=== PATIENT | female | born 1935 | race Caucasian/White ===

== ENCOUNTER 2016-12-27 17:15 | Observation (INO) | payer MEDICARE ==
[2016-12-27] VITALS (13 sets, daily range): BP systolic 102–160; BP diastolic 68–99; PULSE 98–126; RESP 16–18; TEMP 96.7–98.2; O2SAT 96–100
[~2016-12-27] VITALS: Ht 157.5 cm; Wt 73.5 kg
[~2016-12-27 17:15] MED LIST: AMLO5TAB96 PO; ATOR40TA49 PO; CHOL5000 PO; FERR324T4 PO; LORA0.5T PO; METO50TA PO; NITR-29 PO; OMEP20CA5 PO
[2016-12-27] MEDS ORDERED: METOPROLOL TARTRATE 5 MG/5 ML VIAL IV PUSH STA (17:45)
[2016-12-27] MEDS ORDERED: FERR325T PO (17:50)
[2016-12-27] MEDS ORDERED: AMLO5 PO (17:50)
[2016-12-27] MEDS ORDERED: D 50CAP PO (17:50)
[2016-12-27] MEDS ORDERED: APIX5TAB PO (17:50)
[2016-12-27] MEDS ORDERED: LORA-392 PO (17:50)
[2016-12-27] MEDS ORDERED: METO50TA PO (17:50)
[2016-12-27] MEDS ORDERED: LIPI80TA PO (17:50)
[2016-12-27] MEDS ORDERED: OMEP40CA2 PO (17:50)
--- NOTE | 2016-12-27 17:50 | PD ---
HPI Chief Complaint: Cardiac Complaint Time Seen by Provider: 17:24 Travel History International Travel<30 days: No Contact w/Intl Traveler<30days: No Traveled to known affect area: No History of Present Illness HPI This 81-year-old female is complaining of fast heartbeat. She says she is feeling weak and dizzy and thinks she is going to pass out. She has had atrial fibrillation about 6 years ago and had an ablation done. 6 months ago she was hospitalized with generalized weakness. She believes she had atrial fibrillation at that time though I not see that documented. She was started on Eliquis at that time. She takes metoprolol 50 mg twice a day and is quite certain that she took it. She is not having any chest pain or shortness of breath. She says she feels weak all over and lightheaded. There is a family history of coronary artery disease. She has no history of myocardial infarctions. She says that the symptoms were present when she woke up this morning and have been persistent throughout the day PFSH Past Medical History Arthritis: Yes Atrial Fibrillation: Yes Blood Disorders: No Heart Rhythm Problems: Yes (PALPITATIONS) Cancer: No Cardiovascular Problems: Yes (hx of a-fib) High Cholesterol: Yes Diabetes: No Diminished Hearing: No Endocrine: No Gastrointestinal Disorders: Yes GERD: Yes Genitourinary: Yes Headaches: Yes Hepatitis: No Hiatal Hernia: No Hypertension: Yes Immune Disorder: No Implanted Vascular Access Dvce: No Medical other: Yes (REFLUX, BACK AND NECK) Musculoskeletal: Yes Neurologic: Yes Psychiatric: No Reproductive: No Respiratory: Yes Thyroid Disease: No Tetanus Vaccination: < 5 Years Influenza Vaccination: Yes Menopausal: Yes Past Surgical History Abdominal Surgery: Yes (CHOLECYSTECTOMY) Appendectomy: Yes Cardiac Surgery: Yes (ABLATION) Cholecystectomy: Yes Ear Surgery: No Endocrine Surgery: No Eye Surgery: Yes (CATARACTS BILAT) Genitourinary Surgery: No Gynecologic Surgery: Yes (HYSTERECTOMY) Hysterectomy: Yes Neurologic Surgery: No Oral Surgery: No Pacemaker: No Thoracic Surgery: No Tonsillectomy: Yes Other Surgery: Yes Family History Family Hypercholesterolemia: Yes Social History Alcohol Use: Yes (occas. beer) Tobacco Use: No Substance Use: No Allergies-Medications (Allergen,Severity, Reaction): Coded Allergies: Aspirin (Verified Allergy, Severe, "TOLD NOT TO TAKE ANY ANTIINFLAMMATORIES", 12/27/16) Ibuprofen (Verified Allergy, Severe, "TOLD NOT TO TAKE ANYMORE", 12/27/16) Keflex (Verified Allergy, Severe, "SWOLLEN THROAT,ITCHING ALL OVER", ) Lisinopril (Verified Allergy, Severe, "RASH", 12/27/16) Penicillin (Verified Allergy, Severe, UNKNOWN, 12/27/16) Relafen (Verified Allergy, Severe, "NEPHROTIC SYNDROME", 12/27/16) Sulfa (Verified Allergy, Severe, "TOLD NOT TO TAKE ANYMORE", 12/27/16) Adhesives (Verified Allergy, Intermediate, Rash, 12/27/16) Digoxin (Verified Allergy, Intermediate, Fatigue, 12/27/16) Micardis (Verified Allergy, Intermediate, Fatigue, 12/27/16) Uncoded Allergies: ANTIINFLAMMATORIES (Allergy, Severe, "TOLD NOT TO TAKE ANYMORE", 01/04/16) . Reported Meds & Prescriptions Reported Meds & Active Scripts Active Reported Eliquis (Apixaban) 5 Mg Tab 5 Mg PO BID Omeprazole 40 Mg Cap 40 Mg PO DAILY Metoprolol Tartrate 50 Mg Tab 50 Mg PO BID Ativan (Lorazepam) 0.5 Mg Tab 0.5 Mg PO HS PRN Ferrous Sulfate 325 Mg Tab 325 Mg PO DAILY D 5000 (Cholecalciferol) 5,000 Unit Cap 1 Cap PO DAILY Lipitor (Atorvastatin Calcium) 80 Mg Tab 80 Mg PO HS Norvasc (Amlodipine Besylate) 5 Mg Tab 5 Mg PO BID Review of Systems General / Constitutional: No: Fever, Chills Eyes: No: Diploplia, Blurred Vision HENT: No: Headaches Cardiovascular: Positive: Palpitations, Irregular Rhythm, Tachycardia, No: Chest Pain or Discomfort Respiratory: No: Cough, Shortness of Breath Gastrointestinal: No: Vomiting, Diarrhea Genitourinary: No: Urgency, Frequency Musculoskeletal: No: Myalgias, Arthralgias Neurologic: Positive: Weakness, Dizziness, No: Syncope, Focal Abnormalities Endocrine: No: Cold Intolerance Hematologic/Lymphatic: No: Easy Bruising Physical Exam Narrative GENERAL: Well-developed female. Her heart rate is 120 SKIN: Focused skin assessment warm/dry. HEAD: Atraumatic. Normocephalic. EYES: Pupils equal and round. No scleral icterus. No injection or drainage. ENT: No nasal bleeding or discharge. Mucous membranes pink and moist. NECK: Trachea midline. No JVD. CARDIOVASCULAR: Rapid irregular rate and rhythm. No murmur appreciated. RESPIRATORY: No accessory muscle use. Clear to auscultation. Breath sounds equal bilaterally. GASTROINTESTINAL: Abdomen soft, non-tender, nondistended. Hepatic and splenic margins not palpable. MUSCULOSKELETAL: No obvious deformities. No clubbing. No cyanosis. No edema. NEUROLOGICAL: Awake and alert. No obvious cranial nerve deficits. Motor grossly within normal limits. Normal speech. PSYCHIATRIC: Appropriate mood and affect; insight and judgment normal. Data Data Last Documented VS Vital Signs Date Time Temp Pulse Resp B/P Pulse Ox O2 Delivery O2 Flow Rate FiO2 12/27/16 19:25 117 18 102/76 98 Room Air 12/27/16 19:00 98.2 Orders Electrocardiogram (12/27/16 17:45) Complete Blood Count With Diff (12/27/16 17:45) Basic Metabolic Panel (Bmp) (12/27/16 17:45) B-Type Natriuretic Peptide (12/27/16 17:45) Prothrombin Time / Inr (Pt) (12/27/16 17:45) Act Partial Throm Time (Ptt) (12/27/16 17:45) Urinalysis - C+S If Indicated (12/27/16 17:45) Magnesium (Mg) (12/27/16 17:45) Thyroid Stimulating Hormone (12/27/16 17:45) Chest, Single Ap (12/27/16 17:45) Metoprolol Tartrate Inj (Lopressor Inj) (12/27/16 17:45) Troponin I (12/27/16 18:14) Metoprolol Tartrate Inj (Lopressor Inj) (12/27/16 18:30) Metoprolol Tartrate (Lopressor) (12/27/16 19:15) Labs Laboratory Tests Test 12/27/16 17:55 White Blood Count 6.4 TH/MM3 Red Blood Count 4.83 MIL/MM3 Hemoglobin 12.4 GM/DL Hematocrit 37.8 % Mean Corpuscular Volume 78.3 FL Mean Corpuscular Hemoglobin 25.6 PG Mean Corpuscular Hemoglobin 32.7 % Concent Red Cell Distribution Width 16.4 % Platelet Count 285 TH/MM3 Mean Platelet Volume 7.8 FL Neutrophils (%) (Auto) 47.8 % Lymphocytes (%) (Auto) 37.5 % Monocytes (%) (Auto) 12.3 % Eosinophils (%) (Auto) 0.8 % Basophils (%) (Auto) 1.6 % Neutrophils # (Auto) 3.0 TH/MM3 Lymphocytes # (Auto) 2.4 TH/MM3 Monocytes # (Auto) 0.8 TH/MM3 Eosinophils # (Auto) 0.1 TH/MM3 Basophils # (Auto) 0.1 TH/MM3 CBC Comment DIFF FINAL Differential Comment Prothrombin Time 10.4 SEC Prothromb Time International 0.9 RATIO Ratio Activated Partial 28.5 SEC Thromboplast Time Urine Color YELLOW Urine Turbidity CLEAR Urine pH 6.5 Urine Specific [place] 1.005 Urine Protein NEG mg/dL Urine Glucose (UA) NEG mg/dL Urine Ketones NEG mg/dL Urine Occult Blood NEG Urine Nitrite NEG Urine Bilirubin NEG Urine Leukocyte Esterase TRACE Urine Squamous Epithelial 0-5 /hpf Cells Microscopic Urinalysis Comment CULT NOT INDICATED Sodium Level 134 MEQ/L Potassium Level 3.8 MEQ/L Chloride Level 97 MEQ/L Carbon Dioxide Level 28.3 MEQ/L Anion Gap 9 MEQ/L Blood Urea Nitrogen 16 MG/DL Creatinine 0.72 MG/DL Estimat Glomerular Filtration 78 ML/MIN Rate Random Glucose 97 MG/DL Calcium Level 8.8 MG/DL Magnesium Level 2.1 MG/DL Troponin I LESS THAN 0.02 NG/ML B-Type Natriuretic Peptide 253 PG/ML Thyroid Stimulating Hormone 2.260 uIU/ML 3rd Gen [facility] Medical Decision Making Medical Screen Exam Complete: Yes Emergency Medical Condition: Yes Medical Record Reviewed: Yes Differential Diagnosis Differential includes atrial fibrillation, dysrhythmia, electrolyte imbalance Narrative Course EKG shows atrial fibrillation at a rate of 117. Patient is on metoprolol 50 mg twice daily and says she has taken it this morning. I have given an additional 10 mg intravenously of metoprolol. I discussed the case with Dr. Serrano we will increase her metoprolol to 75 mg twice a day and continue the Eliquis. Patient is very symptomatic with this atrial fibrillation. Diagnosis Primary Impression: Rapid atrial fibrillation Additional Impression: Near syncope Zoltan Vega MD Dec 27, 2016 17:50
[2016-12-27 18:01] LABS: BASOPHIL # 0.1 TH/MM3 (0-0.2); BASOPHIL % 1.6 % (0.0-2.0); EOSINOPHIL # 0.1 TH/MM3 (0-0.4); EOSINOPHIL % 0.8 % (0.0-4.0); HEMATOCRIT 37.8 % (35.0-46.0); LYMPH % 37.5 % (9.0-44.0); LYMPHOCYTE # 2.4 TH/MM3 (1.0-4.8); MEAN CELL VOLUME 78.3 FL (80.0-100.0); MEAN CORPUSCULAR HEMOGLOBIN 25.6 PG (27.0-34.0); MEAN CORPUSCULAR HGB CONC 32.7 % (32.0-36.0); MONO % 12.3 % (0.0-8.0); NEUT % 47.8 % (16.0-70.0); PLATELET COUNT 285 TH/MM3 (150-450); RED BLOOD COUNT 4.83 MIL/MM3 (4.00-5.30); RED CELL DISTRIBUTION WIDTH 16.4 % (11.6-17.2); WHITE BLOOD COUNT 6.4 TH/MM3 (4.0-11.0)
[2016-12-27 18:06] LABS: HEMO FLAGS DIFF FINAL
[2016-12-27 18:09] LABS: BLOOD, URINE NEG (NEG); GLUCOSE,URINE NEG (NEG); KETONE, URINE NEG (NEG); NITRITE,URINE NEG (NEG); PH, URINE 6.5 (5.0-8.5); POTASSIUM 3.8 MEQ/L (3.5-5.1)
[2016-12-27 18:12] LABS: BICARBONATE 28.3 MEQ/L (21.0-32.0); MAGNESIUM 2.1 MG/DL (1.5-2.5)
[2016-12-27 18:14] LABS: URINE COLOR YELLOW (YELLW/STRAW)
[2016-12-27 18:15] LABS: APTT (PATIENT) 28.5 SEC (24.3-30.1); COMMENT (UR) CULT NOT INDICATED; CULTURE IF INDICATED CULT NOT INDICATED; INTERNATIONAL NORMALIZED RATIO 0.9 RATIO; PROTHROMBIN TIME - PATIENT 10.4 SEC (9.8-11.6); SQUAMOUS EPITHELIAL CELL URINE 0-5 /hpf (0-5)
--- NOTE | 2016-12-27 18:18 | RADHPO ---
EXAM DATE/TIME: 12/27/2016 18:09 [place] COMPARISON: CHEST SINGLE AP, May 31, 2016, 13:16. INDICATIONS : Complains of heart palpitations and weakness. MEDICAL HISTORY : Atrial fibrillation SURGICAL HISTORY : None. ENCOUNTER: Initial ACUITY: 1 day PAIN SCORE: 0/10 LOCATION: Bilateral chest FINDINGS: A single view of the chest demonstrates the lungs to be symmetrically aerated without evidence of mas s, infiltrate or effusion. Minimal right paratracheal fullness is noted probably related to rotation . The cardiomediastinal contours are unremarkable. Osseous structures are intact. CONCLUSION: No acute disease. Sunny Bejarano MD FACR on December 27, 2016 at 18:16 Board Certified Radiologist. This report was verified electronically.
[2016-12-27] MEDS ORDERED: METOPROLOL TARTRATE 5 MG/5 ML VIAL IV PUSH ONE (18:30)
[2016-12-27] MEDS ORDERED: METOPROLOL TARTRATE 25 MG TAB PO ONE (19:15)
[2016-12-27] MEDS ORDERED: FISH1000 PO (20:25)
[2016-12-27] MEDS ORDERED: CHOL1CHW5 CHEW (20:25)
[2016-12-27] MEDS ORDERED: COQ1200C PO (20:25)
[2016-12-27] MEDS ORDERED: LORazepam 0.5 MG TAB PO PRN (20:45)
[2016-12-27] MEDS ORDERED: NON-FORMULARY DRUG (Omega-3 Fatty Acids (Fish Oil) 1,000 MG) PO SCH (21:00)
[2016-12-27] MEDS: METOPROLOL TARTRATE 50 MG TAB PO SCH (21:00)
[2016-12-27] MEDS: PANTOPRAZOLE SOD 20 MG DELAYED RELEASE TAB PO SCH ×2 (21:00→23:43)
[2016-12-27] MEDS ORDERED: PILL SPLITTER OTHER PRN (21:00)
--- NOTE | 2016-12-27 22:15 | MH ---
cc: ANNA FALCON M.D. DATE OF ADMISSION 12/27/2016 ADMITTING DIAGNOSIS 1. Recurrent atrial fibrillation with mild rapid ventricular response. 2. Prior history of ablation procedure for atrial fibrillation around 2009 with brief recurrent atrial fibrillation around May 2016 and was put on Eliquis then but had been in sinus rhythm until just today. 3. Hypertension. 4. Hyperlipidemia. 5. Gastroesophageal reflux disease / hiatal hernia. 6. Anxiety. 7. Osteoarthritis. 8. Atherosclerosis of the aorta. 9. Vitamin D insufficiency on vitamin D therapy. 10. Prior paroxysmal supraventricular tachycardia controlled with beta jane. PERTINENT HISTORY This is an 81-year-old white female who started to experience some palpitations this morning and felt like her heart was beating fast at times. She would get just a little bit short of breath on exertion. She would feel a little bit weak and at times a little dizzy or lightheaded. She has no chest discomfort. She has a history of atrial fibrillation in the past and had an ablation procedure around 2009 and had been in sinus rhythm until in May of 2016 she was noted to be in atrial fibrillation. She was put on Cartia by her dough cutting machine operator but only took it for less than a day because it caused some side effects but she subsequently went back in sinus rhythm. She was noted to be in sinus rhythm at an office visit in June of [address] Howe. She had a Holter monitor on 06/14/2016 that showed sinus rhythm with some occasional PACs with short atrial runs and some occasional PVCs in singlets. She has had no history of heart attack, angina or congestive heart failure. When she came to the ED today she was noted to be in atrial fibrillation and her maximum heart rate has seemed to have been only up to around 120. She seems much more comfortable now. She was given 75 milligrams of metoprolol after Dr. Chisholm discussed the case with cardiology. She has no chest pain or shortness of breath at this time. She states that she feels better. PAST MEDICAL HISTORY As mentioned. She also has: 1. Hypertension. 2. Hyperlipidemia for which she is on a statin drug. 3. She has gastroesophageal reflux disease / hiatal hernia. 4. She has had esophageal stricture in the past that was dilated a few years ago. 5. She has had no lung disease other than pneumonia in the past. No diabetes. No thyroid disease. No liver problems. 6. She has had a negative thallium stress test in 2009. 7. She has had osteoarthritis. 8. Anxiety. 9. Osteopenia. 10. Paroxysmal supraventricular tachycardia. 11. Atherosclerosis of the aorta. 12. She has had some lumbar degenerative disc disease but it is stable now. 13. She has had diverticulitis. 14. She has had herpes zoster and varicella. 15. She had nephrotic syndrome in the that was triggered by NSAIDs and she was put on prednisone then with resolution of it. PAST SURGICAL HISTORY 1. She had a total abdominal hysterectomy with a partial left oophorectomy and right salpingo-oophorectomy. 2. She has had a tonsillectomy and adenoidectomy. 3. Laparoscopic cholecystectomy. 4. Appendectomy. 5. Had an incisional right breast biopsy in the past that was benign. 6. She has had excision of a Nelson's neuroma from the right foot. 7. Had arthroscopy of the right shoulder with subacromial decompression and prior right rotator cuff repair. 8. She has had laparoscopy with lysis of adhesions. 9. She has had bilateral cataract extraction and lens implants. 10. Had colonoscopies done on 01/15/2002, 11/26/2008, 05/13/2010 that showed normal colon. 11. Her last EGD showed gastric polyps. 12. On 04/24/2013 she has had gastritis on prior EGDs. ALLERGIES SHE HAS HIVES AND RASH WITH KEFLEX AND ANAPHYLAXIS WITH PENICILLIN. SHE HAD A RASH WITH LISINOPRIL. LOVASTATIN CAUSED NAUSEA. NSAIDS AND RELAFEN CAUSED NEPHROTIC SYNDROME. SHE HAS A PROBLEM WITH LATEX GLOVES. SULFA. MEDICATIONS She takes: 1. Metoprolol 50 milligrams twice a day. 2. Eliquis 5 milligrams twice a day. This was started in May of 2016. 3. She is on Atorvastatin 80 milligrams tablet, one every other day. 4. Amlodipine 5 milligrams twice a day. 5. Lorazepam 1 milligrams, she generally just takes one-half pill at night as needed. 6. Omeprazole 20 milligrams tablet, takes two a day. 7. Vitamin D3 2000 units two a day. 8. She takes Co-Q10 200 milligrams daily. 9. Magnesium oxide 200 milligrams daily. 10. Fish oil 1000 milligrams two a day. FAMILY HISTORY Her father around 75. He had cirrhosis of the liver and while he was in the hospital for that he apparently fell and punctured his lung and of that. Mother at 78 of heart disease. Her mother had diabetes. Had a sister with diabetes. SOCIAL HISTORY She is . Lives alone. She quit smoking in 1990, smoked one-half pack a day for 25 years prior to quitting. She has just occasional glass or wine or beer. REVIEW OF SYSTEMS GENERAL: No fever or chills, sweats. HEENT: No runny nose, sore throat, vision complaints. CARDIOVASCULAR: As mentioned no chest discomfort. PULMONARY: No cough, hemoptysis, wheezing. No shortness of breath at rest. GASTROINTESTINAL: No nausea or vomiting, heartburn, indigestion, melena or rectal bleeding. GENITOURINARY: No dysuria, urgency, frequency. EXTREMITIES: Without edema. MUSCULOSKELETAL: Without complaints. SKIN: Without rash. NEUROLOGIC: No focal weakness, sensory loss or confusion. PHYSICAL EXAMINATION GENERAL: Pleasant white female in no acute distress. VITAL SIGNS: Temperature 98.2. Her most recent heart rate is 102 and irregular. Blood pressure is improved, it was up to 154/83 but most recent one is 115/76. O2 saturation 97%. HEENT: Tympanic membranes clear. Nose negative. Mouth without inflammation. NECK: Without bruits. No JVD. HEART: Irregular rhythm which is slight tachycardia. LUNGS: Clear. ABDOMEN: Soft. Nontender. No masses. EXTREMITIES: No edema. Pulses palpated both feet. SKIN: Negative. NEUROLOGIC: Oriented times three. Cranial nerves, motor and sensory intact. LABORATORY DATA Her sodium is 134, potassium 3.8, chloride 97, CO2 28.3. BUN 16, creatinine 0.17. GFR was 78. Calcium 8.8. Magnesium 2.1. TSH was normal at 2.26. Troponin was less than 0.02. BNP 253. White count was 6.4, hemoglobin 12.4, platelets were 285,000. Urinalysis was negative. EKG showed atrial fibrillation. IMAGING A chest x-ray showed no acute process. ASSESSMENT As noted. PLAN The patient has been given 75 milligrams of metoprolol and her heart rate has come down to around 100. She will be monitored overnight. She will be maintained on 75 milligrams twice a day. She will continue on Eliquis for her atrial fibrillation. She will continue on her other medications as well. She will be monitored on telemetry. If she is stable tomorrow we will be able to discharge her and let her followup with Dr. Howe. He will need to decide whether she will need further ablation procedure since she is back in atrial fibrillation, he apparently discussed this with her back in the fall when he saw her after she had had a brief episode of atrial fibrillation back then but had converted back to sinus rhythm. She cannot take digoxin apparently has had a problem with that and did have some side effects to Cartia XT, so that is why we have upped the dose of the metoprolol. MD MARY Panchal/KK /8:50 PM /9:04 PM
[2016-12-27] MEDS: APIXABAN 5 MG TABLET PO SCH (22:48)
[2016-12-27] MEDS: CHOLECALCIFEROL (VIT D3) 1000 UNIT TAB PO SCH (22:48)
[2016-12-27] MEDS: amLODIPine BESYLATE 5 MG TAB PO SCH (22:48)
[2016-12-28] VITALS (9 sets, daily range): BP systolic 112–134; BP diastolic 71–89; PULSE 91–116; RESP 14–18; TEMP 95.1–96.7; O2SAT 97–98
[2016-12-28] MEDS: PANTOPRAZOLE SOD 20 MG DELAYED RELEASE TAB PO SCH (07:32)
[2016-12-28] MEDS: CHOLECALCIFEROL (VIT D3) 1000 UNIT TAB PO SCH (07:33)
[2016-12-28] MEDS: amLODIPine BESYLATE 5 MG TAB PO SCH (07:33)
[2016-12-28] MEDS: METOPROLOL TARTRATE 50 MG TAB PO SCH (07:33)
[2016-12-28] MEDS: APIXABAN 5 MG TABLET PO SCH (07:33)
--- NOTE | 2016-12-28 07:52 | HHI.PR ---
Subjective Remarks Patient has no complaints. No chest pain or shortness of breath. Her telemetry did show heart rates up into the 120's at times during the night but now primarily between 100-110. Objective Vitals Vital Signs Date Time Temp Pulse Resp B/P Pulse Ox O2 Delivery O2 Flow Rate FiO2 12/28/16 06:00 106 12/28/16 05:00 103 12/28/16 04:00 103 12/28/16 04:00 96.3 91 16 133/88 98 12/28/16 03:00 104 12/28/16 02:00 100 12/28/16 01:00 94 12/28/16 00:00 95.1 116 18 134/89 98 12/28/16 00:00 114 12/27/16 23:00 99 12/27/16 22:00 105 12/27/16 21:46 96.7 116 18 129/72 96 12/27/16 20:30 102 18 115/76 97 Room Air 12/27/16 20:00 112 18 151/99 98 Room Air 12/27/16 19:42 122 18 154/83 97 Room Air 12/27/16 19:25 117 18 102/76 98 Room Air 12/27/16 19:00 98.2 107 18 123/68 98 Room Air 12/27/16 19:00 18 98 Room Air 12/27/16 18:40 98 148/90 12/27/16 18:32 110 160/92 12/27/16 18:11 104 151/86 12/27/16 17:58 126 158/93 12/27/16 17:43 Room Air 12/27/16 17:43 98.1 123 16 153/85 100 Room Air 12/27/16 12/27/16 12/28/16 15:00 23:00 07:00 Intake Total 180 ml Balance 180 ml Intake Oral 180 ml # Voids 3 # Bowel Movements 0 Result Diagram: 12/27/16 [id number] Other Results Laboratory Tests Test 12/27/16 17:55 White Blood Count 6.4 TH/MM3 Red Blood Count 4.83 MIL/MM3 Hemoglobin 12.4 GM/DL Hematocrit 37.8 % Mean Corpuscular Volume 78.3 FL Mean Corpuscular Hemoglobin 25.6 PG Mean Corpuscular Hemoglobin 32.7 % Concent Red Cell Distribution Width 16.4 % Platelet Count 285 TH/MM3 Mean Platelet Volume 7.8 FL Neutrophils (%) (Auto) 47.8 % Lymphocytes (%) (Auto) 37.5 % Monocytes (%) (Auto) 12.3 % Eosinophils (%) (Auto) 0.8 % Basophils (%) (Auto) 1.6 % Neutrophils # (Auto) 3.0 TH/MM3 Lymphocytes # (Auto) 2.4 TH/MM3 Monocytes # (Auto) 0.8 TH/MM3 Eosinophils # (Auto) 0.1 TH/MM3 Basophils # (Auto) 0.1 TH/MM3 CBC Comment DIFF FINAL Differential Comment Prothrombin Time 10.4 SEC Prothromb Time International 0.9 RATIO Ratio Activated Partial 28.5 SEC Thromboplast Time Urine Color YELLOW Urine Turbidity CLEAR Urine pH 6.5 Urine Specific [place] 1.005 Urine Protein NEG mg/dL Urine Glucose (UA) NEG mg/dL Urine Ketones NEG mg/dL Urine Occult Blood NEG Urine Nitrite NEG Urine Bilirubin NEG Urine Leukocyte Esterase TRACE Urine Squamous Epithelial 0-5 /hpf Cells Microscopic Urinalysis Comment CULT NOT INDICATED Sodium Level 134 MEQ/L Potassium Level 3.8 MEQ/L Chloride Level 97 MEQ/L Carbon Dioxide Level 28.3 MEQ/L Anion Gap 9 MEQ/L Blood Urea Nitrogen 16 MG/DL Creatinine 0.72 MG/DL Estimat Glomerular Filtration 78 ML/MIN Rate Random Glucose 97 MG/DL Calcium Level 8.8 MG/DL Magnesium Level 2.1 MG/DL Troponin I LESS THAN 0.02 NG/ML B-Type Natriuretic Peptide 253 PG/ML Thyroid Stimulating Hormone 2.260 uIU/ML 3rd Gen Imaging Last Impressions Chest X-Ray 12/27/16 0877 Signed Impressions: Service Date/Time: Tuesday, December 27, 2016 18:09 - CONCLUSION: No acute disease. Sunny Bejarano MD FACR Objective Remarks Exam: Pleasant white female in no distress HEENT: Pupils equal, no scleral icterus, mouth negative Neck: No JVD Heart: Irregular irregular rhythm c/w atrial fibrillation, no murmur Lungs: Clear Abdomen: Soft, nontender Extremities: No edema, pulses palpated Neuro: negative A/P Assessment and Plan Assessment: --Recurrent atrial fibrillation with mild rapid ventricular response--on Eliquis. On Metoprolol. She has had side effects to Digoxin and Cardizem in the past. --Hx of prior cardiac ablation procedure for atrial fibrillation around 2009 and patient had remained in sinus rhythm until she had a brief episode of a-fib in May 2016 that converted to sinus rhythm --Hypertension --Hyperlipidemia --GERD/Hiatal hernia --Anxiety --PSVT--stable --Vitamin D insufficiency --Osteopenia --Osteoarthritis --Atherosclerosis of the aorta Plan: Her Metoprolol was increased to 75mg bid last night. Rate hovering primarily between 100-120. Patient currently asymptomatic. Will consult Dr Howe (her automotive service manager). Can be discharged when cardiology feels her rate is adequately controlled. She is on Eliquis. Continue other routine home medications as ordered. If discharged later today she will followup with Dr Howe as well as myself. Rashard Abbott MD Dec 28, 2016 07:52
--- NOTE | 2016-12-28 08:27 | MB ---
cc: VAN TRUJILLO M.D., DONALD G. M.D. GOLDSMITH, ALAN S. M.D. DATE OF 1935 DATE OF SERVICE 12/28/2016 I have reviewed outside and hospital records. REASON FOR CONSULTATION The patient is a pleasant 81-year-old woman I am seeing for atrial fibrillation. She is followed by Dr. Trujillo. HISTORY OF PRESENT ILLNESS The patient had an atrial fibrillation ablation approximately in 2009. She did have a brief recurrence in May of 2016 and has been on anticoagulation and beta blockers. The day before yesterday, 12/26, she noted she was more fatigued but had no other cardiac symptoms. Yesterday morning noticed the fatigue continued along with mild dyspnea and when taking her blood pressure noticed she was tachycardia. She had no chest pain or palpitations but did get a little lightheaded when she would stand up. PAST MEDICAL HISTORY 1. Atrial fibrillation as above. 2. PVCs. 3. Hypertension. 4. Hyperlipidemia. 5. Gastroesophageal reflux. 6. Prior esophageal stricture with dilatation. 7. Osteoarthritis. 8. Lumbar disk disease. 9. Diverticulitis. 10. Distant nephrotic syndrome triggered by NSAIDs. PAST SURGICAL HISTORY 1. SYMONE-BSO. 2. Cholecystectomy. 3. Tonsillectomy. 4. Appendectomy. 5. Right breast biopsy. 6. Right foot Nelson's neuroma. 7. Right shoulder arthroscopy with rotator cuff repair. 8. Laparoscopic adhesion lysis. 9. Bilateral cataracts. 10. Colon polyps. ALLERGIES KEFLEX. PENICILLIN. REGLAN. SULFA. MISSY INHIBITORS. She may have had also some issue with LOVASTATIN CAUSING NAUSEA. NSAIDS. LATEX gloves. There may be in some intolerance to DIGOXIN Intolerance to CARDIZEM. FAMILY HISTORY Only remarkable for a brother with atrial fibrillation. She is a and distant smoker and rarely drinks. REVIEW OF SYSTEMS Only remarkable for occasional joint discomfort and the above symptoms. PHYSICAL EXAMINATION GENERAL: On exam she is a borderline to mildly tachycardic. Alert and oriented x 3. HEENT: There are no xanthelasma and oral pharyngeal mucosa normal. VITAL SIGNS: Afebrile. Vital signs stable. CHEST: Without deformities and clear. JVD normal. S1-S2, no murmurs or gallops. There is an irregular rhythm. ABDOMEN: Benign. EXTREMITIES: No cyanosis, clubbing or edema. PULSES: 1-2+ throughout, without bruits. NEUROLOGIC: She is not ambulated EKG Shows atrial fibrillation with rapid response and mild nonspecific ST-T wave changes. CHEST X-RAY Negative. LABORATORY WORK CBC normal with mild microcytosis. PT/PTT normal. Potassium 3.8, creatinine 0.70. TSH normal. Troponin negative. BNP 253. Urinalysis negative. MEDICATION LIST Reviewed. PROBLEMS 1. Recurrent atrial fibrillation with rapid response. 2. Hypertension. 3. Hyperlipidemia. RECOMMENDATIONS 1. Continue Eliquis given her risk factors. 2. She has been placed on increased metoprolol. If this does not control her rate, this dose can certainly be increased and amlodipine backed off. Additionally, low-dose verapamil can be added for rate control. 3. Low cholesterol/salt diet. 4. My associate will see the patient tomorrow. Eventually when rate is controlled, she can be discharged with followup with Dr. Trujillo who can discuss potential repeat ablation. All questions were answered. Carl Howe MD ASAga/SSB /8:08 AM /8:16 AM
[2016-12-28] MEDS ORDERED: INFLUENZA VIRUS VACCINE (QUADRIVALENT) 0.5 ML SYR IM ONE (09:00)
[2016-12-28] MEDS ORDERED: NON-FORMULARY DRUG (Coenzyme Q10 (Ubidecarenone) (Coq10) 200 MG) PO SCH (09:00)
--- NOTE | 2016-12-28 11:44 | EKG ---
Date Performed: 12/27/2016 Time Performed: 17:28:06 PTAGE: 81 years EKG: Atrial fibrillation with rapid ventricular response with PVC(s) Lateral ST-T changes are no nspecific Abnormal ECG PREVIOUS TRACING : 05/31/2016 16.26 DOCTOR: Devon Quach Interpretating Date/Time 12/28/2016 11:39:11
[2016-12-28] MEDS ORDERED: METO-309 PO (14:06)
[2016-12-29] MEDS ORDERED: ATORVASTATIN 40 MG TAB PO SCH (09:00)
== END 2016-12-28 15:34 | disposition home or self-care (01) ==
LOC: PHED 17:15 → INTOOBSV 19:43 → PHEDA 19:43 → PH3A 20:53
PROVIDERS: ADMIT Family Medicine; ATTEND Family Medicine
DX: I48.91 Unspecified atrial fibrillation (principal); R55 Syncope and collapse; R53.1 Weakness; R42 Dizziness and giddiness; E78.00 Pure hypercholesterolemia, unspecified; K21.9 Gastro-esophageal reflux disease without esophagitis; I10 Essential (primary) hypertension; Z79.899 Other long term (current) drug therapy; E78.5 Hyperlipidemia, unspecified; I70.0 Atherosclerosis of aorta; E55.9 Vitamin D deficiency, unspecified; I47.1 Supraventricular tachycardia; R06.02 Shortness of breath; I49.3 Ventricular premature depolarization; M19.90 Unspecified osteoarthritis, unspecified site; M85.80 Other specified disorders of bone density and structure, unspecified site; B02.9 Zoster without complications; B01.9 Varicella without complication; K57.92 Diverticulitis of intestine, part unspecified, without perforation or abscess without bleeding; Z79.01 Long term (current) use of anticoagulants
CPT/HCPCS: 71010; 80048; 81001; 83735; 83880; 84443; 84484; 85025; 85610; 85730; 93005; 96374; 96376; 99285; G0378

== ENCOUNTER 2017-01-20 06:15 | Day surgery (SDC) | payer MEDICARE ==
[~2017-01-20] VITALS: Ht 157.5 cm; Wt 76.1 kg
[2017-01-20] VITALS (10 sets, daily range): BP systolic 104–130; BP diastolic 62–78; PULSE 78–90; RESP 16–18; TEMP 98–98.4; O2SAT 94–96
[~2017-01-20 06:15] MED LIST changes: +AMLO5 PO; -AMLO5TAB96 PO; +APIX5TAB PO; -ATOR40TA49 PO; +CHOL1CHW5 CHEW; -CHOL5000 PO; +COQ1200C PO; -FERR324T4 PO; +FISH1000 PO; +LIPI80TA PO; +LORA-392 PO; -LORA0.5T PO; +METO-309 PO; -METO50TA PO; -NITR-29 PO; -OMEP20CA5 PO; +OMEP40CA2 PO
[2017-01-20] MEDS ORDERED: POVIDONE IODINE 5% (ANTISEPSIS KIT) 4 APPLICATIONS EACH NARE PRN (06:45)
[2017-01-20] MEDS ORDERED: CHLORHEXIDINE GLUCONATE 2 % 1 PACK (2 CLOTHS) TOPICAL PRN (06:45)
[2017-01-20] MEDS ORDERED: SODIUM CHLORID 0.9% 500 ML IV PRN (06:45)
[2017-01-20] MEDS ORDERED: METOPROLOL TARTRATE 25 MG TAB PO PRN (06:45)
[2017-01-20] MEDS ORDERED: LACTATED RINGER'S 1000 ML IV PRN (06:45)
[2017-01-20] MEDS ORDERED: INSULIN HUMAN REGULAR 1,000 UNITS/10 ML VIAL SQ PRN (06:45)
[2017-01-20] MEDS ORDERED: LEVOFLOXACIN 500 MG PREMIX INJ 100 ML IV ONE (07:00)
[2017-01-20 07:29] LABS: AUTOMATED NEUTROPHIL # 1.7 TH/MM3 (1.8-7.7); BASOPHIL % 0.8 % (0.0-2.0); EOSINOPHIL % 1.3 % (0.0-4.0); HEMATOCRIT 29.6 % (35.0-46.0); HEMO FLAGS DIFF FINAL; LYMPH % 28.7 % (9.0-44.0); MEAN CELL VOLUME 75.3 FL (80.0-100.0); MEAN CORPUSCULAR HEMOGLOBIN 25.1 PG (27.0-34.0); MEAN CORPUSCULAR HGB CONC 33.4 % (32.0-36.0); NEUT % 49.2 % (16.0-70.0); PLATELET COUNT 210 TH/MM3 (150-450); RED BLOOD COUNT 3.93 MIL/MM3 (4.00-5.30); WHITE BLOOD COUNT 3.5 TH/MM3 (4.0-11.0)
[2017-01-20 07:41] LABS: BICARBONATE 26.6 MEQ/L (21.0-32.0); POTASSIUM 3.9 MEQ/L (3.5-5.1)
[2017-01-20 07:42] LABS: APTT (PATIENT) 25.7 SEC (24.3-30.1); PROTHROMBIN TIME - PATIENT 10.7 SEC (9.8-11.6)
[2017-01-20] MEDS ORDERED: HEPARIN SODIUM - IV 10,000 UNITS/10 ML VIAL ONE (07:45)
[2017-01-20] MEDS ORDERED: MIDAZOLAM HCL 2 MG/2 ML VIAL ONE (07:45)
[2017-01-20] MEDS ORDERED: HEPARIN-D5W INJ 250 ML ONE (07:45)
[2017-01-20] MEDS ORDERED: fentaNYL CITRATE 250 MCG/5 ML AMP ONE (07:45)
[2017-01-20] MEDS ORDERED: ISOPROTERENOL HCL 1 MG/5 ML AMP ONE (08:13)
[2017-01-20] MEDS ORDERED: PROPOFOL 200 MG/20 ML AMP IV ONE ×2 (08:46→11:52)
[2017-01-20] MEDS ORDERED: PROTAMINE SULFATE 50 MG/5 ML VIAL ONE (09:57)
--- NOTE | 2017-01-20 10:13 | PD.CARD ---
Atrial Fibrillation Ablation PROCEDURE DATE: January 20, 2017 PROCEDURES PERFORMED: 1. Electrophysiology study on Isuprel infusion 2. CS cannulation 3. 3-D mapping 4. Transseptal approach 5. Right and left heart catheterization 6. Intracardiac echo 7. Radiofrequency ablation of atrial fibrillation 8. Pulmonary vein isolation 9. Posterior wall ablation 10. Mitral valve isolation 11. Mitral line creation 12. Left atrial tachycardia ablation 13. Roof line creation 14. Floor line creation 15. Anterior and posterior ablation 16. Cardioversion INDICATIONS FOR THE PROCEDURE Ms. Johnson is a 81-year-old female with hx of atrial fibrillation, previous ablation, on anticoagulation, very symptomatic, referred for electrophysiology study and ablation. The risks, the nature and the benefits of the procedure were clearly stated to her. The risks include pneumothorax, cardiac perforation, stroke, need for open heart surgery and even . The patient understood and agreed to proceed. DESCRIPTION OF THE PROCEDURE IN DETAIL As written informed consent was obtained prior to transesophageal echocardiogram , the patient was kept on the table where she was prepped and draped in the usual sterile fashion. Conscious sedation was initiated and maintained throughout the procedure by the anesthesiologist. Once sedation was verified, the right and left inguinal areas were anesthetized with 2% Xylocaine. Using modified Seldinger technique, the left femoral vein was cannulated on three occasions, three guidewires were advanced. Over the wire a 6, 7 and a 10- E[place]an Hemaquet were advanced. Then the left femoral artery was cannulated on one occasion, one guidewire was advanced. Over the wire a 4-Eritrean Hemaquet was advanced. Then the right femoral vein was cannulated on one occasion, one guidewire was advanced. Over the wire a 8-Eritrean Hemaquet was advanced. Then under fluoroscopic guidance through the 6 and 7-Eritrean Hemaquet, two 5-Eritrean Lamont curved quadripolar electrophysiology catheters were advanced and placed around the His as well as coronary sinus. Basic interval was measured. The patient was in atrial fibrillation. Through the 10-Eritrean Hemaquet, a Cordis Arnett AcuNav intracardiac echo catheter was advanced and placed at the right atrium. Multiple view was obtained. There is mild pericardial effusion. Pulmonary vein was seen, atrial septal was visualized. Then the 8-Eritrean Hemaquet in the right femoral vein was exchanged for Agilis transseptal sheath that was placed all the way to the superior vena cava. Through the sheath a Dary needle was advanced, then the sheath, the dilator and the needle were progressed until foci engaged. Once engaged, the needle was advanced. RF was delivered for 2 seconds. I was able to cross into the left atrium. Once the needle crossed, the dilator was advanced. Once the dilator crossed, the sheath was advanced. Once the sheath crossed, the dilator and the needle were removed. At this point I did flood the system and fluid movement was seen in the left atrium the indicates the sheath is in good position. The patient already received 8,000 units of heparin. The goal is to keep an ACT around 350 during ablation. Then through the sheath a St. Manny 20 pulse circumferential catheter was advanced. Using [employer] endocardial solution mapping system, a two- dimensional configuration of the left atrium was obtained. Points were taken at the left superior and inferior veins, right superior and inferior veins, mitral valve, and appendages. Then through the sheath a St. Manny TactiCath 65cm 3.5mm irrigated tipped mapping and radiofrequency ablation catheter was advanced. Esophageal probe was placed temperature monitoring during ablation. When it increased to 0.5 degrees Celsius above baseline, I moved to a different area of the atrium. First I did isolate the left superior and inferior vein. I did make a big lower [place] around the veins. Posterior was ablated. Then a roof line was created, a floor line was created, a mitral line was isolated, then the mitral valve was isolated. At that point the patient was in left atrial tachycardia. Further ablation was performed at the posterior wall and anterior wall. I did create a line from the floor to the roof area, passing by the left atrial appendage. Then the right superior and inferior veins were isolated. The left side was in atrial tach with a cycle length of around 450ms and the rifgt side was in afib. I did remap the atrium. There is no significant signal in the left atrium. At this point I decided to proceed with cardioversion. A 200 sync biphasic joule was delivered that converted the patient into sinus rhythm. At that point I did advance the circumferential catheter again into the vein. There was no signal into the vein, pacing from the vein showed no conduction to the atrium. Isuprel infusion was initiated at 20 mcg for 15 minutes. No tachyarrhythmia was induced, post Isuprel no tachyarrhythmia was induced. At that point the procedure was complete. All catheters were removed, atrial septal sheath was exchanged for 9-Eritrean Hemaquet, intracardiac echo showed no pericardial effusion. There is still good flow in the pulmonary vein. The patient is going to be transferred to the recovery room. No incident report. The patient tolerated the procedure. Blood loss was minimal. FINDINGS 1. Electrocardiogram: At baseline the patient was in atrial fibrillation, post procedure the patient was in sinus rhythm. 2. Basic interval: Base cycle length was around 590. Post ablation she was around 940 milliseconds. AH at 96 and HV at 40 milliseconds. 3. Tachyarrhythmia: Atrial fibrillation was mapped and ablated. Atrial tachycardia was ablated. The ablation was successful. CONCLUSION Successful electrophysiology study, mapping, radiofrequency ablation of atrial fibrillation, left atrial tachycardia, pulmonary vein isolation, posterior ablation, mitral valve isolation, mitral line creation, roof line creation, floor line creation, left atrial tachycardia, and cardioversion. COMMENTS AND RECOMMENDATIONS The patient is going to be transferred to the telemetry unit. Will be observed and when stable can be discharged home. Pam Howe MD January 20, 2017 10:13
[2017-01-20] MEDS ORDERED: BACITRACIN OINT 0.9 GM PKT TOP ONE (10:15)
[2017-01-20] MEDS ORDERED: SODIUM CHLOR 0.9% 250 ML INJ 250 ML IV PRN (10:15)
[2017-01-20] MEDS ORDERED: ATROPINE SULFATE 1 MG/ML VIAL IV PRN (10:15)
[2017-01-20] MEDS ORDERED: ONDANSETRON HCL 4 MG/2 ML VIAL IV PRN (10:15)
[2017-01-20] MEDS ORDERED: LORazepam 0.5 MG TAB PO PRN (10:15)
[2017-01-20] MEDS ORDERED: oxyCODONE/ACETAMINOPHEN 5 MG/325 MG TAB PO PRN ×2 (10:15)
[2017-01-20] MEDS ORDERED: LIDOCAINE HCL 1% 50 ML VIAL INFIL PRN (10:15)
[2017-01-20] MEDS ORDERED: METOCLOPRAMIDE HCL 10 MG/2 ML VIAL IV PRN (10:15)
[2017-01-20] MEDS ORDERED: LORazepam 2 MG/ML VIAL IV PRN (10:15)
--- NOTE | 2017-01-20 10:16 | CATHPROC ---
[facility] HIS Report Study Information Study Number Admission Scheduled Start Study Start [id number] 01/20/2017 01/20/2017 Jan 20 2017 7:34AM Referring Institution Admit Source Facility Department 1 Other [facility] - Piece Dye Worker Physician and Clinical Staff Initial Pam Del Angel Director Internal Control Alessia Burger RCIS Director Internal Control Melanie Nugent,RT(R) TECH2 Other Anesthesia, BREASTFEEDING PEER COUNSELOR Recorder Ema Foy,RN Scrub Henri Alanis,RT(R) Procedures Performed Procedure Location (Site) Vessel Name Ablation Procedure Cardioversion ICE CATHETER INSERT RA Atruim RF Ablation LT. ATRIUM LT. ATRIUM Equipment Time Labor Expediter Description Size Mfg Part Number Used/Scraped NEEDLE, TRANSSEPTAL NRG 98 07:39 [facility]-[id number] Used C1 [employer]/ EP 07:39 KIT, TRANSDUCER / AFIB [id number] Used PACER COVER, TRANSDUCER CABLE 07:39 [employer] 612-113 Used ACUNAV 07:39 CORDIS/PACER SHEATH, FR10 AUBREY 11CM FR 10 [id number] Used 07:39 CORDIS/PACER SHEATH, FR9 AUBREY 11CM FR 9 [id number] Used 07:39 [employer] PACK, CCL CUSTOM * [id number] Used 07:39 MEDLINE PACER MALONEY, LIMB * 2530 Used [id number] 07:39 [employer] MEDICAL SHEATH, FR4.5 PRELUDE 11CM FR 4.5 Used [id number] 07:39 NAMIC TUBING, HIGH PRESSURE 48" 48" [id number] Used 07:39 NAMIC TUBING, HIGH PRESSURE 48" 48" [id number] Used 08:54 Needle Sponge Count 1 1 Used 08:53 Needle Sponge Count 2 22 Used 08:54 Needle Sponge Count 30 1 Used 07:39 [employer] BLANKET,WARM AIR CCL * [id number] Used CATHETER, TACTICATH ABLAT [id number] 07:39 [employer] Used 65 BUNDLE BUNDLE CATHETER, FR7 OPTIMA SPIRAL 07:39 [facility] [employer] [employer] FR7 [id number] Used BUNDLE 07:39 [facility] [employer] CATHETER, JSN, QUAD BUNDLE FR 5 [id number] Used 07:39 [facility] CATHETER, JSN, QUAD BUNDLE FR 5 [id number] Used 07:39 [facility] [employer] ELECTRODE KIT, MARIANA X SURFACE * [id number] Used SET, COOL [place]INT TUBING 07:39 [facility] [employer] [id number] Used BUNDLE 07:39 [facility] [employer] SHEATH, EPS, FR6 FAST CATH FR 6 [id number] Used 07:39 [facility] [employer] SHEATH, EPS, FR7 FAST CATH FR 7 [id number] Used 07:39 [facility] [employer] SHEATH, EPS, FR8 FAST CATH FR 8 [id number] Used SHEATH, FR8.5 STEERABLE SM 07:39 [facility] [employer] 71CM [id number] Used 71CM BUNDLE [facility] PAD, ELECTROSURGICAL 07:39 * [id number] Used SURGICAL GROUNDING (BLUE) History: Allergies Allergy Reaction Maurilio inhibitors Adhesives Rash Aspirin "TOLD NOT TO TAKE ANY ANTIINFLAMMATORIES" Digoxin Fatigue Ibuprofen "TOLD NOT TO TAKE ANYMORE" Keflex "SWOLLEN THROAT,ITCHING ALL OVER" Lisinopril "RASH" Micardis Fatigue Penicillin UNKNOWN Relafen "NEPHROTIC SYNDROME" Sulfa "TOLD NOT TO TAKE ANYMORE" ANTIINFLAMMATORIES "TOLD NOT TO TAKE ANYMORE" History: Risk Factors Family History of Hypertension Dyslipidemia Previous NC Previous Heart Failure Premature CAD Yes Yes Yes No No Prior Valve Prior PCI Prior CABG Surgery No No No Cerebrovascular Peripheral Artery Chronic Lung On Dialysis Diabetes Disease Disease Disease No No No No No Labs Hgb (g/dl) Hct (%) RBC (MIL/MM3) WBC (l/cumm) Platelets (thousands) 12.00-18.00 37.00-55.00 4.80-6.20 4.80-10.80 140.00-450.00 9.9 29.6 3.9 3.5 210 Glucose (mg/dl) BUN (mg/dl) Creatinine (mg/dl) BUN:Creatinine (1:x) 60.00-110.00 8.00-20.00 0.10-9.00 10.00-20.00 92 11 0.7 15.7 Na (meq/l) K (meq/l) Cl (meq/l) CO2 (mmol/L) Ca (mg/dl) 138.00-146.00 3.80-5.10 101.00-111.00 23.00-30.00 9.00-10.50 137 3.9 103 26.6 8.7 PT (sec) PTT (sec) INR (PTT:PT) 9.40-11.40 25.10-32.70 0.50-2.00 10.7 25.7 1 Medication Medication Total Dose (Bolus/Oral) Medication Total Dosage/Unit 1% XYLOCAINE 40 mL HEPARIN 26315 units PROTAMINE 40 mg Medications (Bolus/Oral) Medication Time Given Dosage/Unit Administered By Reason 1% XYLOCAINE 01/20/2017 8:34:00 AM 20 mL Pam Howe 20 mL 1% XYLOCAINE given in lab by Pam Howe in Left Groin via Subcutaneous. Ordered by London Howe. 1% XYLOCAINE 01/20/2017 8:37:46 AM 20 mL Pam Howe 20 mL 1% XYLOCAINE given in lab by Pam Howe in Right Groin via Subcutaneous. Ordered by Merced Howe. HEPARIN 01/20/2017 8:48:11 AM 8000 units Anesthesia, BREASTFEEDING PEER COUNSELOR 8000 units HEPARIN given in lab by Anesthesia, BREASTFEEDING PEER COUNSELOR via Peripheral IV. Ordered by Pam Howe. HEPARIN 01/20/2017 9:04:47 AM 4000 units Anesthesia, BREASTFEEDING PEER COUNSELOR 4000 units HEPARIN given in lab by Anesthesia, BREASTFEEDING PEER COUNSELOR via Peripheral IV. Ordered by Pam Howe. HEPARIN 01/20/2017 9:19:13 AM 1000 units Anesthesia, BREASTFEEDING PEER COUNSELOR 1000 units HEPARIN given in lab by Anesthesia, BREASTFEEDING PEER COUNSELOR via Peripheral IV. Ordered by Pam Howe. PROTAMINE 01/20/2017 9:52:03 AM 40 mg Anesthesia, BREASTFEEDING PEER COUNSELOR 40 mg PROTAMINE given in lab by Anesthesia, BREASTFEEDING PEER COUNSELOR. Ordered by Pam Howe. Medication (Drip) Medication Time Given Dosage/Unit Concentration/Unit Diluent (ml) Solution HEPARIN DRIP 01/20/2017 9:04:37 AM 1000 units/hr 17367 units 250 D5W 1000 units/hr HEPARIN DRIP given in lab by Anesthesia, BREASTFEEDING PEER COUNSELOR via Peripheral IV. Pump/Drip Flow = 10 ml /hr [place] [address] units in 250 ml. Ordered by Pam Howe. ISUPREL 01/20/2017 9:35:53 AM 20 mcg/min 1 mg 250 NaCl .9 20 mcg/min ISUPREL given in lab by Anesthesia, BREASTFEEDING PEER COUNSELOR via Peripheral IV. Pump/Drip Flow = 300 ml/hr usi ng NaCl .9 with a concentration of 1 mg in 250 ml. Ordered by Pam Howe. IV Solutions 01/20/2017 7:36:17 AM 0 mL (IV) 500 NaCl .9 IV Solutions given pre op by Ema Foy RN in Left Antecubital via Peripheral IV. Pump/Drip Flow = 20 ml/hr using NaCl .9. Ordered by Pam Howe. IV Solutions 01/20/2017 7:37:01 AM 0 mL (IV) 500 NaCl .9 IV Solutions given pre op by Ema Foy RN in Right Wrist via Peripheral IV. Pump/Drip Flow = 20 ml/hr using NaCl .9. Ordered by Pam Howe. LEVAQUIN 01/20/2017 7:44:00 AM 500 mL/hr 500 100 NaCl .9 500 mL/hr LEVAQUIN given pre op by Anesthesia, BREASTFEEDING PEER COUNSELOR via Peripheral IV. Pump/Drip Flow = 0 ml/hr using NaCl .9 with a concentration of 500 in 100 ml. Ordered by Pam Howe. Initial Case Assessment Cardiovascular HR Rhythm NIBP Chest Pain 90 A-FIB 130/78 0 Edema Present Skin color Skin None Normal Warm Dry Circulatory - Right Pulses Dorsalis Pedis 1 Scale (0,1,2,3,4,d) Circulatory - Left Pulses Dorsalis Pedis 1 Scale (0,1,2,3,4,d) Neurological State Oriented to time-place- Alert Moves all extremities person Respiration - General Respiration Rate SpO2 (%) (B/min) 18 96 Chronological Log Time Study Chronological Log 7:33:32 Patient arrived via Bed. 7:34:38 Patient Name, D.O.B, / Armband Verified By R.N. 7:34:39 Consent signed by the physician and the patient and verified by the Piece Dye Worker staff. 7:34:40 Pre-op and post- op instructions given; patient acknowledges understanding of instructions. 7:34:43 Verbal Stimulation=2 Physical Stimulation=2 Airway=2 Respiration=2 TOTAL=8. (0=absent, 1=li mited, 2=present) 7:34:55 Presedation assessment performed by Piece Dye Worker RN. 7:34:59 Patient has been NPO for More than 6Hrs. 7:35:00 Skin Breakdown/none per patient 7:35:11 Disposable Defibrillator Pads Placed On Patient. 7:35:11 Dejon Prominences Protected 7:35:51 A # 20 IV was noted in the Antecubital (left). Grade = 0 7:36:06 A # 22 IV was noted in the Wrist (right). Grade = 0 IV Solutions given pre op by Ema Foy RN in Left Antecubital via Peripheral IV. Pump/Dri p Flow = 20 ml/hr using 7:36:17 NaCl .9. Ordered by Pam Howe. IV Solutions given pre op by Ema Foy RN in Right Wrist via Peripheral IV. Pump/Drip Matt w = 20 ml/hr using 7:37:01 NaCl .9. Ordered by Pam Howe. 7:37:22 Anesthesia at bedside. Assumes care of patient.(marycruz grant) 7:38:15 History and physical on the chart or being dictated. Assessment: Initial Case, HR=90 BPM, Rhythm=A-FIB, NIHH=479/78 mmhg, Chest Pain=0, Edema=None, Color=Normal, Skin = Warm, Dry Right Pulses: Bo Ped=1 7:40:12 Left Pulses: Bo Ped=1 Neurological: State=Alert, Ox3, MANCIA Respiration: Resp=18 B/min, SpO2=96 % 500 mL/hr LEVAQUIN given pre op by Anesthesia, BREASTFEEDING PEER COUNSELOR via Peripheral IV. Pump/Drip Flow = 0 ml/hr using NaCl .9 with 7:44:00 a concentration of 500 in 100 ml. Ordered by Pam Howe. 8:25:12 Reference ECG taken Time Out. Correct patient, procedure, procedure equipment, site and side verified with physician present. Time 8:30:53 concurred by MD, individual staff and BREASTFEEDING PEER COUNSELOR. Time Out #2 - Consents verified, patient in correct position, all results are labled and display ed, safety precautions 8:30:55 taken, antibiotics administered. Time out concurred by , individual staff and BREASTFEEDING PEER COUNSELOR in procedur e 8:31:45 Case Start 8:31:51 ANH in Progress 8:33:00 ANH Complete 8:34:00 20 mL 1% XYLOCAINE given in lab by Pam Howe in Left Groin via Subcutaneous. Ordered by Pam Howe. 8:35:44 Vascular access was obtained in the Fem Art (left). 8:35:54 Vascular access was obtained in the Fem Vein (left). 8:35:59 Vascular access was obtained in the Fem Vein (left). 8:36:07 Vascular access was obtained in the Fem Vein (left). 8:36:11 A SHEATH, FR4.5 PRELUDE 11CM FR 4.5 was advanced into the Fem Art (left) using the Modified Seldinger technique. 8:36:58 A SHEATH, EPS, FR6 FAST CATH FR 6 was advanced into the Fem Vein (left) using the Modified S eldinger technique. 8:37:08 A SHEATH, EPS, FR7 FAST CATH FR 7 was advanced into the Fem Vein (left) using the Modified S eldinger technique. 8:37:12 A SHEATH, FR10 AUBREY 11CM FR 10 was advanced into the Fem Vein (left) using the Modified Se unique technique. 8:37:46 20 mL 1% XYLOCAINE given in lab by Pam Howe in Right Groin via Subcutaneous. Ordered by Pam Howe. 8:40:20 Vascular access was obtained in the Fem Vein (right). 8:40:22 A SHEATH, EPS, FR8 FAST CATH FR 8 was advanced into the Fem Vein (right) using the Modified Seldinger technique. A CATHETER, JSN, QUAD BUNDLE FR 5 was advanced vis Fem Vein (left) and placed in the CS. Placeme nt was visually 8:41:35 confirmed under fluoroscopy. A CATHETER, JSN, QUAD BUNDLE FR 5 was advanced vis Fem Vein (left) and placed in the HIS. Placem ent was 8:41:59 visually confirmed under fluoroscopy. 8:42:21 ice catheter Was Postioned. A SHEATH, FR8.5 STEERABLE SM 71CM BUNDLE 71CM was exchanged in the Fem Vein (right). This was ne cessary in 8:44:03 order to accomodate a larger catheter. 8:46:34 [place] needle inserted 8:47:26 A eps was advanced to the right atrium and passed through the septal wall to the left atrium . 8:47:28 BAYLIS NEEDLE REMOVED 8:48:11 8000 units HEPARIN given in lab by Anesthesia, BREASTFEEDING PEER COUNSELOR via Peripheral IV. Ordered by Bala Howe. A CATHETER, FR7 OPTIMA SPIRAL BUNDLE FR7 was advanced vis Fem Vein (right) and placed in the LA. Placement 8:49:04 was visually confirmed under fluoroscopy. 8:50:20 MAPPING IN PROGRESS 8:57:24 Activated Clotting Time Drawn 9:03:00 ACT (Normal Range 90-180) = 268 9:03:06 ACT (Normal Range 90-180) = 268 1000 units/hr HEPARIN DRIP given in lab by Anesthesia, BREASTFEEDING PEER COUNSELOR via Peripheral IV. Pump/Drip Flow = 10 ml/hr using 9:04:37 D5[place] [address] units in 250 ml. Ordered by Hanscy. Carley 9:04:47 4000 units HEPARIN given in lab by Anesthesia, BREASTFEEDING PEER COUNSELOR via Peripheral IV. Ordered by Bala Howe. 9:07:53 MAPPING REMOVED A CATHETER, TACTICATH ABLAT 65 BUNDLE was advanced vis Fem Vein (right) and placed in the LA. Placement was 9:08:03 visually confirmed under fluoroscopy. 9:10:00 RF Ablation of the LT. ATRIUM with a CATHETER, TACTICATH ABLAT 65 BUNDLE. 9:13:32 Activated Clotting Time Drawn 9:18:54 ACT (Normal Range 90-180) = 334 9:19:13 1000 units HEPARIN given in lab by Anesthesia, BREASTFEEDING PEER COUNSELOR via Peripheral IV. Ordered by Merced Howe 9:24:33 ABLATION IN PROGRESS 9:32:30 Activated Clotting Time Drawn 9:32:31 ECG rhythm of AF noted. Patient cardioverted at 200 joules. Success SYNC 20 mcg/min ISUPREL given in lab by Anesthesia, BREASTFEEDING PEER COUNSELOR via Peripheral IV. Pump/Drip Flow = 300 ml /hr using NaCl .9 9:35:53 with a concentration of 1 mg in 250 ml. Ordered by Hanscy. Carley 9:38:14 ACT (Normal Range 90-180) = 358 9:44:23 ISUPREL DC'D 9:45:07 In the Fem Art (left), Fem Vein (left) and (right) the sheaths were sutured in place by Zachary Guzman A SHEATH, FR9 AUBREY 11CM FR 9 was exchanged in the Fem Vein (right). This was necessary in or nydia to minimize 9:48:37 site leakage. 9:50:04 Catheter(s) removed without difficulty 9:51:10 Case End 9:52:03 40 mg PROTAMINE given in lab by Anesthesia, BREASTFEEDING PEER COUNSELOR. Ordered by Hanscy. Carley 9:53:26 PACU called. Spoke to Bev 10:10:39 ACT (Normal Range 90-180) = 196 10:16:09 Ablation procedure performed: AFIB. 10:16:17 EP Procedure was performed. End Study - Contrast Media Used In Study Contrast Total Opened (mL) Total Used (mL) Total Wasted (mL) Unspecified 0 0 0 End Study - Maximum Contrast Load Max Contrast Load (mL) 525.0 End Study - Radiation Exposure Fluoro Time (minutes) 1.4 End Study - Patient Disposition Complications Transferred To Interventional Outcome No Telemetry Bed successful
[2017-01-20] MEDS ORDERED: AMIODARONE 200 MG TAB PO ONE (10:30)
[2017-01-20] MEDS ORDERED: DO NOT ADM ANY ANTICOAGULANT DRUGS PRN (10:30)
--- NOTE | 2017-01-20 15:52 | ETE ---
Study Study Date:01/20/2017 STUDY CONCLUSIONS SUMMARY - Left ventricle: The cavity size was normal. Wall thickness was normal. Systolic function was normal. The estimated ejection fraction was in the range of 55% to 60%. Wall motion was normal; there were no regional wall motion abnormalities. - Aortic valve: No evidence of vegetation. - Mitral valve: No evidence of vegetation. - Left atrium: No evidence of thrombus in the atrial cavity or appendage. No evidence of thrombus in the atrial cavity or appendage. - Right atrium: No evidence of thrombus in the atrial cavity or appendage. - Atrial septum: No defect or patent foramen ovale was identified. Echo contrast study showed no oandz-cw-faoq atrial level shunt, at baseline or with provocation. - Tricuspid valve: No evidence of vegetation. - Pulmonic valve: No evidence of vegetation. - Pericardium, extracardiac: A small pericardial effusion was identified. If LV function is below 40, please consider prescribing an ACEI or ARB or document rationale for non-use. PROCEDURE DATA Consent: The risks, benefits, and alternatives to the procedure were explained to the patient and informed consent was obtained. Procedure: Initial setup. The patient was brought to the laboratory in the fasting state. Intravenous access was obtained. Surface ECG leads and pulse oximetric signals were monitored. Sedation. Conscious sedation was administered by anesthesiology. Transesophageal echocardiography. Topical anesthesia was obtained using viscous lidocaine. A transesophageal probe was inserted by the attending control system manager. Image quality was good. Study completion: All IVs inserted during the procedure were removed. The patient tolerated the procedure well. There were no complications. Transesophageal echocardiography. 2D, complete spectral Doppler, and color Doppler. CARDIAC ANATOMY LEFT VENTRICLE: The cavity size was normal. Wall thickness was normal. Systolic function was normal. The estimated ejection fraction was in the range of 55% to 60%. Wall motion was normal; there were no regional wall motion abnormalities. AORTIC VALVE: Trileaflet; mildly thickened leaflets. Cusp separation was normal. No evidence of vegetation. Doppler: No significant regurgitation. Aorta: - There was no atheroma. There was no evidence for dissection. Aortic root: The aortic root was not dilated. Ascending aorta: The ascending aorta was normal in size. Aortic arch: The aortic arch was normal in size. Descending aorta: The descending aorta was normal in size. MITRAL VALVE: Structurally normal valve. Leaflet separation was normal. No evidence of vegetation. Doppler: Trace to mild regurgitation. LEFT ATRIUM: The atrium was normal in size. No evidence of thrombus in the atrial cavity or appendage. No evidence of thrombus in the atrial cavity or appendage. The appendage was morphologically a left appendage, multilobulated, and of normal size. Emptying velocity was normal. ATRIAL SEPTUM: No defect or patent foramen ovale was identified. Echo contrast study showed no tyquu-mm-thpu atrial level shunt, at baseline or with provocation. RIGHT VENTRICLE: The cavity size was normal. Wall thickness was normal. Systolic function was normal. PULMONIC VALVE: Structurally normal valve. No evidence of vegetation. TRICUSPID VALVE: Structurally normal valve. Leaflet separation was normal. No evidence of vegetation. Doppler: No significant regurgitation. PULMONARY ARTERY: The main pulmonary artery was normal-sized. RIGHT ATRIUM: The atrium was normal in size. No evidence of thrombus in the atrial cavity or appendage. The appendage was morphologically a right appendage. PERICARDIUM: A small pericardial effusion was identified. Prepared and signed by Pam Howe [id number]
--- NOTE | 2017-01-20 18:26 | EKG ---
Date Performed: 01/20/2017 Time Performed: 07:15:00 PTAGE: 81 years EKG: Atrial fibrillation Possible anterior infarct - age undetermined Lateral T wave changes are nonspecific Abnormal ECG Compared to prior tracing no significant change PREVIOUS TRACING : 12/27/2016 17.28 DOCTOR: Riley Johnson Interpretating Date/Time 01/20/2017 18:24:30
[2017-01-20] MEDS: PANTOPRAZOLE SOD 20 MG DELAYED RELEASE TAB PO SCH (20:28)
[2017-01-20] MEDS: APIXABAN 5 MG TABLET PO SCH (20:28)
[2017-01-20] MEDS: amLODIPine BESYLATE 5 MG TAB PO SCH (20:28)
[2017-01-20] MEDS: CHOLECALCIFEROL (VIT D3) 1000 UNIT TAB PO SCH (20:29)
[2017-01-20] MEDS: AMIODARONE 200 MG TAB PO SCH (20:29)
[2017-01-20] MEDS ORDERED: NON-FORMULARY DRUG (Omega-3 Fatty Acids (Fish Oil) 1,000 MG) PO SCH (21:00)
[2017-01-21] VITALS (9 sets, daily range): BP systolic 111–123; BP diastolic 57–68; PULSE 76–88; RESP 16–20; TEMP 97.2–98; O2SAT 92–95
[2017-01-21 07:05] LABS: APTT (PATIENT) 24.2 SEC (24.3-30.1); PROTHROMBIN TIME - PATIENT 10.7 SEC (9.8-11.6)
[2017-01-21] MEDS ORDERED: AMIO200T PO ×3 (08:15→09:57)
--- NOTE | 2017-01-21 08:19 | PD.CARD.PN ---
Subjective Subjective Remarks Feels ok. Objective Medications Current Medications Medications (Trade) Dose Ordered Sig/Shaun Route Start Time Stop Time Status Last Admin (Percocet 5-325 Mg) 1 tab Q4H PRN PO 01/20/17 10:15 (Percocet 5-325 Mg) 2 tab Q4H PRN PO 01/20/17 10:15 (Ativan Inj) 0.5 mg UNSCH PRN IV 01/20/17 10:15 01/21/17 10:14 Atropine Sulfate 0.5 mg 0.5 mg UNSCH PRN IV 01/20/17 10:15 01/21/17 10:14 (NS 250 ml Inj) 250 ml @ 500 mls/hr ONCE PRN IV 01/20/17 10:15 01/21/17 10:14 (Reglan Inj) 10 mg Q4H PRN IV 01/20/17 10:15 01/21/17 10:14 (Zofran Inj) 4 mg Q4H PRN IV 01/20/17 10:15 01/21/17 10:14 (Xylocaine 1% Inj (50 ml)) 10 ml UNSCH PRN INFIL 01/20/17 10:15 01/21/17 10:14 (Norvasc) 5 mg BID PO 01/20/17 21:00 01/20/17 20:28 (Eliquis) 5 mg BID PO 01/20/17 21:00 01/20/17 20:28 (Lipitor) 80 mg Q48H PO 01/22/17 21:00 (Ativan) 1 mg HS PRN PO 01/20/17 10:15 01/20/17 23:57 (Vitamin D3) 2,000 units BID PO 01/20/17 21:00 01/20/17 20:29 (Protonix) 20 mg BID PO 01/20/17 21:00 01/20/17 20:28 (Cordarone) 400 mg BID PO 01/20/17 21:00 01/24/17 21:01 01/20/17 20:29 (Cordarone) 200 mg BID PO 01/25/17 09:00 Miscellaneous Information ALL NURSING DEPARTME... UNSCH PRN .XX 01/20/17 10:30 01/21/17 10:29 Vital Signs / I&O Vital Signs Date Time Temp Pulse Resp B/P Pulse Ox O2 Delivery O2 Flow Rate FiO2 01/21/17 08:00 76 01/21/17 06:00 80 01/21/17 05:00 84 01/21/17 04:00 87 01/21/17 04:00 97.3 84 18 111/57 92 01/21/17 03:00 84 01/21/17 02:00 88 01/21/17 01:00 86 01/21/17 00:00 98.0 80 20 123/68 95 01/21/17 00:00 83 01/20/17 23:00 80 01/20/17 22:00 84 01/20/17 21:00 84 01/20/17 20:00 98.1 88 18 123/62 94 01/20/17 20:00 84 01/20/17 19:00 84 01/20/17 16:00 84 01/20/17 15:55 98.4 85 16 104/64 95 01/20/17 15:00 80 01/20/17 14:00 78 01/20/17 13:40 77 16 116/68 95 Nasal Cannula 3 01/20/17 12:45 74 16 119/70 92 Nasal Cannula 3 01/20/17 11:45 68 16 108/63 96 Nasal Cannula 3 01/20/17 11:30 70 16 108/64 93 Nasal Cannula 3 01/20/17 11:15 69 16 108/59 95 Nasal Cannula 3 01/20/17 11:00 69 16 103/58 91 Nasal Cannula 3 01/20/17 10:45 71 16 110/64 96 Nasal Cannula 3 01/20/17 10:30 73 16 105/68 97 Nasal Cannula 3 01/20/17 10:20 97.6 78 16 112/59 96 Nasal Cannula 3 I/O 01/20/17 01/20/17 01/20/17 01/21/17 01/21/17 01/21/17 07:00 15:00 23:00 07:00 15:00 23:00 Intake Total 1450 ml 480 ml Output Total 550 ml 1200 ml Balance 900 ml -720 ml Intake Oral 480 ml IV Total 250 ml 0 ml Other 1200 ml Output Urine Total 550 ml 1200 ml Estimated Blood Loss 0 ml # Bowel Movements 0 Physical Exam GENERAL: Well-nourished, well-developed patient. SKIN: Warm and dry. Groin sites soft with no swelling or bleeding. HEAD: Normocephalic. EYES: No scleral icterus. No injection or drainage. NECK: Supple, trachea midline. No JVD or lymphadenopathy. CARDIOVASCULAR: Regular rate and rhythm without murmurs, gallops, or rubs. RESPIRATORY: Breath sounds equal bilaterally. No accessory muscle use. GASTROINTESTINAL: Abdomen soft, non-tender, nondistended. EXTREMITIES: No cyanosis, or edema. NEUROLOGICAL: Awake, alert, and oriented x 3. Non-focal. Laboratory Laboratory Tests Test 01/21/17 06:08 Prothrombin Time 10.7 SEC Prothromb Time International 1.0 RATIO Ratio Activated Partial 24.2 SEC Thromboplast Time Assessment and Plan Problem List: (1) Rapid atrial fibrillation Assessment and Plan: NSR s/p ablation. On Eliquis. (2) S/P ablation of atrial fibrillation Assessment and Plan: Groin sites soft, amiodarone initiated with a 5 day loading dose. DC home. F/U with Dr. Howe in 3 weeks per my d/w him. Lynsey Sandoval January 21, 2017 08:19
[2017-01-21] MEDS ORDERED: NON-FORMULARY DRUG (Coenzyme Q10 (Ubidecarenone) (Coq10) 200 MG) PO SCH (09:00)
[2017-01-21] MEDS: amLODIPine BESYLATE 5 MG TAB PO SCH (09:08)
[2017-01-21] MEDS: PANTOPRAZOLE SOD 20 MG DELAYED RELEASE TAB PO SCH (09:08)
[2017-01-21] MEDS: AMIODARONE 200 MG TAB PO SCH (09:08)
[2017-01-21] MEDS: CHOLECALCIFEROL (VIT D3) 1000 UNIT TAB PO SCH (09:08)
[2017-01-21] MEDS: APIXABAN 5 MG TABLET PO SCH (09:08)
--- NOTE | 2017-01-21 15:23 | EKG ---
Date Performed: 01/21/2017 Time Performed: 05:35:46 PTAGE: 81 years EKG: Sinus arrhythmia Poor R wave progression - probable normal variant Lateral T wave changes a re nonspecific Low QRS voltages in limb leads Borderline ECG PREVIOUS TRACING : 01/20/2017 07.15 DOCTOR: Devon Quach Interpretating Date/Time 01/21/2017 15:22:02
[2017-01-21] MEDS ORDERED: OMEP20CA2 PO (23:36)
[2017-01-21] MEDS ORDERED: CHOL20003 PO (23:36)
[2017-01-22] MEDS ORDERED: ATORVASTATIN 80 MG TAB PO SCH (21:00)
[2017-01-25] MEDS ORDERED: AMIODARONE 200 MG TAB PO SCH (09:00)
== END 2017-01-21 10:32 | disposition home or self-care (01) ==
LOC: HDOC 06:15 → HDIC 06:16 → HCIS 13:53 → HDOC 01-21 10:32
PROVIDERS: ATTEND Internal Medicine Interventional Cardiology
DX: I48.2 Chronic atrial fibrillation (principal); I31.3 Pericardial effusion (noninflammatory); I47.1 Supraventricular tachycardia; I49.8 Other specified cardiac arrhythmias
CPT/HCPCS: 80048; 85002; 85025; 85610; 85730; 86850; 86900; 86901; 92960; 93005; 93312; 93320; 93325; 93613; 93623; 93656; 93662; C1730; C1731; C1732; C1759; C1766; C2630; J1644; J1956; J2250; J2720; J3010

== ENCOUNTER 2017-01-21 22:54 | Inpatient (IN) | payer MEDICARE ==
[~2017-01-21] VITALS: Ht 157.5 cm; Wt 73.2 kg
[~2017-01-21 22:54] MED LIST changes: +AMIO200T PO; -METO-309 PO
[2017-01-21 23:03] VITALS: BP 131/70; PULSE 65; RESP 24; TEMP 98.8; O2SAT 85
[2017-01-21 23:11] VITALS: O2SAT 97
[2017-01-21] MEDS ORDERED: SODIUM CHLORIDE 0.9% FLUSH 10 ML FLUSH IVF PRN (23:15)
--- NOTE | 2017-01-21 23:29 | PD ---
HPI Chief Complaint: Cardiac Complaint Time Seen by Provider: 23:08 Travel History International Travel<30 days: No Contact w/Intl Traveler<30days: No Traveled to known affect area: No History of Present Illness HPI This is an 81-year-old female who presents to the emergency department having had an ablation for atrial fibrillation yesterday by Dr. Howe. She says throughout the day today she's been increasingly lightheaded, dizzy, short of breath and fatigued. She has had very poor energy level. She does describe some chest heaviness in the center of her chest which is new. Her symptoms of been constant and worsening. She says they acutely worsened this evening after she took amiodarone which is a higher dosage for her. She says after that she got very nauseous and didn't feel well. She has never had congestive heart failure before. PFSH Past Medical History Arthritis: Yes Atrial Fibrillation: Yes Blood Disorders: No Heart Rhythm Problems: Yes (PALPITATIONS) Cancer: No Cardiovascular Problems: Yes (afib, svt, pvc) High Cholesterol: Yes Diabetes: No Diminished Hearing: No Endocrine: No Gastrointestinal Disorders: Yes GERD: Yes Genitourinary: Yes Headaches: Yes Hepatitis: No Hiatal Hernia: Yes Hypertension: Yes Immune Disorder: No Implanted Vascular Access Dvce: No Medical other: Yes (REFLUX, BACK AND NECK) Musculoskeletal: Yes Neurologic: Yes Psychiatric: No Reproductive: No Respiratory: Yes Thyroid Disease: No Menopausal: Yes Past Surgical History Abdominal Surgery: Yes (CHOLECYSTECTOMY) Appendectomy: Yes Cardiac Surgery: Yes (ABLATION) Cholecystectomy: Yes Ear Surgery: No Endocrine Surgery: No Eye Surgery: Yes (CATARACTS BILAT) Genitourinary Surgery: No Gynecologic Surgery: Yes (HYSTERECTOMY) Hysterectomy: Yes Neurologic Surgery: No Oral Surgery: No Pacemaker: No Thoracic Surgery: No Tonsillectomy: Yes Other Surgery: Yes Family History Family Hypercholesterolemia: Yes Social History Alcohol Use: Yes (occas. beer) Tobacco Use: No Substance Use: No Allergies-Medications (Allergen,Severity, Reaction): Coded Allergies: Aspirin (Verified Allergy, Severe, "TOLD NOT TO TAKE ANY ANTIINFLAMMATORIES", 01/21/17) Ibuprofen (Verified Allergy, Severe, "TOLD NOT TO TAKE ANYMORE", 01/21/17) Keflex (Verified Allergy, Severe, "SWOLLEN THROAT,ITCHING ALL OVER", ) Lisinopril (Verified Allergy, Severe, "RASH", 01/21/17) Penicillin (Verified Allergy, Severe, UNKNOWN, 01/21/17) Relafen (Verified Allergy, Severe, "NEPHROTIC SYNDROME", 01/21/17) Sulfa (Verified Allergy, Severe, "TOLD NOT TO TAKE ANYMORE", 01/21/17) Adhesives (Verified Allergy, Intermediate, Rash, 01/21/17) Digoxin (Verified Allergy, Intermediate, Fatigue, 01/21/17) Micardis (Verified Allergy, Intermediate, Fatigue, 01/21/17) Uncoded Allergies: ANTIINFLAMMATORIES (Allergy, Severe, "TOLD NOT TO TAKE ANYMORE", 01/04/16) . Reported Meds & Prescriptions Reported Meds & Active Scripts Active Amiodarone (Amiodarone HCl) 200 Mg Tab 200 Mg PO DAILY Amiodarone (Amiodarone HCl) 200 Mg Tab 400 Mg PO BID 5 Days Reported D3 (Cholecalciferol) 2,000 Unit Cap 2,000 Units PO DAILY Omeprazole 20 Mg Cap 20 Mg PO BID Fish Oil ([place]-3 Fatty Acids) 1,000 Mg Cap 2,000 Mg PO DAILY Coq10 (Coenzyme Q10 (Ubidecarenone)) 200 Mg Cap 200 Mg PO DAILY Eliquis (Apixaban) 5 Mg Tab 5 Mg PO BID Ativan (Lorazepam) 0.5 Mg Tab 0.5 Mg PO HS PRN PT TAKES 1/2 TABLET AT NIGHT 0.5 MG PO FOR ANXIETY Norvasc (Amlodipine Besylate) 5 Mg Tab 5 Mg PO BID Review of Systems Except as stated in HPI: all other systems reviewed are Neg Physical Exam Narrative GENERAL: Pale, ill-appearing, dry heaving SKIN: Diaphoretic HEAD: Atraumatic. Normocephalic. EYES: Pupils equal and round. No injection or drainage. ENT: Moist mucous membranes NECK: Trachea midline. CARDIOVASCULAR: Regular rate and rhythm. No murmur appreciated. 1+ bilateral lower extremity pitting edema RESPIRATORY: Rales in the bilateral lung bases. GASTROINTESTINAL: Abdomen soft, non-tender, nondistended. MUSCULOSKELETAL: No obvious deformities. NEUROLOGICAL: Awake and alert. No obvious cranial nerve deficits. Moving all extremities. PSYCHIATRIC: Appropriate mood and affect; insight and judgment normal. Data Data Last Documented VS Vital Signs Date Time Temp Pulse Resp B/P Pulse Ox O2 Delivery O2 Flow Rate FiO2 01/22/17 01:45 94 High Flow Nasal Cannula 25.00 80 01/22/17 01:25 65 28 130/62 01/21/17 23:03 98.8 Orders Complete Blood Count With Diff (01/21/17 23:09) Comprehensive Metabolic Panel (01/21/17 23:09) B-Type Natriuretic Peptide (01/21/17 23:09) D-Dimer (01/21/17 23:09) Act Partial Throm Time (Ptt) (01/21/17 23:09) Prothrombin Time / Inr (Pt) (01/21/17 23:09) Troponin I (01/21/17 23:09) Iv Access Insert/Monitor (01/21/17 23:09) Ecg Monitoring (01/21/17 23:09) Oximetry (01/21/17 23:09) Oxygen Administration (01/21/17 23:09) Chest, Single Ap (01/21/17 23:09) Sodium Chloride 0.9% Flush (Ns Flush) (01/21/17 23:15) Ed Poc Ultrasound (01/21/17 ) Electrocardiogram (01/21/17 ) Aspirin Chew (Aspirin Chew) (01/21/17 23:30) Furosemide Inj (Lasix Inj) (01/22/17 00:00) Ondansetron Inj (Zofran Inj) (01/22/17 00:15) Ondansetron Inj (Zofran Inj) (01/22/17 00:11) Nitroglycerin Sl (Nitrostat Sl) (01/22/17 01:00) Ondansetron Inj (Zofran Inj) (01/22/17 01:00) Ct Abd/Pel W/O Iv Contrast (01/22/17 ) Prochlorperazine Inj (Compazine Inj) (01/22/17 01:30) Aspirin Supp (Aspirin Supp) (01/22/17 01:30) Admit Order (Ed Use Only) (01/22/17 01:44) Consult Cardiology (01/22/17 ) Labs Laboratory Tests Test 01/21/17 23:20 White Blood Count 11.5 TH/MM3 Red Blood Count 3.91 MIL/MM3 Hemoglobin 9.7 GM/DL Hematocrit 29.6 % Mean Corpuscular Volume 75.9 FL Mean Corpuscular Hemoglobin 25.0 PG Mean Corpuscular Hemoglobin 32.9 % Concent Red Cell Distribution Width 16.3 % Platelet Count 246 TH/MM3 Mean Platelet Volume 7.5 FL Neutrophils (%) (Auto) 76.2 % Lymphocytes (%) (Auto) 14.4 % Monocytes (%) (Auto) 8.9 % Eosinophils (%) (Auto) 0.2 % Basophils (%) (Auto) 0.3 % Neutrophils # (Auto) 8.7 TH/MM3 Lymphocytes # (Auto) 1.6 TH/MM3 Monocytes # (Auto) 1.0 TH/MM3 Eosinophils # (Auto) 0.0 TH/MM3 Basophils # (Auto) 0.0 TH/MM3 CBC Comment DIFF FINAL Differential Comment Prothrombin Time 11.1 SEC Prothromb Time International 1.0 RATIO Ratio Activated Partial 26.0 SEC Thromboplast Time D-Dimer Quantitative (PE/DVT) 0.31 MG/L FEU Sodium Level 134 MEQ/L Potassium Level 3.9 MEQ/L Chloride Level 98 MEQ/L Carbon Dioxide Level 26.2 MEQ/L Anion Gap 10 MEQ/L Blood Urea Nitrogen 15 MG/DL Creatinine 0.81 MG/DL Estimat Glomerular Filtration 68 ML/MIN Rate Random Glucose 120 MG/DL Calcium Level 8.4 MG/DL Total Bilirubin 0.4 MG/DL Aspartate Amino Transf 53 U/L (AST/SGOT) Alanine Aminotransferase 158 U/L (ALT/SGPT) Alkaline Phosphatase 125 U/L Troponin I 1.03 NG/ML B-Type Natriuretic Peptide 290 PG/ML Total Protein 6.5 GM/DL Albumin 3.2 GM/DL [facility] Medical Decision Making Medical Screen Exam Complete: Yes Emergency Medical Condition: Yes Interpretation(s) Afebrile, mild tachypnea, hypoxia, normotensive Mild leukocytosis Anemia similar to labs from yesterday preprocedure Transaminitis Troponin is 1 BNP is 290 D-dimer is 0.3 EKG: Low voltage, no ST changes Differential Diagnosis Myocardial infarction, acute coronary syndrome, pulmonary embolism, pulmonary fibrosis, periCardial effusion, pleural effusion Narrative Course This is an 81-year-old female who presents to the emergency department having had an ablation for atrial fibrillation by Dr. Howe yesterday. She's been weak , short of breath, and nauseous throughout the day today. She was placed on a monitor and an IV was established. She was found to be profoundly hypoxic in the high 70s and low 80s requiring a nonrebreather. She was reporting nausea and was given 2 doses of Zofran and Compazine. She was placed on a monitor and an IV was established. EKG demonstrated some low voltage. I performed a bedside ultrasound and didn't appreciate a large pericardial effusion. Labs were obtained which demonstrated d-dimer 0.3 which is reassuring and a troponin of 1. Patient took her Eliquis at 9 PM. She was given aspirin. Chest x-ray demonstrates pulmonary edema. She was given IV Lasix. I spoke to Dr. Mccain who was on-call for cardiology. He agreed with current management and diuresis. I spoke to Dr. Solano who will admit the patient to the intensive care unit for close monitoring. We did trial BiPAP at the patient was unable to tolerate it due to her severe nausea. I did obtain a CT scan of her abdomen to rule out retroperitoneal hematoma which was reassuring. I'm not sure what's causing this patient's current decompensation but it appeared to be congestive heart failure. Her troponin will continue to be trended and Dr. Howe will be consulted in the morning. Critical Care Narrative Aggregate critical care time was 50 minutes. Time to perform other separately billable procedures was not included in the critical care time. My time did not include minutes spent treating any other patients simultaneously or on activities that did not directly contribute to the patient's treatment. The services I provided to this patient were to treat and/or prevent clinically significant deterioration that could result in: Disability, I provided critical care services requiring my management, as noted below: Chart data review, documentation time, medication orders and management, vital sign assessments/reviewing monitor data, ordering and reviewing lab tests, ordering and interpreting/reviewing x-rays and diagnostic studies, care of the patient and discussion of the patient with the admitting physicians. Physician Communication Physician Communication Discussed with Dr. Solano and Dr. Mccain Diagnosis Primary Impression: Respiratory failure with hypoxia Qualified Code: J96.01 - Acute respiratory failure with hypoxia Admitting Information Admitting Physician Requests: Admit Mariola Olsen MD January 21, 2017 23:29
[2017-01-21] MEDS ORDERED: ASPIRIN 81 MG CHEW TAB CHEW ONE (23:30)
[2017-01-21 23:31] LABS: AUTOMATED NEUTROPHIL # 8.7 TH/MM3 (1.8-7.7); BASOPHIL % 0.3 % (0.0-2.0); EOSINOPHIL % 0.2 % (0.0-4.0); HEMATOCRIT 29.6 % (35.0-46.0); HEMO FLAGS DIFF FINAL; LYMPH % 14.4 % (9.0-44.0); LYMPHOCYTE # 1.6 TH/MM3 (1.0-4.8); MEAN CELL VOLUME 75.9 FL (80.0-100.0); MEAN CORPUSCULAR HGB CONC 32.9 % (32.0-36.0); MONO % 8.9 % (0.0-8.0); NEUT % 76.2 % (16.0-70.0); PLATELET COUNT 246 TH/MM3 (150-450); RED BLOOD COUNT 3.91 MIL/MM3 (4.00-5.30); RED CELL DISTRIBUTION WIDTH 16.3 % (11.6-17.2); WHITE BLOOD COUNT 11.5 TH/MM3 (4.0-11.0)
[2017-01-21] MEDS ORDERED: OMEP20CA2 PO (23:36)
[2017-01-21] MEDS ORDERED: CHOL20003 PO (23:36)
--- NOTE | 2017-01-21 23:42 | RADRPT ---
EXAM DATE/TIME: 01/21/2017 23:28 [facility] COMPARISON: CHEST SINGLE AP, December 27, 2016, 18:09. INDICATIONS : Patient states shortness of breath. MEDICAL HISTORY : Hypertension. Hypercholesterolemia. A-Fib SURGICAL HISTORY : None. ENCOUNTER: Initial ACUITY: 1 day PAIN SCORE: 3/10 LOCATION: Bilateral chest FINDINGS: A single view of the chest demonstrates cardiomegaly with pulmonary vascular congestion and bibasilar densities. . Osseous structures are intact. CONCLUSION: Cardiomegaly with pulmonary vascular congestion and bibasilar atelectasis versus infiltrate. Nelson Montana MD on January 21, 2017 at 23:39 Board Certified Radiologist. This report was verified electronically.
[2017-01-22] VITALS (16 sets, daily range): BP systolic 115–159; BP diastolic 56–72; PULSE 63–78; RESP 24–30; TEMP 98.2–99; O2SAT 92–100
[2017-01-22] MEDS ORDERED: FUROSEMIDE 40 MG/4 ML VIAL IV PUSH ONE
[2017-01-22 00:04] LABS: PROTHROMBIN TIME - PATIENT 11.1 SEC (9.8-11.6)
[2017-01-22 00:05] LABS: ANION GAP 10 MEQ/L (5-15); AST (GOT) 53 U/L (15-37); BICARBONATE 26.2 MEQ/L (21.0-32.0); BLOOD UREA NITROGEN 15 MG/DL (7-18); CHLORIDE 98 MEQ/L (98-107); GLOMERULAR FILTRATION RATE 68 ML/MIN (>89); POTASSIUM 3.9 MEQ/L (3.5-5.1); SODIUM (NA) 134 MEQ/L (136-145)
[2017-01-22 00:10] LABS: ALKALINE PHOSPHATASE 125 U/L (45-117); ALT (GPT) 158 U/L (10-53); TOTAL BILIRUBIN ADULT 0.4 MG/DL (0.2-1.0)
[2017-01-22] MEDS ORDERED: ONDANSETRON HCL 4 MG/2 ML VIAL ONE (00:11)
[2017-01-22] MEDS ORDERED: ONDANSETRON HCL 4 MG/2 ML VIAL IV ONE (00:15)
[2017-01-22] MEDS ORDERED: NITROGLYCERIN 0.4 MG SL 25 TABS/BTL SL ONE (01:00)
[2017-01-22] MEDS ORDERED: ONDANSETRON HCL 4 MG/2 ML VIAL IV PUSH ONE (01:00)
[2017-01-22] MEDS ORDERED: PROCHLORPERAZINE INJ 10 MG/2 ML VIAL IV PUSH ONE (01:30)
[2017-01-22] MEDS ORDERED: ASPIRIN 300 MG SUPP RECTAL ONE (01:30)
--- NOTE | 2017-01-22 01:56 | HHI.HP ---
[facility] Service Critical Care Medicine Primary Care Physician Rashard Abbott MD Admission Diagnosis hypoxic respiratory failure Diagnosis: Travel History International Travel<30 Days: No Contact w/Intl Traveler <30 Da: No Traveled to Known Affected Are: No History of Present Illness 81-year-old female who had the ablation done by Dr. Smith 2 days ago presents today with a new onset of chest pain epigastric pain nausea. She has been complaining of the generalized weakness and lack of energy for last months however since her ablation is has been getting towards Review of Systems Constitutional: COMPLAINS OF: Fatigue, Dizziness, DENIES: Diaphoretic episodes , Fever, Weight gain, Weight loss, Chills, Change in appetite, Night Sweats Endocrine: DENIES: Abnorml menstrual pattern, Heat/cold intolerance, Polydipsia , Polyuria, Polyphagia Eyes: DENIES: Blurred vision, Diplopia, Eye inflammation, Eye pain, Vision loss , Photosensitivity, Double Vision Ears, nose, mouth, throat: DENIES: Tinnitus, Hearing loss, Vertigo, Nasal discharge, Oral lesions, Throat pain, Hoarseness, Ear Pain, Running Nose, Epistaxis, Sinus Pain, Toothache, Odynophagia Respiratory: DENIES: Apneas, Cough, Snoring, Wheezing, Hemoptysis, Sputum production, Shortness of breath Cardiovascular: COMPLAINS OF: Chest pain, Dyspnea on Exertion, DENIES: Palpitations, Syncope, PND, Lower Extremity Edema, Orthopnea, Claudication Gastrointestinal: COMPLAINS OF: Anorexia, DENIES: Abdominal pain, Black stools , Bloody stools, Constipation, Diarrhea, Nausea, Vomiting, Difficulty Swallowing Genitourinary: DENIES: Abnormal vaginal bleeding, Dysmenorrhea, Dyspareunia, Sexual dysfunction, Urinary frequency, Urinary incontinence, Urgency, Hematuria , Dysuria, Nocturia, Vaginal discharge Musculoskeletal: DENIES: Joint pain, Muscle aches, Stiffness, Joint Swelling, Back pain, Neck pain Integumentary: DENIES: Abnormal pigmentation, Pruritus, Rash, Nail changes, Breast masses, Breast skin changes, Nipple discharge Hematologic/lymphatic: DENIES: Bruising, Lymphadenopathy Immunologic/allergic: DENIES: Eczema, Urticaria Past Family Social History Allergies: Coded Allergies: Aspirin (Verified Allergy, Severe, "TOLD NOT TO TAKE ANY ANTIINFLAMMATORIES", 01/21/17) Ibuprofen (Verified Allergy, Severe, "TOLD NOT TO TAKE ANYMORE", 01/21/17) Keflex (Verified Allergy, Severe, "SWOLLEN THROAT,ITCHING ALL OVER", ) Lisinopril (Verified Allergy, Severe, "RASH", 01/21/17) Penicillin (Verified Allergy, Severe, UNKNOWN, 01/21/17) Relafen (Verified Allergy, Severe, "NEPHROTIC SYNDROME", 01/21/17) Sulfa (Verified Allergy, Severe, "TOLD NOT TO TAKE ANYMORE", 01/21/17) Adhesives (Verified Allergy, Intermediate, Rash, 01/21/17) Digoxin (Verified Allergy, Intermediate, Fatigue, 01/21/17) Micardis (Verified Allergy, Intermediate, Fatigue, 01/21/17) Uncoded Allergies: ANTIINFLAMMATORIES (Allergy, Severe, "TOLD NOT TO TAKE ANYMORE", 01/04/16) . 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 Arthroscopy of the right shoulder with subacromial decompression Laparotomy with lysis and adhesions Bilateral cataract Colonoscopies in 2001 2008 2009 Reported Medications Reported Meds & Active Scripts Active Amiodarone (Amiodarone HCl) 200 Mg Tab 200 Mg PO DAILY Amiodarone (Amiodarone HCl) 200 Mg Tab 400 Mg PO BID 5 Days Reported D3 (Cholecalciferol) 2,000 Unit Cap 2,000 Units PO DAILY Omeprazole 20 Mg Cap 20 Mg PO BID Fish Oil ([place]-3 Fatty Acids) 1,000 Mg Cap 2,000 Mg PO DAILY Coq10 (Coenzyme Q10 (Ubidecarenone)) 200 Mg Cap 200 Mg PO DAILY Eliquis (Apixaban) 5 Mg Tab 5 Mg PO BID Ativan (Lorazepam) 0.5 Mg Tab 0.5 Mg PO HS PRN PT TAKES 1/2 TABLET AT NIGHT 0.5 MG PO FOR ANXIETY Norvasc (Amlodipine Besylate) 5 Mg Tab 5 Mg PO BID Active Ordered Medications Current Medications Medications (Trade) Dose Ordered Sig/Shaun Route PRN Reason Start Time Stop Time Status Last Admin Dose Admin Sodium Chloride (NS Flush) 2 ml UNSCH PRN .XX FLUSH AFTER USING IV ACCESS 01/22/17 02:00 Sodium Chloride (NS Flush) 2 ml BID .XX 01/22/17 09:00 Acetaminophen (Tylenol) 650 mg Q6H PRN PO PAIN 1-5 AND/OR FEVER >101F 01/22/17 02:00 Morphine Sulfate (Morphine Inj) 2 mg Q2H PRN IV PAIN SCALE 6 TO 10 01/22/17 02:00 01/22/17 03:59 Ondansetron HCl (Zofran Inj) 4 mg Q6H PRN IV NAUSEA OR VOMITING 01/22/17 02:00 Metoclopramide HCl (Reglan Inj) 10 mg Q6H PRN IV NAUSEA OR VOMITING 01/22/17 02:00 Docusate Sodium (Colace) 100 mg BID PO 01/22/17 09:00 Heparin Sodium (Porcine) (Heparin Inj) 5,000 units Q12H SQ 01/22/17 02:00 01/22/17 03:50 Miscellaneous Information 1 Q361D XX 01/22/17 02:00 01/22/17 02:00 Chlorhexidine Gluconate (Chlorhexidine 2% Cloth) 3 pack Taper DAILY@04 TOP 01/22/17 04:00 01/18/18 03:59 01/22/17 03:51 Chlorhexidine Gluconate (Chlorhexidine 2% Cloth) 3 pack UNSCH PRN TOP HYGIENIC CARE 01/22/17 02:00 Amiodarone HCl (Cordarone) 400 mg BID PO 01/22/17 09:00 Amlodipine Besylate (Norvasc) 5 mg BID PO 01/22/17 09:00 Lorazepam (Ativan) 0.5 mg HS PRN PO ANXIETY AND/OR AGITATION 01/22/17 02:00 Cholecalciferol (Vitamin D3) 2,000 units DAILY PO 01/22/17 09:00 Pantoprazole Sodium (Protonix) 20 mg BID PO 01/22/17 09:00 Family History Noncontributory Social History Negative 3 Physical Exam Vital Signs Vital Signs Date Time Temp Pulse Resp B/P Pulse Ox O2 Delivery O2 Flow Rate FiO2 01/22/17 01:25 65 28 130/62 95 Non-Rebreather 100 01/22/17 00:40 66 28 159/72 96 Non-Rebreather 15 01/21/17 23:11 26 97 Non-Rebreather 100 01/21/17 23:11 97 Non-Rebreather 100 01/21/17 23:11 97 01/21/17 23:03 98.8 65 24 131/70 85 Physical Exam GENERAL: Well-nourished, well-developed patient. SKIN: Warm and dry. HEAD: Normocephalic. EYES: No scleral icterus. No injection or drainage. NECK: Supple, trachea midline. No JVD or lymphadenopathy. CARDIOVASCULAR: Regular rate and rhythm without murmurs, gallops, or rubs. RESPIRATORY: Breath sounds equal bilaterally. No accessory muscle use. GASTROINTESTINAL: Abdomen soft, non-tender, nondistended. MUSCULOSKELETAL: No cyanosis, or edema. BACK: Nontender without obvious deformity. No CVA tenderness. EXTREMITIES: No clubbing cyanosis or edema Laboratory Laboratory Tests Test 01/21/17 23:20 White Blood Count 11.5 Red Blood Count 3.91 Hemoglobin 9.7 Hematocrit 29.6 Mean Corpuscular Volume 75.9 Mean Corpuscular Hemoglobin 25.0 Mean Corpuscular Hemoglobin 32.9 Concent Red Cell Distribution Width 16.3 Platelet Count 246 Mean Platelet Volume 7.5 Neutrophils (%) (Auto) 76.2 Lymphocytes (%) (Auto) 14.4 Monocytes (%) (Auto) 8.9 Eosinophils (%) (Auto) 0.2 Basophils (%) (Auto) 0.3 Neutrophils # (Auto) 8.7 Lymphocytes # (Auto) 1.6 Monocytes # (Auto) 1.0 Eosinophils # (Auto) 0.0 Basophils # (Auto) 0.0 CBC Comment DIFF FINAL Differential Comment Prothrombin Time 11.1 Prothromb Time International 1.0 Ratio Activated Partial 26.0 Thromboplast Time D-Dimer Quantitative (PE/DVT) 0.31 Sodium Level 134 Potassium Level 3.9 Chloride Level 98 Carbon Dioxide Level 26.2 Anion Gap 10 Blood Urea Nitrogen 15 Creatinine 0.81 Estimat Glomerular Filtration 68 Rate Random Glucose 120 Calcium Level 8.4 Total Bilirubin 0.4 Aspartate Amino Transf 53 (AST/SGOT) Alanine Aminotransferase 158 (ALT/SGPT) Alkaline Phosphatase 125 Troponin I 1.03 B-Type Natriuretic Peptide 290 Total Protein 6.5 Albumin 3.2 Result Diagram: 01/21/17231901/21/17 2320 Imaging Last 24 hours Impressions Abdomen/Pelvis CT 01/22/17 0000 Signed Impressions: Service Date/Time: Sunday, January 22, 2017 01:39 - CONCLUSION: 1. Small bilateral pleural effusions and bibasilar consolidation. 2. Minimal ascites. 3. Distended urinary bladder. 4. No acute inflammatory process. Nelson Montana MD Chest X-Ray 01/21/17 2309 Signed Impressions: Service Date/Time: Saturday, January 21, 2017 23:28 - CONCLUSION: Cardiomegaly with pulmonary vascular congestion and bibasilar atelectasis versus infiltrate. Nelson Montana MD Assessment and Plan Assessment and Plan Chest pain - Follow-up series of EKG - Follow-up troponins trending - Management per cardiology Respiratory distress - Fluid overload - New onset of CHF - As above - IV Lasix - 2-D echo GERD - Omeprazole History of A. fib - Status post ablation - Continue amiodarone - Further per cardiology Hypertension - Norvasc DVT GI prophylaxis - Resume Xarelto - Omeprazole Critical Care: The total critical care time was 35 minutes. Time to perform other separately billable procedures was not included in the critical care time. Jermaine Solano MD January 22, 2017 01:55
[2017-01-22] MEDS ORDERED: METOCLOPRAMIDE HCL 10 MG/2 ML VIAL IV PRN (02:00)
[2017-01-22] MEDS ORDERED: CHLORHEXIDINE GLUCONATE 2 % 1 PACK (2 CLOTHS) TOP PRN (02:00)
[2017-01-22] MEDS ORDERED: MISCELLANEOUS NURSING INFORMATION XX SCH (02:00)
[2017-01-22] MEDS ORDERED: ACETAMINOPHEN 325 MG TAB PO PRN (02:00)
[2017-01-22] MEDS ORDERED: RESP: ALBUTEROL 2.5 MG/IPRATROPIUM 0.5 MG NEB (PRN) INH (02:00)
[2017-01-22] MEDS ORDERED: SODIUM CHLORIDE 0.9% FLUSH 10 ML FLUSH PRN (02:00)
--- NOTE | 2017-01-22 02:16 | RADRPT ---
EXAM DATE/TIME: 01/22/2017 01:39 [facility] COMPARISON: No previous studies available for comparison. INDICATIONS : Abdominal pain. ORAL CONTRAST: No oral contrast ingested. RADIATION DOSE: 12.02 CTDIvol (mGy) MEDICAL HISTORY : Hypertension. Hernia, hiatal. Nephrotic syndrome. SURGICAL HISTORY : Cholecystectomy. ENCOUNTER: Initial ACUITY: 1 day PAIN SCALE: 5/10 LOCATION: abdomen TECHNIQUE: Volumetric scanning of the abdomen and pelvis was performed. Using automated exposure control and ad justment of the mA and/or kV according to patient size, radiation dose was kept as low as reasonably achievable to obtain optimal diagnostic quality images. FINDINGS: LOWER LUNGS: Small bilateral pleural effusions and bibasilar consolidation LIVER: Homogeneous density without lesion. There is no dilation of the biliary tree. Minimal ascites adjac ent to liver. Cholecystectomy clips. SPLEEN: Normal size without lesion. PANCREAS: Within normal limits. 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 There is no mass, stone, or hydronephrosis. ADRENAL GLANDS: Within normal limits. VASCULAR: There is no aortic aneurysm. BOWEL/MESENTERY: The stomach, small bowel, and colon demonstrate no acute abnormality. There is no free intraperitone al air or fluid. ABDOMINAL WALL: Within normal limits. RETROPERITONEUM: There is no lymphadenopathy. BLADDER: Distention and degenerative bladder. No wall thickening or mass. REPRODUCTIVE: Within normal limits. INGUINAL: There is no lymphadenopathy or hernia. MUSCULOSKELETAL: Within normal limits for patient age. CONCLUSION: 1. Small bilateral pleural effusions and bibasilar consolidation. 2. Minimal ascites. 3. Distended urinary bladder. 4. No acute inflammatory process. Nelson Montana MD on January 22, 2017 at 2:11 Board Certified Radiologist. This report was verified electronically.
[2017-01-22 02:48] LABS: BLOOD GAS BASE EXCESS -0.4 mmol/L (-2-2); BLOOD GAS CARBOXYHEMOGLOBIN 1.3 % (0-4); BLOOD GAS HCO3 23 mmol/L (22-26); BLOOD GAS METHEMOGLOBIN 0.4 % (0-2); BLOOD GAS O2 HGB SATURATION 94 % (90-100); BLOOD GAS OXYGEN CONTENT 12.2 Vol % (12.0-20.0); BLOOD GAS PCO2 34 mmHg (38-42); BLOOD GAS PO2 74 mmHG (61-120); BLOOD GAS TOTAL HGB 9.2 G/DL (12.0-16.0); CRITICAL VALUE NO; OXYGEN DEVICE HI FLOW NASAL CANNUL; TEMP CORR TO 98.6
[2017-01-22 02:49] LABS: DRAW SITE LT RADIAL; FIO2 80 %; LITER FLOW 25 L/M; NUMBER OF ARTERIAL PUNCTURES 1; STAT YES; ULNAR PULSE PRESENT
[2017-01-22] MEDS: HEPARIN SODIUM - SQ 10,000 UNITS/ML VIAL SQ SCH ×2 (03:50→15:44)
[2017-01-22] MEDS: CHLORHEXIDINE GLUCONATE 2 % 1 PACK (2 CLOTHS) TOP SCH (03:51)
[2017-01-22] MEDS: MORPHINE SULFATE 4 MG/ML INJ IV PRN ×3 (03:59→22:36)
[2017-01-22] MEDS: ONDANSETRON HCL 4 MG/2 ML VIAL IV PRN ×2 (06:37→19:55)
[2017-01-22] MEDS ORDERED: AMIODARONE 200 MG TAB PO SCH (09:00)
[2017-01-22] MEDS ORDERED: NON-FORMULARY DRUG (Omega-3 Fatty Acids (Fish Oil) 2,000 MG) PO SCH (09:00)
[2017-01-22] MEDS: SODIUM CHLORIDE 0.9% FLUSH 10 ML FLUSH SCH ×2 (09:00→21:00)
[2017-01-22] MEDS ORDERED: FUROSEMIDE 40 MG/4 ML VIAL ONE (09:30)
[2017-01-22] MEDS: CHOLECALCIFEROL (VIT D3) 1000 UNIT TAB PO SCH (09:38)
[2017-01-22] MEDS: amLODIPine BESYLATE 5 MG TAB PO SCH ×2 (09:38→21:00)
[2017-01-22] MEDS: DOCUSATE SODIUM 100 MG CAP PO SCH ×2 (09:39→21:00)
[2017-01-22] MEDS: PANTOPRAZOLE SOD 20 MG DELAYED RELEASE TAB PO SCH ×2 (09:39→21:00)
--- NOTE | 2017-01-22 09:53 | EKG ---
Date Performed: 01/22/2017 Time Performed: 01:05:30 PTAGE: 81 years EKG: Sinus rhythm WITH SINUS ARRHYTHMIA NONSPECIFIC T-WAVE ABNORMALITY BORDERLINE ECG PREVIOUS TRACING : 01/21/2017 23.20 DOCTOR: Pam Howe Interpretating Date/Time 01/22/2017 09:51:20
--- NOTE | 2017-01-22 09:55 | EKG ---
Date Performed: 01/22/2017 Time Performed: 01:04:44 PTAGE: 81 years EKG: Sinus rhythm NONSPECIFIC T-WAVE ABNORMALITY BORDERLINE ECG PREVIOUS TRACING : 01/21/2017 23.20 DOCTOR: Pam Howe Interpretating Date/Time 01/22/2017 21:53:03
[2017-01-22] MEDS ORDERED: ARTIFICIAL TEARS OPTH SOLN 15 ML BTL EACH EYE PRN (14:00)
--- NOTE | 2017-01-22 17:22 | MB ---
cc: VAN TRUJILLO M.D. DATE OF CONSULTATION: 01/22/2017 REASON FOR CONSULTATION Shortness of breath and dizziness. HISTORY OF PRESENT ILLNESS Mrs. Johnson is an 81-year-old female with a history of atrial fibrillation, recent ablation, was recently discharged home, was at home yesterday, felt dizzy and called her daughter. They called 911. She was brought to the emergency room. On evaluation, troponin was 1.03. The patient was admitted. Fluid overload diagnosed and I was consulted for evaluation and management. The chart was reviewed. The patient was evaluated. ALLERGIES ANTI-INFLAMMATORY, ADHESIVE, ASPIRIN, DIGOXIN, IBUPROFEN, KEFLEX, LISINOPRIL, MICARDIS, PENICILLIN, RELAFEN, AND SULFA. SOCIAL HISTORY Negative for smoking and drinking. The patient just lost her . FAMILY HISTORY Noncontributory to her current medical condition. MEDICATIONS Currently she is on - 1. Amiodarone. 2. Amlodipine. 3. Aspirin. 4. She received Lasix IV today and Reglan. REVIEW OF SYSTEMS The patient refer feeling better but some shortness of breath and chest discomfort. No vomiting no fever. PHYSICAL EXAMINATION GENERAL: Alert, fully oriented. VITAL SIGNS: Her blood pressure 115/75, pulse 74, respiratory 18. LUNGS: Ventilated. CARDIOVASCULAR: S1, S2 regular. No gallop. No murmur. ABDOMEN: Soft. No mass. No bruit. EXTREMITIES: With no edema. Electrocardiogram: Sinus rhythm, minimal ST and T-wave changes. LABORATORY DATA White blood cell 11.5, hemoglobin 9.7, potassium is 3.9, creatinine 0.81, troponin was 1.03 on admission at 11:00 p.m. last night, this morning at 09:00 a.m. it was 0.60. ASSESSMENT AND RECOMMENDATIONS Mrs. Johnson had atrial fibrillation ablation. She was recently discharged. She has some weakness and dizziness. Blood pressure is adequate. She is still in sinus rhythm. Troponin is high, that is because of the ablation. It is coming down, it is basically 0.60 right now. I had a long conversation with her and her daughter. At this point, my recommendation is to continue observation, discontinue Hernandez, ambulation. I am going to cut the amiodarone to 200 mg a day. We will continue anticoagulation. If she is stable, will be discharged home in the next 24-48 hours. MD CIRILO Livingston/YORDY /5:00 PM /5:09 PM
--- NOTE | 2017-01-22 17:48 | EC ---
Study Study Date:01/22/2017 STUDY CONCLUSIONS SUMMARY - Left ventricle: The cavity size was normal. Wall thickness was normal. Systolic function was normal. The estimated ejection fraction was in the range of 60% to 65%. Wall motion was normal; there were no regional wall motion abnormalities. - Aortic valve: Trace regurgitation. Valve area: 2.1cm^2(VTI). Valve area: 2.2cm^2 (Vmax). - Mitral valve: Mild to moderate regurgitation. - Right ventricle: Systolic pressure was increased. - Tricuspid valve: Mild-moderate regurgitation. - Pulmonary arteries: PA peak pressure: 47mm Hg (S). - Pericardium, extracardiac: A trivial pericardial effusion was identified. If LV function is below 40, please consider prescribing an ACEI or ARB or document rationale for non-use. PROCEDURE DATA STUDY STATUS: Elective. Procedure: Transthoracic echocardiography. Image quality was good. Scanning was performed from the parasternal, apical, and subcostal acoustic windows. Study completion: The patient tolerated the procedure well. Transthoracic echocardiography. M-mode, complete 2D, complete spectral Doppler, and color Doppler. Weight: Weight: 157.7lb. Patient status: Inpatient. CARDIAC ANATOMY LEFT VENTRICLE: The cavity size was normal. Wall thickness was normal. Systolic function was normal. The estimated ejection fraction was in the range of 60% to 65%. Wall motion was normal; there were no regional wall motion abnormalities. AORTIC VALVE: Trileaflet; normal thickness leaflets. Doppler: Transvalvular velocity was within the normal range. There was no stenosis. Trace regurgitation. Valve area: 2.1cm^2(VTI). Valve area: 2.2cm^2 (Vmax). Mean gradient: 4mm Hg (S). AORTA: Aortic root: The aortic root was normal in size. MITRAL VALVE: Structurally normal valve. Doppler: Transvalvular velocity was within the normal range. There was no evidence for stenosis. Mild to moderate regurgitation. LEFT ATRIUM: The atrium was normal in size. RIGHT VENTRICLE: The cavity size was normal. Wall thickness was normal. Systolic pressure was increased. PULMONIC VALVE: Doppler: Transvalvular velocity was within the normal range. There was no evidence for stenosis. Trace regurgitation. TRICUSPID VALVE: Structurally normal valve. Doppler: Transvalvular velocity was within the normal range. Mild-moderate regurgitation. PULMONARY ARTERY: The main pulmonary artery was normal-sized. Systolic pressure was within the normal range. RIGHT ATRIUM: The atrium was normal in size. PERICARDIUM: A trivial pericardial effusion was identified. SYSTEMIC VEINS: Inferior vena cava: The vessel was normal in size. Patient weight: 157.7lb _Ejection fraction:_ 65-75% _Fractional shortening:_ 32% up to 5Kg 5-11.5Kg 11.6-22.9Kg 23-45Kg 45-57Kg Aortic Root 7-13 <17 13-22 17-27 17-27 LA diam 6-13 <23 24-38 33-47 37-40 RVID 10-17 7-15 7-15 7-18 8-17 LVIDd 12-22 <32 24-38 33-47 37-40 LVPW 2-4 3-6 5-7 6-8 7-8 IVS 2-4 3-6 5-7 6-8 7-8 BASIC MEASUREMENTS ADULT NORMAL Left ventricle LV internal dimension, ED, chordal level, *42.3 mm 43-52 PLAX LV internal dimension, ES, chordal level, 29.7 mm 23-38 PLAX Fractional shortening, chordal level, PLAX 30 % >29 LV posterior wall thickness, ED 7.54 mm IVS/LVPW ratio, ED 1.01 <1.3 Ventricular septum Septal thickness, ED 7.62 mm Aortic valve Leaflet separation 23 mm 15-26 Aorta Root diameter, ED 31 mm Left atrium Anterior-posterior dimension 22 mm BASIC MEASUREMENTS ADULT NORMAL Aortic valve Leaflet separation 23 mm 15-26 DOPPLER MEASUREMENTS ADULT NORMAL Main pulmonary artery Pressure, S *47 mm Hg =30 Aortic valve Peak velocity, S 143 cm/s Mean velocity, S 97.5 cm/s VTI, S 30.1 cm Mean gradient, S 4 mm Hg Valve area, VTI 2.1 cm^2 Valve area, Vmax 2.2 cm^2 Mitral valve Peak E-wave velocity 68.3 cm/s Peak A-wave velocity 51 cm/s Deceleration time *141 ms 150-230 Peak E/A ratio 1.3 Tricuspid valve Regurgitant peak velocity 307 cm/s Peak RV-RA gradient, S 38 mm Hg Maximal regurgitant velocity 307 cm/s Systemic veins Estimated CVP 10 mm Hg Right ventricle RV pressure, S *48 mm Hg <30 Pulmonic valve Peak velocity, S 51.1 cm/s LEGEND: Mean values are shown as u=mean value. Asterisk (*) [place] values outside specified normal range. Prepared and signed by Pam Howe [id number]
[2017-01-22] MEDS: APIXABAN 5 MG TABLET PO SCH (21:00)
[2017-01-22] MEDS: ARTIFICIAL TEARS OPTH SOLN 15 ML BTL EACH EYE SCH (21:00)
[2017-01-23] VITALS (13 sets, daily range): BP systolic 114–141; BP diastolic 55–77; PULSE 70–124; RESP 18–29; TEMP 97.1–98.7; O2SAT 92–98
[2017-01-23] MEDS: LORazepam 0.5 MG TAB PO PRN ×2 (03:08→23:16)
[2017-01-23 03:47] LABS: AUTOMATED NEUTROPHIL # 5.3 TH/MM3 (1.8-7.7); BASOPHIL % 0.6 % (0.0-2.0); EOSINOPHIL # 0.1 TH/MM3 (0-0.4); EOSINOPHIL % 1.6 % (0.0-4.0); LYMPH % 16.4 % (9.0-44.0); LYMPHOCYTE # 1.3 TH/MM3 (1.0-4.8); MEAN CELL VOLUME 75.7 FL (80.0-100.0); MEAN CORPUSCULAR HEMOGLOBIN 24.3 PG (27.0-34.0); MEAN CORPUSCULAR HGB CONC 32.2 % (32.0-36.0); MONO % 12.2 % (0.0-8.0); NEUT % 69.2 % (16.0-70.0); PLATELET COUNT 218 TH/MM3 (150-450); RED BLOOD COUNT 3.84 MIL/MM3 (4.00-5.30); RED CELL DISTRIBUTION WIDTH 16.1 % (11.6-17.2); WHITE BLOOD COUNT 7.7 TH/MM3 (4.0-11.0)
[2017-01-23] MEDS: CHLORHEXIDINE GLUCONATE 2 % 1 PACK (2 CLOTHS) TOP SCH (03:59)
[2017-01-23 04:06] LABS: ALT (GPT) 132 U/L (10-53); ANION GAP 7 MEQ/L (5-15); AST (GOT) 42 U/L (15-37); BICARBONATE 30.9 MEQ/L (21.0-32.0); BLOOD UREA NITROGEN 9 MG/DL (7-18); CHLORIDE 97 MEQ/L (98-107); GLOMERULAR FILTRATION RATE 104 ML/MIN (>89); MAGNESIUM 1.9 MG/DL (1.5-2.5); POTASSIUM 3.4 MEQ/L (3.5-5.1); SODIUM (NA) 135 MEQ/L (136-145)
[2017-01-23 04:08] LABS: ALKALINE PHOSPHATASE 112 U/L (45-117); TOTAL BILIRUBIN ADULT 0.5 MG/DL (0.2-1.0)
[2017-01-23 04:10] LABS: PROTHROMBIN TIME - PATIENT 11.5 SEC (9.8-11.6)
[2017-01-23 04:20] LABS: HEMO FLAGS AUTO DIFF
--- NOTE | 2017-01-23 07:41 | HHI.CCPN ---
Subjective Remarks/Hospital Course 81-year-old female who had the ablation done by Dr. Smith 2 days ago presents today with a new onset of chest pain epigastric pain nausea. She has been complaining of the generalized weakness and lack of energy for last months however since her ablation. 01/23: Breathing quite comfortably this morning. No wheezes or crackles. Feels better. Diuresed 3 liters. Objective Vital Signs Date Time Temp Pulse Resp B/P Pulse Ox O2 Delivery O2 Flow Rate FiO2 01/23/17 05:00 98.5 75 18 123/60 96 01/23/17 03:43 High Flow Nasal Cannula 20.00 70 Intake and Output 01/22/17 01/22/17 01/23/17 08:00 16:00 00:00 Intake Total 258 ml 240 ml Output Total 300 ml 1625 ml 1325 ml Balance -300 ml -1367 ml -1085 ml Result Diagram: 01/23/17 0334 01/23/17 0334 Imaging Last 24 hours Impressions Abdomen/Pelvis CT 01/22/17 0000 Signed Impressions: Service Date/Time: Sunday, January 22, 2017 01:39 - CONCLUSION: 1. Small bilateral pleural effusions and bibasilar consolidation. 2. Minimal ascites. 3. Distended urinary bladder. 4. No acute inflammatory process. Nelson Montana MD Chest X-Ray 01/21/17 6930 Signed Impressions: Service Date/Time: Saturday, January 21, 2017 23:28 - CONCLUSION: Cardiomegaly with pulmonary vascular congestion and bibasilar atelectasis versus infiltrate. Nelson Montana MD Objective Remarks GENERAL: Well-nourished, well-developed patient. SKIN: Warm and dry. HEAD: Normocephalic. EYES: No scleral icterus. No injection or drainage. NECK: Supple, trachea midline. No JVD or lymphadenopathy. CARDIOVASCULAR: Regular rate and rhythm without murmurs, gallops, or rubs. RESPIRATORY: Breath sounds equal bilaterally. No accessory muscle use. No wheezes. GASTROINTESTINAL: Abdomen soft, non-tender, nondistended. MUSCULOSKELETAL: No cyanosis, or edema. BACK: Nontender without obvious deformity. No CVA tenderness. EXTREMITIES: No clubbing cyanosis or edema A/P Assessment and Plan Chest pain - Follow-up series of EKG - Follow-up troponins trending - Management per cardiology Respiratory distress - Fluid overload - New onset of CHF - As above - IV Lasix - 2-D echo GERD - Omeprazole History of A. fib - Status post ablation - Continue amiodarone - Further per cardiology Hypertension - Norvasc DVT GI prophylaxis - Resume Xarelto - Omeprazole Overall impression: Much improved, transfer. Kevin Krishnamurthy MD January 23, 2017 07:41
--- NOTE | 2017-01-23 07:44 | PD.TRANSFR ---
Transfer Summary Admission Date January 22, 2017 at 01:47 Transfer Date: January 24, 2017 Admitting Diagnosis hypoxic respiratory failure, CHF, pulmonary edema Diagnoses: Significant Findings Diffuse crackles, wheezes on admission. Transfer Summary/Subjective She presented with CHF several day after ablation for SVT. Ablation was successful, now RRR. Breathing much improved after aggressive diuresis. Cardiology involved. Medication record reviewed. Objective Vital Signs Date Time Temp Pulse Resp B/P Pulse Ox O2 Delivery O2 Flow Rate FiO2 01/23/17 05:00 98.5 75 18 123/60 96 01/23/17 03:43 High Flow Nasal Cannula 20.00 70 Intake and Output 01/22/17 01/22/17 01/23/17 08:00 16:00 00:00 Intake Total 258 ml 240 ml Output Total 300 ml 1625 ml 1325 ml Balance -300 ml -1367 ml -1085 ml Result Diagram: 01/23/17 0334 01/23/17 0334 Imaging Last 24 hours Impressions Abdomen/Pelvis CT 01/22/17 0000 Signed Impressions: Service Date/Time: Sunday, January 22, 2017 01:39 - CONCLUSION: 1. Small bilateral pleural effusions and bibasilar consolidation. 2. Minimal ascites. 3. Distended urinary bladder. 4. No acute inflammatory process. Nelson Montana MD Chest X-Ray 01/21/17 1742 Signed Impressions: Service Date/Time: Saturday, January 21, 2017 23:28 - CONCLUSION: Cardiomegaly with pulmonary vascular congestion and bibasilar atelectasis versus infiltrate. Nelson Montana MD Objective Remarks GENERAL: Well-nourished, well-developed patient. SKIN: Warm and dry. HEAD: Normocephalic. EYES: No scleral icterus. No injection or drainage. NECK: Supple, trachea midline. No JVD or lymphadenopathy. CARDIOVASCULAR: Regular rate and rhythm without murmurs, gallops, or rubs. RESPIRATORY: Breath sounds equal bilaterally. No accessory muscle use. No wheezes. GASTROINTESTINAL: Abdomen soft, non-tender, nondistended. MUSCULOSKELETAL: No cyanosis, or edema. BACK: Nontender without obvious deformity. No CVA tenderness. EXTREMITIES: No clubbing cyanosis or edema A/P Assessment and Plan Chest pain - Follow-up series of EKG - Follow-up troponins trending - Management per cardiology Respiratory distress - Fluid overload - New onset of CHF - As above - IV Lasix - 2-D echo GERD - Omeprazole History of A. fib - Status post ablation - Continue amiodarone - Further per cardiology Hypertension - Norvasc DVT GI prophylaxis - Resume Xarelto - Omeprazole Overall impression: Much improved, transfer. Kevin Krishnamurthy MD January 23, 2017 07:43
[2017-01-23 08:42] LABS: BANDS 1 % (0-6); BASOPHILS 1 % (0-2); METAMYELOCYTES 1 % (0-1); NEUTROPHIL # MANUAL DIFF 6.2 TH/MM3 (1.8-7.7); POLYS (SEG NEUTROPHILS) 79 % (16-70); WBC DIFF SAMPLE 100
[2017-01-23] MEDS: CHOLECALCIFEROL (VIT D3) 1000 UNIT TAB PO SCH (08:42)
[2017-01-23] MEDS: DOCUSATE SODIUM 100 MG CAP PO SCH ×2 (08:42→20:00)
[2017-01-23] MEDS: amLODIPine BESYLATE 5 MG TAB PO SCH ×2 (08:42→20:00)
[2017-01-23 08:43] LABS: PLATELET ESTIMATE SMEAR NORMAL (NORMAL); PLATELET MORPHOLOGY NORMAL (NORMAL); SCAN/DIFF FINAL DIFF MANUAL
[2017-01-23] MEDS: SODIUM CHLORIDE 0.9% FLUSH 10 ML FLUSH SCH ×2 (08:43→20:00)
[2017-01-23] MEDS: PANTOPRAZOLE SOD 20 MG DELAYED RELEASE TAB PO SCH ×2 (08:43→20:00)
[2017-01-23] MEDS: ARTIFICIAL TEARS OPTH SOLN 15 ML BTL EACH EYE SCH ×2 (08:43→20:00)
[2017-01-23] MEDS: AMIODARONE 200 MG TAB PO SCH (08:43)
[2017-01-23] MEDS: APIXABAN 5 MG TABLET PO SCH ×2 (08:43→20:00)
--- NOTE | 2017-01-23 13:37 | HHI.PR ---
Subjective Remarks Feeling better today Objective Vital Signs Date Time Temp Pulse Resp B/P Pulse Ox O2 Delivery O2 Flow Rate FiO2 01/23/17 10:00 116 01/23/17 08:00 97.5 106 19 134/70 97 01/23/17 08:00 106 01/23/17 08:00 Blow By 01/23/17 07:37 93 High Flow Nasal Cannula 20.00 70 01/23/17 05:00 98.5 75 18 123/60 96 01/23/17 03:43 95 High Flow Nasal Cannula 20.00 70 01/23/17 00:00 98.7 70 24 134/61 97 01/22/17 23:00 70 01/22/17 22:00 95 High Flow Nasal Cannula 20.00 70 01/22/17 20:00 98.5 74 30 131/63 97 01/22/17 19:00 Nasal Cannula 20.00 25 01/22/17 16:11 16 01/22/17 16:00 98.7 78 24 122/60 93 01/22/17 15:00 74 I/O 01/22/17 01/22/17 01/22/17 01/23/17 01/23/17 01/23/17 07:00 15:00 23:00 07:00 15:00 23:00 Intake Total 258 ml 240 ml 100 ml Output Total 300 ml 1625 ml 1325 ml 425 ml Balance -300 ml -1367 ml -1085 ml -325 ml Intake Oral 240 ml 240 ml 100 ml IV Total 18 ml Output Urine Total 300 ml 1625 ml 1325 ml 425 ml # Voids 1 # Bowel Movements 0 0 0 Result Diagram: 01/23/17 0334 01/23/17 0334 Imaging Alert, fully oriented Lungs: ventilated Heart: S1, S2 regular, no gallop Abdomen: soft, no mass, no bruit Ext: no edema Last Impressions Abdomen/Pelvis CT 01/22/17 0000 Signed Impressions: Service Date/Time: Sunday, January 22, 2017 01:39 - CONCLUSION: 1. Small bilateral pleural effusions and bibasilar consolidation. 2. Minimal ascites. 3. Distended urinary bladder. 4. No acute inflammatory process. Nelson Montana MD Chest X-Ray 01/21/17 5001 Signed Impressions: Service Date/Time: Saturday, January 21, 2017 23:28 - CONCLUSION: Cardiomegaly with pulmonary vascular congestion and bibasilar atelectasis versus infiltrate. Nelson Montana MD Current Medications Medications (Trade) Dose Ordered Sig/Shaun Route Start Time Stop Time Status Last Admin (NS Flush) 2 ml UNSCH PRN .XX 01/22/17 02:00 (NS Flush) 2 ml BID .XX 01/22/17 09:00 01/23/17 08:43 (Tylenol) 650 mg Q6H PRN PO 01/22/17 02:00 (Morphine Inj) 2 mg Q2H PRN IV 01/22/17 02:00 01/22/17 22:36 (Zofran Inj) 4 mg Q6H PRN IV 01/22/17 02:00 01/22/17 19:55 (Reglan Inj) 10 mg Q6H PRN IV 01/22/17 02:00 (Colace) 100 mg BID PO 01/22/17 09:00 01/23/17 08:42 Miscellaneous Information 1 Q361D XX 01/22/17 02:00 01/22/17 02:00 (Chlorhexidine 2% Cloth) 3 pack Taper DAILY@04 TOP 01/22/17 04:00 01/18/18 03:59 01/23/17 03:59 (Chlorhexidine 2% Cloth) 3 pack UNSCH PRN TOP 01/22/17 02:00 (Norvasc) 5 mg BID PO 01/22/17 09:00 01/23/17 08:42 (Ativan) 0.5 mg HS PRN PO 01/22/17 02:00 01/23/17 03:08 (Vitamin D3) 2,000 units DAILY PO 01/22/17 09:00 01/23/17 08:42 (Protonix) 20 mg BID PO 01/22/17 09:00 01/23/17 08:43 (Tears Naturale Opth Soln) 2 drop Q12HR EACH EYE 01/22/17 21:00 01/23/17 08:43 (Tears Naturale Opth Soln) 2 drop Q4H PRN EACH EYE 01/22/17 14:00 (Cordarone) 200 mg DAILY PO 01/23/17 09:00 01/23/17 08:43 (Eliquis) 5 mg BID PO 01/22/17 21:00 01/23/17 08:43 Assessment and Plan Problem List: (1) Rapid atrial fibrillation Status: Acute Plan: In sinus rhythm. (2) Dyspnea on exertion Status: Acute Plan: Significantly improve Oxygen titrating Out of bed Continue with current management. Pam Howe MD January 23, 2017 13:37
[2017-01-24] VITALS (14 sets, daily range): BP systolic 95–137; BP diastolic 58–77; PULSE 93–120; RESP 17–30; TEMP 98–98.7; O2SAT 88–98
[2017-01-24] MEDS: CHLORHEXIDINE GLUCONATE 2 % 1 PACK (2 CLOTHS) TOP SCH (04:00)
[2017-01-24] MEDS: amLODIPine BESYLATE 5 MG TAB PO SCH (09:45)
[2017-01-24] MEDS: DOCUSATE SODIUM 100 MG CAP PO SCH ×2 (09:45→20:52)
[2017-01-24] MEDS: AMIODARONE 200 MG TAB PO SCH (09:45)
[2017-01-24] MEDS: PANTOPRAZOLE SOD 20 MG DELAYED RELEASE TAB PO SCH ×2 (09:45→20:52)
[2017-01-24] MEDS: CHOLECALCIFEROL (VIT D3) 1000 UNIT TAB PO SCH (09:46)
[2017-01-24] MEDS: SODIUM CHLORIDE 0.9% FLUSH 10 ML FLUSH SCH ×2 (09:46→20:53)
[2017-01-24] MEDS: ARTIFICIAL TEARS OPTH SOLN 15 ML BTL EACH EYE SCH ×2 (09:46→20:53)
[2017-01-24] MEDS: APIXABAN 5 MG TABLET PO SCH ×2 (09:46→20:53)
--- NOTE | 2017-01-24 17:16 | HHI.PR ---
Subjective Remarks SOB improved from admission. Pt c/o generalized weakness. Objective Vitals Vital Signs Date Time Temp Pulse Resp B/P Pulse Ox O2 Delivery O2 Flow Rate FiO2 01/24/17 14:00 106 01/24/17 12:00 98.0 106 27 95/58 98 01/24/17 12:00 106 01/24/17 10:00 96 Nasal Cannula 5.00 01/24/17 10:00 120 01/24/17 08:01 93 Nasal Cannula 5.00 01/24/17 08:00 118 01/24/17 08:00 98.3 118 20 137/65 94 01/24/17 08:00 93 Nasal Cannula 5.00 01/24/17 07:00 92 Nasal Cannula 5.00 01/24/17 06:00 118 01/24/17 04:00 98.0 108 17 120/77 98 01/24/17 04:00 108 01/24/17 02:00 93 01/24/17 00:00 98.0 118 30 133/72 93 01/24/17 00:00 118 01/23/17 22:00 118 01/23/17 20:46 96 Nasal Cannula 4.00 01/23/17 20:30 95 Nasal Cannula 4.00 01/23/17 20:00 98.3 124 23 140/77 92 01/23/17 20:00 124 01/23/17 19:00 Nasal Cannula 10.00 50 01/23/17 01/23/17 01/24/17 15:00 23:00 07:00 Intake Total 440 ml 480 ml 240 ml Output Total 550 ml 900 ml 900 ml Balance -110 ml -420 ml -660 ml Intake Oral 440 ml 480 ml 240 ml Output Urine Total 550 ml 900 ml 900 ml Stool Total 0 ml 0 ml 0 ml # Voids 3 Result Diagram: 01/23/17 0334 01/23/17 0334 Imaging Last Impressions Chest X-Ray 01/24/17 0000 Signed Impressions: Service Date/Time: Tuesday, January 24, 2017 21:37 - CONCLUSION: Left base infiltrate and effusion Carlos Ivey MD Abdomen/Pelvis CT 01/22/17 0000 Signed Impressions: Service Date/Time: Sunday, January 22, 2017 01:39 - CONCLUSION: 1. Small bilateral pleural effusions and bibasilar consolidation. 2. Minimal ascites. 3. Distended urinary bladder. 4. No acute inflammatory process. Nelson Montana MD Objective Remarks GENERAL: This is a well-nourished, well-developed patient, in no apparent distress. CARDIOVASCULAR: tachycardic and irregular RESPIRATORY: Clear to auscultation. Breath sounds equal bilaterally. No wheezes , rales, or rhonchi. GASTROINTESTINAL: Abdomen soft, non-tender, nondistended. Normal active bowel sounds MUSCULOSKELETAL: Extremities without clubbing, cyanosis, or edema. NEURO: Alert & Oriented x4 to person, place, time, situation. Moves all ext x4 A/P Problem List: (1) Rapid atrial fibrillation Status: Acute Plan: - recent ablation with Dr. Howe - amiodarone stopped by Cardiology - metoprolol, diltiazem CD, tambocor - continue to observe on telemetry - eliquis - continue to wean O2 - repeat CXR in Amadeo Ruiz DO January 24, 2017 17:16
[2017-01-24] MEDS ORDERED: METOPROLOL TARTRATE 25 MG TAB PO SCH (18:00)
--- NOTE | 2017-01-24 18:39 | HHI.PR ---
Subjective Remarks Tired Objective Vital Signs Date Time Temp Pulse Resp B/P Pulse Ox O2 Delivery O2 Flow Rate FiO2 01/24/17 18:00 113 01/24/17 16:00 98 Nasal Cannula 5.00 01/24/17 16:00 98.7 112 20 113/69 98 01/24/17 16:00 112 01/24/17 14:00 106 01/24/17 12:00 98.0 106 27 95/58 98 01/24/17 12:00 106 01/24/17 10:00 96 Nasal Cannula 5.00 01/24/17 10:00 120 01/24/17 08:01 93 Nasal Cannula 5.00 01/24/17 08:00 118 01/24/17 08:00 98.3 118 20 137/65 94 01/24/17 08:00 93 Nasal Cannula 5.00 01/24/17 07:00 92 Nasal Cannula 5.00 01/24/17 06:00 118 01/24/17 04:00 98.0 108 17 120/77 98 01/24/17 04:00 108 01/24/17 02:00 93 01/24/17 00:00 98.0 118 30 133/72 93 01/24/17 00:00 118 01/23/17 22:00 118 01/23/17 20:46 96 Nasal Cannula 4.00 01/23/17 20:30 95 Nasal Cannula 4.00 01/23/17 20:00 98.3 124 23 140/77 92 01/23/17 20:00 124 01/23/17 19:00 Nasal Cannula 10.00 50 I/O 01/23/17 01/23/17 01/23/17 01/24/17 01/24/17 01/24/17 07:00 15:00 23:00 07:00 15:00 23:00 Intake Total 100 ml 440 ml 480 ml 240 ml 820 ml Output Total 425 ml 550 ml 900 ml 900 ml 1200 ml Balance -325 ml -110 ml -420 ml -660 ml -380 ml Intake Oral 100 ml 440 ml 480 ml 240 ml 820 ml Output Urine Total 425 ml 550 ml 900 ml 900 ml 1200 ml Stool Total 0 ml 0 ml 0 ml # Voids 1 3 2 Result Diagram: 01/23/17 0334 01/23/17 033 Imaging Alert, fully oriented Lungs: ventilated Heart: S1, S2 irregular, no gallop Abdomen: soft, no mass Ext: no edema Last Impressions Abdomen/Pelvis CT 01/22/17 0000 Signed Impressions: Service Date/Time: Sunday, January 22, 2017 01:39 - CONCLUSION: 1. Small bilateral pleural effusions and bibasilar consolidation. 2. Minimal ascites. 3. Distended urinary bladder. 4. No acute inflammatory process. Nelson Montana MD Chest X-Ray 01/21/17 3851 Signed Impressions: Service Date/Time: Saturday, January 21, 2017 23:28 - CONCLUSION: Cardiomegaly with pulmonary vascular congestion and bibasilar atelectasis versus infiltrate. Nelson Montana MD Current Medications Medications (Trade) Dose Ordered Sig/Shaun Route Start Time Stop Time Status Last Admin (NS Flush) 2 ml UNSCH PRN .XX 01/22/17 02:00 (NS Flush) 2 ml BID .XX 01/22/17 09:00 01/24/17 09:46 (Tylenol) 650 mg Q6H PRN PO 01/22/17 02:00 (Morphine Inj) 2 mg Q2H PRN IV 01/22/17 02:00 01/22/17 22:36 (Zofran Inj) 4 mg Q6H PRN IV 01/22/17 02:00 01/22/17 19:55 (Reglan Inj) 10 mg Q6H PRN IV 01/22/17 02:00 (Colace) 100 mg BID PO 01/22/17 09:00 01/24/17 09:45 Miscellaneous Information 1 Q361D XX 01/22/17 02:00 01/22/17 02:00 (Chlorhexidine 2% Cloth) 3 pack Taper DAILY@04 TOP 01/22/17 04:00 01/18/18 03:59 01/23/17 03:59 (Chlorhexidine 2% Cloth) 3 pack UNSCH PRN TOP 01/22/17 02:00 (Norvasc) 5 mg BID PO 01/22/17 09:00 01/24/17 09:45 (Ativan) 0.5 mg HS PRN PO 01/22/17 02:00 01/23/17 23:16 (Vitamin D3) 2,000 units DAILY PO 01/22/17 09:00 01/24/17 09:46 (Protonix) 20 mg BID PO 01/22/17 09:00 01/24/17 09:45 (Tears Naturale Opth Soln) 2 drop Q12HR EACH EYE 01/22/17 21:00 01/24/17 09:46 (Tears Naturale Opth Soln) 2 drop Q4H PRN EACH EYE 01/22/17 14:00 (Cordarone) 200 mg DAILY PO 01/23/17 09:00 01/24/17 09:45 (Eliquis) 5 mg BID PO 01/22/17 21:00 01/24/17 09:46 (Lopressor) 25 mg Q12H PO 01/24/17 18:00 01/24/17 17:43 Assessment and Plan Problem List: (1) Rapid atrial fibrillation Status: Acute Plan: In atrial fib. No tolerating amio EF 60%+ No hx of CAD. Flecainide will be used. Metoprolol and amlodipine DC. Cardizem added If necessary, cardioversion will be considered (2) Dyspnea on exertion Status: Acute Plan: Significantly improve Oxygen titrating Out of bed Continue with current management. Pam Howe MD January 24, 2017 18:39
--- NOTE | 2017-01-24 22:44 | RADRPT ---
EXAM DATE/TIME: 01/24/2017 21:37 [facility] COMPARISON: CHEST SINGLE AP, January 21, 2017, 23:28. INDICATIONS : Hypoxia. MEDICAL HISTORY : Hypertension. Hiatal hernia. Nephrotic syndrome. SURGICAL HISTORY : Cholecystectomy. ENCOUNTER: Subsequent ACUITY: 1 day PAIN SCORE: 0/10 LOCATION: Bilateral chest FINDINGS: There is mild infiltrate and effusion at the left lung base. Cardiac contours are grossly stable ther e is CONCLUSION: Left base infiltrate and effusion Carlos Ivey MD on January 24, 2017 at 22:41 Board Certified Radiologist. This report was verified electronically.
[2017-01-25] VITALS (12 sets, daily range): BP systolic 102–139; BP diastolic 54–75; PULSE 61–114; RESP 18–36; TEMP 97.4–98.6; O2SAT 92–98
[2017-01-25] MEDS: FLECAINIDE ACETATE 100 MG TAB PO SCH ×3 (00:56→20:38)
[2017-01-25] MEDS: LORazepam 0.5 MG TAB PO PRN (02:31)
[2017-01-25 03:49] LABS: AUTOMATED NEUTROPHIL # 4.7 TH/MM3 (1.8-7.7); BASOPHIL % 0.5 % (0.0-2.0); EOSINOPHIL # 0.4 TH/MM3 (0-0.4); EOSINOPHIL % 4.6 % (0.0-4.0); HEMATOCRIT 31.5 % (35.0-46.0); LYMPH % 23.4 % (9.0-44.0); LYMPHOCYTE # 1.8 TH/MM3 (1.0-4.8); MEAN CELL VOLUME 74.7 FL (80.0-100.0); MEAN CORPUSCULAR HEMOGLOBIN 24.8 PG (27.0-34.0); MEAN CORPUSCULAR HGB CONC 33.2 % (32.0-36.0); MONO % 11.9 % (0.0-8.0); NEUT % 59.6 % (16.0-70.0); PLATELET COUNT 332 TH/MM3 (150-450); RED BLOOD COUNT 4.21 MIL/MM3 (4.00-5.30); WHITE BLOOD COUNT 7.9 TH/MM3 (4.0-11.0)
[2017-01-25 03:55] LABS: HEMO FLAGS AUTO DIFF
[2017-01-25] MEDS: CHLORHEXIDINE GLUCONATE 2 % 1 PACK (2 CLOTHS) TOP SCH (04:00)
[2017-01-25 04:04] LABS: BICARBONATE 27.9 MEQ/L (21.0-32.0); MAGNESIUM 2.1 MG/DL (1.5-2.5); POTASSIUM 3.7 MEQ/L (3.5-5.1)
--- NOTE | 2017-01-25 06:46 | PD.CARD.PN ---
Subjective Subjective Remarks Feels better, no SOB. Objective Medications Current Medications Medications (Trade) Dose Ordered Sig/Shaun Route Start Time Stop Time Status Last Admin (NS Flush) 2 ml UNSCH PRN .XX 01/22/17 02:00 (NS Flush) 2 ml BID .XX 01/22/17 09:00 01/24/17 20:53 (Tylenol) 650 mg Q6H PRN PO 01/22/17 02:00 (Morphine Inj) 2 mg Q2H PRN IV 01/22/17 02:00 01/22/17 22:36 (Zofran Inj) 4 mg Q6H PRN IV 01/22/17 02:00 01/22/17 19:55 (Reglan Inj) 10 mg Q6H PRN IV 01/22/17 02:00 (Colace) 100 mg BID PO 01/22/17 09:00 01/24/17 20:52 Miscellaneous Information 1 Q361D XX 01/22/17 02:00 01/22/17 02:00 (Chlorhexidine 2% Cloth) 3 pack Taper DAILY@04 TOP 01/22/17 04:00 01/18/18 03:59 01/23/17 03:59 (Chlorhexidine 2% Cloth) 3 pack UNSCH PRN TOP 01/22/17 02:00 (Ativan) 0.5 mg HS PRN PO 01/22/17 02:00 01/25/17 02:31 (Vitamin D3) 2,000 units DAILY PO 01/22/17 09:00 01/24/17 09:46 (Protonix) 20 mg BID PO 01/22/17 09:00 01/24/17 20:52 (Tears Naturale Opth Soln) 2 drop Q12HR EACH EYE 01/22/17 21:00 01/24/17 20:53 (Tears Naturale Opth Soln) 2 drop Q4H PRN EACH EYE 01/22/17 14:00 (Eliquis) 5 mg BID PO 01/22/17 21:00 01/24/17 20:53 (Tambocor) 100 mg Q12HR PO 01/24/17 21:00 01/25/17 00:56 (Cardizem Cd) 180 mg DAILY PO 01/25/17 09:00 Vital Signs / I&O Vital Signs Date Time Temp Pulse Resp B/P Pulse Ox O2 Delivery O2 Flow Rate FiO2 01/25/17 04:00 97.4 106 20 117/65 92 01/25/17 04:00 106 01/25/17 02:00 98 01/25/17 00:00 110 01/25/17 00:00 98.6 110 36 136/75 97 01/24/17 22:00 102 01/24/17 20:00 104 01/24/17 20:00 98.4 104 30 116/67 88 01/24/17 19:02 97 Nasal Cannula 3.00 01/24/17 19:00 96 Nasal Cannula 3.00 01/24/17 18:00 113 01/24/17 16:00 98 Nasal Cannula 5.00 01/24/17 16:00 98.7 112 20 113/69 98 01/24/17 16:00 112 01/24/17 14:00 106 01/24/17 12:00 98.0 106 27 95/58 98 01/24/17 12:00 106 01/24/17 10:00 96 Nasal Cannula 5.00 01/24/17 10:00 120 01/24/17 08:01 93 Nasal Cannula 5.00 01/24/17 08:00 118 01/24/17 08:00 98.3 118 20 137/65 94 01/24/17 08:00 93 Nasal Cannula 5.00 01/24/17 07:00 92 Nasal Cannula 5.00 I/O 01/24/17 01/24/17 01/24/17 01/25/17 01/25/17 01/25/17 07:00 15:00 23:00 07:00 15:00 23:00 Intake Total 240 ml 820 ml 480 ml Output Total 900 ml 1200 ml 1100 ml Balance -660 ml -380 ml -620 ml Intake Oral 240 ml 820 ml 480 ml Output Urine Total 900 ml 1200 ml 1100 ml Stool Total 0 ml # Voids 3 2 2 Physical Exam GENERAL: Well-nourished, well-developed patient. SKIN: Warm and dry. HEAD: Normocephalic. EYES: No scleral icterus. No injection or drainage. NECK: Supple, trachea midline. No JVD or lymphadenopathy. CARDIOVASCULAR: Regular rate and rhythm without murmurs, gallops, or rubs. RESPIRATORY: Breath sounds equal bilaterally. No accessory muscle use. GASTROINTESTINAL: Abdomen soft, non-tender, nondistended. EXTREMITIES: No cyanosis, or edema. NEUROLOGICAL: Awake, alert, and oriented x 3. Non-focal. Laboratory Laboratory Tests Test 01/25/17 02:57 White Blood Count 7.9 TH/MM3 Red Blood Count 4.21 MIL/MM3 Hemoglobin 10.4 GM/DL Hematocrit 31.5 % Mean Corpuscular Volume 74.7 FL Mean Corpuscular Hemoglobin 24.8 PG Mean Corpuscular Hemoglobin 33.2 % Concent Red Cell Distribution Width 16.0 % Platelet Count 332 TH/MM3 Mean Platelet Volume 7.1 FL Neutrophils (%) (Auto) 59.6 % Lymphocytes (%) (Auto) 23.4 % Monocytes (%) (Auto) 11.9 % Eosinophils (%) (Auto) 4.6 % Basophils (%) (Auto) 0.5 % Neutrophils # (Auto) 4.7 TH/MM3 Lymphocytes # (Auto) 1.8 TH/MM3 Monocytes # (Auto) 0.9 TH/MM3 Eosinophils # (Auto) 0.4 TH/MM3 Basophils # (Auto) 0.0 TH/MM3 CBC Comment AUTO DIFF Sodium Level 135 MEQ/L Potassium Level 3.7 MEQ/L Chloride Level 100 MEQ/L Carbon Dioxide Level 27.9 MEQ/L Anion Gap 7 MEQ/L Blood Urea Nitrogen 10 MG/DL Creatinine 0.62 MG/DL Estimat Glomerular Filtration 93 ML/MIN Rate Random Glucose 110 MG/DL Calcium Level 8.9 MG/DL Magnesium Level 2.1 MG/DL Imaging Last Impressions Chest X-Ray 01/24/17 0000 Signed Impressions: Service Date/Time: Tuesday, January 24, 2017 21:37 - CONCLUSION: Left base infiltrate and effusion Carlos Ivey MD Abdomen/Pelvis CT 01/22/17 0000 Signed Impressions: Service Date/Time: Sunday, January 22, 2017 01:39 - CONCLUSION: 1. Small bilateral pleural effusions and bibasilar consolidation. 2. Minimal ascites. 3. Distended urinary bladder. 4. No acute inflammatory process. Nelson Montana MD Assessment and Plan Problem List: (1) Dyspnea on exertion Assessment and Plan: Laying flat in bed, no SOB. Continue mobilization to evaluate BANEGAS. (2) Rapid atrial fibrillation Assessment and Plan: Converted to NSR about 6:30 a.m. Now on flecanide. Amiodarone d/c'd. Continue current medications per my d/w Dr. Howe. Lynsey Sandoval January 25, 2017 06:46
[2017-01-25 08:05] LABS: SCAN/DIFF AUTO DIFF CONFIRMED
[2017-01-25] MEDS ORDERED: DILTIAZEM-CD 180 MG CAP ER PO SCH (09:00)
[2017-01-25] MEDS: DOCUSATE SODIUM 100 MG CAP PO SCH ×2 (10:09→20:38)
[2017-01-25] MEDS: SODIUM CHLORIDE 0.9% FLUSH 10 ML FLUSH SCH ×2 (10:09→20:40)
[2017-01-25] MEDS: PANTOPRAZOLE SOD 20 MG DELAYED RELEASE TAB PO SCH ×2 (10:10→20:39)
[2017-01-25] MEDS: APIXABAN 5 MG TABLET PO SCH ×2 (10:10→20:38)
[2017-01-25] MEDS: CHOLECALCIFEROL (VIT D3) 1000 UNIT TAB PO SCH (10:10)
[2017-01-25] MEDS: ARTIFICIAL TEARS OPTH SOLN 15 ML BTL EACH EYE SCH ×2 (10:22→20:39)
[2017-01-25] MEDS: METOPROLOL TARTRATE 50 MG TAB PO SCH ×2 (13:47→20:38)
--- NOTE | 2017-01-25 17:05 | HHI.PR ---
Subjective Remarks No new complaints. Objective Vitals Vital Signs Date Time Temp Pulse Resp B/P Pulse Ox O2 Delivery O2 Flow Rate FiO2 01/25/17 08:08 98 Nasal Cannula 3.00 01/25/17 06:00 61 01/25/17 04:00 97.4 106 20 117/65 92 01/25/17 04:00 106 01/25/17 02:00 98 01/25/17 00:00 110 01/25/17 00:00 98.6 110 36 136/75 97 01/24/17 22:00 102 01/24/17 20:00 104 01/24/17 20:00 98.4 104 30 116/67 88 01/24/17 19:02 97 Nasal Cannula 3.00 01/24/17 19:00 96 Nasal Cannula 3.00 01/24/17 18:00 113 01/24/17 01/24/17 01/25/17 14:59 22:59 06:59 Intake Total 820 ml 480 ml 240 ml Output Total 1200 ml 1100 ml 900 ml Balance -380 ml -620 ml -660 ml Intake Oral 820 ml 480 ml 240 ml Output Urine Total 1200 ml 1100 ml 900 ml # Voids 2 2 3 Result Diagram: 01/25/17 0257 01/25/17 0257 Imaging Last Impressions Chest X-Ray 01/24/17 0000 Signed Impressions: Service Date/Time: Tuesday, January 24, 2017 21:37 - CONCLUSION: Left base infiltrate and effusion Carlos Ivey MD Abdomen/Pelvis CT 01/22/17 0000 Signed Impressions: Service Date/Time: Sunday, January 22, 2017 01:39 - CONCLUSION: 1. Small bilateral pleural effusions and bibasilar consolidation. 2. Minimal ascites. 3. Distended urinary bladder. 4. No acute inflammatory process. Nelson Montana MD Objective Remarks GENERAL: This is a well-nourished, well-developed patient, in no apparent distress. CARDIOVASCULAR: tachycardic and irregular RESPIRATORY: Clear to auscultation. Breath sounds equal bilaterally. No wheezes , rales, or rhonchi. GASTROINTESTINAL: Abdomen soft, non-tender, nondistended. Normal active bowel sounds MUSCULOSKELETAL: Extremities without clubbing, cyanosis, or edema. NEURO: Alert & Oriented x4 to person, place, time, situation. Moves all ext x4 A/P Problem List: (1) Rapid atrial fibrillation Status: Acute Plan: - recent ablation with Dr. Howe - amiodarone and cardizem stopped by Cardiology - metoprolol, tambocor - continue to observe on telemetry - eliquis - anticipate d/c in next 1-2 days Amadeo August DO January 25, 2017 17:04 Amadeo August DO January 25, 2017 17:04
[2017-01-26] VITALS (8 sets, daily range): BP systolic 120–147; BP diastolic 58–69; PULSE 62–75; RESP 16–18; TEMP 97.8–99; O2SAT 92–97
[2017-01-26] MEDS: CHLORHEXIDINE GLUCONATE 2 % 1 PACK (2 CLOTHS) TOP SCH (03:45)
[2017-01-26] MEDS: FLECAINIDE ACETATE 100 MG TAB PO SCH ×2 (08:14→20:25)
[2017-01-26] MEDS: PANTOPRAZOLE SOD 20 MG DELAYED RELEASE TAB PO SCH ×2 (08:15→20:25)
[2017-01-26] MEDS: DOCUSATE SODIUM 100 MG CAP PO SCH ×2 (08:15→20:25)
[2017-01-26] MEDS: CHOLECALCIFEROL (VIT D3) 1000 UNIT TAB PO SCH (08:15)
[2017-01-26] MEDS: APIXABAN 5 MG TABLET PO SCH ×2 (08:15→20:25)
[2017-01-26] MEDS: METOPROLOL TARTRATE 50 MG TAB PO SCH ×2 (08:15→20:25)
[2017-01-26] MEDS: SODIUM CHLORIDE 0.9% FLUSH 10 ML FLUSH SCH ×2 (08:15→20:26)
[2017-01-26] MEDS: ARTIFICIAL TEARS OPTH SOLN 15 ML BTL EACH EYE SCH ×2 (08:19→20:26)
--- NOTE | 2017-01-26 09:01 | RADRPT ---
EXAM DATE/TIME: 01/26/2017 08:34 [facility] COMPARISON: CHEST SINGLE AP, January 21, 2017, 23:28. INDICATIONS : Patient has had plueral effusion. MEDICAL HISTORY : Hypertension. Hernia, hiatal. Nephrotic syndrome. SURGICAL HISTORY : Cholecystectomy. ENCOUNTER: Subsequent ACUITY: 4 - 6 days PAIN SCORE: 0/10 LOCATION: Bilateral chest FINDINGS: A single view of the chest is obtained. Heart enlarged with left basilar density. Right lung clear. L ungs are better aerated. The cardiomediastinal contours are unremarkable. Osseous structures are int act. CONCLUSION: Cardiomegaly with left basilar airspace disease. Lungs are better aerated on current study. Nelson Montana MD on January 26, 2017 at 8:57 Board Certified Radiologist. This report was verified electronically.
[2017-01-26] MEDS: diphenhydrAMINE HCL 25 MG CAP PO PRN ×2 (11:59→19:36)
--- NOTE | 2017-01-26 14:00 | HHI.PR ---
Subjective Remarks Pt reports that she has been having issues with diffuse pruritus this morning after taking her meds This improved with Benadryl. Denies any chest pain or palpitations. Pt HR better controlled today but periodically HR in the 40's on telemetry Objective Vitals Vital Signs Date Time Temp Pulse Resp B/P Pulse Ox O2 Delivery O2 Flow Rate FiO2 01/26/17 12:00 98.8 62 18 120/58 95 01/26/17 08:00 Room Air 01/26/17 08:00 97.8 64 18 130/69 95 01/26/17 04:00 97.9 67 16 132/59 94 01/26/17 03:59 69 01/26/17 00:00 98.3 72 18 123/60 94 01/25/17 20:00 98.1 68 18 139/62 95 01/25/17 18:00 72 01/25/17 16:00 98.5 66 22 102/54 94 01/25/17 16:00 66 01/25/17 14:45 95 Room Air 01/25/17 14:30 98 Nasal Cannula 1.00 Humidified 01/25/17 14:00 99 Nasal Cannula 2.00 Humidified 01/25/17 14:00 104 01/25/17 01/25/17 01/26/17 15:00 23:00 07:00 Intake Total 840 ml 480 ml 240 ml Balance 840 ml 480 ml 240 ml Intake Oral 840 ml 480 ml 240 ml # Voids 3 0 2 # Bowel Movements 1 0 0 Result Diagram: 01/25/17 0257 01/25/17 0257 Other Results Laboratory Tests Test 01/25/17 02:57 White Blood Count 7.9 TH/MM3 Red Blood Count 4.21 MIL/MM3 Hemoglobin 10.4 GM/DL Hematocrit 31.5 % Mean Corpuscular Volume 74.7 FL Mean Corpuscular Hemoglobin 24.8 PG Mean Corpuscular Hemoglobin 33.2 % Concent Red Cell Distribution Width 16.0 % Platelet Count 332 TH/MM3 Mean Platelet Volume 7.1 FL Neutrophils (%) (Auto) 59.6 % Lymphocytes (%) (Auto) 23.4 % Monocytes (%) (Auto) 11.9 % Eosinophils (%) (Auto) 4.6 % Basophils (%) (Auto) 0.5 % Neutrophils # (Auto) 4.7 TH/MM3 Lymphocytes # (Auto) 1.8 TH/MM3 Monocytes # (Auto) 0.9 TH/MM3 Eosinophils # (Auto) 0.4 TH/MM3 Basophils # (Auto) 0.0 TH/MM3 CBC Comment AUTO DIFF Differential Comment AUTO DIFF CONFIRMED Sodium Level 135 MEQ/L Potassium Level 3.7 MEQ/L Chloride Level 100 MEQ/L Carbon Dioxide Level 27.9 MEQ/L Anion Gap 7 MEQ/L Blood Urea Nitrogen 10 MG/DL Creatinine 0.62 MG/DL Estimat Glomerular Filtration 93 ML/MIN Rate Random Glucose 110 MG/DL Calcium Level 8.9 MG/DL Magnesium Level 2.1 MG/DL Imaging Last Impressions Chest X-Ray 01/24/17 0000 Signed Impressions: Service Date/Time: Tuesday, January 24, 2017 21:37 - CONCLUSION: Left base infiltrate and effusion Carlos Ivey MD Abdomen/Pelvis CT 01/22/17 0000 Signed Impressions: Service Date/Time: Sunday, January 22, 2017 01:39 - CONCLUSION: 1. Small bilateral pleural effusions and bibasilar consolidation. 2. Minimal ascites. 3. Distended urinary bladder. 4. No acute inflammatory process. Nelson Montana MD Objective Remarks General: NAD, AAOx3 Chest: CTA Cardiac: Regular Abd: +BS, soft ND/NT Ext: No edema A/P Problem List: (1) Rapid atrial fibrillation Status: Acute Plan: - Pt admitted to [facility] on 01/21/17 with complaints of increasingly lightheaded/ dizziness, SOB, and some chest heaviness. - Pt had recently undergone EPS and ablation with Dr. Howe on 01/20/17 - Pt was initially started on Amiodarone and Cardizem. This was stopped by Cardiology - Pt started on Metoprolol, Tambocor - HR better controlled but occasionally some bradycardia noted on telemetry - continue to observe on telemetry - Eliailynis - anticipate d/c 01/26/17 Jackie Patton January 26, 2017 14:00 Amadeo August DO January 26, 2017 20:00
--- NOTE | 2017-01-26 23:12 | HHI.PR ---
Subjective Remarks Feeling better Objective Vital Signs Date Time Temp Pulse Resp B/P Pulse Ox O2 Delivery O2 Flow Rate FiO2 01/26/17 19:46 98.7 74 16 147/69 97 01/26/17 16:00 99.0 67 17 131/63 95 01/26/17 12:00 98.8 62 18 120/58 95 01/26/17 08:00 Room Air 01/26/17 08:00 64 01/26/17 08:00 97.8 64 18 130/69 95 01/26/17 04:00 97.9 67 16 132/59 94 01/26/17 03:59 69 01/26/17 00:00 98.3 72 18 123/60 94 I/O 01/25/17 01/25/17 01/25/17 01/26/17 01/26/17 01/26/17 06:59 14:59 22:59 06:59 14:59 22:59 Intake Total 240 ml 840 ml 480 ml 240 ml 600 ml 720 ml Output Total 900 ml Balance -660 ml 840 ml 480 ml 240 ml 600 ml 720 ml Intake Oral 240 ml 840 ml 480 ml 240 ml 600 ml 720 ml Output Urine Total 900 ml # Voids 3 2 1 2 6 4 # Bowel Movements 0 1 0 1 2 Result Diagram: 01/25/17 0257 01/25/17 0257 Imaging Alert, fully oriented Lungs: ventilated Heart: S1, S2 regular, no gallop Abdomen: no mass, no bruit Ext: no edema Last Impressions Chest X-Ray 01/26/17 0800 Signed Impressions: Service Date/Time: Thursday, January 26, 2017 08:34 - CONCLUSION: Cardiomegaly with left basilar airspace disease. Lungs are better aerated on current study. Nelson Montana MD Abdomen/Pelvis CT 01/22/17 0000 Signed Impressions: Service Date/Time: Sunday, January 22, 2017 01:39 - CONCLUSION: 1. Small bilateral pleural effusions and bibasilar consolidation. 2. Minimal ascites. 3. Distended urinary bladder. 4. No acute inflammatory process. Nelson Montana MD Current Medications Medications (Trade) Dose Ordered Sig/Shaun Route Start Time Stop Time Status Last Admin (NS Flush) 2 ml UNSCH PRN .XX 01/22/17 02:00 (NS Flush) 2 ml BID .XX 01/22/17 09:00 01/26/17 20:26 (Tylenol) 650 mg Q6H PRN PO 01/22/17 02:00 (Morphine Inj) 2 mg Q2H PRN IV 01/22/17 02:00 01/22/17 22:36 (Zofran Inj) 4 mg Q6H PRN IV 01/22/17 02:00 01/22/17 19:55 (Reglan Inj) 10 mg Q6H PRN IV 01/22/17 02:00 (Colace) 100 mg BID PO 01/22/17 09:00 01/26/17 20:25 Miscellaneous Information 1 Q361D XX 01/22/17 02:00 01/22/17 02:00 (Chlorhexidine 2% Cloth) 3 pack Taper DAILY@04 TOP 01/22/17 04:00 01/18/18 03:59 01/26/17 03:45 (Chlorhexidine 2% Cloth) 3 pack UNSCH PRN TOP 01/22/17 02:00 (Ativan) 0.5 mg HS PRN PO 01/22/17 02:00 01/25/17 02:31 (Vitamin D3) 2,000 units DAILY PO 01/22/17 09:00 01/26/17 08:15 (Protonix) 20 mg BID PO 01/22/17 09:00 01/26/17 20:25 (Tears Naturale Opth Soln) 2 drop Q12HR EACH EYE 01/22/17 21:00 01/26/17 20:26 (Tears Naturale Opth Soln) 2 drop Q4H PRN EACH EYE 01/22/17 14:00 (Eliquis) 5 mg BID PO 01/22/17 21:00 01/26/17 20:25 (Tambocor) 100 mg Q12HR PO 01/24/17 21:00 01/26/17 20:25 (Lopressor) 50 mg BID PO 01/25/17 13:45 01/26/17 20:25 (Benadryl) 25 mg Q4H PRN PO 01/26/17 12:00 01/26/17 19:36 Assessment and Plan Problem List: (1) Rapid atrial fibrillation Status: Acute Plan: Bavk into sinus rhythm. Tolerating very well flecainide Can be DH if stable (2) Dyspnea on exertion Status: Acute Plan: Resolved Doing better Pam Howe MD January 26, 2017 23:12
[2017-01-27] MEDS: LORazepam 0.5 MG TAB PO PRN (02:03)
[2017-01-27 03:36] VITALS: PULSE 75
[2017-01-27] MEDS: CHLORHEXIDINE GLUCONATE 2 % 1 PACK (2 CLOTHS) TOP SCH (04:00)
[2017-01-27 04:12] VITALS: BP 131/60; PULSE 66; RESP 16; TEMP 97.9; O2SAT 92
[2017-01-27 08:00] VITALS: BP 127/58; PULSE 65; RESP 20; TEMP 98.4; O2SAT 94
[2017-01-27 08:07] VITALS: PULSE 64
[2017-01-27] MEDS: PANTOPRAZOLE SOD 20 MG DELAYED RELEASE TAB PO SCH (08:46)
[2017-01-27] MEDS: APIXABAN 5 MG TABLET PO SCH (08:47)
[2017-01-27] MEDS: DOCUSATE SODIUM 100 MG CAP PO SCH (08:47)
[2017-01-27] MEDS: METOPROLOL TARTRATE 50 MG TAB PO SCH (08:47)
[2017-01-27] MEDS: CHOLECALCIFEROL (VIT D3) 1000 UNIT TAB PO SCH (08:47)
[2017-01-27] MEDS: FLECAINIDE ACETATE 100 MG TAB PO SCH (08:47)
[2017-01-27] MEDS: SODIUM CHLORIDE 0.9% FLUSH 10 ML FLUSH SCH (08:48)
[2017-01-27] MEDS: ARTIFICIAL TEARS OPTH SOLN 15 ML BTL EACH EYE SCH (08:48)
--- NOTE | 2017-01-27 11:03 | HHI.FF ---
Face to Face Verification Diagnosis: (1) Palpitations (2) Rapid atrial fibrillation (3) Anxiety (4) Osteoarthritis (5) Hyperlipidemia (6) Hypertension Physical Therapy Order: Evaluate and Treat, Improve ambulation, Strength and gait training Home Health Nursing Order: Medical education Signs/symptoms of disease process Medication education-adverse effect Nursing assessment with vital signs I have seen patient Kate Johnson on 01/27/17. My clinical findings support the need for the requested home health care services because: Ltd mobility - disease progression Deconditioned w/ increased weakness Med compliance is questionable Limited ability to care for self Need for psychosocial assistance I certify that my clinical findings support that this patient is homebound because: Impaired cognitive ability/safety Unsafe to leave home unassisted Need for psychosocial assistance Unable to use public transportation Amadeo August DO January 27, 2017 11:03
[2017-01-27] MEDS ORDERED: FLEC100T PO (11:13)
[2017-01-27] MEDS ORDERED: METO-309 PO (11:13)
--- NOTE | 2017-01-27 11:31 | HHI.DS ---
Discharge Summary Admission Date January 22, 2017 at 01:47 Discharge Date: January 27, 2017 Admitting Diagnosis hypoxic respiratory failure, CHF, pulmonary edema (1) Rapid atrial fibrillation Diagnosis: [facility] Dr. Pam Howe - Cardiology Brief History Ms. Johnson is an 81-year-old female who had the ablation done by Dr. Smith 2 days prior to admission who presented to the ED on 01/21/17 with a new onset of chest pain, epigastric pain, and nausea. She has been complaining of the generalized weakness and lack of energy for last months however since her ablation is has been getting worse. She was admitted to the intensivists initially. CBC/BMP: 01/25/17 0257 01/25/17 0257 Significant Findings Laboratory Tests Test 01/25/17 02:57 Hemoglobin 10.4 GM/DL (11.6-15.3) Hematocrit 31.5 % (35.0-46.0) Mean Corpuscular Volume 74.7 FL (80.0-100.0) Mean Corpuscular Hemoglobin 24.8 PG (27.0-34.0) Monocytes (%) (Auto) 11.9 % (0.0-8.0) Eosinophils (%) (Auto) 4.6 % (0.0-4.0) Sodium Level 135 MEQ/L (136-145) Random Glucose 110 MG/DL (74-106) Imaging Last Impressions Chest X-Ray 01/26/17 0800 Signed Impressions: Service Date/Time: Thursday, January 26, 2017 08:34 - CONCLUSION: Cardiomegaly with left basilar airspace disease. Lungs are better aerated on current study. Nelson Montana MD Abdomen/Pelvis CT 01/22/17 0000 Signed Impressions: Service Date/Time: Sunday, January 22, 2017 01:39 - CONCLUSION: 1. Small bilateral pleural effusions and bibasilar consolidation. 2. Minimal ascites. 3. Distended urinary bladder. 4. No acute inflammatory process. Nelson Montana MD PE at Discharge General: NAD, AAOx3 Chest: CTA Cardiac: Regular Abd: +BS, soft ND/NT Ext: No edema Hospital Course Pt admitted to [facility] on 01/21/17 with complaints of increasingly lightheaded/ dizziness, SOB, and some chest heaviness. She was admitted to the ICU initially. It was felt that the pt had developed some volume overload several days after she had undergone EPS and ablation with Dr. Howe on 01/20/17 for symptomatic atrial fibrillation. Breathing much improved after aggressive diuresis. 2D echo (01/22/17) --> estimated EF 60-65%, trace aortic regurg, mild to moderate mitral regurg, mild to moderate tricuspid regurg, PA peak pressure 47mmHg and trivial pericardial effusion. Cardiology was consulted. Pt was initially started on Amiodarone and Cardizem. This was stopped by Cardiology and the pt was started on Metoprolol, Tambocor. HR better controlled. Pt will be continued on Eliquis. She will continue on Metoprolol 50mg po Q12H and Tambocor 100mg Q12H. She will need to followup with Dr. Howe in 1 week Pt will need to followup with her PCP. Dr. Abbott, in 1 week. We will arrange for HHC/PT upon discharge. Pt Condition on Discharge: Stable Discharge Disposition: Disch w/ Home Health Serv Discharge Instructions DIET: Follow Instructions for: Heart Healthy Diet Activities you can perform: Regular-No Restrictions Follow up Referrals: Cardiology - 1 Week with Pam Howe MD PCP Follow-up - [address] Rashard Abbott New Medications: Flecainide (Flecainide) 100 Mg Tab 100 MG PO Q12HR A. fib #62 TAB Metoprolol Tartrate (Lopressor) 50 Mg Tab 50 MG PO BID A. fib #62 TAB Continued Medications: Apixaban (Eliquis) 5 Mg Tab 5 MG PO BID Blood Clot Prevention #60 Ref 0 TAB Cholecalciferol (D3) 2,000 Unit Cap 2000 UNITS PO DAILY Coenzyme Q10 (Ubidecarenone) (Coq10) 200 Mg Cap 200 MG PO DAILY Lorazepam (Ativan) 0.5 Mg Tab 0.5 MG PO HS PT TAKES 1/2 TABLET AT NIGHT 0.5 MG PO FOR ANXIETY PRN ANXIETY AND/ OR AGITATION Ref 0 TAB [employer]-3 Fatty Acids (Fish Oil) 1,000 Mg Cap 2000 MG PO DAILY Omeprazole (Omeprazole) 20 Mg Cap 20 MG PO BID Discontinued Medications: Amiodarone (Amiodarone) 200 Mg Tab 400 MG PO BID Regulate Heart Beat Days 5 TAB Amiodarone (Amiodarone) 200 Mg Tab 200 MG PO DAILY Regulate Heart Beat #30 Ref 0 TAB Amlodipine (Norvasc) 5 Mg Tab 5 MG PO BID Blood Pressure Management #30 Ref 0 TAB Additional Information Patient examined. Assessment and plan formulated with Jackie Patton PA-C. I agree with the above. Jackie Patton January 27, 2017 11:31 Amadeo August DO January 29, 2017 10:02
--- NOTE | 2017-01-27 11:31 | HHI.DCPOC ---
Discharge Care Plan Diagnosis: (1) Rapid atrial fibrillation Goals to Promote Your Health * To prevent worsening of your condition and complications * To maintain your health at the optimal level Directions to Meet Your Goals Take your medications as prescribed Follow your dietary instruction Follow activity as directed Keep your appointments as scheduled Take your immunizations and boosters as scheduled If your symptoms worsen call your PCP, if no PCP go to Urgent Care Center or Emergency Room Smoking is Dangerous to Your Health. Avoid second hand smoke Call the 24-hour hour crisis hotline for domestic abuse at Jackie Patton January 27, 2017 11:31 Amadeo August DO January 29, 2017 10:03
--- NOTE | 2017-01-30 17:53 | PQ ---
Physician Query Response Document PATIENT: VIVEK BERG : 1935 ADMIT DATE: 01/22/2017 1:47 AM DISCH DATE: 01/27/2017 1:15 PM RESPONDING PROVIDER #: Eschwart QUERY TEXT: CHF Acuity and Type Congestive Heart Failure is documented in the Medical Record. Please document the type and acuity (in cludes probable or suspected) Such as: Type: -- Systolic -- Diastolic -- Combined -- Other, please specify Acuity: -- Acute -- Chronic -- Acute on chronic -- Other, please specify Also please document the underlying cause of the CHF (includes probable or suspected) The patient's Clinical Indicators include: Patient admitted with respiratory distress, fluid overload/new onset CHF. Assessment and Plan Assessment and Plan Chest pain - Follow-up series of EKG - Follow-up troponins trending - Management per cardiology Respiratory distress - Fluid overload - New onset of CHF - As above - IV Lasix - 2-D echo GERD - Omeprazole History of A. fib - Status post ablation - Continue amiodarone - Further per cardiology Hypertension - Norvasc DVT GI prophylaxis - Resume Xarelto - Omeprazole Critical Care: The total critical care time was 35 minutes. Time to perform other separately billable procedures was not included in the critical care time. Jermaine Solano2016 01:55 <Electronically signed by Jermaine Solano MD> 01/22/17 [id number] If you have any additional questions/comments and/or concerns please do not hesitate to reach out to the CDI/Coding Hotline ext. [phone]. Query created by: Deana Benitez on 01/28/2017 10:17 AM RESPONSE TEXT: Pt admitted with Afib with RVR which would cause volume overload. Pt's echocardiogram did NOT indicat e systolic or diastolic CHF. It did show some valvular disease. Electronically signed by: Amadeo August DO 01/30/2017 5:50 PM
== END 2017-01-27 13:15 | disposition home health service (06) | DRG 274 ==
LOC: NEPE 22:54 → NEDA 01-22 01:47 → N03A 01-22 03:16 → N04B 01-25 19:08
PROVIDERS: ADMIT Hospitalist; ATTEND Hospitalist
PROC: 02583ZZ Destruction of Conduction Mechanism, Percutaneous Approach (ICD-10-PCS; principal; 2017-01-20)
PROC: 4A0234Z Measurement of Cardiac Electrical Activity, Percutaneous Approach (ICD-10-PCS; 2017-01-20)
PROC: 02K83ZZ Map Conduction Mechanism, Percutaneous Approach (ICD-10-PCS; 2017-01-20)
PROC: 4A023N8 Measurement of Cardiac Sampling and Pressure, Bilateral, Percutaneous Approach (ICD-10-PCS; 2017-01-20)
PROC: B246ZZZ Ultrasonography of Right and Left Heart (ICD-10-PCS; 2017-01-20)
PROC: 5A2204Z Restoration of Cardiac Rhythm, Single (ICD-10-PCS; 2017-01-20)
DX: I48.91 Unspecified atrial fibrillation (principal); I31.3 Pericardial effusion (noninflammatory); E87.70 Fluid overload, unspecified; R00.1 Bradycardia, unspecified; I47.1 Supraventricular tachycardia; E78.5 Hyperlipidemia, unspecified; K21.9 Gastro-esophageal reflux disease without esophagitis; M85.80 Other specified disorders of bone density and structure, unspecified site; M19.90 Unspecified osteoarthritis, unspecified site; F41.9 Anxiety disorder, unspecified; L29.9 Pruritus, unspecified; I10 Essential (primary) hypertension; Z79.01 Long term (current) use of anticoagulants
CPT/HCPCS: 36600; 71010; 71020; 74176; 80048; 80053; 82140; 82805; 83605; 83735; 83880; 84100; 84484; 85002; 85007; 85025; 85027; 85379; 85610; 85730; 86850; 86900; 86901; 87641; 92960; 93005; 93306; 93312; 93320; 93325; 93613; 93623; 93656; 93662; 96374; 96375; C1730; C1731; C1732; C1759; C1766; C2630; J0780; J1644; J1940; J1956; J2250; J2270; J2405; J2720; J3010

== ENCOUNTER 2017-03-20 19:48 | Observation (INO) | payer MEDICARE ==
[2017-03-20] VITALS (7 sets, daily range): BP systolic 156–231; BP diastolic 69–104; PULSE 69–88; RESP 14–20; TEMP 98.2; O2SAT 96–98
[~2017-03-20] VITALS: Ht 157.5 cm; Wt 70.0 kg
[~2017-03-20 19:48] MED LIST changes: -AMIO200T PO; -AMLO5 PO; -CHOL1CHW5 CHEW; +CHOL20003 PO; +FLEC100T PO; -LIPI80TA PO; +METO-309 PO; +OMEP20CA2 PO; -OMEP40CA2 PO
--- NOTE | 2017-03-20 20:03 | PD ---
Physical Exam Date Seen by Provider: Mar 20, 2017 Time Seen by Provider: 20:01 Data Data Last Documented VS Vital Signs Date Time Temp Pulse Resp B/P Pulse Ox O2 Delivery O2 Flow Rate FiO2 03/20/17 19:53 98.2 88 14 231/103 98 Room Air MDM Supervised Visit with ARLEY: No Narrative Course 81 YO F with complaint of high blood pressure and 8/10 headache today. States ablation in January, changed BP med to Flecainide. Took 5mg Amlodipine ~7pm. Tylenol ~630pm. On Eliquis. Vitals reviewed. Patient seen in triage, awaiting priority bed placement. Nika Dubose Mar 20, 2017 20:03
[2017-03-20] MEDS ORDERED: METO25TA3 PO (20:34)
[2017-03-20] MEDS ORDERED: AMLO5TAB2 PO (20:34)
[2017-03-20] MEDS ORDERED: cloNIDine HCL 0.1 MG TAB PO ONE (20:45)
--- NOTE | 2017-03-20 20:56 | PD ---
HPI Chief Complaint: Hypertension Time Seen by Provider: 20:52 Travel History International Travel<30 days: No Contact w/Intl Traveler<30days: No Traveled to known affect area: No History of Present Illness HPI 81-year-old female that presents to the ED for evaluation of hypertension. Per patient she's had a headache and hypertension since today. She does have a history of hypertension as well as injured fibrillation. She follows with Dr. vegas. Patient had a recent ablation and had a complication secondary to this that require her to be admitted secondary to hypoxemia. Patient had some of her medications changed and she was stopped on amlodipine and she was told to continue taking metoprolol 25 mg twice a day as well as another medication. Per patient she's been compliant with his medications. Per patient her blood pressure has actually been great in the 120s 130s systolic but today she is noted to her blood pressure has been creeping up. Patient's blood pressure here at this time is 230. Per patient she had a pressure-like headache that was 6 out of 10. Per patient headache now is gone and she states that she usually gets a headache when she gets a blood pressure problems. She's had blood pressure problems before with high blood pressure in the past. She does have multiple allergies to different medications. She denies any chest pain or shortness of breath at this time. She denies any palpitations. No urinary symptoms. No history of kidney disease. PFSH Past Medical History Hx Anticoagulant Therapy: Yes (ELIQUIS) Arthritis: Yes Atrial Fibrillation: Yes Blood Disorders: No Heart Rhythm Problems: Yes (PALPITATIONS) Cancer: No Cardiovascular Problems: Yes (HTN) High Cholesterol: Yes Diabetes: No Diminished Hearing: No Endocrine: No Gastrointestinal Disorders: Yes GERD: Yes Genitourinary: Yes Headaches: Yes Hepatitis: No Hiatal Hernia: Yes Hypertension: Yes Immune Disorder: No Implanted Vascular Access Dvce: No Medical other: Yes (REFLUX, BACK AND NECK) Musculoskeletal: Yes Neurologic: Yes Psychiatric: No Reproductive: No Respiratory: Yes Thyroid Disease: No Menopausal: Yes Past Surgical History Abdominal Surgery: Yes (CHOLECYSTECTOMY) Appendectomy: Yes Cardiac Surgery: Yes (ABLATION) Cholecystectomy: Yes Ear Surgery: No Endocrine Surgery: No Eye Surgery: Yes (CATARACTS BILAT) Genitourinary Surgery: No Gynecologic Surgery: Yes (HYSTERECTOMY) Hysterectomy: Yes Neurologic Surgery: No Oral Surgery: No Pacemaker: No Thoracic Surgery: No Tonsillectomy: Yes Other Surgery: Yes Family History Family Hypercholesterolemia: Yes Social History Alcohol Use: Yes (occas. beer) Tobacco Use: No Substance Use: No Allergies-Medications (Allergen,Severity, Reaction): Coded Allergies: Aspirin (Verified Allergy, Severe, "TOLD NOT TO TAKE ANY ANTIINFLAMMATORIES", 03/20/17) Ibuprofen (Verified Allergy, Severe, "TOLD NOT TO TAKE ANYMORE", 03/20/17) Keflex (Verified Allergy, Severe, "SWOLLEN THROAT,ITCHING ALL OVER", ) Lisinopril (Verified Allergy, Severe, "RASH", 03/20/17) Penicillin (Verified Allergy, Severe, UNKNOWN, 03/20/17) Relafen (Verified Allergy, Severe, "NEPHROTIC SYNDROME", 03/20/17) Sulfa (Verified Allergy, Severe, "TOLD NOT TO TAKE ANYMORE", 03/20/17) Adhesives (Verified Allergy, Intermediate, Rash, 03/20/17) Digoxin (Verified Allergy, Intermediate, Fatigue, 03/20/17) Micardis (Verified Allergy, Intermediate, Fatigue, 03/20/17) Uncoded Allergies: ANTIINFLAMMATORIES (Allergy, Severe, "TOLD NOT TO TAKE ANYMORE", 01/04/16) . Reported Meds & Prescriptions Reported Meds & Active Scripts Active Metoprolol Tartrate 50 Mg Tab 50 Mg PO BID Flecainide (Flecainide Acetate) 100 Mg Tab 100 Mg PO Q12HR Reported Metoprolol Tartrate 25 Mg Tab 25 Mg PO BID Amlodipine (Amlodipine Besylate) 5 Mg Tab 5 Mg PO DAILY D3 (Cholecalciferol) 2,000 Unit Cap 2,000 Units PO DAILY Omeprazole 20 Mg Cap 20 Mg PO BID Fish Oil ([place]-3 Fatty Acids) 1,000 Mg Cap 2,000 Mg PO DAILY Eliquis (Apixaban) 5 Mg Tab 5 Mg PO BID Ativan (Lorazepam) 0.5 Mg Tab 0.5 Mg PO HS PRN PT TAKES 1/2 TABLET AT NIGHT 0.5 MG PO FOR ANXIETY Review of Systems Except as stated in HPI: all other systems reviewed are Neg Physical Exam Narrative GENERAL: SKIN: Warm and dry. HEAD: Atraumatic. Normocephalic. EYES: Pupils equal and round 4 mm reactive to light and accommodation. No scleral icterus. No injection or drainage. ENT: No nasal bleeding or discharge. Mucous membranes pink and moist. Tongue is midline. No uvula deviation. NECK: Trachea midline. No JVD. CARDIOVASCULAR: Regular rate and rhythm. No murmurs, S3, S4. RESPIRATORY: No accessory muscle use. Clear to auscultation. Breath sounds equal bilaterally. GASTROINTESTINAL: Abdomen soft, non-tender, nondistended. Hepatic and splenic margins not palpable. MUSCULOSKELETAL: Extremities without clubbing, cyanosis, or edema. No obvious deformities. Full range of motion of the upper and lower extremities bilaterally. 2+ pulses bilaterally. No lumbar, thoracic, cervical spine tenderness to palpation. NEUROLOGICAL: Awake and alert. No obvious cranial nerve deficits. Motor grossly within normal limits. Five out of 5 muscle strength in the arms and legs. Normal speech. PSYCHIATRIC: Appropriate mood and affect; insight and judgment normal. Data Data Last Documented VS Vital Signs Date Time Temp Pulse Resp B/P Pulse Ox O2 Delivery O2 Flow Rate FiO2 03/20/17 21:27 69 16 187/84 97 Room Air 03/20/17 19:53 98.2 Orders Complete Blood Count With Diff (03/20/17 20:33) Basic Metabolic Panel (Bmp) (03/20/17 20:33) Ckmb (Isoenzyme) Profile (03/20/17 20:33) Troponin I (03/20/17 20:33) Prothrombin Time / Inr (Pt) (03/20/17 20:33) Act Partial Throm Time (Ptt) (03/20/17 20:33) Magnesium (Mg) (03/20/17 20:33) Thyroid Stimulating Hormone (03/20/17 20:33) Ct Brain W/O Iv Contrast(Rout) (03/20/17 20:33) Iv Access Insert/Monitor (03/20/17 20:33) Ecg Monitoring (03/20/17 20:33) Oximetry (03/20/17 20:33) Clonidine (Catapres) (03/20/17 20:45) Electrocardiogram (03/20/17 20:24) Flecainide (Tambocor) (03/20/17 22:15) Metoprolol Tartrate (Lopressor) (03/20/17 22:15) Acetaminophen (Tylenol) (03/20/17 22:15) Labs Laboratory Tests Test 03/20/17 20:35 White Blood Count 6.0 TH/MM3 Red Blood Count 4.57 MIL/MM3 Hemoglobin 10.9 GM/DL Hematocrit 33.2 % Mean Corpuscular Volume 72.6 FL Mean Corpuscular Hemoglobin 24.0 PG Mean Corpuscular Hemoglobin 33.0 % Concent Red Cell Distribution Width 17.0 % Platelet Count 258 TH/MM3 Mean Platelet Volume 7.5 FL Neutrophils (%) (Auto) 40.3 % Lymphocytes (%) (Auto) 44.0 % Monocytes (%) (Auto) 13.1 % Eosinophils (%) (Auto) 1.4 % Basophils (%) (Auto) 1.2 % Neutrophils # (Auto) 2.4 TH/MM3 Lymphocytes # (Auto) 2.6 TH/MM3 Monocytes # (Auto) 0.8 TH/MM3 Eosinophils # (Auto) 0.1 TH/MM3 Basophils # (Auto) 0.1 TH/MM3 CBC Comment DIFF FINAL Differential Comment Prothrombin Time 10.3 SEC Prothromb Time International 0.9 RATIO Ratio Activated Partial 25.7 SEC Thromboplast Time Sodium Level 130 MEQ/L Potassium Level 4.1 MEQ/L Chloride Level 97 MEQ/L Carbon Dioxide Level 26.3 MEQ/L Anion Gap 7 MEQ/L Blood Urea Nitrogen 14 MG/DL Creatinine 0.69 MG/DL Estimat Glomerular Filtration 82 ML/MIN Rate Random Glucose 98 MG/DL Calcium Level 8.8 MG/DL Magnesium Level 1.8 MG/DL Total Creatine Kinase 93 U/L Troponin I LESS THAN 0.02 NG/ML Thyroid Stimulating Hormone 2.950 uIU/ML 3rd Gen [facility] Medical Decision Making Medical Screen Exam Complete: Yes Emergency Medical Condition: Yes Medical Record Reviewed: Yes Interpretation(s) CBC & BMP Diagram 03/20/17 20:[address] 03/20/172032 Signed Impressions: Service Date/Time: Monday, March 20, 2017 21:35 - CONCLUSION: 1. No acute intracranial abnormality seen. 2. Atrophy. 3. Suspected small vessel ischemic change in the white matter. 4. 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 Carlos Dupont MD Coags WNL troponin and CKMB negative EKG shows sinus rhythm with no sign of acute ischemia or arrythmia read by me and attending. Differential Diagnosis Hypertension versus hypertensive emergency versus hypertensive urgency versus headache versus kidney failure versus ACS versus ICH less likely Narrative Course 81-year-old female that presents to the ED for evaluation of hypertension and headache. Patient was properly examined and was found to have signs and symptoms very consistent what appears to be hypertension. Labs and imaging were ordered. Patient was given clonidine. Labs and imaging showed no sign of acute disease. Patient's blood pressure became down to 170s systolic. Patient still complains of a headache. My attending Dr. Ramesh evaluated the patient with me and recommends given patient a second dose of metoprolol as well as her flecainide and reevaluated. Patient was given her medications as well as Tylenol for the headache. Case was signed out to my attending pending disposition and improvement of symptoms. Diagnosis Primary Impression: Hypertension Qualified Code: I10 - Essential hypertension Scripts Metoprolol Tartrate 50 Mg Tab50 Mg PO BID #60 TAB Ref 0 Prov:Kevin Ramesh MD 03/20/17 Manjinder Chau Mar 20, 2017 20:55
[2017-03-20 21:06] LABS: AUTOMATED NEUTROPHIL # 2.4 TH/MM3 (1.8-7.7); BASOPHIL # 0.1 TH/MM3 (0-0.2); BASOPHIL % 1.2 % (0.0-2.0); EOSINOPHIL # 0.1 TH/MM3 (0-0.4); EOSINOPHIL % 1.4 % (0.0-4.0); HEMATOCRIT 33.2 % (35.0-46.0); HEMO FLAGS DIFF FINAL; LYMPHOCYTE # 2.6 TH/MM3 (1.0-4.8); MEAN CELL VOLUME 72.6 FL (80.0-100.0); MONO % 13.1 % (0.0-8.0); NEUT % 40.3 % (16.0-70.0); PLATELET COUNT 258 TH/MM3 (150-450); RED BLOOD COUNT 4.57 MIL/MM3 (4.00-5.30)
[2017-03-20 21:20] LABS: ANION GAP 7 MEQ/L (5-15); BICARBONATE 26.3 MEQ/L (21.0-32.0); BLOOD UREA NITROGEN 14 MG/DL (7-18); CHLORIDE 97 MEQ/L (98-107); GLOMERULAR FILTRATION RATE 82 ML/MIN (>89); MAGNESIUM 1.8 MG/DL (1.5-2.5); POTASSIUM 4.1 MEQ/L (3.5-5.1); SODIUM (NA) 130 MEQ/L (136-145)
[2017-03-20 21:21] LABS: APTT (PATIENT) 25.7 SEC (24.3-30.1); INTERNATIONAL NORMALIZED RATIO 0.9 RATIO; PROTHROMBIN TIME - PATIENT 10.3 SEC (9.8-11.6)
[2017-03-20 21:31] LABS: CREATINE KINASE 93 U/L (26-192)
--- NOTE | 2017-03-20 21:51 | RADRPT ---
EXAM DATE/TIME: 03/20/2017 21:35 [place] COMPARISON: CT BRAIN W/O CONTRAST, September 21, 2013, 11:39. INDICATIONS : Cephalgia. RADIATION DOSE: 42.44 CTDIvol (mGy) MEDICAL HISTORY : Cardiovascular disease. Hypertension. SURGICAL HISTORY : Hysterectomy. Appendectomy.Cholecystectomy.Cardiac ablation ENCOUNTER: Initial ACUITY: 1 day PAIN SCALE: 6/10 LOCATION: cranial TECHNIQUE: Multiple contiguous axial images were obtained of the head. Using automated exposure control and adj ustment of the mA and/or kV according to patient size, radiation dose was kept as low as reasonably a chievable to obtain optimal diagnostic quality images. DICOM format image data is available electro nically for review and comparison. FINDINGS: CEREBRUM: The ventricles and cortical sulci are widened. There is an old lacunar infarct at the left caudate he ad. There is decreased density in the periventricular white matter. No evidence of midline shift, m ass lesion, hemorrhage or acute infarction. No extra-axial fluid collections are seen. POSTERIOR FOSSA: The cerebellum and brainstem are intact. The 4th ventricle is midline. The cerebellopontine angle i s unremarkable. EXTRACRANIAL: The visualized portion of the orbits is intact. SKULL: The calvaria is intact. No evidence of skull fracture. CONCLUSION: 1. No acute intracranial abnormality seen. 2. Atrophy. 3. Suspected small vessel ischemic change in the white matter. 4. 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 Carlos Dupont MD on March 20, 2017 at 21:48 Board Certified Radiologist. This report was verified electronically.
[2017-03-20] MEDS ORDERED: CLON0.1T PO (21:59)
[2017-03-20] MEDS ORDERED: METO50TA PO (22:00)
[2017-03-20] MEDS ORDERED: METOPROLOL TARTRATE 25 MG TAB PO ONE (22:15)
[2017-03-20] MEDS ORDERED: ACETAMINOPHEN 325 MG TAB PO ONE (22:15)
[2017-03-20] MEDS ORDERED: FLECAINIDE ACETATE 100 MG TAB PO ONE (22:15)
[2017-03-20] MEDS ORDERED: hydrALAZINE HCL 20 MG/ML VIAL IV PUSH ONE (23:15)
[2017-03-20] MEDS ORDERED: APIXABAN 5 MG TABLET PO ONE (23:30)
--- NOTE | 2017-03-20 23:51 | PD ---
Physical Exam Date Seen by Provider: Mar 20, 2017 Time Seen by Provider: 22:00 Narrative I patient with Osman Chau PA-C. The patient presents with complaints of headache and elevated blood pressure. The patient has a history of atrial fibrillation status post ablation. She is currently taking eliquis. She states that she's had her medications changed recently when she was status post ablation. She said status post ablation, her blood pressure actually normalized and she had a blood pressure of 120 systolic. She states over last 2 days she's felt different and checked her blood pressure today noted it to be 170/90. When she arrived here she had a blood pressure of 200 systolic over 100 diastolic. She denies any stiff neck or nuchal rigidity. She denies any photophobia. She reports pain to the right side of her head. Data Data Last Documented VS Vital Signs Date Time Temp Pulse Resp B/P Pulse Ox O2 Delivery O2 Flow Rate FiO2 03/20/17 23:04 71 16 185/74 96 Room Air 03/20/17 19:53 98.2 Orders Complete Blood Count With Diff (03/20/17 20:33) Basic Metabolic Panel (Bmp) (03/20/17 20:33) Ckmb (Isoenzyme) Profile (03/20/17 20:33) Troponin I (03/20/17 20:33) Prothrombin Time / Inr (Pt) (03/20/17 20:33) Act Partial Throm Time (Ptt) (03/20/17 20:33) Magnesium (Mg) (03/20/17 20:33) Thyroid Stimulating Hormone (03/20/17 20:33) Ct Brain W/O Iv Contrast(Rout) (03/20/17 20:33) Iv Access Insert/Monitor (03/20/17 20:33) Ecg Monitoring (03/20/17 20:33) Oximetry (03/20/17 20:33) Clonidine (Catapres) (03/20/17 20:45) Electrocardiogram (03/20/17 20:24) Flecainide (Tambocor) (03/20/17 22:15) Metoprolol Tartrate (Lopressor) (03/20/17 22:15) Acetaminophen (Tylenol) (03/20/17 22:15) Hydralazine Inj (Apresoline Inj) (03/20/17 23:15) Apixaban (Eliquis) (03/20/17 23:30) Labs Laboratory Tests Test 03/20/17 20:35 White Blood Count 6.0 TH/MM3 Red Blood Count 4.57 MIL/MM3 Hemoglobin 10.9 GM/DL Hematocrit 33.2 % Mean Corpuscular Volume 72.6 FL Mean Corpuscular Hemoglobin 24.0 PG Mean Corpuscular Hemoglobin 33.0 % Concent Red Cell Distribution Width 17.0 % Platelet Count 258 TH/MM3 Mean Platelet Volume 7.5 FL Neutrophils (%) (Auto) 40.3 % Lymphocytes (%) (Auto) 44.0 % Monocytes (%) (Auto) 13.1 % Eosinophils (%) (Auto) 1.4 % Basophils (%) (Auto) 1.2 % Neutrophils # (Auto) 2.4 TH/MM3 Lymphocytes # (Auto) 2.6 TH/MM3 Monocytes # (Auto) 0.8 TH/MM3 Eosinophils # (Auto) 0.1 TH/MM3 Basophils # (Auto) 0.1 TH/MM3 CBC Comment DIFF FINAL Differential Comment Prothrombin Time 10.3 SEC Prothromb Time International 0.9 RATIO Ratio Activated Partial 25.7 SEC Thromboplast Time Sodium Level 130 MEQ/L Potassium Level 4.1 MEQ/L Chloride Level 97 MEQ/L Carbon Dioxide Level 26.3 MEQ/L Anion Gap 7 MEQ/L Blood Urea Nitrogen 14 MG/DL Creatinine 0.69 MG/DL Estimat Glomerular Filtration 82 ML/MIN Rate Random Glucose 98 MG/DL Calcium Level 8.8 MG/DL Magnesium Level 1.8 MG/DL Total Creatine Kinase 93 U/L Troponin I LESS THAN 0.02 NG/ML Thyroid Stimulating Hormone 2.950 uIU/ML 3rd Gen [facility] Medical Record Reviewed: Yes Supervised Visit with ARLEY: Yes Narrative Course 81-year-old female with a history of hypertension, previous A. fib, status post ablation, who is currently taking metoprolol and flecainide. The patient is taking eliquis. She was given clonidine which brought her blood pressure down into the 170s over 80s. She still had residual headache. She was given her metoprolol and flecainide and pressure still remained high. She is now given a dose of IVD hydralazine. Given the fact that she is on eliquis and she is still symptomatic, feels important that we bring him under observation get her blood pressure under control. I spoke with Dr. Jesse Arndt, on-call for the [facility] hosp[facility], who agreed to the observation admission. Diagnosis Primary Impression: Hypertensive urgency Additional Impression: Anticoagulated Admitting Information Admitting Physician Requests: Observation Scripts Metoprolol Tartrate 50 Mg Tab50 Mg PO BID #60 TAB Ref 0 Prov:Kevin Ramesh MD 03/20/17 Kevin Ramesh MD Mar 20, 2017 23:51
[2017-03-21] VITALS: BP 130/61; PULSE 62; RESP 18; O2SAT 96
[2017-03-21] MEDS ORDERED: cloNIDine HCL 0.2 MG TAB PO PRN
[2017-03-21] MEDS ORDERED: LORazepam 0.5 MG TAB PO PRN
[2017-03-21] MEDS ORDERED: ONDANSETRON HCL 4 MG/2 ML VIAL IV PUSH PRN
[2017-03-21 03:05] VITALS: BP 120/58; PULSE 59; RESP 18; TEMP 98.6; O2SAT 96
[2017-03-21 08:19] VITALS: BP 150/67; PULSE 62; RESP 16; TEMP 98.6; O2SAT 97
[2017-03-21] MEDS: PANTOPRAZOLE SOD 20 MG DELAYED RELEASE TAB PO SCH ×2 (08:44→20:45)
[2017-03-21] MEDS: FLECAINIDE ACETATE 100 MG TAB PO SCH ×2 (08:46→20:44)
[2017-03-21] MEDS: APIXABAN 5 MG TABLET PO SCH ×2 (08:46→20:44)
[2017-03-21] MEDS: METOPROLOL TARTRATE 25 MG TAB PO SCH ×2 (08:46→20:43)
[2017-03-21] MEDS ORDERED: amLODIPine BESYLATE 5 MG TAB PO SCH (09:00)
[2017-03-21] MEDS ORDERED: NON-FORMULARY DRUG (Omega-3 Fatty Acids (Fish Oil) 2,000 MG) PO SCH (09:00)
[2017-03-21] MEDS ORDERED: CHOLECALCIFEROL (VIT D3) 1000 UNIT TAB PO SCH (09:00)
--- NOTE | 2017-03-21 09:14 | HHI.HP ---
HPI Service [facility] Hospitalists Primary Care Physician Pam Hoew MD Admission Diagnosis hypertensive urgency, anticoagulated Chief Complaint: Headache Travel History International Travel<30 Days: No Contact w/Intl Traveler <30 Da: No Traveled to Known Affected Are: No History of Present Illness Mrs. Johnson is an 81 y/o female with atrial fibrillation s/p recent EPS and ablation on 01/20/17. She was recently admitted to [facility] in 01/2017 with complaints of increasingly lightheaded/dizziness, SOB, and some chest heaviness. It was felt that the pt had developed some volume overload several days after she had undergone EPS and ablation with Dr. Howe for symptomatic atrial fibrillation. During that admission pt was initially started on Amiodarone and Cardizem. This was stopped by Cardiology and the pt was started on Metoprolol 50mg po Q12H and Tambocor 100mg Q12H. HR was better controlled on that regimen. Pts Norvasc was stopped during that admission. She also reports that during her followup with Dr. Howe following that admission her Metoprolol was cut back to 25mg po BID due to increased fatigue. She states that her BP was stable with the change in her medications. She presented back to the ED at [facility] on 03/20/17 for evaluation of hypertension. Patient reports that she began having issues with headache and noted an elevation in her BP that started yesterday. Per the patient she's been compliant with her medications. She reports that her blood pressure has actually been great with systolic BPs in the 120s-130s but yesterday she noted that her blood pressure had increased and she started having some generalized headache. Patient's blood pressure at the time of arrival in the ED was systolic BP of 230. Per patient she had a pressure-like headache that was 6 out of 10. Per patient headache had improved last night with improvement in her blood pressure. This morning she states that she feels like she is having an increased headache again but is attributing this to taking all the pills at one time. She denies any chest pain, SOB, palpitations, dizziness, weakness, abd pain, nausea/vomiting or diaphoresis. Review of Systems Constitutional: COMPLAINS OF: Fatigue, DENIES: Fever, Chills, Dizziness Eyes: DENIES: Vision loss Ears, nose, mouth, throat: DENIES: Hearing loss Respiratory: DENIES: Cough, Shortness of breath Cardiovascular: DENIES: Chest pain, Palpitations, Dyspnea on Exertion, Lower Extremity Edema Gastrointestinal: DENIES: Abdominal pain, Nausea, Vomiting Genitourinary: DENIES: Hematuria, Dysuria Musculoskeletal: DENIES: Neck pain Integumentary: DENIES: Rash Neurologic: COMPLAINS OF: Headache, DENIES: Abnormal gait, Localized weakness , Paresthesias, Speech Problems, Poor Balance Psychiatric: DENIES: Confusion, Depression Past Family Social History Past Medical History A. fib with RVR HTN Hyperlipidemia GERD Hiatal hernia Hx of esophageal stricture Anxiety Osteoarthritis Osteopenia Vitamin D deficiency Hx of paroxysmal SVT DDD of lumbar spine Hx of diverticulitis Past Surgical History EPS/cardiac ablation in 2009 and 2016 [facility] with partial left oophorectomy and right salpingo-oophorectomy Lap Sophie Appendectomy Incisional right breast biopsy, benign Removal of Nelson's neuroma, right foot Right shoulder arthroscopy Right RCR Laparoscopy with TANK Bilateral cataract surgery Reported Medications Flecainide 100 Mg PO Q12HR Metoprolol 25 Mg PO BID D3 2,000 Units PO DAILY Omeprazole 20 Mg PO BID Fish Oil 2,000 Mg PO DAILY Eliquis 5 Mg PO BID Ativan 0.5 Mg PO HS PRN PT TAKES 1/2 TABLET AT NIGHT 0.5 MG PO FOR ANXIETY Allergies: Coded Allergies: Aspirin (Verified Allergy, Severe, "TOLD NOT TO TAKE ANY ANTIINFLAMMATORIES", 03/20/17) Ibuprofen (Verified Allergy, Severe, "TOLD NOT TO TAKE ANYMORE", 03/20/17) Keflex (Verified Allergy, Severe, "SWOLLEN THROAT,ITCHING ALL OVER", ) Lisinopril (Verified Allergy, Severe, "RASH", 03/20/17) Penicillin (Verified Allergy, Severe, UNKNOWN, 03/20/17) Relafen (Verified Allergy, Severe, "NEPHROTIC SYNDROME", 03/20/17) Sulfa (Verified Allergy, Severe, "TOLD NOT TO TAKE ANYMORE", 03/20/17) Adhesives (Verified Allergy, Intermediate, Rash, 03/20/17) Digoxin (Verified Allergy, Intermediate, Fatigue, 03/20/17) Micardis (Verified Allergy, Intermediate, Fatigue, 03/20/17) Uncoded Allergies: ANTIINFLAMMATORIES (Allergy, Severe, "TOLD NOT TO TAKE ANYMORE", 01/04/16) . Family History Father at 75 y/o, hx of liver cirrhosis Mother at 78 y/o, hx of CAD, diabetes Sister with diabetes Social History Hx of tobacco use, smoked 1/2 ppd x 25 years quit in 1990 Occasional glass of wine or beer Pt lives alone, locally She is a Physical Exam Vital Signs Vital Signs Date Time Temp Pulse Resp B/P Pulse Ox O2 Delivery O2 Flow Rate FiO2 03/21/17 08:19 98.6 62 16 150/67 97 03/21/17 03:05 98.6 59 18 120/58 96 03/21/17 00:00 62 18 130/61 96 Room Air 03/20/17 23:30 71 16 156/69 96 Room Air 03/20/17 23:04 71 16 185/74 96 Room Air 03/20/17 22:00 71 19 178/83 96 Room Air 03/20/17 21:27 69 16 187/84 97 Room Air 03/20/17 20:40 16 97 Room Air 03/20/17 20:27 84 20 231/104 97 Room Air 03/20/17 19:53 98.2 88 14 231/103 98 Room Air Physical Exam GENERAL: This is a well-nourished, well-developed patient, in no apparent distress. HEENT: Atraumatic. Normocephalic. No temporal or scalp tenderness. No scleral icterus. Airway patent. NECK: Trachea midline, supple, nontender. CARDIO: Regular RESP: CTA bilaterally. No wheezes, rales, or rhonchi. ABD: +BS, soft, non-tender, nondistended. EXT: Extremities without clubbing, cyanosis, or edema. NEURO: Awake and alert. Motor and sensory grossly within normal limits. Normal speech. Laboratory Laboratory Tests Test 03/20/17 20:35 White Blood Count 6.0 Red Blood Count 4.57 Hemoglobin 10.9 Hematocrit 33.2 Mean Corpuscular Volume 72.6 Mean Corpuscular Hemoglobin 24.0 Mean Corpuscular Hemoglobin 33.0 Concent Red Cell Distribution Width 17.0 Platelet Count 258 Mean Platelet Volume 7.5 Neutrophils (%) (Auto) 40.3 Lymphocytes (%) (Auto) 44.0 Monocytes (%) (Auto) 13.1 Eosinophils (%) (Auto) 1.4 Basophils (%) (Auto) 1.2 Neutrophils # (Auto) 2.4 Lymphocytes # (Auto) 2.6 Monocytes # (Auto) 0.8 Eosinophils # (Auto) 0.1 Basophils # (Auto) 0.1 CBC Comment DIFF FINAL Differential Comment Prothrombin Time 10.3 Prothromb Time International 0.9 Ratio Activated Partial 25.7 Thromboplast Time Sodium Level 130 Potassium Level 4.1 Chloride Level 97 Carbon Dioxide Level 26.3 Anion Gap 7 Blood Urea Nitrogen 14 Creatinine 0.69 Estimat Glomerular Filtration 82 Rate Random Glucose 98 Calcium Level 8.8 Magnesium Level 1.8 Total Creatine Kinase 93 Troponin I LESS THAN 0.02 Thyroid Stimulating Hormone 2.950 3rd Gen Result Diagram: 03/20/17203403/20/172034 Imaging Last Impressions Head CT 03/20/172032 Signed Impressions: Service Date/Time: Monday, March 20, 2017 21:35 - CONCLUSION: 1. No acute intracranial abnormality seen. 2. Atrophy. 3. Suspected small vessel ischemic change in the white matter. 4. 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 Carlos Dupont MD Septic Shock Reassessment Heart: Regular rate and rhythm Lungs: Clear Skin: Warm Assessment and Plan Problem List: (1) Hypertension Status: Acute Plan: - Pt is an 81 y/o female with atrial fibrillation s/p recent EPS and ablation on 01/20/17. - She was recently admitted to [facility] in 01/2017 with volume overload and rapid A. fib. Pts medications were changed to Metoprolol 50mg po Q12H and Tambocor 100mg Q12H. HR was better controlled on that regimen. Pts Norvasc was stopped during that admission. - She also reports that during her followup with Dr. Howe following that admission her Metoprolol was cut back to 25mg po BID due to increased fatigue. - She states that her BP was stable with the change in her medications. - She presented back to the ED at [facility] on 03/20/17 for evaluation of hypertension and headache. Her blood pressure at the time of arrival in the ED was systolic BP of 230. - She was given Clonidine and Hydralazine with improvement in her BP. - Pt resumed on Metoprolol 25mg po BID, Tambocor 100mg BID and Norvasc 5mg po daily - We will monitor her BP today to see if any further adjustments need to be made. - Cont. Eliquis - Telemetry - Tylenol PRN for headaches - Supportive care - DVT prophylaxis with SCDs (2) Hyperlipidemia Status: Chronic Plan: - Diet controlled per the pt (3) Atrial fibrillation Status: Acute Plan: - See above. (4) GERD (gastroesophageal reflux disease) Status: Chronic Plan: - PPI (5) Anxiety Status: Chronic Plan: - Ativan PRN Assessment and Plan Patient examined. Assessment and plan formulated with Jackie Patton PA-C. I agree with the above. Problem Qualifiers (1) Hypertension: Qualified Code: I10 - Essential hypertension Jackie Patton Mar 21, 2017 09:14 Amadeo August DO Mar 23, 2017 12:30
[2017-03-21] MEDS: ACETAMINOPHEN 325 MG TAB PO PRN ×2 (09:45→20:52)
[2017-03-21 12:22] VITALS: BP 122/58; PULSE 62; RESP 18; TEMP 97.6; O2SAT 97
--- NOTE | 2017-03-21 14:44 | EKG ---
Date Performed: 03/20/2017 Time Performed: 20:24:35 PTAGE: 81 years EKG: Sinus rhythm Since previous tracing, no significant change noted NORMAL ECG PREVIOUS TRACING : 01/22/2017 01.05 DOCTOR: Simone Love Interpretating Date/Time 03/21/2017 14:43:29
[2017-03-21 16:59] VITALS: BP 142/65; PULSE 64; RESP 18; TEMP 98.4; O2SAT 97
[2017-03-21 19:14] VITALS: BP 145/66; PULSE 71; RESP 18; TEMP 97.4; O2SAT 97
[2017-03-22 00:14] VITALS: BP 143/64; PULSE 62; RESP 16; TEMP 97.3; O2SAT 96
[2017-03-22 05:57] VITALS: PULSE 58
[2017-03-22 08:00] VITALS: PULSE 60
[2017-03-22 08:26] VITALS: BP 156/72; PULSE 63; RESP 20; TEMP 98; O2SAT 96
[2017-03-22] MEDS ORDERED: AMLO5TAB2 PO (10:48)
--- NOTE | 2017-03-22 10:53 | HHI.FF ---
Face to Face Verification Diagnosis: (1) Hypertensive urgency (2) Atrial fibrillation (3) Osteoarthritis (4) Anxiety Home Health Nursing Order: Medical education Signs/symptoms of disease process Medication education-adverse effect Nursing assessment with vital signs I have seen patient Kate Johnson on 03/22/17. My clinical findings support the need for the requested home health care services because: Med compliance is questionable Limited ability to care for self Need for psychosocial assistance Impaired cognition/judgement I certify that my clinical findings support that this patient is homebound because: Impaired cognitive ability/safety Unsafe to leave home unassisted Need for psychosocial assistance Unable to use public transportation Amadeo August DO Mar 22, 2017 10:52
--- NOTE | 2017-03-23 12:30 | HHI.PR ---
Subjective Remarks LATE ENTRY NOTE FROM 03/22/17 DID NOT SAVE IN MEDITECH. Pt with NO new complaints. Objective Result Diagram: 03/20/17203403/20/172034 Imaging Last Impressions Head CT 03/20/172032 Signed Impressions: Service Date/Time: Monday, March 20, 2017 21:35 - CONCLUSION: 1. No acute intracranial abnormality seen. 2. Atrophy. 3. Suspected small vessel ischemic change in the white matter. 4. 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 Carlos Dupont MD Last Impressions Head CT 03/20/172032 Signed Impressions: Service Date/Time: Monday, March 20, 2017 21:35 - CONCLUSION: 1. No acute intracranial abnormality seen. 2. Atrophy. 3. Suspected small vessel ischemic change in the white matter. 4. 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 Carlos Dupont MD Objective Remarks GENERAL: This is a well-nourished, well-developed patient, in no apparent distress. CARDIOVASCULAR: Regular rate and rhythm without murmurs, gallops, or rubs. RESPIRATORY: Clear to auscultation. Breath sounds equal bilaterally. No wheezes , rales, or rhonchi. GASTROINTESTINAL: Abdomen soft, non-tender, nondistended. Normal active bowel sounds MUSCULOSKELETAL: Extremities without clubbing, cyanosis, or edema. NEURO: Alert & Oriented x4 to person, place, time, situation. Moves all ext x4 A/P Problem List: (1) Hypertension Status: Acute Plan: - Pt is an 81 y/o female with atrial fibrillation s/p recent EPS and ablation on 01/20/17. - She was recently admitted to [facility] in 01/2017 with volume overload and rapid A. fib. Pts medications were changed to Metoprolol 50mg po Q12H and Tambocor 100mg Q12H. HR was better controlled on that regimen. Pts Norvasc was stopped during that admission. - She also reports that during her followup with Dr. Howe following that admission her Metoprolol was cut back to 25mg po BID due to increased fatigue. - She states that her BP was stable with the change in her medications. - She presented back to the ED at [facility] on 03/20/17 for evaluation of hypertension and headache. Her blood pressure at the time of arrival in the ED was systolic BP of 230. - She was given Clonidine and Hydralazine with improvement in her BP. - Pt resumed on Metoprolol 25mg po BID, Tambocor 100mg BID and Norvasc 5mg po daily - Cont. Eliquis - Telemetry - Tylenol PRN for headaches - pt's Blood pressures have been stable on above regiment d/c to home - f/u with PCP in 1 week - f/u with Dr. Howe in 2 weeks - see discharge orders. (2) Hyperlipidemia Status: Chronic Plan: - Diet controlled per the pt (3) Atrial fibrillation Status: Acute Plan: - See above. (4) GERD (gastroesophageal reflux disease) Status: Chronic Plan: - PPI (5) Anxiety Status: Chronic Plan: - Ativan PRN Problem Qualifiers (1) Hypertension: Qualified Code: I10 - Essential hypertension Amadeo August DO Mar 23, 2017 12:30
== END 2017-03-22 13:22 | disposition home or self-care (01) ==
LOC: NEPE 19:48 → NEDA 03-21 00:08 → NEPFCDU 03-21 01:27
PROVIDERS: ADMIT Hospitalist; ATTEND Hospitalist
DX: I16.0 Hypertensive urgency (principal); I10 Essential (primary) hypertension; R51 Headache; R42 Dizziness and giddiness; R53.83 Other fatigue; G31.9 Degenerative disease of nervous system, unspecified; E78.5 Hyperlipidemia, unspecified; E78.00 Pure hypercholesterolemia, unspecified; I48.91 Unspecified atrial fibrillation; K21.9 Gastro-esophageal reflux disease without esophagitis; F41.9 Anxiety disorder, unspecified; M51.36 Other intervertebral disc degeneration, lumbar region; M85.80 Other specified disorders of bone density and structure, unspecified site; M19.90 Unspecified osteoarthritis, unspecified site; Z79.02 Long term (current) use of antithrombotics/antiplatelets; Z79.899 Other long term (current) drug therapy; Z87.891 Personal history of nicotine dependence; Z86.73 Personal history of transient ischemic attack (TIA), and cerebral infarction without residual deficits
CPT/HCPCS: 70450; 80048; 82550; 83735; 84443; 84484; 85025; 85610; 85730; 93005; 96374; 97161; 99285; G0378; G8987; G8988; G8989; J0360

== ENCOUNTER 2017-03-22 22:20 | Inpatient (IN) | payer MEDICARE ==
[~2017-03-22] VITALS: Ht 167.6 cm; Wt 71.3 kg
[~2017-03-22 22:20] MED LIST changes: +AMLO5TAB2 PO; -COQ1200C PO; -METO-309 PO; +METO25TA3 PO
[2017-03-22 22:26] VITALS: BP 207/93; PULSE 70; RESP 18; TEMP 98.2; O2SAT 98
[2017-03-22] MEDS ORDERED: cloNIDine HCL 0.2 MG TAB PO ONE (22:45)
[2017-03-22 22:46] LABS: AUTOMATED NEUTROPHIL # 3.8 TH/MM3 (1.8-7.7); BASOPHIL % 0.6 % (0.0-2.0); EOSINOPHIL # 0.1 TH/MM3 (0-0.4); EOSINOPHIL % 1.2 % (0.0-4.0); HEMATOCRIT 33.7 % (35.0-46.0); HEMO FLAGS DIFF FINAL; LYMPH % 31.3 % (9.0-44.0); LYMPHOCYTE # 2.2 TH/MM3 (1.0-4.8); MEAN CELL VOLUME 72.3 FL (80.0-100.0); MEAN CORPUSCULAR HEMOGLOBIN 23.4 PG (27.0-34.0); MEAN CORPUSCULAR HGB CONC 32.4 % (32.0-36.0); MONO % 12.7 % (0.0-8.0); NEUT % 54.2 % (16.0-70.0); PLATELET COUNT 260 TH/MM3 (150-450); RED BLOOD COUNT 4.66 MIL/MM3 (4.00-5.30); RED CELL DISTRIBUTION WIDTH 17.1 % (11.6-17.2)
--- NOTE | 2017-03-22 22:47 | PD ---
HPI Chief Complaint: Hypertension Time Seen by Provider: 22:32 Travel History International Travel<30 days: No Contact w/Intl Traveler<30days: No Traveled to known affect area: No History of Present Illness HPI This is a 81-year-old female patient with a past medical history of atrial fibrillation status post ablation hypertension hyperlipidemia who presents with a complaint of confusion and fatigue and headache. She was recently discharged from [facility] where she was treated for hypertensive urgency. Patient states the Norvasc was added to her medication regimen. Patient denies chest pain shortness of breath sweating slurred speech weakness or numbness of the extremities. She notes compliance with current medication regimen. PFSH Past Medical History Hx Anticoagulant Therapy: Yes (ELIQUIS) Arthritis: Yes Asthma: No Atrial Fibrillation: Yes Blood Disorders: No Anxiety: No Depression: No Heart Rhythm Problems: Yes (PALPITATIONS) Cancer: No Cardiovascular Problems: Yes (HTN) High Cholesterol: Yes Chemotherapy: No Chest Pain: No Congestive Heart Failure: No COPD: No Diabetes: No Diminished Hearing: No Endocrine: No Gastrointestinal Disorders: Yes GERD: Yes Genitourinary: Yes Headaches: Yes Hepatitis: No Hiatal Hernia: Yes Hypertension: Yes Immune Disorder: No Implanted Vascular Access Dvce: No Medical other: Yes (REFLUX, BACK AND NECK) Musculoskeletal: Yes Neurologic: Yes Psychiatric: No Reproductive: No Respiratory: Yes Radiation Therapy: No Sleep Apnea: No Thyroid Disease: No ?: Not Menopausal: Yes Past Surgical History Abdominal Surgery: Yes (CHOLECYSTECTOMY) Appendectomy: Yes Cardiac Surgery: Yes (ABLATION) Cholecystectomy: Yes Ear Surgery: No Endocrine Surgery: No Eye Surgery: Yes (CATARACTS BILAT) Genitourinary Surgery: No Gynecologic Surgery: Yes (HYSTERECTOMY) Hysterectomy: Yes Neurologic Surgery: No Oral Surgery: No Pacemaker: No Thoracic Surgery: No Tonsillectomy: Yes Other Surgery: Yes Family History Family Hypercholesterolemia: Yes Social History Alcohol Use: Yes (occas. beer) Tobacco Use: No Substance Use: No Allergies-Medications (Allergen,Severity, Reaction): Coded Allergies: Aspirin (Verified Allergy, Severe, "TOLD NOT TO TAKE ANY ANTIINFLAMMATORIES", 03/20/17) Ibuprofen (Verified Allergy, Severe, "TOLD NOT TO TAKE ANYMORE", 03/20/17) Keflex (Verified Allergy, Severe, "SWOLLEN THROAT,ITCHING ALL OVER", ) Lisinopril (Verified Allergy, Severe, "RASH", 03/20/17) Penicillin (Verified Allergy, Severe, UNKNOWN, 03/20/17) Relafen (Verified Allergy, Severe, "NEPHROTIC SYNDROME", 03/20/17) Sulfa (Verified Allergy, Severe, "TOLD NOT TO TAKE ANYMORE", 03/20/17) Adhesives (Verified Allergy, Intermediate, Rash, 03/20/17) Digoxin (Verified Allergy, Intermediate, Fatigue, 03/20/17) Micardis (Verified Allergy, Intermediate, Fatigue, 03/20/17) Uncoded Allergies: ANTIINFLAMMATORIES (Allergy, Severe, "TOLD NOT TO TAKE ANYMORE", 01/04/16) . Reported Meds & Prescriptions Reported Meds & Active Scripts Active Amlodipine (Amlodipine Besylate) 5 Mg Tab 5 Mg PO DAILY Flecainide (Flecainide Acetate) 100 Mg Tab 100 Mg PO Q12HR Reported Metoprolol Tartrate 25 Mg Tab 25 Mg PO BID D3 (Cholecalciferol) 2,000 Unit Cap 2,000 Units PO DAILY Omeprazole 20 Mg Cap 20 Mg PO BID Fish Oil (Windsor-3 Fatty Acids) 1,000 Mg Cap 2,000 Mg PO DAILY Eliquis (Apixaban) 5 Mg Tab 5 Mg PO BID Ativan (Lorazepam) 0.5 Mg Tab 0.5 Mg PO HS PRN PT TAKES 1/2 TABLET AT NIGHT 0.5 MG PO FOR ANXIETY Review of Systems ROS Limitations: Clinical Condition Except as stated in HPI: all other systems reviewed are Neg General / Constitutional: No: Fever, Chills, Weight Gain, Weight Loss, Other Eyes: No: Diploplia, Blurred Vision, Photophobia, Drainage, Redness, Foreign Body Sensation, Pain, Tearing, Blind Spots, Visual changes, Blindness, Other HENT: Positive: Headaches, No: Vertigo, Lightheadedness, Sore Throat, Rhinitis , Rhinorrhea, Congestion, Nosebleed, Neck Stiffness, Neck Pain, Masses, Gingival Bleeding, Dental Difficulties, Ear Discharge, Earache, Other Cardiovascular: No: Chest Pain or Discomfort, Palpitations, Irregular Rhythm, Tachycardia, Diaphoresis, Syncope, Dyspnea on exertion, Varicosities, Edema, Cyanosis, Varicosities, Phlebitis, Claudication, Other Respiratory: No: Cough, Shortness of Breath, Wheezing, Sneezing, Orthopnea, Hemoptysis, Stridor, Night Sweats, Pleuritic Pain, Other Gastrointestinal: No: Nausea, Vomiting, Diarrhea, Abdominal Pain, Hematemesis, Hematochezia, Constipation, Changes in Bowel Habits, Indigestion, Dysphagia, Loss of Appetite, Other Genitourinary: No: Urgency, Frequency, Dysuria, Nocturia, Hematuria, Decreased Urinary Output, Oliguria, Hesitancy, Dribbling, Incontinence, Pelvic Pain, Flank Pain, Dyspareunia, Discharge, Dysmenorrhea, Menorrhagia, Metorrhagia, Vaginal Bleeding, Other Musculoskeletal: No: Myalgias, Arthralgias, Limited ROM, Weakness, Cramping, Edema, Pain, Atrophy, Other Skin: No Rash, No Itching, No Dryness, No Lumps, No Hives, No Change in Pigmentation, No Change in nails, No Alopecia, No Lesions, No Breast Lumps, No Breast Tenderness, No Breast Swelling, No Other Neurologic: Positive: Weakness, Headache, Other (confusion ), No: Dizziness, Syncope, Focal Abnormalities, Coordination Problem, Tremor, Ataxia, Change in Mentation, Slurred Speech, Paresthesia, Incontinence, Seizures, Sensory Disturbance Psychiatric: No: Anxiety, Depression, Suicidal Ideations, Disorder of Thought, Mood Disorder, Substance Abuse, Homicidal Ideation, Other Endocrine: No: Heat Intolerance, Cold Intolerance, Polyuria, Polydipsia, Other Hematologic/Lymphatic: No: Easy Bruising, Lymph Node Enlargement, Other Physical Exam Narrative GENERAL: [-]9-year-old female in mild distress SKIN: Focused skin assessment warm/dry.no lesions no cyanosis no erythema HEAD: Atraumatic. Normocephalic. EYES: Pupils equal and round and reactive . No scleral icterus. No injection or drainage. ENT: No nasal bleeding or discharge. Mucous membranes pink and moist. NECK: Trachea midline. No JVD. CARDIOVASCULAR: S1-S2 appreciated. PMI displaced laterally rate and rhythm regular . No murmur appreciated. Pulses normal throughout. RESPIRATORY: No accessory muscle use. Clear to auscultation. Breath sounds equal bilaterally. GASTROINTESTINAL: Abdomen soft, non-tender, nondistended. Hepatic and splenic margins not palpable. Bowel sounds normal. No peritoneal signs. MUSCULOSKELETAL: No obvious deformities. No clubbing. No cyanosis. No edema. NEUROLOGICAL: Awake and alert and oriented 3.. No obvious cranial nerve deficits. Motor and sensory exam grossly within normal limits. Normal speech. No meningeal signs. PSYCHIATRIC: Appropriate mood and affect; insight and judgment normal. No suicidal or homicidal ideation. Data Data Last Documented VS Vital Signs Date Time Temp Pulse Resp B/P Pulse Ox O2 Delivery O2 Flow Rate FiO2 03/22/17 22:26 98.2 70 18 207/93 98 Orders Electrocardiogram (03/22/17 ) Complete Blood Count With Diff (03/22/17 22:32) Comprehensive Metabolic Panel (03/22/17 22:32) Prothrombin Time / Inr (Pt) (03/22/17 22:32) Creatine Kinase (Cpk) (03/22/17 22:32) Ckmb (Isoenzyme) Profile (03/22/17 22:32) Troponin I (03/22/17 22:32) Ct Brain W/O Iv Contrast(Rout) (03/22/17 ) Clonidine (Catapres) (03/22/17 22:45) Labs Laboratory Tests Test 03/22/17 22:38 White Blood Count 7.0 TH/MM3 Red Blood Count 4.66 MIL/MM3 Hemoglobin 10.9 GM/DL Hematocrit 33.7 % Mean Corpuscular Volume 72.3 FL Mean Corpuscular Hemoglobin 23.4 PG Mean Corpuscular Hemoglobin 32.4 % Concent Red Cell Distribution Width 17.1 % Platelet Count 260 TH/MM3 Mean Platelet Volume 7.1 FL Neutrophils (%) (Auto) 54.2 % Lymphocytes (%) (Auto) 31.3 % Monocytes (%) (Auto) 12.7 % Eosinophils (%) (Auto) 1.2 % Basophils (%) (Auto) 0.6 % Neutrophils # (Auto) 3.8 TH/MM3 Lymphocytes # (Auto) 2.2 TH/MM3 Monocytes # (Auto) 0.9 TH/MM3 Eosinophils # (Auto) 0.1 TH/MM3 Basophils # (Auto) 0.0 TH/MM3 CBC Comment DIFF FINAL Differential Comment Amarjit Villafuerte MD Mar 22, 2017 22:47
[2017-03-22 22:57] LABS: PROTHROMBIN TIME - PATIENT 10.5 SEC (9.8-11.6)
[2017-03-22 23:02] LABS: ALT (GPT) 27 U/L (10-53); ANION GAP 4 MEQ/L (5-15); AST (GOT) 19 U/L (15-37); BICARBONATE 30.1 MEQ/L (21.0-32.0); BLOOD UREA NITROGEN 17 MG/DL (7-18); CHLORIDE 98 MEQ/L (98-107); GLOMERULAR FILTRATION RATE 91 ML/MIN (>89); SODIUM (NA) 132 MEQ/L (136-145)
[2017-03-22 23:04] VITALS: BP 189/98; PULSE 64; RESP 18; O2SAT 99
[2017-03-22 23:06] LABS: ALKALINE PHOSPHATASE 64 U/L (45-117); TOTAL BILIRUBIN ADULT 0.2 MG/DL (0.2-1.0)
[2017-03-22 23:13] LABS: CREATINE KINASE 57 U/L (26-192)
[2017-03-23] VITALS (10 sets, daily range): BP systolic 103–162; BP diastolic 50–72; PULSE 52–75; RESP 16–20; TEMP 96.2–97.2; O2SAT 94–98
[2017-03-23] MEDS ORDERED: METOCLOPRAMIDE HCL 10 MG/2 ML VIAL IV PUSH ONE (00:30)
[2017-03-23] MEDS ORDERED: ONDANSETRON HCL 4 MG/2 ML VIAL IV PUSH ONE (00:30)
[2017-03-23] MEDS ORDERED: NALOXONE HCL 0.4 MG/ML AMP IV PRN (00:45)
[2017-03-23] MEDS ORDERED: ACETAMINOPHEN 325 MG TAB PO PRN (00:45)
[2017-03-23] MEDS ORDERED: ONDANSETRON HCL 4 MG/2 ML VIAL IVP PRN (00:45)
[2017-03-23] MEDS ORDERED: cloNIDine HCL 0.2 MG TAB PO PRN (00:45)
[2017-03-23] MEDS ORDERED: LORazepam 0.5 MG TAB PO PRN (00:45)
[2017-03-23] MEDS ORDERED: SODIUM CHLORIDE 0.9% FLUSH 10 ML FLUSH IV FLUSH PRN (00:45)
--- NOTE | 2017-03-23 00:49 | RADRPT ---
EXAM DATE/TIME: 03/23/2017 00:36 [place] COMPARISON: CT BRAIN W/O CONTRAST, March 20, 2017, 21:35. INDICATIONS : Weakness with high blood pressure. RADIATION DOSE: 31.16 CTDIvol (mGy) MEDICAL HISTORY : Cardiovascular disease. Hypertension. Hernia, hiatal. SURGICAL HISTORY : Appendectomy. Cholecystectomy.Hysterectomy. ENCOUNTER: Initial ACUITY: 1 day PAIN SCALE: 0/10 LOCATION: cranial TECHNIQUE: Multiple contiguous axial images were obtained of the head. Using automated exposure control and adj ustment of the mA and/or kV according to patient size, radiation dose was kept as low as reasonably a chievable to obtain optimal diagnostic quality images. DICOM format image data is available electro nically for review and comparison. FINDINGS: There is marked central and cortical atrophy with dilatation of ventricular and sulcal spaces. Scatt ered areas of low-attenuation are seen throughout the periventricular white matter. Old lacunar infar ct left caudate head. There is no parenchymal hemorrhage, acute infarction or mass lesion identified. There are no extra-axial fluid collections appreciated. The posterior fossa is unremarkable with m idline fourth ventricle. The portion of the orbits and paranasal sinuses visualized are unremarkable . CONCLUSION: 1. Cerebral atrophy and chronic ischemic small vessel vasculopathy. 2. 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 Nelson Montana MD on March 23, 2017 at 0:45 Board Certified Radiologist. This report was verified electronically.
[2017-03-23] MEDS: FLECAINIDE ACETATE 100 MG TAB PO SCH ×2 (08:49→21:28)
[2017-03-23] MEDS: PANTOPRAZOLE SOD 20 MG DELAYED RELEASE TAB PO SCH ×2 (08:50→21:28)
[2017-03-23] MEDS: NIFEdipine 30 MG SUSTAINED RELEASE TAB PO SCH ×2 (08:50→21:28)
[2017-03-23] MEDS: SODIUM CHLORIDE 0.9% FLUSH 10 ML FLUSH IV FLUSH SCH ×2 (08:51→21:27)
[2017-03-23] MEDS: METOPROLOL TARTRATE 25 MG TAB PO SCH ×2 (08:51→21:28)
[2017-03-23] MEDS: APIXABAN 5 MG TABLET PO SCH ×2 (08:51→21:28)
[2017-03-23] MEDS ORDERED: amLODIPine BESYLATE 5 MG TAB PO SCH (09:00)
--- NOTE | 2017-03-23 09:25 | EKG ---
Date Performed: 03/22/2017 Time Performed: 22:41:34 PTAGE: 81 years EKG: Sinus rhythm NORMAL ECG PREVIOUS TRACING : 03/20/2017 20.24 DOCTOR: Viktor Covington Interpretating Date/Time 03/23/2017 09:24:34
--- NOTE | 2017-03-23 12:43 | HHI.HP ---
HPI Service [facility] Hospitalists Primary Care Physician Rashard Abbott MD Admission Diagnosis hypertensive encephalopathy atrial fibrillation Chief Complaint: Elevated BP, headache Travel History International Travel<30 Days: No Contact w/Intl Traveler <30 Da: No Traveled to Known Affected Are: No History of Present Illness Mrs. Johnson is an 81 y/o female with atrial fibrillation s/p recent EPS and ablation on 01/20/17. She was just discharged yesterday after an admission for hypertensive urgency. She takes Metoprolol 25mg po BID and Tambocor 100mg Q12H prior to that admission. She had Norvasc added during this most recent admission and had stable BP prior to discharge. She presented back to the ED last night again with elevated BP of 207/83. She was given Clonidine PO in the ED last night with improvement in her BP. Pt was resumed on the Metoprolol and Tambocor and started on Procardia XL. Her BP was low during the night and this morning and the Metoprolol and Procardia were held. Pt had a Head CT in the ED which noted cerebral atrophy and chronic ischemic small vessel vasculopathy and old left basal ganglia lacunar infarct. She denies any chest pain, SOB, palpitations, dizziness, weakness, abd pain, nausea/vomiting or diaphoresis. Review of Systems Constitutional: DENIES: Fever, Chills Eyes: DENIES: Vision loss Ears, nose, mouth, throat: DENIES: Hearing loss Respiratory: DENIES: Cough, Shortness of breath Cardiovascular: DENIES: Chest pain, Palpitations, Lower Extremity Edema, Orthopnea Gastrointestinal: DENIES: Abdominal pain, Constipation, Diarrhea, GERD, Nausea , Vomiting Genitourinary: DENIES: Urinary frequency, Urgency, Hematuria Musculoskeletal: DENIES: Back pain, Neck pain Integumentary: DENIES: Rash Neurologic: COMPLAINS OF: Headache Psychiatric: DENIES: Confusion, Depression Past Family Social History Past Medical History A. fib with RVR HTN Hyperlipidemia GERD Hiatal hernia Hx of esophageal stricture Anxiety Osteoarthritis Osteopenia Vitamin D deficiency Hx of paroxysmal SVT DDD of lumbar spine Hx of diverticulitis Past Surgical History EPS/cardiac ablation in 2009 and 2016 [facility] with partial left oophorectomy and right salpingo-oophorectomy Lap Sophie Appendectomy Incisional right breast biopsy, benign Removal of Nelson's neuroma, right foot Right shoulder arthroscopy Right RCR Laparoscopy with TANK Bilateral cataract surgery Reported Medications Amlodipine 5 Mg PO DAILY Flecainide 100 Mg PO Q12HR Metoprolol Tartrate 25 Mg PO BID D3 2,000 Units PO DAILY Omeprazole 20 Mg PO BID Fish Oil 2,000 Mg PO DAILY Eliquis 5 Mg PO BID Ativan 0.5 Mg PO HS PRN PT TAKES 1/2 TABLET AT NIGHT 0.5 MG PO FOR ANXIETY Allergies: Coded Allergies: Aspirin (Verified Allergy, Severe, "TOLD NOT TO TAKE ANY ANTIINFLAMMATORIES", 03/20/17) Ibuprofen (Verified Allergy, Severe, "TOLD NOT TO TAKE ANYMORE", 03/20/17) Keflex (Verified Allergy, Severe, "SWOLLEN THROAT,ITCHING ALL OVER", ) Lisinopril (Verified Allergy, Severe, "RASH", 03/20/17) Penicillin (Verified Allergy, Severe, UNKNOWN, 03/20/17) Relafen (Verified Allergy, Severe, "NEPHROTIC SYNDROME", 03/20/17) Sulfa (Verified Allergy, Severe, "TOLD NOT TO TAKE ANYMORE", 03/20/17) Adhesives (Verified Allergy, Intermediate, Rash, 03/20/17) Digoxin (Verified Allergy, Intermediate, Fatigue, 03/20/17) Micardis (Verified Allergy, Intermediate, Fatigue, 03/20/17) Uncoded Allergies: ANTIINFLAMMATORIES (Allergy, Severe, "TOLD NOT TO TAKE ANYMORE", 01/04/16) . Family History Father at 75 y/o, hx of liver cirrhosis Mother at 78 y/o, hx of CAD, diabetes Sister with diabetes Social History Hx of tobacco use, smoked 1/2 ppd x 25 years quit in 1990 Occasional glass of wine or beer Pt lives alone, locally She is a Physical Exam Vital Signs Vital Signs Date Time Temp Pulse Resp B/P Pulse Ox O2 Delivery O2 Flow Rate FiO2 03/23/17 11:53 96.3 58 18 123/59 95 03/23/17 10:39 63 03/23/17 07:59 96.4 52 18 103/50 94 03/23/17 07:00 97.2 56 20 103/54 95 03/23/17 02:30 96.2 58 18 110/54 96 03/23/17 00:52 62 18 115/55 96 Room Air 03/23/17 00:13 59 18 161/63 94 Room Air 03/22/17 23:04 64 18 189/98 99 Room Air 03/22/17 22:26 98.2 70 18 207/93 98 Physical Exam GENERAL: This is a well-nourished, well-developed patient, in no apparent distress. HEENT: Atraumatic. Normocephalic. No temporal or scalp tenderness. No scleral icterus. Airway patent. NECK: Trachea midline, supple, nontender, no meningeal signs. CARDIO: Regular. RESP: CTA bilaterally. No wheezes, rales, or rhonchi. ABD: +BS, soft, non-tender, nondistended. EXT: Extremities without clubbing, cyanosis, or edema. NEURO: Awake and alert. Motor and sensory grossly within normal limits. Normal speech. Laboratory Laboratory Tests Test 03/22/17 22:38 White Blood Count 7.0 Red Blood Count 4.66 Hemoglobin 10.9 Hematocrit 33.7 Mean Corpuscular Volume 72.3 Mean Corpuscular Hemoglobin 23.4 Mean Corpuscular Hemoglobin 32.4 Concent Red Cell Distribution Width 17.1 Platelet Count 260 Mean Platelet Volume 7.1 Neutrophils (%) (Auto) 54.2 Lymphocytes (%) (Auto) 31.3 Monocytes (%) (Auto) 12.7 Eosinophils (%) (Auto) 1.2 Basophils (%) (Auto) 0.6 Neutrophils # (Auto) 3.8 Lymphocytes # (Auto) 2.2 Monocytes # (Auto) 0.9 Eosinophils # (Auto) 0.1 Basophils # (Auto) 0.0 CBC Comment DIFF FINAL Differential Comment Prothrombin Time 10.5 Prothromb Time International 1.0 Ratio Sodium Level 132 Potassium Level 4.0 Chloride Level 98 Carbon Dioxide Level 30.1 Anion Gap 4 Blood Urea Nitrogen 17 Creatinine 0.63 Estimat Glomerular Filtration 91 Rate Random Glucose 97 Calcium Level 8.5 Total Bilirubin 0.2 Aspartate Amino Transf 19 (AST/SGOT) Alanine Aminotransferase 27 (ALT/SGPT) Alkaline Phosphatase 64 Total Creatine Kinase 57 Troponin I LESS THAN 0.02 Total Protein 7.1 Albumin 3.5 Result Diagram: 03/22/17223703/22/17 223 Imaging Last Impressions Head CT 03/22/17 0000 Signed Impressions: Service Date/Time: Thursday, March 23, 2017 00:36 - CONCLUSION: 1. Cerebral atrophy and chronic ischemic small vessel vasculopathy. 2. 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 Nelson Montana MD Septic Shock Reassessment Heart: Regular rate and rhythm Lungs: Clear Skin: Warm Peripheral Pulses: Bounding Right Radial Bounding Left Radial Bounding Right Popliteal Bounding Left Popliteal Bounding Right Dorsalis Pedis Bounding Left Dorsalis Pedis Bounding Right Posterior Tibial Bounding Left Posterior Tibial Assessment and Plan Problem List: (1) Hypertensive urgency Status: Acute Plan: - Pt is an 81 y/o female with atrial fibrillation s/p recent EPS and ablation on 01/20/17. - She was just discharged yesterday after an admission for hypertensive urgency. She had been taking Metoprolol 25mg po BID and Tambocor 100mg Q12H prior to that admission. She had Norvasc added during this most recent admission and had stable BP prior to discharge. - She presented back to the ED last night again with elevated BP of 207/83. She was given Clonidine PO in the ED last night with improvement in her BP. - Pt was resumed on the Metoprolol and Tambocor and started on Procardia XL. Her BP was low during the night and this morning and the Metoprolol and Procardia were held. - Pt had a Head CT in the ED which noted cerebral atrophy and chronic ischemic small vessel vasculopathy and old left basal ganglia lacunar infarct. - We will monitor her BP today to see if any further adjustments need to be made. - Cont. Eliquis - Telemetry - Tylenol PRN for headaches - Supportive care - DVT prophylaxis with SCDs (2) Hyperlipidemia Status: Chronic Plan: - See above. (3) Atrial fibrillation Status: Chronic Plan: - s/p recent EPS and ablation on 01/20/17 - Cont. Eliquis (4) GERD (gastroesophageal reflux disease) Status: Chronic Plan: - PPI Assessment and Plan Patient examined. Assessment and plan formulated with Jackie Patton PA-C. I agree with the above. Physician Certification 2 Midnight Certification Type: Admission for Inpatient Services Order for Inpatient Services The services are ordered in accordance with Medicare regulations or non- Medicare payer requirements, as applicable. In the case of services not specified as inpatient-only, they are appropriately provided as inpatient services in accordance with the 2-midnight benchmark. Estimated LOS (days): 3 3 days is the estimated time the patient will need to remain in the hospital, assuming treatment plan goals are met and no additional complications. Post-Hospital Plan: Not yet determined Jackie Patton Mar 23, 2017 12:42 Amadeo August DO Mar 27, 2017 09:52
[2017-03-24] VITALS (9 sets, daily range): BP systolic 101–180; BP diastolic 53–74; PULSE 51–67; RESP 18–20; TEMP 96.6–97.7; O2SAT 94–99
[2017-03-24 07:34] LABS: BICARBONATE 29.1 MEQ/L (21.0-32.0); POTASSIUM 4.4 MEQ/L (3.5-5.1)
[2017-03-24 07:43] LABS: AUTOMATED NEUTROPHIL # 1.8 TH/MM3 (1.8-7.7); BASOPHIL % 0.7 % (0.0-2.0); EOSINOPHIL # 0.1 TH/MM3 (0-0.4); EOSINOPHIL % 2.8 % (0.0-4.0); HEMATOCRIT 31.8 % (35.0-46.0); HEMO FLAGS DIFF FINAL; LYMPH % 36.9 % (9.0-44.0); LYMPHOCYTE # 1.6 TH/MM3 (1.0-4.8); MEAN CELL VOLUME 72.7 FL (80.0-100.0); MEAN CORPUSCULAR HGB CONC 31.6 % (32.0-36.0); MONO % 16.6 % (0.0-8.0); PLATELET COUNT 220 TH/MM3 (150-450); RED BLOOD COUNT 4.38 MIL/MM3 (4.00-5.30); RED CELL DISTRIBUTION WIDTH 17.2 % (11.6-17.2); WHITE BLOOD COUNT 4.2 TH/MM3 (4.0-11.0)
[2017-03-24] MEDS: PANTOPRAZOLE SOD 20 MG DELAYED RELEASE TAB PO SCH ×2 (10:25→21:48)
[2017-03-24] MEDS: FLECAINIDE ACETATE 100 MG TAB PO SCH ×2 (10:25→21:48)
[2017-03-24] MEDS: APIXABAN 5 MG TABLET PO SCH ×2 (10:26→21:48)
[2017-03-24] MEDS: METOPROLOL TARTRATE 25 MG TAB PO SCH ×2 (10:26→21:48)
[2017-03-24] MEDS: NIFEdipine 30 MG SUSTAINED RELEASE TAB PO SCH ×2 (10:27→21:48)
[2017-03-24] MEDS: SODIUM CHLORIDE 0.9% FLUSH 10 ML FLUSH IV FLUSH SCH (10:27)
--- NOTE | 2017-03-24 13:44 | HHI.PR ---
Subjective Remarks No new complaints. Objective Vitals Vital Signs Date Time Temp Pulse Resp B/P Pulse Ox O2 Delivery O2 Flow Rate FiO2 03/24/17 12:15 124/66 03/24/17 11:48 97.0 62 18 101/53 95 03/24/17 08:27 56 03/24/17 07:53 97.7 51 18 108/54 94 03/24/17 06:13 97.4 57 20 105/55 94 03/24/17 03:09 53 103/55 03/24/17 01:45 97.1 65 19 167/74 98 03/23/17 20:00 97.2 75 20 162/72 98 03/23/17 17:57 72 03/23/17 16:02 97.0 64 16 136/63 94 03/23/17 03/23/17 03/24/17 15:00 23:00 07:00 Intake Total 960 ml 2 ml Balance 960 ml 2 ml Intake Oral 960 ml IV Total 2 ml # Voids 4 1 2 # Bowel Movements 0 0 0 Result Diagram: 03/24/1721 03/24/17620 Other Results Laboratory Tests Test 03/22/17 03/24/17 22:38 06:21 White Blood Count 7.0 TH/MM3 4.2 TH/MM3 Red Blood Count 4.66 MIL/MM3 4.38 MIL/MM3 Hemoglobin 10.9 GM/DL 10.0 GM/DL Hematocrit 33.7 % 31.8 % Mean Corpuscular Volume 72.3 FL 72.7 FL Mean Corpuscular Hemoglobin 23.4 PG 23.0 PG Mean Corpuscular Hemoglobin 32.4 % 31.6 % Concent Red Cell Distribution Width 17.1 % 17.2 % Platelet Count 260 TH/MM3 220 TH/MM3 Mean Platelet Volume 7.1 FL 7.3 FL Neutrophils (%) (Auto) 54.2 % 43.0 % Lymphocytes (%) (Auto) 31.3 % 36.9 % Monocytes (%) (Auto) 12.7 % 16.6 % Eosinophils (%) (Auto) 1.2 % 2.8 % Basophils (%) (Auto) 0.6 % 0.7 % Neutrophils # (Auto) 3.8 TH/MM3 1.8 TH/MM3 Lymphocytes # (Auto) 2.2 TH/MM3 1.6 TH/MM3 Monocytes # (Auto) 0.9 TH/MM3 0.7 TH/MM3 Eosinophils # (Auto) 0.1 TH/MM3 0.1 TH/MM3 Basophils # (Auto) 0.0 TH/MM3 0.0 TH/MM3 CBC Comment DIFF FINAL DIFF FINAL Differential Comment Prothrombin Time 10.5 SEC Prothromb Time International 1.0 RATIO Ratio Sodium Level 132 MEQ/L 135 MEQ/L Potassium Level 4.0 MEQ/L 4.4 MEQ/L Chloride Level 98 MEQ/L 100 MEQ/L Carbon Dioxide Level 30.1 MEQ/L 29.1 MEQ/L Anion Gap 4 MEQ/L 6 MEQ/L Blood Urea Nitrogen 17 MG/DL 14 MG/DL Creatinine 0.63 MG/DL 0.67 MG/DL Estimat Glomerular Filtration 91 ML/MIN 85 ML/MIN Rate Random Glucose 97 MG/DL 93 MG/DL Calcium Level 8.5 MG/DL 8.8 MG/DL Total Bilirubin 0.2 MG/DL Aspartate Amino Transf 19 U/L (AST/SGOT) Alanine Aminotransferase 27 U/L (ALT/SGPT) Alkaline Phosphatase 64 U/L Total Creatine Kinase 57 U/L Troponin I LESS THAN 0.02 NG/ML Total Protein 7.1 GM/DL Albumin 3.5 GM/DL Imaging Last Impressions Head CT 03/22/17 0000 Signed Impressions: Service Date/Time: Thursday, March 23, 2017 00:36 - CONCLUSION: 1. Cerebral atrophy and chronic ischemic small vessel vasculopathy. 2. 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 Nelson Montana MD Objective Remarks General: NAD, AAOx3 Chest: CTA Cardiac: Regular Abd: +BS, soft ND/NT Ext: No edema A/P Problem List: (1) Hypertensive urgency Status: Acute Plan: - Pt is an 81 y/o female with atrial fibrillation s/p recent EPS and ablation on 01/20/17. - She was just discharged yesterday after an admission for hypertensive urgency. She had been taking Metoprolol 25mg po BID and Tambocor 100mg Q12H prior to that admission. She had Norvasc added during this most recent admission and had stable BP prior to discharge. - She presented back to the ED last night again with elevated BP of 207/83. She was given Clonidine PO in the ED last night with improvement in her BP. - Pt was resumed on the Metoprolol and Tambocor and started on Procardia XL. Her BP was low during the night and this morning and the Metoprolol and Procardia were held. - Pt had a Head CT in the ED which noted cerebral atrophy and chronic ischemic small vessel vasculopathy and old left basal ganglia lacunar infarct. - Pts BP seems to trend higher at night. Pt was given Procardia XL 30mg last night and she was given a Catapres at 01:47 last night. Her BP dropped after that in the low 100's systolic. She tolerated her Metoprolol and Tambocor this morning and BP is stable this afternoon - We will stop the PRN Catapres as its difficult to titrate her BP medications when the Catapres is given and seems to drop her BP quite a bit. - Cont. Eliquis - Telemetry - Tylenol PRN for headaches - Supportive care - DVT prophylaxis with SCDs (2) Hyperlipidemia Status: Chronic Plan: - See above. (3) Atrial fibrillation Status: Chronic Plan: - s/p recent EPS and ablation on 01/20/17 - Cont. Eliquis (4) GERD (gastroesophageal reflux disease) Status: Chronic Plan: - PPI Assessment and Plan Patient examined. Assessment and plan formulated with Jackie Patton PA-C. I agree with the above. Jackie Patton Mar 24, 2017 13:44 Amadeo August DO Mar 27, 2017 09:53
[2017-03-24] MEDS: MAGNESIUM HYDROXIDE SUSP 30 ML CUP PO PRN (18:44)
[2017-03-25] VITALS (7 sets, daily range): BP systolic 102–150; BP diastolic 56–70; PULSE 54–71; RESP 18–20; TEMP 96–98; O2SAT 93–98
[2017-03-25] MEDS: METOPROLOL TARTRATE 25 MG TAB PO SCH ×2 (09:00→20:19)
[2017-03-25] MEDS: NIFEdipine 30 MG SUSTAINED RELEASE TAB PO SCH ×2 (09:00→17:41)
[2017-03-25] MEDS: SODIUM CHLORIDE 0.9% FLUSH 10 ML FLUSH IV FLUSH SCH ×3 (09:00→20:19)
[2017-03-25] MEDS: APIXABAN 5 MG TABLET PO SCH ×2 (10:12→20:18)
[2017-03-25] MEDS: FLECAINIDE ACETATE 100 MG TAB PO SCH ×2 (10:12→20:18)
[2017-03-25] MEDS: PANTOPRAZOLE SOD 20 MG DELAYED RELEASE TAB PO SCH ×2 (10:13→20:18)
--- NOTE | 2017-03-25 13:05 | HHI.PR ---
Subjective Remarks Pts BP increased again last night and she received the Procardia XL around 2100. This morning her BP was low and she was not given the Metoprolol She had some dizziness while ambulating in the [place] this morning. Denies any headaches, chest pain, SOB or palpitations. Objective Vitals Vital Signs Date Time Temp Pulse Resp B/P Pulse Ox O2 Delivery O2 Flow Rate FiO2 03/25/17 08:47 57 03/25/17 08:00 96.2 60 20 102/56 96 03/25/17 04:00 97.4 54 20 113/56 93 03/25/17 00:00 98.0 64 20 148/66 95 03/24/17 20:00 96.6 67 20 180/74 94 03/24/17 16:11 96.7 57 18 111/58 99 03/24/17 03/24/17 03/25/17 15:00 23:00 07:00 Intake Total 720 ml 60 ml Balance 720 ml 60 ml Intake Oral 720 ml 60 ml # Voids 5 3 # Bowel Movements 0 0 Result Diagram: 03/24/17 0621 03/24/17 0621 Other Results Laboratory Tests Test 03/24/17 06:21 White Blood Count 4.2 TH/MM3 Red Blood Count 4.38 MIL/MM3 Hemoglobin 10.0 GM/DL Hematocrit 31.8 % Mean Corpuscular Volume 72.7 FL Mean Corpuscular Hemoglobin 23.0 PG Mean Corpuscular Hemoglobin 31.6 % Concent Red Cell Distribution Width 17.2 % Platelet Count 220 TH/MM3 Mean Platelet Volume 7.3 FL Neutrophils (%) (Auto) 43.0 % Lymphocytes (%) (Auto) 36.9 % Monocytes (%) (Auto) 16.6 % Eosinophils (%) (Auto) 2.8 % Basophils (%) (Auto) 0.7 % Neutrophils # (Auto) 1.8 TH/MM3 Lymphocytes # (Auto) 1.6 TH/MM3 Monocytes # (Auto) 0.7 TH/MM3 Eosinophils # (Auto) 0.1 TH/MM3 Basophils # (Auto) 0.0 TH/MM3 CBC Comment DIFF FINAL Differential Comment Sodium Level 135 MEQ/L Potassium Level 4.4 MEQ/L Chloride Level 100 MEQ/L Carbon Dioxide Level 29.1 MEQ/L Anion Gap 6 MEQ/L Blood Urea Nitrogen 14 MG/DL Creatinine 0.67 MG/DL Estimat Glomerular Filtration 85 ML/MIN Rate Random Glucose 93 MG/DL Calcium Level 8.8 MG/DL Imaging Last Impressions Head CT 03/22/17 0000 Signed Impressions: Service Date/Time: Thursday, March 23, 2017 00:36 - CONCLUSION: 1. Cerebral atrophy and chronic ischemic small vessel vasculopathy. 2. 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 Nelson Montana MD Objective Remarks General: NAD, AAOx3 Chest: CTA Cardiac: Regular Abd: +BS, soft ND/NT Ext: No edema A/P Problem List: (1) Hypertensive urgency Status: Acute Plan: - Pt is an 81 y/o female with atrial fibrillation s/p recent EPS and ablation on 01/20/17. - She was just discharged yesterday after an admission for hypertensive urgency. She had been taking Metoprolol 25mg po BID and Tambocor 100mg Q12H prior to that admission. She had Norvasc added during this most recent admission and had stable BP prior to discharge. - She presented back to the ED last night again with elevated BP of 207/83. She was given Clonidine PO in the ED last night with improvement in her BP. - Pt was resumed on the Metoprolol and Tambocor and started on Procardia XL. - Pt had a Head CT in the ED which noted cerebral atrophy and chronic ischemic small vessel vasculopathy and old left basal ganglia lacunar infarct. - Pts BP seems to trend higher at night. Pt has been given Procardia XL 30mg the last two nights and BP has been too low to give her the Procardia in the AM along with her other BP meds. We stopped the Catapres on 03/24/17 after she had received that during the night on 03/24 which did drop her BP that morning into the low 100's systolic. - We will change the Procardia XL to be given just in the evening at 1800. - Cont. the Metoprolol and Tambocor - Check CTA abdomen/pelvis to r/o MARIUM as a secondary cause for her HTN - Pt also requesting a workup for pheochromocytoma - Cont. Eliquis - Telemetry - Tylenol PRN for headaches - Supportive care - DVT prophylaxis with SCDs (2) Hyperlipidemia Status: Chronic Plan: - See above. (3) Atrial fibrillation Status: Chronic Plan: - s/p recent EPS and ablation on 01/20/17 - Cont. Eliquis (4) GERD (gastroesophageal reflux disease) Status: Chronic Plan: - PPI (5) Chronic anemia Status: Chronic Plan: - Pt with noted chronic microcytic, hypochromic anemia - Iron studies in 05/2016 with noted iron deficiency - We will recheck labs now. - Start Ferrous sulfate - Pts last outpt colonoscopy was 2009 and last EGD was 2002. - She should followup outpt with [facility] for repeat EGD/colonoscopy for further evaluation of her iron deficiency anemia. Assessment and Plan Patient examined. Assessment and plan formulated with Jackie Patton PA-C. I agree with the above. Jackie Patton Mar 25, 2017 13:05 Amadeo August DO Mar 27, 2017 09:53
[2017-03-25] MEDS ORDERED: ALPRAZolam 0.25 MG TAB PO PRN (14:45)
[2017-03-25] MEDS ORDERED: IOHEXOL 350 MG/ML 10 ML VIAL (for RAD DIAG) IV ONE (16:38)
--- NOTE | 2017-03-25 17:06 | RADRPT ---
EXAM DATE/TIME: 03/25/2017 16:00 [facility] COMPARISON: No previous studies available for comparison. INDICATIONS : Hypertension, evaluate for renal stenosis. IV CONTRAST: 75 cc Omnipaque 350 (iohexol) IV ORAL CONTRAST: No oral contrast ingested. RADIATION DOSE: 6.81 CTDIvol (mGy) MEDICAL HISTORY : Cardiovascular disease. Hypertension. A-fib SURGICAL HISTORY : Appendectomy. Cholecystectomy.Hysterectomy. ENCOUNTER: Initial ACUITY: 1 day PAIN SCALE: 0/10 LOCATION: abdomin TECHNIQUE: Volumetric scanning was performed using a multi-row detector CT scanner. The data was post processed with a variety of visualization algorithms including full volume maximum intensity projection, multi -planar sliding thin slab reformation, curved planar reformation, and surface rendering techniques. Using automated exposure control and adjustment of the mA and/or kV according to patient size, radiat ion dose was kept as low as reasonably achievable to obtain optimal diagnostic quality images. DICOM format image data is available electronically for review and comparison. FINDINGS: Moderate calcific plaque is present in the nondilated abdominal aorta. The celiac artery and superior mesenteric artery are widely patent. There is a single non-stenotic the left renal artery. There is a single non-stenotic right renal artery. Moderate calcific plaque is present at the origin of both the right and left common iliac arteries. The external and common femoral arteries are patent. Review of source data reveals only moderate degenerative changes in the lumbar spine. CONCLUSION: Negative for hemodynamically significant renal artery stenosis. Sunny Bejarano MD FACR on March 25, 2017 at 17:01 Board Certified Radiologist. This report was verified electronically.
[2017-03-25 18:12] LABS: TRANSFERRIN IRON PROFILE 384 MG/DL (200-360)
[2017-03-25 18:15] LABS: FERRITIN 11 NG/ML (8-252)
[2017-03-25] MEDS ORDERED: NIFEdipine 30 MG SUSTAINED RELEASE TAB PO SCH (21:00)
[2017-03-26] VITALS (9 sets, daily range): BP systolic 129–183; BP diastolic 58–80; PULSE 60–76; RESP 18–20; TEMP 96–98.6; O2SAT 95–97
[2017-03-26] MEDS: METOPROLOL TARTRATE 25 MG TAB PO SCH ×2 (08:43→20:47)
[2017-03-26] MEDS: PANTOPRAZOLE SOD 20 MG DELAYED RELEASE TAB PO SCH ×2 (08:43→20:47)
[2017-03-26] MEDS: FLECAINIDE ACETATE 100 MG TAB PO SCH ×2 (08:43→20:47)
[2017-03-26] MEDS: APIXABAN 5 MG TABLET PO SCH ×2 (08:44→20:47)
[2017-03-26] MEDS: SODIUM CHLORIDE 0.9% FLUSH 10 ML FLUSH IV FLUSH SCH ×2 (08:46→20:48)
--- NOTE | 2017-03-26 16:06 | HHI.PR ---
Subjective Remarks No new complaints. Objective Vitals Vital Signs Date Time Temp Pulse Resp B/P Pulse Ox O2 Delivery O2 Flow Rate FiO2 03/26/17 16:03 65 03/26/17 12:00 97.5 60 18 129/58 96 03/26/17 08:00 96.8 62 18 132/62 97 03/26/17 04:00 98.0 64 18 144/67 96 03/26/17 01:00 76 03/26/17 00:20 97.7 71 19 144/69 95 03/25/17 20:00 97.6 71 18 150/70 98 03/25/17 03/25/17 03/26/17 15:00 23:00 07:00 Intake Total 360 ml 850 ml 900 ml Output Total 0 ml Balance 360 ml 850 ml 900 ml Intake Oral 360 ml 850 ml 900 ml Output Urine Total 0 ml # Voids 4 3 # Bowel Movements 1 0 0 Result Diagram: 03/24/17 0621 03/24/17 0621 Imaging Last Impressions Head CT 03/22/17 0000 Signed Impressions: Service Date/Time: Thursday, March 23, 2017 00:36 - CONCLUSION: 1. Cerebral atrophy and chronic ischemic small vessel vasculopathy. 2. 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 Nelson Montana MD Objective Remarks General: NAD, AAOx3 Chest: CTA Cardiac: Regular Abd: +BS, soft ND/NT Ext: No edema A/P Problem List: (1) Hypertensive urgency Status: Acute Plan: - Pt is an 81 y/o female with atrial fibrillation s/p recent EPS and ablation on 01/20/17. - She was just discharged yesterday after an admission for hypertensive urgency. She had been taking Metoprolol 25mg po BID and Tambocor 100mg Q12H prior to that admission. She had Norvasc added during this most recent admission and had stable BP prior to discharge. - She presented back to the ED last night again with elevated BP of 207/83. She was given Clonidine PO in the ED last night with improvement in her BP. - Pt was resumed on the Metoprolol and Tambocor and started on Procardia XL. - Pt had a Head CT in the ED which noted cerebral atrophy and chronic ischemic small vessel vasculopathy and old left basal ganglia lacunar infarct. - Pts BP seems to trend higher at night. Pt has been given Procardia XL 30mg the last two nights and BP has been too low to give her the Procardia in the AM along with her other BP meds. We stopped the Catapres on 03/24/17 after she had received that during the night on 03/24 which did drop her BP that morning into the low 100's systolic. - CTA abdomen --> Negative for Renal Artery Stenosis - 24 hour urine collection of metanephrine/normetanephrine. Urine collection was NOT started on 03/25. I asked the nurse to start study VAHID - We will change the Procardia XL to be given just in the evening at 1800. - Cont. the Metoprolol and Tambocor - Cont. Eliquis - Telemetry - Tylenol PRN for headaches - Supportive care - DVT prophylaxis with SCDs (2) Hyperlipidemia Status: Chronic Plan: - See above. (3) Atrial fibrillation Status: Chronic Plan: - s/p recent EPS and ablation on 01/20/17 - Cont. Eliquis (4) GERD (gastroesophageal reflux disease) Status: Chronic Plan: - PPI (5) Chronic anemia Status: Chronic Plan: - Pt with noted chronic microcytic, hypochromic anemia - Iron studies in 05/2016 with noted iron deficiency - serum iron 25 (03/25/17) - Start Ferrous sulfate - Pts last outpt colonoscopy was 2009 and last EGD was 2002. - She should followup outpt with [facility] for repeat EGD/colonoscopy for further evaluation of her iron deficiency anemia. Amadeo August DO Mar 26, 2017 16:05
[2017-03-26] MEDS ORDERED: ARTIFICIAL TEARS OPTH SOLN 15 ML BTL EACH EYE PRN (16:45)
[2017-03-26] MEDS: NIFEdipine 30 MG SUSTAINED RELEASE TAB PO SCH (16:51)
[2017-03-26] MEDS: ENALAPRILAT 1.25 MG/ML VIAL IV PRN (19:14)
[2017-03-27] VITALS (11 sets, daily range): BP systolic 132–178; BP diastolic 60–90; PULSE 54–73; RESP 16–20; TEMP 96.4–97.9; O2SAT 94–98
[2017-03-27] MEDS: TEMAZEPAM 15 MG CAP PO PRN ×2 (00:24→23:34)
[2017-03-27] MEDS: SODIUM CHLORIDE 0.9% FLUSH 10 ML FLUSH IV FLUSH SCH ×2 (09:38→20:30)
[2017-03-27] MEDS: METOPROLOL TARTRATE 25 MG TAB PO SCH ×2 (09:40→20:30)
[2017-03-27] MEDS: FLECAINIDE ACETATE 100 MG TAB PO SCH ×2 (09:40→20:30)
[2017-03-27] MEDS: PANTOPRAZOLE SOD 20 MG DELAYED RELEASE TAB PO SCH ×2 (09:41→20:30)
[2017-03-27] MEDS: APIXABAN 5 MG TABLET PO SCH ×2 (09:41→20:30)
[2017-03-27] MEDS ORDERED: NIFEdipine 30 MG SUSTAINED RELEASE TAB PO SCH (13:00)
--- NOTE | 2017-03-27 15:21 | HHI.PR ---
Subjective Remarks No new complaints. Objective Vitals Vital Signs Date Time Temp Pulse Resp B/P Pulse Ox O2 Delivery O2 Flow Rate FiO2 03/27/17 12:12 97.4 63 16 136/63 96 03/27/17 10:21 57 03/27/17 08:34 97.9 64 18 137/66 96 03/27/17 04:30 96.5 54 16 132/60 97 03/27/17 00:34 65 03/27/17 00:00 96.4 67 20 147/63 94 03/26/17 20:00 96.0 63 20 142/67 96 03/26/17 18:14 170/80 03/26/17 16:03 65 03/26/17 16:00 98.6 68 18 183/72 97 03/26/17 03/26/17 03/27/17 15:00 23:00 07:00 Intake Total 960 ml Output Total 500 ml Balance 960 ml -500 ml Intake Oral 960 ml Output Urine Total 500 ml # Voids 5 # Bowel Movements 1 Result Diagram: 03/24/1721 03/24/1721 Imaging Last Impressions Head CT 03/22/17 0000 Signed Impressions: Service Date/Time: Thursday, March 23, 2017 00:36 - CONCLUSION: 1. Cerebral atrophy and chronic ischemic small vessel vasculopathy. 2. 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 Nelson Montana MD Objective Remarks General: NAD, AAOx3 Chest: CTA Cardiac: Regular Abd: +BS, soft ND/NT Ext: No edema A/P Problem List: (1) Hypertensive urgency Status: Acute Plan: - Pt is an 81 y/o female with atrial fibrillation s/p recent EPS and ablation on 01/20/17. - She was just discharged yesterday after an admission for hypertensive urgency. She had been taking Metoprolol 25mg po BID and Tambocor 100mg Q12H prior to that admission. She had Norvasc added during this most recent admission and had stable BP prior to discharge. - She presented back to the ED last night again with elevated BP of 207/83. She was given Clonidine PO in the ED last night with improvement in her BP. - Pt was resumed on the Metoprolol and Tambocor and started on Procardia XL. - Pt had a Head CT in the ED which noted cerebral atrophy and chronic ischemic small vessel vasculopathy and old left basal ganglia lacunar infarct. - Pts BP seems to trend higher at night. Pt has been given Procardia XL 30mg the last two nights and BP has been too low to give her the Procardia in the AM along with her other BP meds. We stopped the Catapres on 03/24/17 after she had received that during the night on 03/24 which did drop her BP that morning into the low 100's systolic. - CTA abdomen --> Negative for Renal Artery Stenosis - 24 hour urine collection of metanephrine/normetanephrine. Urine collection was NOT started on 03/25. should complete this evening - blood pressure trending upward yesterday afternoon - We will change the Procardia XL to be given just in the evening at 1PM - Cont. the Metoprolol and Tambocor - Cont. Eliquis - Telemetry - Tylenol PRN for headaches - Supportive care - DVT prophylaxis with SCDs - IF pt's blood pressure readings remain stable, then considering discharging to home 03/28/17 (2) Hyperlipidemia Status: Chronic Plan: - See above. (3) Atrial fibrillation Status: Chronic Plan: - s/p recent EPS and ablation on 01/20/17 - Cont. Eliquis (4) GERD (gastroesophageal reflux disease) Status: Chronic Plan: - PPI (5) Chronic anemia Status: Chronic Plan: - Pt with noted chronic microcytic, hypochromic anemia - Iron studies in 05/2016 with noted iron deficiency - serum iron 25 (03/25/17) - Start Ferrous sulfate - Pts last outpt colonoscopy was 2009 and last EGD was 2002. - She should followup outpt with [facility] for repeat EGD/colonoscopy for further evaluation of her iron deficiency anemia. Amadeo August DO Mar 27, 2017 15:21
[2017-03-27] MEDS: ENALAPRILAT 1.25 MG/ML VIAL IV PRN (18:56)
[2017-03-28] VITALS (10 sets, daily range): BP systolic 120–200; BP diastolic 57–86; PULSE 58–71; RESP 18–20; TEMP 95.9–97.2; O2SAT 95–98
[2017-03-28] MEDS: SODIUM CHLORIDE 0.9% FLUSH 10 ML FLUSH IV FLUSH SCH ×2 (08:29→21:49)
[2017-03-28] MEDS: PANTOPRAZOLE SOD 20 MG DELAYED RELEASE TAB PO SCH ×2 (08:30→21:48)
[2017-03-28] MEDS: FLECAINIDE ACETATE 100 MG TAB PO SCH ×2 (08:30→21:48)
[2017-03-28] MEDS: APIXABAN 5 MG TABLET PO SCH ×2 (08:31→21:48)
[2017-03-28] MEDS: METOPROLOL TARTRATE 25 MG TAB PO SCH ×2 (08:31→21:48)
--- NOTE | 2017-03-28 12:46 | HHI.PR ---
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 Objective Vitals heart reg lung cta abd s/nt ext no edema Vital Signs Date Time Temp Pulse Resp B/P Pulse Ox O2 Delivery O2 Flow Rate FiO2 03/28/17 11:57 96.9 62 18 141/66 97 03/28/17 10:14 63 03/28/17 08:00 96.6 71 18 138/65 96 03/28/17 06:12 96.2 63 20 127/60 96 03/28/17 00:00 95.9 58 20 157/67 98 03/27/17 22:37 66 03/27/17 20:00 96.9 73 20 170/76 97 03/27/17 18:55 152/74 03/27/17 18:45 178/90 03/27/17 16:01 97.5 63 18 153/68 98 03/27/17 03/27/17 03/28/17 15:00 23:00 07:00 Intake Total 720 ml Balance 720 ml Intake Oral 720 ml # Voids 5 2 # Bowel Movements 1 Result Diagram: 03/24/17 0621 03/24/17 0621 Imaging Last Impressions Head CT 03/22/17 0000 Signed Impressions: Service Date/Time: Thursday, March 23, 2017 00:36 - CONCLUSION: 1. Cerebral atrophy and chronic ischemic small vessel vasculopathy. 2. 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 Nelson Montana MD A/P Problem List: (1) Hypertensive urgency Status: Acute Plan: - Pt is an 81 y/o female with atrial fibrillation s/p recent EPS and ablation on 01/20/17. - She was just discharged yesterday after an admission for hypertensive urgency. She had been taking Metoprolol 25mg po BID and Tambocor 100mg Q12H prior to that admission. She had Norvasc added during this most recent admission and had stable BP prior to discharge. - She presented back to the ED again with elevated BP of 207/83. She was given Clonidine PO in the ED with improvement in her BP. - Pt was resumed on the Metoprolol and Tambocor and started on Procardia XL. - Pt had a Head CT in the ED which noted cerebral atrophy and chronic ischemic small vessel vasculopathy and old left basal ganglia lacunar infarct. - Pts BP seems to trend higher at night. - CTA abdomen --> Negative for Renal Artery Stenosis - Pt and family were apparently worried about pheo....24 hour urine collection of metanephrine/normetanephrine. Pt is very anxious and demanding to see her insurance sales producer. She had been her over past week trying to get bp regulated and she is very frustrated and wants to see Dr Cary. will increase the procardia dose. cont her metoprolol. (2) Hyperlipidemia Status: Chronic Plan: - See above. (3) Atrial fibrillation Status: Chronic Plan: - s/p recent EPS and ablation on 01/20/17 - Cont. Eliquis (4) GERD (gastroesophageal reflux disease) Status: Chronic Plan: - PPI (5) Chronic anemia Status: Chronic Plan: - Pt with noted chronic microcytic, hypochromic anemia - Iron studies in 05/2016 with noted iron deficiency - serum iron 25 (03/25/17) - Start Ferrous sulfate - Pts last outpt colonoscopy was 2009 and last EGD was 2002. - She should followup outpt with [facility] for repeat EGD/colonoscopy for further evaluation of her iron deficiency anemia. Jesse Arndt MD Mar 28, 2017 12:46
[2017-03-28] MEDS: NIFEdipine 30 MG SUSTAINED RELEASE TAB PO SCH (14:11)
[2017-03-28] MEDS: ENALAPRILAT 1.25 MG/ML VIAL IV PRN (16:44)
[2017-03-28] MEDS: TEMAZEPAM 15 MG CAP PO PRN (23:47)
[2017-03-29] VITALS (9 sets, daily range): BP systolic 114–176; BP diastolic 60–77; PULSE 54–70; RESP 18–20; TEMP 96–98; O2SAT 95–99
[2017-03-29] MEDS: SODIUM CHLORIDE 0.9% FLUSH 10 ML FLUSH IV FLUSH SCH ×2 (09:00→20:28)
[2017-03-29] MEDS: APIXABAN 5 MG TABLET PO SCH ×2 (09:17→20:27)
[2017-03-29] MEDS: PANTOPRAZOLE SOD 20 MG DELAYED RELEASE TAB PO SCH ×2 (09:17→20:27)
[2017-03-29] MEDS: FLECAINIDE ACETATE 100 MG TAB PO SCH ×2 (09:17→20:27)
[2017-03-29] MEDS: METOPROLOL TARTRATE 25 MG TAB PO SCH ×2 (09:17→20:27)
[2017-03-29] MEDS: NIFEdipine 30 MG SUSTAINED RELEASE TAB PO SCH (12:40)
--- NOTE | 2017-03-29 14:07 | HHI.PR ---
Subjective Remarks Pts BP overall has been better controlled One episode of the BP rising to systolic of 200 yesterday around 1600 Pt was given Vasotec Objective Vitals Vital Signs Date Time Temp Pulse Resp B/P Pulse Ox O2 Delivery O2 Flow Rate FiO2 03/29/17 13:08 97.4 64 20 126/60 95 03/29/17 08:00 96.9 60 20 140/63 97 03/29/17 06:48 96.0 58 20 126/66 99 03/29/17 02:00 96.9 54 20 114/62 96 03/28/17 23:31 67 03/28/17 21:30 97.2 71 20 120/57 95 03/28/17 18:31 133/63 03/28/17 16:38 200/86 03/28/17 16:00 97.1 65 20 97 03/28/17 03/28/17 03/29/17 15:00 23:00 07:00 # Voids 2 Imaging Last Impressions Head CT 03/22/17 0000 Signed Impressions: Service Date/Time: Thursday, March 23, 2017 00:36 - CONCLUSION: 1. Cerebral atrophy and chronic ischemic small vessel vasculopathy. 2. 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 Nelson Montana MD Objective Remarks General: NAD, AAOx3 Chest: CTA Cardiac: Regular Abd: +BS, soft ND/NT Ext: No edema A/P Problem List: (1) Hypertensive urgency Status: Acute Plan: - Pt is an 81 y/o female with atrial fibrillation s/p recent EPS and ablation on 01/20/17. - She was just discharged yesterday after an admission for hypertensive urgency. She had been taking Metoprolol 25mg po BID and Tambocor 100mg Q12H prior to that admission. She had Norvasc added during this most recent admission and had stable BP prior to discharge. - She presented back to the ED again with elevated BP of 207/83. She was given Clonidine PO in the ED with improvement in her BP. - Pt was resumed on the Metoprolol and Tambocor and started on Procardia XL. - Pt had a Head CT in the ED which noted cerebral atrophy and chronic ischemic small vessel vasculopathy and old left basal ganglia lacunar infarct. - Pts BP seems to trend higher at night. - CTA abdomen --> Negative for Renal Artery Stenosis - Pt and family were apparently worried about pheo....24 hour urine collection of metanephrine/normetanephrine. 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 Dr. Howe was consulted. - Pts Procardia dose was increased to 60mg daily at 1300 on 03/28. - Cont her metoprolol - Monitor (2) Hyperlipidemia Status: Chronic Plan: - See above. (3) Atrial fibrillation Status: Chronic Plan: - s/p recent EPS and ablation on 01/20/17 - Cont. Eliquis (4) GERD (gastroesophageal reflux disease) Status: Chronic Plan: - PPI (5) Chronic anemia Status: Chronic Plan: - Pt with noted chronic microcytic, hypochromic anemia - Iron studies in 05/2016 with noted iron deficiency - serum iron 25 (03/25/17) - Start Ferrous sulfate - Pts last outpt colonoscopy was 2009 and last EGD was 2002. - She should followup outpt with [facility] for repeat EGD/colonoscopy for further evaluation of her iron deficiency anemia. Jackie Patton Mar 29, 2017 14:07 Jesse Arndt MD Mar 29, 2017 14:17
--- NOTE | 2017-03-29 17:12 | MB ---
cc: VAN TRUJILLO MD DATE OF CONSULTATION 03/29/17 REASON FOR CONSULTATION Uncontrolled high blood pressure. HISTORY OF PRESENT ILLNESS Mrs. Johnson is an 81-year-old female with history of atrial fibrillation, high blood pressure currently in sinus rhythm. The patient went to the emergency room a couple of days ago due to uncontrolled high blood pressure. Amlodipine was given. Back later on the eight with uncontrolled high blood pressure again. Medication was modified. Currently blood pressure controlled. I was consulted for further evaluation and management. The chart was reviewed. The patient was evaluated. ALLERGIES ANTIINFLAMMATORY ASPIRIN ADHESIVE DIGOXIN IBUPROFEN KEFLEX LISINOPRIL MICARDIS PENICILLIN RELAFEN SULFA SOCIAL HISTORY Negative for smoking and drinking. FAMILY HISTORY Noncontributory to her current medical condition. MEDICATIONS Currently 1. Flecainide 2. Eliquis. 3. Metoprolol 25 twice a day 4. Nifedipine SR 60 mg a day. REVIEW OF SYSTEMS Currently, she referred no chest pain, no chest discomfort. No fever. PHYSICAL EXAMINATION GENERAL: Alert, fully oriented, pleasant as usual. VITAL SIGNS: Blood pressure is 140/63, pulse 60, respiratory rate 18 LUNGS: Ventilated CARDIOVASCULAR: S1-S2 regular. No gallop or murmur. ABDOMEN: Soft. No mass. No bruit. EXTREMITIES: No edema. CARDIOLOGY STUDIES Electrocardiogram shows sinus rhythm. No significant ST and T-wave changes. LABORATORY DATA Hemoglobin is 10.0, white blood cell 4.2, potassium 4.4, creatinine 0.67. Troponin less than 0.02. ASSESSMENT AND RECOMMENDATIONS Mrs. Johnson is currently stable. Systolic blood pressure in the 120s. She is asymptomatic. She is in bed. At this point, my recommendation is continue with current medication. She is very anxious about the whole situation. I did have a long conversation with her. I will monitor her during hospitalization. MD CIRILO Livingston/ /3:57 PM /5:09 PM
[2017-03-29] MEDS: ENALAPRILAT 1.25 MG/ML VIAL IV PRN (18:28)
[2017-03-29] MEDS: TEMAZEPAM 15 MG CAP PO PRN (23:43)
[2017-03-30] VITALS (7 sets, daily range): BP systolic 114–189; BP diastolic 54–77; PULSE 53–79; RESP 17–20; TEMP 96.5–98.4; O2SAT 93–98
[2017-03-30] MEDS: SODIUM CHLORIDE 0.9% FLUSH 10 ML FLUSH IV FLUSH SCH ×2 (09:00→20:50)
[2017-03-30] MEDS: APIXABAN 5 MG TABLET PO SCH ×2 (09:00→20:50)
[2017-03-30] MEDS: METOPROLOL TARTRATE 25 MG TAB PO SCH ×2 (09:00→20:50)
[2017-03-30] MEDS: PANTOPRAZOLE SOD 20 MG DELAYED RELEASE TAB PO SCH ×2 (09:00→20:50)
[2017-03-30] MEDS: FLECAINIDE ACETATE 100 MG TAB PO SCH ×2 (09:11→20:51)
[2017-03-30] MEDS: NIFEdipine 30 MG SUSTAINED RELEASE TAB PO SCH (11:03)
--- NOTE | 2017-03-30 17:04 | HHI.PR ---
Subjective Remarks pt feels bad when bp spikes around 4pm everyday. Objective Vitals anxious heart reg marita cta abd s/nt ext n edema Vital Signs Date Time Temp Pulse Resp B/P Pulse Ox O2 Delivery O2 Flow Rate FiO2 03/30/17 16:27 96.7 76 20 143/76 93 03/30/17 12:12 97.0 67 17 114/61 98 03/30/17 08:00 96.5 76 17 123/58 97 03/30/17 04:00 96.8 59 18 125/54 97 03/30/17 01:00 98.4 53 18 120/58 94 03/29/17 23:00 68 03/29/17 20:00 96.7 70 18 132/61 98 03/29/17 18:27 176/77 03/29/17 03/29/17 03/30/17 15:00 23:00 07:00 Intake Total 240 ml Balance 240 ml Intake Oral 240 ml # Voids 5 3 # Bowel Movements 1 Imaging Last Impressions Head CT 03/22/17 0000 Signed Impressions: Service Date/Time: Thursday, March 23, 2017 00:36 - CONCLUSION: 1. Cerebral atrophy and chronic ischemic small vessel vasculopathy. 2. 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 Nelson Montana MD A/P Problem List: (1) Hypertensive urgency Status: Acute Plan: - Pt is an 81 y/o female with atrial fibrillation s/p recent EPS and ablation on 01/20/17. - She was just discharged yesterday after an admission for hypertensive urgency. She had been taking Metoprolol 25mg po BID and Tambocor 100mg Q12H prior to that admission. She had Norvasc added during this most recent admission and had stable BP prior to discharge. - She presented back to the ED again with elevated BP of 207/83. She was given Clonidine PO in the ED with improvement in her BP. - Pt was resumed on the Metoprolol and Tambocor and started on Procardia XL. - Pt had a Head CT in the ED which noted cerebral atrophy and chronic ischemic small vessel vasculopathy and old left basal ganglia lacunar infarct. - Pts BP seems to trend higher at night. - CTA abdomen --> Negative for Renal Artery Stenosis - Pt and family were apparently worried about pheo....24 hour urine collection of metanephrine/normetanephrine. - adjust procardia. add ativan for anxiety. d/c once bp spikes stop. She is extremely anxious. f/u pending urine studies. (2) Hyperlipidemia Status: Chronic Plan: - See above. (3) Atrial fibrillation Status: Chronic Plan: - s/p recent EPS and ablation on 01/20/17 - Cont. Eliquis (4) GERD (gastroesophageal reflux disease) Status: Chronic Plan: - PPI (5) Chronic anemia Status: Chronic Plan: - Pt with noted chronic microcytic, hypochromic anemia - Iron studies in 05/2016 with noted iron deficiency - serum iron 25 (03/25/17) - Start Ferrous sulfate - Pts last outpt colonoscopy was 2009 and last EGD was 2002. - She should followup outpt with [facility] for repeat EGD/colonoscopy for further evaluation of her iron deficiency anemia. Jesse Arndt MD Mar 30, 2017 17:04
[2017-03-30 18:14] LABS: METANEPHRINE 24 COLLECTION DUR 24 h (())
--- NOTE | 2017-03-30 19:16 | HHI.PR ---
Subjective Remarks BP went high last night Objective Vital Signs Date Time Temp Pulse Resp B/P Pulse Ox O2 Delivery O2 Flow Rate FiO2 03/30/17 16:27 96.7 76 20 143/76 93 03/30/17 12:12 97.0 67 17 114/61 98 03/30/17 08:00 96.5 76 17 123/58 97 03/30/17 04:00 96.8 59 18 125/54 97 03/30/17 01:00 98.4 53 18 120/58 94 03/29/17 23:00 68 03/29/17 20:00 96.7 70 18 132/61 98 I/O 03/29/17 03/29/17 03/29/17 03/30/17 03/30/17 03/30/17 07:00 15:00 23:00 07:00 15:00 23:00 Intake Total 240 ml 720 ml Balance 240 ml 720 ml Intake Oral 240 ml 720 ml # Voids 2 5 3 4 # Bowel Movements 1 1 Imaging Alert, fully oriented, complaining about her BP Lungs: ventilated Heart: S1, S2 regular, no gallop Abdomen: soft, no mass Ext: no edema Current Medications Medications (Trade) Dose Ordered Sig/Shaun Route Start Time Stop Time Status Last Admin (NS Flush) 2 ml UNSCH PRN IV FLUSH 03/23/17 00:45 (NS Flush) 2 ml BID IV FLUSH 03/23/17 09:00 03/30/17 09:00 (Tylenol) 650 mg Q4H PRN PO 03/23/17 00:45 03/29/17 05:20 (Zofran Inj) 4 mg Q6H PRN IVP 03/23/17 00:45 (Narcan Inj) 0.4 mg UNSCH PRN IV 03/23/17 00:45 (Milk Of Magnesia Liq) 30 ml Q12H PRN PO 03/23/17 00:45 03/24/17 18:44 (Eliquis) 5 mg BID PO 03/23/17 09:00 03/30/17 09:00 (Tambocor) 100 mg Q12HR PO 03/23/17 09:00 03/30/17 09:11 (Lopressor) 25 mg BID PO 03/23/17 09:00 03/30/17 09:00 (Protonix) 20 mg BID PO 03/23/17 09:00 03/30/17 09:00 (Vasotec Inj) 1.25 mg Q6H PRN IV 03/23/17 00:45 03/29/17 18:28 (Tears Naturale Opth Soln) 1 drop Q4H PRN EACH EYE 03/26/17 16:45 03/27/17 09:38 (Procardia Xl) 60 mg DAILY PO 03/31/17 09:00 (Ativan) 0.5 mg Q12HR PO 03/30/17 21:00 (Procardia Xl) 30 mg HS PO 03/30/17 21:00 Assessment and Plan Problem List: (1) Hypertensive urgency Status: Acute Plan: BP control. Episode high blood pressure at night Altace added. If necessary will be increased tomorrow. Case discussed with patient. (2) Rapid atrial fibrillation Status: Acute Plan: In sinus rhythm Pam Howe MD Mar 30, 2017 19:16
[2017-03-30] MEDS: ENALAPRILAT 1.25 MG/ML VIAL IV PRN (19:47)
[2017-03-30] MEDS: LORazepam 0.5 MG TAB PO SCH (20:50)
[2017-03-30] MEDS ORDERED: RAMIPRIL 5 MG CAP PO SCH (21:00)
[2017-03-30] MEDS ORDERED: NIFEdipine 30 MG SUSTAINED RELEASE TAB PO SCH (21:00)
[2017-03-30] MEDS: MAGNESIUM HYDROXIDE SUSP 30 ML CUP PO PRN (23:33)
[2017-03-31 01:04] VITALS: BP 126/60; PULSE 62; RESP 16; TEMP 97; O2SAT 96
[2017-03-31 05:05] VITALS: BP 120/58; PULSE 60; RESP 16; TEMP 97.1; O2SAT 94
[2017-03-31] MEDS: FLECAINIDE ACETATE 100 MG TAB PO SCH ×2 (07:59→21:33)
[2017-03-31] MEDS: PANTOPRAZOLE SOD 20 MG DELAYED RELEASE TAB PO SCH ×2 (07:59→21:33)
[2017-03-31] MEDS: LORazepam 0.5 MG TAB PO SCH ×3 (08:00→21:35)
[2017-03-31] MEDS: SODIUM CHLORIDE 0.9% FLUSH 10 ML FLUSH IV FLUSH SCH ×2 (08:00→21:33)
[2017-03-31] MEDS: METOPROLOL TARTRATE 25 MG TAB PO SCH ×2 (08:00→21:33)
[2017-03-31] MEDS: APIXABAN 5 MG TABLET PO SCH ×2 (08:00→21:33)
[2017-03-31] MEDS: NIFEdipine 60 MG SUSTAINED RELEASE TAB PO SCH (08:00)
[2017-03-31 08:12] VITALS: BP 120/62; PULSE 66; RESP 17; TEMP 96.5; O2SAT 97
--- NOTE | 2017-03-31 11:58 | HHI.PR ---
Subjective Remarks pt still getting anxious and agitated in pm. bp rises. Objective Vitals heart reg lung cta abd s/nt ext no edema Vital Signs Date Time Temp Pulse Resp B/P Pulse Ox O2 Delivery O2 Flow Rate FiO2 03/31/17 08:12 96.5 66 17 120/62 97 03/31/17 05:05 97.1 60 16 120/58 94 03/31/17 01:04 97.0 62 16 126/60 96 03/30/17 20:10 134/65 03/30/17 20:00 98.0 79 20 189/77 96 03/30/17 16:27 96.7 76 20 143/76 93 03/30/17 12:12 97.0 67 17 114/61 98 03/30/17 03/30/17 03/31/17 15:00 23:00 07:00 Intake Total 720 ml Balance 720 ml Intake Oral 720 ml # Voids 4 1 # Bowel Movements 1 Imaging Last Impressions Head CT 03/22/17 0000 Signed Impressions: Service Date/Time: Thursday, March 23, 2017 00:36 - CONCLUSION: 1. Cerebral atrophy and chronic ischemic small vessel vasculopathy. 2. 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 Nelson Montana MD A/P Problem List: (1) Hypertensive urgency Status: Acute Plan: - Pt is an 81 y/o female with atrial fibrillation s/p recent EPS and ablation on 01/20/17. - She was just discharged yesterday after an admission for hypertensive urgency. She had been taking Metoprolol 25mg po BID and Tambocor 100mg Q12H prior to that admission. She had Norvasc added during this most recent admission and had stable BP prior to discharge. - She presented back to the ED again with elevated BP of 207/83. She was given Clonidine PO in the ED with improvement in her BP. - Pt was resumed on the Metoprolol and Tambocor and started on Procardia XL. - Pt had a Head CT in the ED which noted cerebral atrophy and chronic ischemic small vessel vasculopathy and old left basal ganglia lacunar infarct. - Pts BP seems to trend higher at night. - CTA abdomen --> Negative for Renal Artery Stenosis - Pt and family were apparently worried about pheo....24 hour urine collection of metanephrine/normetanephrine negative Pt seen by her job honer..ana added then stopped. Pt currently just getting procardia 60mg in AM and metoprolol bid added ativan and will give in PM prn for her sx's. (2) Hyperlipidemia Status: Chronic Plan: - See above. (3) Atrial fibrillation Status: Chronic Plan: - s/p recent EPS and ablation on 01/20/17 - Cont. Eliquis (4) GERD (gastroesophageal reflux disease) Status: Chronic Plan: - PPI (5) Chronic anemia Status: Chronic Plan: - Pt with noted chronic microcytic, hypochromic anemia - Iron studies in 05/2016 with noted iron deficiency - serum iron 25 (03/25/17) - Start Ferrous sulfate - Pts last outpt colonoscopy was 2009 and last EGD was 2002. - She should followup outpt with [facility] for repeat EGD/colonoscopy for further evaluation of her iron deficiency anemia. Jesse Arndt MD Mar 31, 2017 11:58
[2017-03-31 12:12] VITALS: BP 146/76; PULSE 66; RESP 17; TEMP 97.6; O2SAT 98
[2017-03-31 16:06] VITALS: BP 133/60; PULSE 70; RESP 17; TEMP 96.3; O2SAT 98
[2017-03-31] MEDS: LORazepam 0.5 MG TAB PO PRN (16:22)
[2017-03-31 20:00] VITALS: BP 142/71; PULSE 70; RESP 20; TEMP 97.6; O2SAT 96
[2017-04-01] VITALS: BP 144/69; PULSE 71; RESP 20; TEMP 96.9; O2SAT 96
[2017-04-01 04:00] VITALS: BP 124/66; PULSE 61; RESP 20; TEMP 96.4; O2SAT 97
[2017-04-01 08:29] VITALS: BP 107/57; PULSE 77; RESP 20; TEMP 97.2; O2SAT 94
--- NOTE | 2017-04-01 08:32 | PD.CARD.PN ---
Subjective Subjective Remarks Feels "hung over" from the ativan. Objective Medications Current Medications Medications (Trade) Dose Ordered Sig/Shaun Route Start Time Stop Time Status Last Admin (NS Flush) 2 ml UNSCH PRN IV FLUSH 03/23/17 00:45 (NS Flush) 2 ml BID IV FLUSH 03/23/17 09:00 03/31/17 21:33 (Tylenol) 650 mg Q4H PRN PO 03/23/17 00:45 03/29/17 05:20 (Zofran Inj) 4 mg Q6H PRN IVP 03/23/17 00:45 (Narcan Inj) 0.4 mg UNSCH PRN IV 03/23/17 00:45 (Milk Of Magnesia Liq) 30 ml Q12H PRN PO 03/23/17 00:45 03/30/17 23:33 (Eliquis) 5 mg BID PO 03/23/17 09:00 03/31/17 21:33 (Tambocor) 100 mg Q12HR PO 03/23/17 09:00 03/31/17 21:33 (Lopressor) 25 mg BID PO 03/23/17 09:00 03/31/17 21:33 (Protonix) 20 mg BID PO 03/23/17 09:00 03/31/17 21:33 (Vasotec Inj) 1.25 mg Q6H PRN IV 03/23/17 00:45 03/30/17 19:47 (Tears Naturale Opth Soln) 1 drop Q4H PRN EACH EYE 03/26/17 16:45 03/27/17 09:38 (Procardia Xl) 60 mg DAILY PO 03/31/17 09:00 03/31/17 08:00 (Ativan) 0.5 mg Q12HR PO 03/30/17 21:00 03/31/17 08:00 (Ativan) 0.5 mg BID PRN PO 03/31/17 11:45 03/31/17 16:22 Vital Signs / I&O Vital Signs Date Time Temp Pulse Resp B/P Pulse Ox O2 Delivery O2 Flow Rate FiO2 04/01/17 04:00 96.4 61 20 124/66 97 04/01/17 00:00 96.9 71 20 144/69 96 03/31/17 20:00 97.6 70 20 142/71 96 03/31/17 16:06 96.3 70 17 133/60 98 03/31/17 12:12 97.6 66 17 146/76 98 I/O 03/31/17 03/31/17 03/31/17 04/01/17 04/01/17 04/01/17 07:00 15:00 23:00 07:00 15:00 23:00 Intake Total 720 ml 60 ml Balance 720 ml 60 ml Intake Oral 720 ml 60 ml # Voids 1 7 1 # Bowel Movements 1 0 Physical Exam GENERAL: Well-nourished, well-developed patient. SKIN: Warm and dry. HEAD: Normocephalic. EYES: No scleral icterus. No injection or drainage. NECK: Supple, trachea midline. No JVD or lymphadenopathy. CARDIOVASCULAR: Regular rate and rhythm without murmurs, gallops, or rubs. RESPIRATORY: Breath sounds equal bilaterally. No accessory muscle use. GASTROINTESTINAL: Abdomen soft, non-tender, nondistended. EXTREMITIES: No cyanosis, or edema. NEUROLOGICAL: Awake, alert, and oriented x 3. Non-focal. Imaging Last Impressions Abdomen/Pelvis CT 03/25/17 0000 Signed Impressions: Service Date/Time: Saturday, March 25, 2017 16:00 - CONCLUSION: Negative for hemodynamically significant renal artery stenosis. Sunny Bejarano MD FACR Head CT 03/22/17 0000 Signed Impressions: Service Date/Time: Thursday, March 23, 2017 00:36 - CONCLUSION: 1. Cerebral atrophy and chronic ischemic small vessel vasculopathy. 2. 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 Nelson Montana MD Assessment and Plan Problem List: (1) Hypertensive urgency Assessment and Plan: Blood pressure has been well controlled on current medications after adding Procardia 03/31. She is stable from a cardiology standpoint for discharge home with outpatient follow-up with Dr. Howe in 1-2 weeks. (2) Anxiety Assessment and Plan: Feeling the residual effects of Ativan. States her anxiety is related to her hypertension. Discussed Condition With Patient, Dr. Howe. Lynsey Sandoval Apr 01, 2017 08:32
[2017-04-01] MEDS: SODIUM CHLORIDE 0.9% FLUSH 10 ML FLUSH IV FLUSH SCH ×2 (09:00→21:21)
[2017-04-01] MEDS: NIFEdipine 60 MG SUSTAINED RELEASE TAB PO SCH ×3 (09:00→14:39)
[2017-04-01] MEDS: LORazepam 0.5 MG TAB PO SCH ×4 (09:00→22:57)
[2017-04-01] MEDS: APIXABAN 5 MG TABLET PO SCH ×2 (09:22→21:21)
[2017-04-01] MEDS: FLECAINIDE ACETATE 100 MG TAB PO SCH ×2 (09:22→21:24)
[2017-04-01] MEDS: METOPROLOL TARTRATE 25 MG TAB PO SCH ×2 (09:22→21:21)
[2017-04-01] MEDS: PANTOPRAZOLE SOD 20 MG DELAYED RELEASE TAB PO SCH ×2 (09:22→21:20)
--- NOTE | 2017-04-01 10:33 | PD.PN.STU ---
Subjective Remarks Patient anxious, states ativan gives her hangover she cannot function with Remains concerned with blood pressure "spikes" Cosme did not occur yesterday, 0.5mg ativan given at 4pm Patient requesting source of bp variation determined before discharge, states she "cannot go through this again" Objective Vitals Vital Signs Date Time Temp Pulse Resp B/P Pulse Ox O2 Delivery O2 Flow Rate FiO2 04/01/17 08:29 97.2 77 20 107/57 94 04/01/17 04:00 96.4 61 20 124/66 97 04/01/17 00:00 96.9 71 20 144/69 96 03/31/17 20:00 97.6 70 20 142/71 96 03/31/17 16:06 96.3 70 17 133/60 98 03/31/17 12:12 97.6 66 17 146/76 98 I/O 03/31/17 03/31/17 03/31/17 04/01/17 04/01/17 04/01/17 07:00 15:00 23:00 07:00 15:00 23:00 Intake Total 720 ml 60 ml Balance 720 ml 60 ml Intake Oral 720 ml 60 ml # Voids 1 7 1 # Bowel Movements 1 0 Objective Remarks Patient resting well in bed, anxious Cardiac and pulmonary exams unremarkable Medications and IVs Current Medications Medications (Trade) Dose Ordered Sig/Shaun Route PRN Reason Start Time Stop Time Status Last Admin Dose Admin Sodium Chloride (NS Flush) 2 ml UNSCH PRN IV FLUSH FLUSH AFTER USING IV ACCESS 03/23/17 00:45 Sodium Chloride (NS Flush) 2 ml BID IV FLUSH 03/23/17 09:00 04/01/17 09:00 Acetaminophen (Tylenol) 650 mg Q4H PRN PO TEMP > 100.4 03/23/17 00:45 03/29/17 05:20 Ondansetron HCl (Zofran Inj) 4 mg Q6H PRN IVP NAUSEA OR VOMITING 03/23/17 00:45 Naloxone HCl (Narcan Inj) 0.4 mg UNSCH PRN IV SEE LABEL COMMENTS 03/23/17 00:45 Magnesium Hydroxide (Milk Of Magnesia Liq) 30 ml Q12H PRN PO MILD - MODERATE CONSTIPATION 03/23/17 00:45 03/30/17 23:33 Apixaban (Eliquis) 5 mg BID PO 03/23/17 09:00 04/01/17 09:22 Flecainide Acetate (Tambocor) 100 mg Q12HR PO 03/23/17 09:00 04/01/17 09:22 Metoprolol Tartrate (Lopressor) 25 mg BID PO 03/23/17 09:00 04/01/17 09:22 Pantoprazole Sodium (Protonix) 20 mg BID PO 03/23/17 09:00 04/01/17 09:22 Enalaprilat (Vasotec Inj) 1.25 mg Q6H PRN IV SYS BP GREATER THAN 160 MMHG 03/23/17 00:45 03/30/17 19:47 Artificial Tears (Tears Naturale Opth Soln) 1 drop Q4H PRN EACH EYE dry eyes 03/26/17 16:45 03/27/17 09:38 Nifedipine (Procardia Xl) 60 mg DAILY PO 03/31/17 09:00 03/31/17 08:00 Lorazepam (Ativan) 0.5 mg Q12HR PO 03/30/17 21:00 04/01/17 09:30 Lorazepam (Ativan) 0.5 mg BID PRN PO anxiety 03/31/17 11:45 03/31/17 16:22 A/P Assessment and Plan Problem List: (1) Hypertensive urgency Status: Acute Plan: - Pt is an 81 y/o female with atrial fibrillation s/p recent EPS and ablation on 01/20/17. - She was just discharged yesterday after an admission for hypertensive urgency. She had been taking Metoprolol 25mg po BID and Tambocor 100mg Q12H prior to that admission. She had Norvasc added during this most recent admission and had stable BP prior to discharge. - She presented back to the ED again with elevated BP of 207/83. She was given Clonidine PO in the ED with improvement in her BP. - Pt was resumed on the Metoprolol and Tambocor and started on Procardia XL. - Pt had a Head CT in the ED which noted cerebral atrophy and chronic ischemic small vessel vasculopathy and old left basal ganglia lacunar infarct. - Pts BP seems to trend higher at night. - CTA abdomen --> Negative for Renal Artery Stenosis - Pt and family were apparently worried about pheo....24 hour urine collection of metanephrine/normetanephrine negative 03/31 - Pt seen by her sales solutions associate..ana added then stopped. - Pt currently just getting procardia 60mg in AM and metoprolol bid - added ativan and will give in PM prn for her sx's 04/01 - Patient states ativan giving her "hangover" effects - Minimal variation in BP yesterday, PRN ativan given around her recurrent time of symptom onset (4pm), does not complain of accompanying "hot flash" feeling as she had before - States she wants definite answer to cause. States symptoms are not due to anxiety. - Recent labs unremarkable, no evidence of pheochromocytoma or underlying metabolic or hormonal cause (2) Hyperlipidemia Status: Chronic Plan: - See above. (3) Atrial fibrillation Status: Chronic Plan: - s/p recent EPS and ablation on 01/20/17 - Cont. Eliquis - Patient is in sinus rhythm, no complaints of palpitations - Cardiology states stable on today's visit - Follow up with Dr. Howe in 1-2 weeks (4) GERD (gastroesophageal reflux disease) Status: Chronic Plan: - PPI (5) Chronic anemia Status: Chronic Plan: - Pt with noted chronic microcytic, hypochromic anemia - Iron studies in 05/2016 with noted iron deficiency - serum iron 25 (03/25/17) - Start Ferrous sulfate - Pts last outpt colonoscopy was 2009 and last EGD was 2002. - She should followup outpt with [facility] for repeat EGD/colonoscopy for further evaluation of her iron deficiency anemia. Brie Palacios M3 Apr 01, 2017 10:32
--- NOTE | 2017-04-01 12:35 | HHI.PR ---
Subjective Remarks doing ok. no spike in bp last night. Objective Vitals heart reg lung cta abd s/nt ext no edema Vital Signs Date Time Temp Pulse Resp B/P Pulse Ox O2 Delivery O2 Flow Rate FiO2 04/01/17 08:29 97.2 77 20 107/57 94 04/01/17 04:00 96.4 61 20 124/66 97 04/01/17 00:00 96.9 71 20 144/69 96 03/31/17 20:00 97.6 70 20 142/71 96 03/31/17 16:06 96.3 70 17 133/60 98 03/31/17 03/31/17 04/01/17 14:59 22:59 06:59 Intake Total 720 ml 60 ml Balance 720 ml 60 ml Intake Oral 720 ml 60 ml # Voids 7 1 # Bowel Movements 1 0 Imaging Last Impressions Head CT 03/22/17 0000 Signed Impressions: Service Date/Time: Thursday, March 23, 2017 00:36 - CONCLUSION: 1. Cerebral atrophy and chronic ischemic small vessel vasculopathy. 2. 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 Nelson Montana MD A/P Problem List: (1) Hypertensive urgency Status: Acute Plan: - Pt is an 81 y/o female with atrial fibrillation s/p recent EPS and ablation on 01/20/17. - She was just discharged yesterday after an admission for hypertensive urgency. She had been taking Metoprolol 25mg po BID and Tambocor 100mg Q12H prior to that admission. She had Norvasc added during this most recent admission and had stable BP prior to discharge. - She presented back to the ED again with elevated BP of 207/83. She was given Clonidine PO in the ED with improvement in her BP. - Pt was resumed on the Metoprolol and Tambocor and started on Procardia XL. - Pt had a Head CT in the ED which noted cerebral atrophy and chronic ischemic small vessel vasculopathy and old left basal ganglia lacunar infarct. - Pts BP seems to trend higher at night. - CTA abdomen --> Negative for Renal Artery Stenosis - Pt and family were apparently worried about pheo....24 hour urine collection of metanephrine/normetanephrine negative Pt seen by her fruit harvester machine operator..ana added then stopped. Pt currently just getting procardia 60mg in AM and metoprolol bid added ativan and will give in PM prn for her sx's. no spike with ativan last night. nursing held bp med this morning. i have asked to recheck and give it. (2) Hyperlipidemia Status: Chronic Plan: - See above. (3) Atrial fibrillation Status: Chronic Plan: - s/p recent EPS and ablation on 01/20/17 - Cont. Eliquis (4) GERD (gastroesophageal reflux disease) Status: Chronic Plan: - PPI (5) Chronic anemia Status: Chronic Plan: - Pt with noted chronic microcytic, hypochromic anemia - Iron studies in 05/2016 with noted iron deficiency - serum iron 25 (03/25/17) - Start Ferrous sulfate - Pts last outpt colonoscopy was 2009 and last EGD was 2002. - She should followup outpt with [facility] for repeat EGD/colonoscopy for further evaluation of her iron deficiency anemia. Jesse Arndt MD Apr 01, 2017 12:35
[2017-04-01 12:43] VITALS: BP 119/61; PULSE 68; RESP 20; TEMP 97.2; O2SAT 97
[2017-04-01 15:56] VITALS: BP 141/65; PULSE 72; RESP 20; TEMP 96.7; O2SAT 98
[2017-04-01] MEDS ORDERED: NIFE60TA8 PO (17:34)
[2017-04-01] MEDS ORDERED: LORA-392 PO (17:34)
[2017-04-01] MEDS: ENALAPRILAT 1.25 MG/ML VIAL IV PRN (18:08)
--- NOTE | 2017-04-01 19:34 | HHI.DCPOC ---
Discharge Care Plan Diagnosis: (1) Hypertension Goals to Promote Your Health * To prevent worsening of your condition and complications * To maintain your health at the optimal level Directions to Meet Your Goals Take your medications as prescribed Follow your dietary instruction Follow activity as directed Keep your appointments as scheduled Take your immunizations and boosters as scheduled If your symptoms worsen call your PCP, if no PCP go to Urgent Care Center or Emergency Room Smoking is Dangerous to Your Health. Avoid second hand smoke Call the 24-hour hour crisis hotline for domestic abuse at Jesse Arndt MD Apr 01, 2017 19:34
[2017-04-01 20:00] VITALS: BP 140/67; PULSE 75; RESP 20; TEMP 97.5; O2SAT 94
[2017-04-02] VITALS: BP 135/60; PULSE 69; RESP 20; TEMP 96.8; O2SAT 95
[2017-04-02 04:00] VITALS: BP 131/61; PULSE 61; RESP 20; TEMP 96; O2SAT 95
[2017-04-02 08:00] VITALS: BP 155/69; PULSE 70; RESP 16; TEMP 98.7; O2SAT 96
[2017-04-02] MEDS: SODIUM CHLORIDE 0.9% FLUSH 10 ML FLUSH IV FLUSH SCH ×2 (09:00→21:00)
[2017-04-02] MEDS: PANTOPRAZOLE SOD 20 MG DELAYED RELEASE TAB PO SCH ×2 (09:15→21:39)
[2017-04-02] MEDS: METOPROLOL TARTRATE 25 MG TAB PO SCH ×2 (09:15→21:42)
[2017-04-02] MEDS: FLECAINIDE ACETATE 100 MG TAB PO SCH ×2 (09:16→21:39)
[2017-04-02] MEDS: APIXABAN 5 MG TABLET PO SCH ×2 (09:16→21:39)
[2017-04-02] MEDS: LORazepam 0.5 MG TAB PO SCH ×2 (09:19→21:00)
[2017-04-02] MEDS: NIFEdipine 60 MG SUSTAINED RELEASE TAB PO SCH ×2 (09:20→11:27)
[2017-04-02 12:00] VITALS: BP 131/61; PULSE 86; RESP 17; TEMP 96.7; O2SAT 100
--- NOTE | 2017-04-02 12:35 | HHI.PR ---
Subjective Remarks very anxious . says she spiked last night was insisting on new bp med at first. Objective Vitals anxious heart reg lung cta abd s/nt ext no edema Vital Signs Date Time Temp Pulse Resp B/P Pulse Ox O2 Delivery O2 Flow Rate FiO2 04/02/17 08:00 98.7 70 16 155/69 96 04/02/17 04:00 96.0 61 20 131/61 95 04/02/17 00:00 96.8 69 20 135/60 95 04/01/17 20:00 97.5 75 20 140/67 94 04/01/17 15:56 96.7 72 20 141/65 98 04/01/17 12:43 97.2 68 20 119/61 97 04/01/17 04/01/17 04/02/17 15:00 23:00 07:00 Intake Total 834 ml Balance 834 ml Intake Oral 834 ml # Voids 4 2 2 # Bowel Movements 1 Imaging Last Impressions Head CT 03/22/17 0000 Signed Impressions: Service Date/Time: Thursday, March 23, 2017 00:36 - CONCLUSION: 1. Cerebral atrophy and chronic ischemic small vessel vasculopathy. 2. 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 Nelson Montana MD A/P Problem List: (1) Hypertensive urgency Status: Acute Plan: - Pt is an 81 y/o female with atrial fibrillation s/p recent EPS and ablation on 01/20/17. - She was just discharged yesterday after an admission for hypertensive urgency. She had been taking Metoprolol 25mg po BID and Tambocor 100mg Q12H prior to that admission. She had Norvasc added during this most recent admission and had stable BP prior to discharge. - She presented back to the ED again with elevated BP of 207/83. She was given Clonidine PO in the ED with improvement in her BP. - Pt was resumed on the Metoprolol and Tambocor and started on Procardia XL. - Pt had a Head CT in the ED which noted cerebral atrophy and chronic ischemic small vessel vasculopathy and old left basal ganglia lacunar infarct. - Pts BP seems to trend higher at night. - CTA abdomen --> Negative for Renal Artery Stenosis - Pt and family were apparently worried about pheo....24 hour urine collection of metanephrine/normetanephrine negative Pt seen by her manager internship..ana added then stopped. Pt currently just getting procardia 60mg in AM and metoprolol bid added ativan and will give in PM prn for her sx's. Pt d/c held as she reports bp spike last night. not recorded in [employer] but vasotec was given. she was insisting on a med change but then wanted to dictate what we would be using. she will try a dose of ativan early evening scheduled. If not working then change to hctz. (2) Hyperlipidemia Status: Chronic Plan: - See above. (3) Atrial fibrillation Status: Chronic Plan: - s/p recent EPS and ablation on 01/20/17 - Cont. Eliquis (4) GERD (gastroesophageal reflux disease) Status: Chronic Plan: - PPI (5) Chronic anemia Status: Chronic Plan: - Pt with noted chronic microcytic, hypochromic anemia - Iron studies in 05/2016 with noted iron deficiency - serum iron 25 (03/25/17) - Start Ferrous sulfate - Pts last outpt colonoscopy was 2009 and last EGD was 2002. - She should followup outpt with [facility] for repeat EGD/colonoscopy for further evaluation of her iron deficiency anemia. Jesse Arndt MD Apr 02, 2017 12:35
[2017-04-02] MEDS: LORazepam 0.5 MG TAB PO PRN (15:09)
[2017-04-02 16:30] VITALS: BP 139/67; PULSE 75; RESP 18; TEMP 97.3; O2SAT 95
[2017-04-02 20:00] VITALS: BP 147/70; PULSE 70; RESP 18; TEMP 96.9; O2SAT 95
[2017-04-03] VITALS: BP 151/72; PULSE 71; RESP 18; TEMP 97.5; O2SAT 97
[2017-04-03 04:00] VITALS: BP 137/69; PULSE 64; RESP 18; TEMP 96.5; O2SAT 95
[2017-04-03 08:00] VITALS: BP 113/66; PULSE 74; RESP 18; TEMP 97.4; O2SAT 95
[2017-04-03 09:14] VITALS: BP 132/96
[2017-04-03] MEDS: NIFEdipine 60 MG SUSTAINED RELEASE TAB PO SCH (09:15)
[2017-04-03] MEDS: APIXABAN 5 MG TABLET PO SCH (09:16)
[2017-04-03] MEDS: METOPROLOL TARTRATE 25 MG TAB PO SCH (09:16)
[2017-04-03] MEDS: FLECAINIDE ACETATE 100 MG TAB PO SCH (09:16)
[2017-04-03] MEDS: PANTOPRAZOLE SOD 20 MG DELAYED RELEASE TAB PO SCH (09:16)
[2017-04-03] MEDS: LORazepam 0.5 MG TAB PO SCH (09:17)
[2017-04-03] MEDS: SODIUM CHLORIDE 0.9% FLUSH 10 ML FLUSH IV FLUSH SCH (09:17)
--- NOTE | 2017-04-03 10:20 | HHI.FF ---
Face to Face Verification Diagnosis: (1) Hypertension (2) Anxiety Home Health Nursing Order: Medical education Signs/symptoms of disease process Nursing assessment with vital signs Instructions: monitor blood pressure control and any spikes..usually have been occurring between 4-8 pm. notify pcp or real estate appraiser(dr pierre salvador or dr cary) with any concerns I have seen patient Kate Johnson on 04/03/17. My clinical findings support the need for the requested home health care services because: Need for psychosocial assistance I certify that my clinical findings support that this patient is homebound because: Need for psychosocial assistance Jesse Arndt MD Apr 03, 2017 10:20
--- NOTE | 2017-04-03 10:22 | HHI.PR ---
Subjective Remarks feels well. anxious no bp spike last night Objective Vitals heart reg sunshine gcta abd s/nt ext no edema Vital Signs Date Time Temp Pulse Resp B/P Pulse Ox O2 Delivery O2 Flow Rate FiO2 04/03/17 09:14 132/96 04/03/17 08:00 97.4 74 18 113/66 95 04/03/17 04:00 96.5 64 18 137/69 95 04/03/17 00:00 97.5 71 18 151/72 97 04/02/17 20:00 96.9 70 18 147/70 95 04/02/17 16:30 97.3 75 18 139/67 95 04/02/17 12:00 96.7 86 17 131/61 100 04/02/17 04/02/17 04/03/17 14:59 22:59 06:59 Intake Total 480 ml Balance 480 ml Intake Oral 480 ml # Voids 3 3 # Bowel Movements 0 Imaging Last Impressions Head CT 03/22/17 0000 Signed Impressions: Service Date/Time: Thursday, March 23, 2017 00:36 - CONCLUSION: 1. Cerebral atrophy and chronic ischemic small vessel vasculopathy. 2. 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 Nelson Montana MD A/P Problem List: (1) Hypertensive urgency Status: Acute Plan: - Pt is an 81 y/o female with atrial fibrillation s/p recent EPS and ablation on 01/20/17. - She was just discharged yesterday after an admission for hypertensive urgency. She had been taking Metoprolol 25mg po BID and Tambocor 100mg Q12H prior to that admission. She had Norvasc added during this most recent admission and had stable BP prior to discharge. - She presented back to the ED again with elevated BP of 207/83. She was given Clonidine PO in the ED with improvement in her BP. - Pt was resumed on the Metoprolol and Tambocor and started on Procardia XL. - Pt had a Head CT in the ED which noted cerebral atrophy and chronic ischemic small vessel vasculopathy and old left basal ganglia lacunar infarct. - Pts BP seems to trend higher at night. - CTA abdomen --> Negative for Renal Artery Stenosis - Pt and family were apparently worried about pheo....24 hour urine collection of metanephrine/normetanephrine negative Pt seen by her refrigeration installer..ana added then stopped. Pt currently just getting procardia 60mg in AM and metoprolol bid added ativan and will give in PM prn for her sx's. no bp spike in PM last night after getting ativan beforehand. d/c with [facility] to monitor and pcp/refrigeration installer f/u. (2) Hyperlipidemia Status: Chronic Plan: - See above. (3) Atrial fibrillation Status: Chronic Plan: - s/p recent EPS and ablation on 01/20/17 - Cont. Eliquis (4) GERD (gastroesophageal reflux disease) Status: Chronic Plan: - PPI (5) Chronic anemia Status: Chronic Plan: - Pt with noted chronic microcytic, hypochromic anemia - Iron studies in 05/2016 with noted iron deficiency - serum iron 25 (03/25/17) - Start Ferrous sulfate - Pts last outpt colonoscopy was 2009 and last EGD was 2002. - She should followup outpt with [facility] for repeat EGD/colonoscopy for further evaluation of her iron deficiency anemia. Jesse Arndt MD Apr 03, 2017 10:22
[2017-04-03 12:00] VITALS: BP 110/51; PULSE 59; RESP 17; TEMP 96.7; O2SAT 98
[2017-04-03] MEDS ORDERED: CLON0.1T PO (14:26)
== END 2017-04-03 13:33 | disposition home health service (06) | DRG 305 ==
LOC: NEPC 22:20 → NEDA 03-23 00:51 → N05A 03-23 02:22
PROVIDERS: ADMIT Hospitalist; ATTEND Hospitalist
DX: I16.0 Hypertensive urgency (principal); I48.91 Unspecified atrial fibrillation; E55.9 Vitamin D deficiency, unspecified; I10 Essential (primary) hypertension; E78.5 Hyperlipidemia, unspecified; K21.9 Gastro-esophageal reflux disease without esophagitis; M51.36 Other intervertebral disc degeneration, lumbar region; M19.90 Unspecified osteoarthritis, unspecified site; M85.80 Other specified disorders of bone density and structure, unspecified site; K44.9 Diaphragmatic hernia without obstruction or gangrene; F41.9 Anxiety disorder, unspecified; E78.00 Pure hypercholesterolemia, unspecified; Z86.73 Personal history of transient ischemic attack (TIA), and cerebral infarction without residual deficits; Z87.891 Personal history of nicotine dependence; D50.9 Iron deficiency anemia, unspecified; R51 Headache; R42 Dizziness and giddiness; R53.83 Other fatigue; Z79.02 Long term (current) use of antithrombotics/antiplatelets; Z79.899 Other long term (current) drug therapy
CPT/HCPCS: 70450; 74174; 80048; 80053; 82384; 82550; 82728; 83540; 83550; 83835; 84484; 85025; 85610; 93005; J2405; J2765; Q9967

== ENCOUNTER 2017-11-15 18:26 | Inpatient (IN) | payer MEDICARE ==
[~2017-11-15] VITALS: Ht 157.5 cm; Wt 70.9 kg
[~2017-11-15 18:26] MED LIST changes: -AMLO5TAB2 PO; -CHOL20003 PO; +CLON0.1T PO; +D200CAP2 PO; +ENOXAPARIN SODIUM 40 MG/0.4 ML SYRINGE SQ SCH; +NIFE60TA8 PO
[2017-11-15 18:40] VITALS: BP 117/58; PULSE 79; RESP 18; TEMP 97.6; O2SAT 97
[2017-11-15] MEDS ORDERED: SODIUM CHLOR 0.9% 1000 ML INJ 1,000 ML IV SCH (20:25)
--- NOTE | 2017-11-15 20:29 | PD ---
HPI Chief Complaint: GI Complaint Time Seen by Provider: 20:21 Travel History International Travel<30 days: No Contact w/Intl Traveler<30days: No Traveled to known affect area: No History of Present Illness HPI 82-year-old female here for evaluation of abdominal pain, nausea, vomiting, and diarrhea. Symptoms started today. Patient reports epigastric abdominal pain that was radiating around to her bilateral flank and back area, now is located in her epigastric area. She is unable to describe the pain. Pain is worse with movements and with eating. She is unable to keep anything down and reports several episodes of vomiting. Emesis and bowel movements are nonbloody. She has not noted a fever. History of cholecystectomy and hysterectomy. She denies any other abdominal surgeries. No chest pain. PFSH Past Medical History Hx Anticoagulant Therapy: Yes Arthritis: Yes Asthma: No Atrial Fibrillation: Yes Blood Disorders: No Anxiety: No Depression: No Heart Rhythm Problems: Yes (PALPITATIONS) Cancer: No Cardiovascular Problems: Yes (A FIB) High Cholesterol: Yes Chemotherapy: No Chest Pain: No Congestive Heart Failure: No COPD: No Diabetes: No Diminished Hearing: No Endocrine: No Gastrointestinal Disorders: Yes GERD: Yes Genitourinary: Yes Headaches: Yes Hepatitis: No Hiatal Hernia: Yes Hypertension: Yes Immune Disorder: No Implanted Vascular Access Dvce: No Medical other: Yes (REFLUX, BACK AND NECK) Musculoskeletal: Yes Neurologic: Yes Psychiatric: No Reproductive: No Respiratory: Yes Radiation Therapy: No Sleep Apnea: No Thyroid Disease: No Influenza Vaccination: Yes ?: Not Menopausal: Yes Past Surgical History Abdominal Surgery: Yes (CHOLECYSTECTOMY) Appendectomy: Yes Cardiac Surgery: Yes (ABLATION) Cholecystectomy: Yes Ear Surgery: No Endocrine Surgery: No Eye Surgery: Yes (CATARACTS BILAT) Genitourinary Surgery: No Gynecologic Surgery: Yes (HYSTERECTOMY) Hysterectomy: Yes Neurologic Surgery: No Oral Surgery: No Pacemaker: No Thoracic Surgery: No Tonsillectomy: Yes Other Surgery: Yes Family History Family Hypercholesterolemia: Yes Social History Alcohol Use: Yes (occas. beer) Tobacco Use: No Substance Use: No Allergies-Medications (Allergen,Severity, Reaction): Coded Allergies: Sulfa (Sulfonamide Antibiotics) (Unverified Allergy, Severe, "TOLD NOT TO TAKE ANYMORE", 11/15/17) aspirin (Unverified Allergy, Severe, "TOLD NOT TO TAKE ANY ANTIINFLAMMATORIES", 11/15/17) cephalexin (Unverified Allergy, Severe, "SWOLLEN THROAT,ITCHING ALL OVER" , 11/15/17) ibuprofen (Unverified Allergy, Severe, "TOLD NOT TO TAKE ANYMORE", 11/15/17 ) lisinopril (Unverified Allergy, Severe, "RASH", 11/15/17) nabumetone (Unverified Allergy, Severe, "NEPHROTIC SYNDROME", 11/15/17) penicillin G (Unverified Allergy, Severe, UNKNOWN, 11/15/17) adhesive (Unverified Allergy, Intermediate, Rash, 11/15/17) digoxin (Unverified Allergy, Intermediate, Fatigue, 11/15/17) telmisartan (Unverified Allergy, Intermediate, Fatigue, 11/15/17) Uncoded Allergies: ANTIINFLAMMATORIES (Allergy, Severe, "TOLD NOT TO TAKE ANYMORE", 01/04/16) . Reported Meds & Prescriptions Reported Meds & Active Scripts Active Nifedipine ER 24 HR (Nifedipine) 60 Mg Tab 60 Mg PO DAILY Ativan (Lorazepam) 0.5 Mg Tab 0.5 Mg PO BID PRN Flecainide (Flecainide Acetate) 100 Mg Tab 100 Mg PO Q12HR Reported Metoprolol Tartrate 25 Mg Tab 25 Mg PO BID D3 (Cholecalciferol) 2,000 Unit Cap 2,000 Units PO DAILY Omeprazole 20 Mg Cap 20 Mg PO BID Fish Oil (Arjay-3 Fatty Acids) 1,000 Mg Cap 2,000 Mg PO DAILY Eliquis (Apixaban) 5 Mg Tab 5 Mg PO BID Review of Systems Except as stated in HPI: all other systems reviewed are Neg Physical Exam Narrative GENERAL: Well-developed, well-nourished, comfortable, no apparent distress. SKIN: Focused skin assessment warm/dry. No rash. HEAD: Atraumatic. Normocephalic. EYES: Pupils equal and round. No scleral icterus. No injection or drainage. ENT: No nasal bleeding or discharge. Mucous membranes pink and moist. NECK: Trachea midline. No JVD. CARDIOVASCULAR: Regular rate and rhythm. No murmur appreciated. RESPIRATORY: No accessory muscle use. Clear to auscultation. Breath sounds equal bilaterally. GASTROINTESTINAL: Abdomen soft, nondistended. Mild epigastric tenderness without peritoneal signs. Normal bowel sounds. No hernias. MUSCULOSKELETAL: No obvious deformities. No clubbing. No cyanosis. No edema. NEUROLOGICAL: Awake and alert. No obvious cranial nerve deficits. Motor grossly within normal limits. Normal speech. PSYCHIATRIC: Appropriate mood and affect; insight and judgment normal. Data Data Last Documented VS Vital Signs Date Time Temp Pulse Resp B/P (MAP) Pulse Ox O2 Delivery O2 Flow Rate FiO2 11/15/17 22:28 77 18 152/70 (97) 97 11/15/17 21:07 Room Air 11/15/17 18:40 97.6 Orders Orders Complete Blood Count With Diff (11/15/17 20:25) Comprehensive Metabolic Panel (11/15/17 20:25) Lipase (11/15/17 20:25) Lactic Acid (11/15/17 20:25) Prothrombin Time / Inr (Pt) (11/15/17 20:25) Act Partial Throm Time (Ptt) (11/15/17 20:25) Urinalysis - C+S If Indicated (11/15/17 20:25) Ct Abd/Pel W Iv Contrast(Rout) (11/15/17 20:25) Iv Access Insert/Monitor (11/15/17 20:25) Ecg Monitoring (11/15/17 20:25) Oximetry (11/15/17 20:25) Ondansetron Inj (Zofran Inj) (11/15/17 20:30) Pantoprazole Inj (Protonix Inj) (11/15/17 20:30) Sodium Chlor 0.9% 1000 Ml Inj (Ns 1000 M (11/15/17 20:25) Sodium Chloride 0.9% Flush (Ns Flush) (11/15/17 20:30) Morphine Inj (Morphine Inj) (11/15/17 20:30) Influenzae A/B Antigen (11/15/17 20:25) Electrocardiogram (11/15/17 ) Sodium Chlor 0.9% 1000 Ml Inj (Ns 1000 M (11/15/17 21:15) Iohexol 350 Inj (Omnipaque 350 Inj) (11/15/17 22:03) Insert Ng Tube (11/15/17 22:39) Admit Order (Ed Use Only) (11/15/17 22:54) Labs Laboratory Tests Test 11/15/17 20:40 White Blood Count 10.8 TH/MM3 Red Blood Count 5.02 MIL/MM3 Hemoglobin 15.3 GM/DL Hematocrit 43.3 % Mean Corpuscular Volume 86.3 FL Mean Corpuscular Hemoglobin 30.4 PG Mean Corpuscular Hemoglobin Concent 35.3 % Red Cell Distribution Width 13.6 % Platelet Count 268 TH/MM3 Mean Platelet Volume 7.1 FL Neutrophils (%) (Auto) 80.4 % Lymphocytes (%) (Auto) 13.2 % Monocytes (%) (Auto) 5.6 % Eosinophils (%) (Auto) 0.4 % Basophils (%) (Auto) 0.4 % Neutrophils # (Auto) 8.8 TH/MM3 Lymphocytes # (Auto) 1.4 TH/MM3 Monocytes # (Auto) 0.6 TH/MM3 Eosinophils # (Auto) 0.0 TH/MM3 Basophils # (Auto) 0.0 TH/MM3 CBC Comment DIFF FINAL Differential Comment Prothrombin Time 9.9 SEC Prothromb Time International Ratio 1.0 RATIO Activated Partial Thromboplast Time 30.1 SEC Blood Urea Nitrogen 22 MG/DL Creatinine 0.84 MG/DL Random Glucose 116 MG/DL Total Protein 9.2 GM/DL Albumin 4.4 GM/DL Calcium Level 10.0 MG/DL Alkaline Phosphatase 81 U/L Aspartate Amino Transf (AST/SGOT) 24 U/L Alanine Aminotransferase (ALT/SGPT) 27 U/L Total Bilirubin 0.4 MG/DL Sodium Level 126 MEQ/L Potassium Level 4.2 MEQ/L Chloride Level 90 MEQ/L Carbon Dioxide Level 28.2 MEQ/L Anion Gap 8 MEQ/L Estimat Glomerular Filtration Rate 65 ML/MIN Lactic Acid Level 1.4 mmol/L Lipase 162 U/L [facility] Medical Decision Making Medical Screen Exam Complete: Yes Emergency Medical Condition: Yes Medical Record Reviewed: Yes Interpretation(s) EKG: Sinus, rate 76, leftward axis, normal intervals, no acute ischemic abnormality. Differential Diagnosis Gastroenteritis, gastritis, hepatobiliary disease, pancreatitis, peptic ulcer disease, colitis, SBO Narrative Course Initial vital signs show heart rate 79, blood pressure 117/58, pulse ox 97% on room air, oral temperature 97.6F. CBC: WBC 10.8, hemoglobin 15.3, hematocrit 43.3, platelets 268, neutrophils 80%. CMP is remarkable for sodium 126, chloride 90, BUN 22, otherwise unremarkable. Lactic acid is 1.4. CT abdomen pelvis: CONCLUSION: 1. Findings characteristic of distal small bowel obstruction. A transition zone is present just proximal to the terminal ileum. Patient was made aware of all findings. She is resting comfortably. There are no peritoneal signs on her exam with mild epigastric tenderness. She has been given a liter of normal saline IV and started on normal saline at 125 cc/h. An NG tube will be placed, and the patient will be admitted for further treatment and evaluation. According to a hospital memorandum published by our on-call general surgeons, they do not want to be contacted emergently for small bowel obstructions without peritonitis, therefore the patient will be admitted to the medical service with a routine consult placed to general surgery. Case discussed with [facility] hospitalist Dr. Abbott who will admit the patient to his service. NG tube placed with immediate return of 600 cc of bilious material. Suction was then placed to low intermittent. Procedures Procedure Narrative NG tube placement: 16 Canadian nasogastric tube was placed in the right nare. Lubricant jelly was applied to the tip of the tube prior to insertion. When the tube reached the stomach, 600 cc of bilious material was aspirated. Suction was then placed to low intermittent. The procedure was tolerated well. No complications. Diagnosis Primary Impression: Small bowel obstruction Additional Impression: Hyponatremia Admitting Information Admitting Physician Requests: Admit Carlo Traore MD Nov 15, 2017 20:29
[2017-11-15] MEDS ORDERED: ONDANSETRON HCL 4 MG/2 ML VIAL IVP ONE (20:30)
[2017-11-15] MEDS ORDERED: MORPHINE SULFATE 2 MG/ML INJ IV PUSH ONE (20:30)
[2017-11-15] MEDS ORDERED: PANTOPRAZOLE SODIUM 40 MG VIAL IVP ONE (20:30)
[2017-11-15 20:40] VITALS: O2SAT 97
[2017-11-15 20:55] LABS: AUTOMATED NEUTROPHIL # 8.8 TH/MM3 (1.8-7.7); BASOPHIL % 0.4 % (0.0-2.0); EOSINOPHIL % 0.4 % (0.0-4.0); HEMATOCRIT 43.3 % (35.0-46.0); HEMOGLOBIN 15.3 GM/DL (11.6-15.3); LYMPH % 13.2 % (9.0-44.0); LYMPHOCYTE # 1.4 TH/MM3 (1.0-4.8); MEAN CELL VOLUME 86.3 FL (80.0-100.0); MEAN CORPUSCULAR HEMOGLOBIN 30.4 PG (27.0-34.0); MEAN CORPUSCULAR HGB CONC 35.3 % (32.0-36.0); MEAN PLATELET VOLUME 7.1 FL (7.0-11.0); MONO % 5.6 % (0.0-8.0); MONOCYTE # 0.6 TH/MM3 (0-0.9); NEUT % 80.4 % (16.0-70.0); PLATELET COUNT 268 TH/MM3 (150-450); RED BLOOD COUNT 5.02 MIL/MM3 (4.00-5.30); RED CELL DISTRIBUTION WIDTH 13.6 % (11.6-17.2); WHITE BLOOD COUNT 10.8 TH/MM3 (4.0-11.0)
[2017-11-15 21:07] VITALS: BP 138/70; PULSE 75; RESP 18; O2SAT 96
[2017-11-15 21:07] LABS: PROTHROMBIN TIME - PATIENT 9.9 SEC (9.8-11.6)
[2017-11-15 21:12] LABS: CHLORIDE 90 MEQ/L (98-107); SODIUM (NA) 126 MEQ/L (136-145)
[2017-11-15] MEDS ORDERED: SODIUM CHLOR 0.9% 1000 ML INJ 1,000 ML IV ONE (21:15)
[2017-11-15 21:16] LABS: ALBUMIN 4.4 GM/DL (3.4-5.0); BICARBONATE 28.2 MEQ/L (21.0-32.0); BLOOD UREA NITROGEN 22 MG/DL (7-18); GLUCOSE,RANDOM 116 MG/DL (74-106)
[2017-11-15 21:19] LABS: ALT (GPT) 27 U/L (10-53); AST (GOT) 24 U/L (15-37); CREATININE 0.84 MG/DL (0.50-1.00); GLOMERULAR FILTRATION RATE 65 ML/MIN (>89)
[2017-11-15 21:20] LABS: TOTAL BILIRUBIN ADULT 0.4 MG/DL (0.2-1.0); TOTAL PROTEIN 9.2 GM/DL (6.4-8.2)
[2017-11-15 21:22] LABS: ALKALINE PHOSPHATASE 81 U/L (45-117)
[2017-11-15] MEDS ORDERED: IOHEXOL 350 MG/ML 10 ML VIAL (for RAD DIAG) IVCONTRAST ONE (22:03)
--- NOTE | 2017-11-15 22:24 | RADRPT ---
EXAM DATE/TIME: 11/15/2017 21:54 [facility] COMPARISON: No previous studies available for comparison. INDICATIONS : Abdominal pain, nausea, vomiting and diarrhea. IV CONTRAST: 100 cc Omnipaque 350 (iohexol) IV ORAL CONTRAST: No oral contrast ingested. RADIATION DOSE: 13.64 CTDIvol (mGy) MEDICAL HISTORY : Hernia, hiatal. Hypertension. Gastroesophageal reflux disease.Renal issues years ago. SURGICAL HISTORY : Appendectomy. Cholecystectomy.Hysterectomy. ENCOUNTER: Initial ACUITY: 2 days PAIN SCALE: 9/10 LOCATION: Bilateral upper quadrant lower quadrant TECHNIQUE: Volumetric scanning of the abdomen and pelvis was performed. Using automated exposure control and ad justment of the mA and/or kV according to patient size, radiation dose was kept as low as reasonably achievable to obtain optimal diagnostic quality images. DICOM format image data is available electro nically for review and comparison. FINDINGS: Examination of the lung bases demonstrates no abnormality. No pleural fluid is identified. No pulmona ry nodules are present. The liver and spleen are normal in size and no focal defects are identified. The gallbladder is absent. The pancreas demonstrates normal contour without evidence of mass or ducta l dilatation. The adrenal glands and kidneys appear normal bilaterally. No hydronephrosis or mass les ions are identified. There is gastric distention with fluid as well as small bowel dilatation to just proximal to the terminal ileum characteristic of distal small bowel obstruction. No discrete mass is identified. No free air is identified. No organomegaly is evident. Examination of the pelvis demonstrates no evidence of free fluid or pelvic mass. No abnormally enlarg ed inguinal or retroperitoneal lymph nodes are present. The bladder is unremarkable. CONCLUSION: 1. Findings characteristic of distal small bowel obstruction. A transition zone is present just proxi mal to the terminal ileum. Riley Ocampo MD on November 15, 2017 at 22:17 Board Certified Radiologist. This report was verified electronically.
[2017-11-15 22:28] VITALS: BP 152/70; PULSE 77; RESP 18; O2SAT 97
[2017-11-15] MEDS: SODIUM CHLOR 0.9% 1000 ML INJ 1,000 ML IV SCH (23:00)
[2017-11-15] MEDS ORDERED: ONDANSETRON HCL 4 MG/2 ML VIAL IV PUSH ONE (23:00)
[2017-11-15] MEDS ORDERED: MORPHINE SULFATE 2 MG/ML INJ IM PRN (23:15)
[2017-11-16] VITALS (7 sets, daily range): BP systolic 140–173; BP diastolic 65–77; PULSE 61–78; RESP 18–20; TEMP 97.5–98.7; O2SAT 93–97
[2017-11-16] MEDS: ONDANSETRON HCL 4 MG/2 ML VIAL IV PUSH PRN ×2 (00:03→02:39)
[2017-11-16] MEDS: SODIUM CHLORIDE 0.9% FLUSH 10 ML FLUSH IV FLUSH PRN ×2 (02:39→06:27)
[2017-11-16] MEDS: SODIUM CHLOR 0.9% 1000 ML INJ 1,000 ML IV SCH ×2 (06:11→15:36)
[2017-11-16] MEDS ORDERED: ONDANSETRON HCL 4 MG/2 ML VIAL IV PUSH ONE (06:30)
[2017-11-16 06:36] LABS: AUTOMATED NEUTROPHIL # 5.6 TH/MM3 (1.8-7.7); BASOPHIL % 0.3 % (0.0-2.0); EOSINOPHIL % 0.4 % (0.0-4.0); HEMATOCRIT 38.4 % (35.0-46.0); LYMPH % 18.1 % (9.0-44.0); LYMPHOCYTE # 1.3 TH/MM3 (1.0-4.8); MEAN CORPUSCULAR HEMOGLOBIN 28.6 PG (27.0-34.0); MEAN CORPUSCULAR HGB CONC 32.9 % (32.0-36.0); MEAN PLATELET VOLUME 7.6 FL (7.0-11.0); MONO % 4.8 % (0.0-8.0); MONOCYTE # 0.4 TH/MM3 (0-0.9); NEUT % 76.4 % (16.0-70.0); PLATELET COUNT 209 TH/MM3 (150-450); RED BLOOD COUNT 4.41 MIL/MM3 (4.00-5.30); RED CELL DISTRIBUTION WIDTH 13.5 % (11.6-17.2); WHITE BLOOD COUNT 7.3 TH/MM3 (4.0-11.0)
[2017-11-16 06:51] LABS: HEMOGLOBIN 12.6 GM/DL (11.6-15.3)
[2017-11-16 07:12] LABS: BICARBONATE 28.3 MEQ/L (21.0-32.0); CALCIUM 8.4 MG/DL (8.5-10.1); CREATININE 0.48 MG/DL (0.50-1.00)
[2017-11-16] MEDS ORDERED: PILL SPLITTER OTHER PRN (08:00)
[2017-11-16] MEDS ORDERED: HYDROmorphone HCL PF 2 MG/ML VIAL IV PUSH PRN (08:00)
--- NOTE | 2017-11-16 08:17 | RADRPT ---
EXAM DATE/TIME: 11/16/2017 07:54 [facility] COMPARISON: CT ABDOMEN & PELVIS W CONTRAST, November 15, 2017, 21:54. INDICATIONS : Small bowel obstruction. MEDICAL HISTORY : Hypercholesterolemia. Gastroesophageal reflux disease. Hiatal hernia. A-fib. Hypertension. Nephro tic syndrome. SURGICAL HISTORY : Tonsillectomy. Hysterectomy. Cholecystectomy. Appendectomy. Rotator cuff. Cardiac ablation. ENCOUNTER: Initial ACUITY: 2 days PAIN SCORE: 6/10 LOCATION: abdomen FINDINGS: There is decrease in the number of dilated small bowel loops as well as the dimension. There are surg ical clips in the right upper quadrant compatible with prior cholecystectomy. A nasogastric tube is i n place with its tip in the stomach. CONCLUSION: 1. Slight decrease in the previously seen small bowel obstruction. Riley Ocampo MD on November 16, 2017 at 8:14 Board Certified Radiologist. This report was verified electronically.
[2017-11-16] MEDS: METOPROLOL TARTRATE 25 MG TAB PO SCH ×2 (08:34→22:48)
[2017-11-16] MEDS: PANTOPRAZOLE SODIUM 40 MG VIAL IV PUSH SCH (08:34)
[2017-11-16] MEDS: NIFEdipine 60 MG SUSTAINED RELEASE TAB PO SCH (08:35)
[2017-11-16] MEDS: ENOXAPARIN SODIUM 40 MG/0.4 ML SYRINGE SQ SCH ×2 (08:36→22:47)
[2017-11-16] MEDS ORDERED: FLECAINIDE ACETATE 100 MG TAB PO SCH (09:00)
--- NOTE | 2017-11-16 09:17 | MH ---
cc: Rashard Abbott MD DATE OF ADMISSION: 11/15/2017 ADMISSION DIAGNOSIS: 1. Distal small bowel obstruction. 2. Hypertension. 3. Hyperlipidemia. 4. History of paroxysmal atrial fibrillation. 5. Gastroesophageal reflux disease/hiatal hernia. 6. Osteopenia. 7. Anxiety. 8. Vitamin D insufficiency. 9. History of PSVT. 10. Atherosclerosis of the aorta. PERTINENT HISTORY: This is an 82-year-old white female who started yesterday with some vomiting. She vomited a couple times prior to coming to the ER and then a couple times while in the waiting room. She had some diffuse abdominal pain that was crampy at times. She had also noted some intermittent bloating in her epigastric region during the few days before but no pain until yesterday. She had no urinary symptoms. No fever or chills. No rectal bleeding. No hematemesis. She has had prior bowel surgery with a laparoscopic cholecystectomy, appendectomy, prior total abdominal hysterectomy with the right ovary removed and part of the left removed. She has never had a bowel obstruction before. Her CT scan of the abdomen showed findings consistent with a distal small bowel obstruction. She was admitted for NG suction. Her sodium was a little low on admission as well. PAST MEDICAL HISTORY: 1. She has had a history of recurrent atrial fibrillation initially back in 2009. She had ablation back in December 2009. She then had a relapse of atrial fibrillation in May 2016 that was brief. She was hospitalized with atrial fibrillation with RVR in December 2016 and had ablation procedure in January 2017. She has been on flecainide and has had no recurrent atrial fibrillation. 2. She has hypertension. 3. She has hyperlipidemia, but she had elevated liver function tests with atorvastatin and it was stopped in 2016. 4. She has atherosclerosis of the aorta. 5. History of PSVT. She is on a beta jane. 6. She had osteopenia, anxiety, vitamin D insufficiency. 7. She has had no heart attack, angina or congestive heart failure. 8. No chronic liver disease. 9. She has had pneumonia in the past, but no chronic lung disease. 10. She had nephrotic syndrome back in the . She avoids NSAID drugs. 11. She has had varicella and herpes zoster. 12. No cancer. 13. She has had a hiatal hernia and gastroesophageal reflux disease. PAST SURGICAL HISTORY: 1. She has had a tonsillectomy and adenoidectomy. 2. Laparoscopic cholecystectomy. 3. Appendectomy. 4. Bilateral cataract extraction with lens implants. 5. Had a total abdominal hysterectomy with partial left oophorectomy and a right salpingo-oophorectomy. 6. She has had normal colonoscopies on 01/15/2002, 11/26/2008, 05/13/2010. 7. She had a negative right breast biopsy in the past. 8. 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 9. She has had arthroscopy of the right shoulder with subacromial decompression and rotator cuff repair. ALLERGIES: PENICILLIN CAUSED ANAPHYLAXIS, KEFLEX WITH HIVES AND RESPIRATORY TROUBLE, SHE HAS HAD NAUSEA WITH MEVACOR, ELEVATED LIVER ENZYMES WITH ATORVASTATIN, SHE HAS HAD A PROBLEM WITH MISSY INHIBITORS AND TELMISARTAN, LATEX, SULFA, DOES NOT TAKE ASPIRIN OR NSAIDS. MEDICATIONS: She is on: 1. Flecainide 50 mg twice a day. 2. Lorazepam 1 mg she just uses a half-tablet occasionally at night to relax her and help her sleep. 3. She is on Eliquis 5 mg twice a day. 4. Omeprazole 20 mg 2 a day. 5. Vitamin D 2000 units a day. 6. Fluticasone nasal spray as needed. 7. Metoprolol 25 mg twice a day. 8. Nifedipine extended release 60 mg a day. FAMILY HISTORY: Her mother of heart disease at 78. She also had diabetes. She has a sister with diabetes. Some sisters with arthritis. SOCIAL HISTORY: She is . She maybe has a beer or wine once a week. Quit smoking in 1989, smoked a half-pack a day for 25 years prior to quitting. 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 She lives alone. REVIEW OF SYSTEMS: GENERAL: No fever, chills or sweats. HEENT: Without any vision problem. No sore throat or runny nose. CARDIOVASCULAR: No chest pain or palpitations. PULMONARY: No cough, hemoptysis or wheezing. GI: As mentioned. : No dysuria, hematuria or incontinence. MUSCULOSKELETAL: Without complaints. NEURO: Without any weakness, numbness, tingling or headache. No confusion. SKIN: Without rash. PSYCHIATRY: Without complaints. PHYSICAL EXAM: GENERAL: This is a pleasant white female in no acute distress. She has an NG tube in place. VITAL SIGNS: Her pulse is 72, respirations 18, BP 140/72, O2 sat 97% on room air. HEENT: Pupils equal, sclerae nonicteric. Nose without lesion. Mouth without inflammation or lesion. NECK: Without JVD. No bruit. HEART: Regular rate and rhythm, no murmur. LUNGS: Clear. ABDOMEN: Soft. There is some minimal tenderness in the mid abdomen. No rebound or guarding. No distention. EXTREMITIES: No edema. Pulses good in both feet. SKIN: Negative. NEURO: Oriented x 3. Cranial nerves intact. LABORATORY DATA: Her white count last night was 10.8, it is 7.3 today. Hemoglobin is 12.6 today. Platelets normal. Her sodium was 126 on admission, it is 132 this morning. Potassium 3.8, chloride 96 today, CO2 28.3, BUN and creatinine good, lipase was normal at 162. AST, ALT, bilirubin, calcium and lactic acid are normal. Alkaline phosphatase 81. Her CT scan of the abdomen showed findings characteristic of a distal small bowel obstruction, a transition zone is present just proximal to the terminal ileum. No obvious masses noted or organomegaly. ASSESSMENT: As noted. PLAN: She has an NG tube in place. We will consult surgeon, Dr. Dennis, or whoever is available that is covering for [facility]. We will give her Lovenox 40 mg q. 12. We will hold her Eliquis for now. She will be maintained on her blood pressure medicines and flecainide for heart rate control. IV fluids are being administered since she has an NG tube. We will order a flat and upright abdomen today. Rashard Abbott MD DGW/DL/ , 08:06 AM , 08:54 AM
[2017-11-16] MEDS: FLECAINIDE ACETATE 100 MG TAB PO SCH ×2 (09:58→22:48)
--- NOTE | 2017-11-16 12:27 | EKG ---
Date Performed: 11/15/2017 Time Performed: 20:45:57 PTAGE: 82 years EKG: Sinus rhythm NORMAL ECG PREVIOUS TRACING : 03/22/2017 22.41 Since the prior tracing, there has been no significant montoya DOCTOR: Riley Johnson Interpretating Date/Time 11/16/2017 12:25:32
--- NOTE | 2017-11-16 16:11 | PD.CONS ---
HPI Service General Surgery Consult Requested By Dr. Abbott Reason for Consult [facility] Primary Care Physician Rashard Abbott MD History of Present Illness 82 yo F with history of atrial fibrillation on Eliquis presents with complaints of nausea vomiting and diarrhea. She initially began to have abdominal distention about 1 week ago which has progressively worsened. Yesterday she began to have multiple episodes of emesis. Chemistry showed mild prerenal azotemia. CT abdomen and pelvis was performed showing distal small bowel obstruction with transition point. The patient relates that in 1973 she had a hysterectomy apparently followed a couple weeks later by another gynecologic surgery. 15 years ago she states that she underwent an exploratory surgery and lysis of adhesions by entry processor. She has not had any similar symptoms to her presenting symptoms since that time. She last took Eliquis on 11/15/17 am. Review of Systems Constitutional: DENIES: Fever, Chills Eyes: DENIES: Eye inflammation, Eye pain Respiratory: DENIES: Cough, Shortness of breath Cardiovascular: DENIES: Chest pain, Palpitations Gastrointestinal: COMPLAINS OF: Abdominal pain, Diarrhea, Nausea, Vomiting Musculoskeletal: DENIES: Back pain Neurologic: DENIES: Localized weakness, Seizures Past Family Social History Past Medical History Atrial fibrillation status post 2 ablations Hyperlipidemia Hypertension GERD Past Surgical History Hysterectomy Ovarian cystectomy Exploratory gynecologic surgery and lysis of adhesions Cholecystectomy Reported Medications Reported Meds & Active Scripts Active Nifedipine ER 24 HR (Nifedipine) 60 Mg Tab 60 Mg PO DAILY Ativan (Lorazepam) 0.5 Mg Tab 0.5 Mg PO BID PRN Flecainide (Flecainide Acetate) 100 Mg Tab 100 Mg PO Q12HR Reported Metoprolol Tartrate 25 Mg Tab 25 Mg PO BID D3 (Cholecalciferol) 2,000 Unit Cap 2,000 Units PO DAILY Omeprazole 20 Mg Cap 20 Mg PO BID Fish Oil ([place]-3 Fatty Acids) 1,000 Mg Cap 2,000 Mg PO DAILY Eliquis (Apixaban) 5 Mg Tab 5 Mg PO BID Allergies: Coded Allergies: Sulfa (Sulfonamide Antibiotics) (Unverified Allergy, Severe, "TOLD NOT TO TAKE ANYMORE", 11/15/17) aspirin (Unverified Allergy, Severe, "TOLD NOT TO TAKE ANY ANTIINFLAMMATORIES", 11/15/17) cephalexin (Unverified Allergy, Severe, "SWOLLEN THROAT,ITCHING ALL OVER" , 11/15/17) ibuprofen (Unverified Allergy, Severe, "TOLD NOT TO TAKE ANYMORE", 11/15/17 ) lisinopril (Unverified Allergy, Severe, "RASH", 11/15/17) nabumetone (Unverified Allergy, Severe, "NEPHROTIC SYNDROME", 11/15/17) penicillin G (Unverified Allergy, Severe, UNKNOWN, 11/15/17) adhesive (Unverified Allergy, Intermediate, Rash, 11/15/17) digoxin (Unverified Allergy, Intermediate, Fatigue, 11/15/17) telmisartan (Unverified Allergy, Intermediate, Fatigue, 11/15/17) Uncoded Allergies: ANTIINFLAMMATORIES (Allergy, Severe, "TOLD NOT TO TAKE ANYMORE", 01/04/16) . Active Ordered Medications Current Medications Medications (Trade) Dose Ordered Sig/Shaun Route Start Time Stop Time Status Last Admin (NS Flush) 2 ml UNSCH PRN IV FLUSH 11/15/17 20:30 11/16/17 06:27 Sodium Chloride 1,000 ml @ 100 mls/hr Q10H IV 11/15/17 23:00 11/16/17 06:11 (Zofran Inj) 4 mg Q6HR PRN IV PUSH 11/15/17 23:15 11/16/17 02:39 (Protonix Inj) 40 mg Q24H IV PUSH 11/16/17 09:00 11/16/17 08:34 (Ativan) 0.5 mg BID PRN PO 11/15/17 23:15 (Lopressor) 25 mg BID PO 11/16/17 09:00 11/16/17 08:34 (Procardia Xl) 60 mg DAILY PO 11/16/17 09:00 11/16/17 08:35 (Lovenox Inj) 40 mg Q12HR SQ 11/16/17 09:00 11/16/17 08:36 (Tambocor) 50 mg Q12HR PO 11/16/17 09:00 11/16/17 09:58 (Dilaudid Pf Inj) 0.5 mg Q4H PRN IV PUSH 11/16/17 08:00 (Pill Splitter) 1 ea UNSCH PRN OTHER 11/16/17 08:00 Family History Noncontributory Social History Occasional alcohol. No tobacco or drug use. Physical Exam Vital Signs Vital Signs Date Time Temp Pulse Resp B/P (MAP) Pulse Ox O2 Delivery O2 Flow Rate FiO2 11/16/17 12:51 142/68 (92) 11/16/17 11:50 98.5 61 20 173/77 (109) 11/16/17 07:50 98.4 74 20 146/67 (93) 94 11/16/17 01:42 72 18 97 11/16/17 01:38 72 18 140/72 (94) 97 Room Air 11/16/17 00:25 74 18 148/72 (97) 97 Room Air 11/15/17 22:28 77 18 152/70 (97) 97 11/15/17 21:07 75 18 138/70 (92) 96 Room Air 11/15/17 20:40 97 11/15/17 20:21 18 11/15/17 18:40 97.6 79 18 117/58 (77) 97 Physical Exam GENERAL: Awake and alert. No acute distress. Cooperative. HEAD: Normocephalic. Atraumatic. EYES: Pupils equal round and reactive to light bilaterally. No scleral icterus. ENT: Moist oral mucosa. NG tube in place NECK: Trachea midline. CHEST: Nonlabored breathing. No respiratory distress. CARDIOVASCULAR: Well-perfused skin. ABDOMEN: Soft and nontender. Mild distention. EXTREMITIES: No cyanosis or edema. SKIN: Warm, dry, nonjaundiced. Laboratory Laboratory Tests Test 11/15/17 20:40 11/16/17 05:00 White Blood Count 10.8 7.3 Red Blood Count 5.02 4.41 Hemoglobin 15.3 12.6 Hematocrit 43.3 38.4 Mean Corpuscular Volume 86.3 87.0 Mean Corpuscular Hemoglobin 30.4 28.6 Mean Corpuscular Hemoglobin Concent 35.3 32.9 Red Cell Distribution Width 13.6 13.5 Platelet Count 268 209 Mean Platelet Volume 7.1 7.6 Neutrophils (%) (Auto) 80.4 76.4 Lymphocytes (%) (Auto) 13.2 18.1 Monocytes (%) (Auto) 5.6 4.8 Eosinophils (%) (Auto) 0.4 0.4 Basophils (%) (Auto) 0.4 0.3 Neutrophils # (Auto) 8.8 5.6 Lymphocytes # (Auto) 1.4 1.3 Monocytes # (Auto) 0.6 0.4 Eosinophils # (Auto) 0.0 0.0 Basophils # (Auto) 0.0 0.0 CBC Comment DIFF FINAL DIFF FINAL Differential Comment Prothrombin Time 9.9 Prothromb Time International Ratio 1.0 Activated Partial Thromboplast Time 30.1 Blood Urea Nitrogen 22 15 Creatinine 0.84 0.48 Random Glucose 116 91 Total Protein 9.2 Albumin 4.4 Calcium Level 10.0 8.4 Alkaline Phosphatase 81 Aspartate Amino Transf (AST/SGOT) 24 Alanine Aminotransferase (ALT/SGPT) 27 Total Bilirubin 0.4 Sodium Level 126 132 Potassium Level 4.2 3.8 Chloride Level 90 96 Carbon Dioxide Level 28.2 28.3 Anion Gap 8 8 Estimat Glomerular Filtration Rate 65 124 Lactic Acid Level 1.4 Lipase 162 Date/Time Source Procedure Growth Status 11/16/17 00:30 Nasal Washing Influenza Types A,B Antigen (KAYLA) - Final NEGATIVE FOR FLU A AND B ANTIGEN.... Complete Result Diagram: 11/16/17 0500 11/16/17 0500 Imaging Last Impressions Abdomen X-Ray 11/17/17 0600 Signed Impressions: Service Date/Time: November 05:55 - CONCLUSION: 1. Improved bowel gas pattern with resolution of dilated small bowel loops. Aleksandr Sinclair MD Abdomen/Pelvis CT 11/15/172024 Signed Impressions: Service Date/Time: Wednesday, November 15, 2017 21:54 - CONCLUSION: 1. Findings characteristic of distal small bowel obstruction. A transition zone is present just proximal to the terminal ileum. Riley Ocampo MD Assessment and Plan Assessment and Plan 82 yo F h/o hysterectomy, ovarian cystectomy, adhesiolysis, lap armando, who presents with small bowel obstruction. On Eliquis for a fib last dose 11/15/17 am. Repeat exam, labs and x ray in am. Fairly high chance she will need operative intervention. Lewis Dennis MD Nov 16, 2017 16:11
[2017-11-16] MEDS: ACETAMINOPHEN 1000 MG/100 ML 65 ML IV PRN (16:26)
[2017-11-16] MEDS: BENZOCAINE 6 MG/MENTHOL 10 MG LOZENGE BUCCAL PRN ×2 (17:14→22:46)
[2017-11-16] MEDS: LORazepam 0.5 MG TAB PO PRN (22:52)
[2017-11-17] VITALS: BP 170/78; PULSE 67; RESP 20; TEMP 97.2; O2SAT 93
[2017-11-17] MEDS: ACETAMINOPHEN 1000 MG/100 ML 65 ML IV PRN ×2 (01:48→09:09)
[2017-11-17] MEDS: SODIUM CHLOR 0.9% 1000 ML INJ 1,000 ML IV SCH ×2 (01:51→15:00)
[2017-11-17] MEDS: SODIUM CHLORIDE 0.9% FLUSH 10 ML FLUSH IV FLUSH PRN (01:52)
[2017-11-17 05:59] LABS: AUTOMATED NEUTROPHIL # 3.7 TH/MM3 (1.8-7.7); BASOPHIL % 0.8 % (0.0-2.0); EOSINOPHIL # 0.1 TH/MM3 (0-0.4); HEMATOCRIT 36.2 % (35.0-46.0); HEMOGLOBIN 12.1 GM/DL (11.6-15.3); LYMPH % 24.2 % (9.0-44.0); LYMPHOCYTE # 1.5 TH/MM3 (1.0-4.8); MEAN CELL VOLUME 86.7 FL (80.0-100.0); MEAN CORPUSCULAR HGB CONC 33.5 % (32.0-36.0); MONO % 10.9 % (0.0-8.0); MONOCYTE # 0.7 TH/MM3 (0-0.9); NEUT % 62.1 % (16.0-70.0); PLATELET COUNT 192 TH/MM3 (150-450); RED BLOOD COUNT 4.17 MIL/MM3 (4.00-5.30); RED CELL DISTRIBUTION WIDTH 13.5 % (11.6-17.2)
[2017-11-17 06:19] LABS: BICARBONATE 26.6 MEQ/L (21.0-32.0); CALCIUM 7.7 MG/DL (8.5-10.1)
[2017-11-17 06:23] LABS: CREATININE 0.36 MG/DL (0.50-1.00)
--- NOTE | 2017-11-17 06:39 | RADRPT ---
EXAM DATE/TIME: 11/17/2017 05:55 [facility] COMPARISON: ABDOMEN FLAT & UPRIGHT, November 16, 2017, 7:54. INDICATIONS : Evaluate for obstruction MEDICAL HISTORY : Hypercholesterolemia. Gastroesophageal reflux disease. Hiatal hernia. Afib. Hypertension. Nephrotic s yndrome SURGICAL HISTORY : Tonsillectomy. Hysterectomy. Cholecystectomy. Appendectomy. Rotator cuff. Cardiac ablation ENCOUNTER: Subsequent ACUITY: 3 days PAIN SCORE: 0/10 LOCATION: Bilateral abdomen FINDINGS: Stable NGT in the stomach. Improved bowel gas pattern with decompression of previously noted dilated small bowel loops in the upper abdomen. Air is seen throughout the colon extending to the rectum. No pneumatosis or free air. Remainder of the exam is unchanged. CONCLUSION: 1. Improved bowel gas pattern with resolution of dilated small bowel loops. Aleksandr Sinclair MD on November 17, 2017 at 6:37 Board Certified Radiologist. This report was verified electronically.
--- NOTE | 2017-11-17 06:53 | HHI.PR ---
Subjective Remarks Still has NG tube in place. No bowel movement. Abdominal pain is a little better. Objective Vitals Vital Signs Date Time Temp Pulse Resp B/P (MAP) Pulse Ox O2 Delivery O2 Flow Rate FiO2 11/17/17 00:00 97.2 67 20 170/78 (108) 93 11/16/17 20:00 97.5 78 20 148/65 (92) 93 11/16/17 15:50 98.7 77 20 146/67 (93) 93 11/16/17 12:51 142/68 (92) 11/16/17 11:50 98.5 61 20 173/77 (109) 11/16/17 07:50 98.4 74 20 146/67 (93) 94 Result Diagram: 11/17/170 11/17/17 043 Other Results Laboratory Tests Test 11/15/17 20:40 11/16/17 05:00 11/17/17 04:30 White Blood Count 10.8 TH/MM3 7.3 TH/MM3 6.0 TH/MM3 Red Blood Count 5.02 MIL/MM3 4.41 MIL/MM3 4.17 MIL/MM3 Hemoglobin 15.3 GM/DL 12.6 GM/DL 12.1 GM/DL Hematocrit 43.3 % 38.4 % 36.2 % Mean Corpuscular Volume 86.3 FL 87.0 FL 86.7 FL Mean Corpuscular Hemoglobin 30.4 PG 28.6 PG 29.0 PG Mean Corpuscular Hemoglobin Concent 35.3 % 32.9 % 33.5 % Red Cell Distribution Width 13.6 % 13.5 % 13.5 % Platelet Count 268 TH/MM3 209 TH/MM3 192 TH/MM3 Mean Platelet Volume 7.1 FL 7.6 FL 8.0 FL Neutrophils (%) (Auto) 80.4 % 76.4 % 62.1 % Lymphocytes (%) (Auto) 13.2 % 18.1 % 24.2 % Monocytes (%) (Auto) 5.6 % 4.8 % 10.9 % Eosinophils (%) (Auto) 0.4 % 0.4 % 2.0 % Basophils (%) (Auto) 0.4 % 0.3 % 0.8 % Neutrophils # (Auto) 8.8 TH/MM3 5.6 TH/MM3 3.7 TH/MM3 Lymphocytes # (Auto) 1.4 TH/MM3 1.3 TH/MM3 1.5 TH/MM3 Monocytes # (Auto) 0.6 TH/MM3 0.4 TH/MM3 0.7 TH/MM3 Eosinophils # (Auto) 0.0 TH/MM3 0.0 TH/MM3 0.1 TH/MM3 Basophils # (Auto) 0.0 TH/MM3 0.0 TH/MM3 0.0 TH/MM3 CBC Comment DIFF FINAL DIFF FINAL DIFF FINAL Differential Comment Prothrombin Time 9.9 SEC Prothromb Time International Ratio 1.0 RATIO Activated Partial Thromboplast Time 30.1 SEC Blood Urea Nitrogen 22 MG/DL 15 MG/DL 7 MG/DL Creatinine 0.84 MG/DL 0.48 MG/DL 0.36 MG/DL Random Glucose 116 MG/DL 91 MG/DL 78 MG/DL Total Protein 9.2 GM/DL Albumin 4.4 GM/DL Calcium Level 10.0 MG/DL 8.4 MG/DL 7.7 MG/DL Alkaline Phosphatase 81 U/L Aspartate Amino Transf (AST/SGOT) 24 U/L Alanine Aminotransferase (ALT/SGPT) 27 U/L Total Bilirubin 0.4 MG/DL Sodium Level 126 MEQ/L 132 MEQ/L 136 MEQ/L Potassium Level 4.2 MEQ/L 3.8 MEQ/L 3.5 MEQ/L Chloride Level 90 MEQ/L 96 MEQ/L 100 MEQ/L Carbon Dioxide Level 28.2 MEQ/L 28.3 MEQ/L 26.6 MEQ/L Anion Gap 8 MEQ/L 8 MEQ/L 9 MEQ/L Estimat Glomerular Filtration Rate 65 ML/MIN 124 ML/MIN 173 ML/MIN Lactic Acid Level 1.4 mmol/L Lipase 162 U/L Imaging Last Impressions Abdomen X-Ray 11/17/17 0600 Signed Impressions: Service Date/Time: November 05:55 - CONCLUSION: 1. Improved bowel gas pattern with resolution of dilated small bowel loops. Aleksandr Sinclair MD Abdomen/Pelvis CT 11/15/172024 Signed Impressions: Service Date/Time: Wednesday, November 15, 2017 21:54 - CONCLUSION: 1. Findings characteristic of distal small bowel obstruction. A transition zone is present just proximal to the terminal ileum. Riley Ocamop MD Objective Remarks Exam: Pleasant white female with NG tube in place. HEENT: Pupils equal, no scleral icterus, NG tube present, mouth negative Neck: No JVD Heart: RRR with no murmur Lungs: Clear Abdomen: Soft, just minimal tenderness of the mid abdomen Extremities: No edema Neuro: Alert and oriented A/P Assessment and Plan Assessment: --Distal small bowel obstruction --Paroxysmal atrial fibrillation --Hypertension --Hyperlipidemia --PSVT --GERD/Hiatal hernia Plan: Continue NG tube until surgeon (Dr Dennis) feels it can be removed. Continue other routine medications. Continue IV fluids. Continue Lovenox. If surgery planned will need to stop it and then put her back on Eliquis postop. Will also go back on Eliquis when she goes home. Rashard Abbott MD Nov 17, 2017 06:53
[2017-11-17 07:50] VITALS: BP 156/74; PULSE 65; RESP 20; TEMP 97.7; O2SAT 94
[2017-11-17] MEDS: PANTOPRAZOLE SODIUM 40 MG VIAL IV PUSH SCH (09:08)
[2017-11-17] MEDS: BENZOCAINE 6 MG/MENTHOL 10 MG LOZENGE BUCCAL PRN ×2 (09:09→21:19)
[2017-11-17] MEDS: METOPROLOL TARTRATE 25 MG TAB PO SCH ×2 (09:09→21:18)
[2017-11-17] MEDS: NIFEdipine 60 MG SUSTAINED RELEASE TAB PO SCH (09:09)
[2017-11-17] MEDS: ENOXAPARIN SODIUM 40 MG/0.4 ML SYRINGE SQ SCH ×2 (09:09→21:18)
[2017-11-17] MEDS: FLECAINIDE ACETATE 100 MG TAB PO SCH ×2 (09:09→21:18)
--- NOTE | 2017-11-17 09:27 | HHI.PR ---
Subjective Subjective Notes She is passing quite a bit of flatus. She states her abdomen feels better. Nursing reports that overnight ngt output was 125cc. Objective Vitals/I&O Vital Signs Date Time Temp Pulse Resp B/P (MAP) Pulse Ox O2 Delivery O2 Flow Rate FiO2 11/17/17 07:50 97.7 65 20 156/74 (101) 94 11/16/17 01:38 Room Air Labs Laboratory Tests Test 11/17/17 04:30 White Blood Count 6.0 Red Blood Count 4.17 Hemoglobin 12.1 Hematocrit 36.2 Mean Corpuscular Volume 86.7 Mean Corpuscular Hemoglobin 29.0 Mean Corpuscular Hemoglobin Concent 33.5 Red Cell Distribution Width 13.5 Platelet Count 192 Mean Platelet Volume 8.0 Neutrophils (%) (Auto) 62.1 Lymphocytes (%) (Auto) 24.2 Monocytes (%) (Auto) 10.9 Eosinophils (%) (Auto) 2.0 Basophils (%) (Auto) 0.8 Neutrophils # (Auto) 3.7 Lymphocytes # (Auto) 1.5 Monocytes # (Auto) 0.7 Eosinophils # (Auto) 0.1 Basophils # (Auto) 0.0 CBC Comment DIFF FINAL Differential Comment Blood Urea Nitrogen 7 Creatinine 0.36 Random Glucose 78 Calcium Level 7.7 Sodium Level 136 Potassium Level 3.5 Chloride Level 100 Carbon Dioxide Level 26.6 Anion Gap 9 Estimat Glomerular Filtration Rate 173 Date/Time Source Procedure Growth Status 11/16/17 00:30 Nasal Washing Influenza Types A,B Antigen (KAYLA) - Final NEGATIVE FOR FLU A AND B ANTIGEN.... Complete Narrative Exam NAD Abd: soft, nontender, mild distention. NGT brownish clear output 125cc overnight A/P Assessment and Plan 82 yo F with small bowel obstruction, appears to be resolving. KUB shows improvement in small bowel dilation as well as air in colon and rectum. Start clears. Clamp ng and if low residuals in 4 hrs remove. She will likely resolve without operative intervention. Lewis Dennis MD Nov 17, 2017 09:27
[2017-11-17 11:50] VITALS: BP 185/82; PULSE 62; RESP 20; TEMP 97.7; O2SAT 96
[2017-11-17 12:36] VITALS: BP 144/64
[2017-11-17 15:50] VITALS: BP 103/54; PULSE 70; RESP 20; TEMP 98.8; O2SAT 94
[2017-11-17 16:03] LABS: BILIRUBIN, URINE NEG (NEG); BLOOD, URINE TRACE (NEG); GLUCOSE,URINE NEG (NEG); KETONE, URINE 40 mg/dL (NEG); NITRITE,URINE NEG (NEG); PH, URINE 6.5 (5.0-8.5); URINE COLOR YELLOW (YELLW/STRAW); URINE LEUKOCYTE ESTERASE SMALL (NEG)
[2017-11-17 16:57] LABS: WHITE BLOOD CELL CLUMPS FEW
[2017-11-17 16:58] LABS: SQUAMOUS EPITHELIAL CELL URINE 0-5 /hpf (0-5)
[2017-11-17 20:00] VITALS: BP 131/62; PULSE 70; RESP 20; TEMP 97.5; O2SAT 95
[2017-11-17] MEDS ORDERED: MAGNESIUM CITRATE SOLN 300 ML BTL PO ONE (20:00)
[2017-11-18] VITALS: BP 125/59; PULSE 56; RESP 20; TEMP 97.4; O2SAT 95
[2017-11-18] MEDS: SODIUM CHLOR 0.9% 1000 ML INJ 1,000 ML IV SCH ×3 (00:27→21:00)
[2017-11-18 06:52] LABS: CALCIUM 7.7 MG/DL (8.5-10.1)
[2017-11-18 06:53] LABS: BICARBONATE 28.5 MEQ/L (21.0-32.0)
[2017-11-18 06:56] LABS: CREATININE 0.57 MG/DL (0.50-1.00)
[2017-11-18] MEDS ORDERED: POTASSIUM CHLORIDE 10 MEQ CONTROLLED RELEASE TAB PO ONE (07:15)
[2017-11-18 08:00] VITALS: BP 164/69; PULSE 68; RESP 14; TEMP 96.9; O2SAT 98
[2017-11-18] MEDS: ONDANSETRON HCL 4 MG/2 ML VIAL IV PUSH PRN ×2 (09:00→09:17)
--- NOTE | 2017-11-18 09:38 | RADRPT ---
EXAM DATE/TIME: 11/18/2017 09:17 [facility] COMPARISON: ABDOMEN KUB ONLY, November 17, 2017, 5:55. INDICATIONS : Obstruction. Abdominal pain. MEDICAL HISTORY : Hypercholesterolemia. Gastroesophageal reflux disease. Hiatal hernia. Afib Hypertension. Nephrotic sy ndrome SURGICAL HISTORY : Tonsillectomy. Hysterectomy. Cholecystectomy. Appendectomy. Rotator cuff. Cardiac ablation. ENCOUNTER: Subsequent ACUITY: 4 - 6 days PAIN SCORE: 6/10 LOCATION: entire abdomen FINDINGS: Nasogastric tube has been removed. Scattered gas filled nondilated loops of large and small bowel ar e noted. Surgical clips gallbladder fossa. Degenerative changes lumbar spine. Gas is seen throughout the colon and the rectum. CONCLUSION: Nonspecific bowel gas pattern, negative for obstruction.. Sunny Bejarano MD FACR on November 18, 2017 at 9:37 Board Certified Radiologist. This report was verified electronically.
[2017-11-18] MEDS: FLECAINIDE ACETATE 100 MG TAB PO SCH ×2 (10:12→21:03)
[2017-11-18] MEDS: METOPROLOL TARTRATE 25 MG TAB PO SCH ×2 (10:12→21:03)
[2017-11-18] MEDS: NIFEdipine 60 MG SUSTAINED RELEASE TAB PO SCH (10:12)
[2017-11-18] MEDS: ENOXAPARIN SODIUM 40 MG/0.4 ML SYRINGE SQ SCH ×2 (10:13→21:02)
[2017-11-18] MEDS: PANTOPRAZOLE SODIUM 40 MG VIAL IV PUSH SCH (11:10)
[2017-11-18 12:00] VITALS: BP_SYST 189; BP_SYST 198; BP_DIAS 76; BP_DIAS 91; PULSE 60; RESP 14; TEMP 97.1; O2SAT 97
--- NOTE | 2017-11-18 12:37 | HHI.PR ---
Subjective Remarks Given a laxative last night and had several watery bowel movements though the night. Her NG tube was pulled last night. Tried some full liquids this morning but nurse reported she had some increased abdominal discomfort. No vomiting. Objective Vitals Vital Signs Date Time Temp Pulse Resp B/P (MAP) Pulse Ox O2 Delivery O2 Flow Rate FiO2 11/18/17 08:00 96.9 68 14 164/69 (100) 98 11/18/17 00:00 97.4 56 20 125/59 (81) 95 11/17/17 20:00 97.5 70 20 131/62 (85) 95 11/17/17 15:50 98.8 70 20 103/54 (70) 94 11/17/17 12:36 144/64 (90) 11/18/17 11/18/17 11/19/17 15:00 23:00 07:00 Intake Total 400 ml Balance 400 ml Intake Oral 400 ml Result Diagram: 11/17/17 0430 11/18/17 0510 Other Results Laboratory Tests Test 11/17/17 04:30 11/17/17 15:50 11/18/17 05:10 White Blood Count 6.0 TH/MM3 Red Blood Count 4.17 MIL/MM3 Hemoglobin 12.1 GM/DL Hematocrit 36.2 % Mean Corpuscular Volume 86.7 FL Mean Corpuscular Hemoglobin 29.0 PG Mean Corpuscular Hemoglobin Concent 33.5 % Red Cell Distribution Width 13.5 % Platelet Count 192 TH/MM3 Mean Platelet Volume 8.0 FL Neutrophils (%) (Auto) 62.1 % Lymphocytes (%) (Auto) 24.2 % Monocytes (%) (Auto) 10.9 % Eosinophils (%) (Auto) 2.0 % Basophils (%) (Auto) 0.8 % Neutrophils # (Auto) 3.7 TH/MM3 Lymphocytes # (Auto) 1.5 TH/MM3 Monocytes # (Auto) 0.7 TH/MM3 Eosinophils # (Auto) 0.1 TH/MM3 Basophils # (Auto) 0.0 TH/MM3 CBC Comment DIFF FINAL Differential Comment Blood Urea Nitrogen 7 MG/DL 6 MG/DL Creatinine 0.36 MG/DL 0.57 MG/DL Random Glucose 78 MG/DL 84 MG/DL Calcium Level 7.7 MG/DL 7.7 MG/DL Sodium Level 136 MEQ/L 138 MEQ/L Potassium Level 3.5 MEQ/L 3.4 MEQ/L Chloride Level 100 MEQ/L 101 MEQ/L Carbon Dioxide Level 26.6 MEQ/L 28.5 MEQ/L Anion Gap 9 MEQ/L 9 MEQ/L Estimat Glomerular Filtration Rate 173 ML/MIN 102 ML/MIN Urine Color YELLOW Urine Turbidity CLEAR Urine pH 6.5 Urine Specific [place] LESS/EQUAL 1.005 Urine Protein NEG mg/dL Urine Glucose (UA) NEG mg/dL Urine Ketones 40 mg/dL Urine Occult Blood TRACE Urine Nitrite NEG Urine Bilirubin NEG Urine Urobilinogen 0.2 MG/DL Urine Leukocyte Esterase SMALL Urine WBC 3-5 /hpf Urine WBC Clumps FEW Urine Squamous Epithelial Cells 0-5 /hpf Microscopic Urinalysis Comment CULTURE INDICATED Imaging Last Impressions Abdomen X-Ray 11/18/17 0000 Signed Impressions: Service Date/Time: Saturday, November 18, 2017 09:17 - CONCLUSION: Nonspecific bowel gas pattern, negative for obstruction.. Sunny Bejarano MD FACR Abdomen/Pelvis CT 11/15/172024 Signed Impressions: Service Date/Time: Wednesday, November 15, 2017 21:54 - CONCLUSION: 1. Findings characteristic of distal small bowel obstruction. A transition zone is present just proximal to the terminal ileum. Riley Ocampo MD Last Impressions Abdomen X-Ray 11/17/17 0600 Signed Impressions: Service Date/Time: November 05:55 - CONCLUSION: 1. Improved bowel gas pattern with resolution of dilated small bowel loops. Aleksandr Sinclair MD Abdomen/Pelvis CT 11/15/172024 Signed Impressions: Service Date/Time: Wednesday, November 15, 2017 21:54 - CONCLUSION: 1. Findings characteristic of distal small bowel obstruction. A transition zone is present just proximal to the terminal ileum. Riley Ocampo MD Objective Remarks Exam: Pleasant white female with NG tube in place. HEENT: Pupils equal, no scleral icterus, NG tube present, mouth negative Neck: No JVD Heart: RRR with no murmur Lungs: Clear Abdomen: Soft, she has some tenderness tenderness of the mid abdomen and lower abdomen Extremities: No edema Neuro: Alert and oriented A/P Assessment and Plan Assessment: --Distal small bowel obstruction--improved but still some recurrent discomfort since liquid diet initiated last night after NG tube pulled. Abdominal x-ray showed nonspecific bowel gas pattern --Paroxysmal atrial fibrillation --Hypertension --Hyperlipidemia --PSVT --GERD/Hiatal hernia Plan: On liquid diet currently. Surgeon yet to see today. Continue other routine medications. Continue IV fluids. Continue Lovenox. If surgery planned will need to stop it and then put her back on Eliquis postop. Will also go back on Eliquis when she goes home. Rashard Abbott MD Nov 18, 2017 12:37
[2017-11-18 13:25] VITALS: BP 191/84; PULSE 66
--- NOTE | 2017-11-18 13:44 | HHI.PR ---
Subjective Subjective Notes Had large watery bowel movement after laxative and tolerated clears yesterday. However, this morning after full liquids she had recurrence of pretty severe upper abdominal pain, bloating and pressure. She does not want to eat or drink anything else. After the pain, I got a KUB which is basically normal with air down in the colon. Objective Vitals/I&O Vital Signs Date Time Temp Pulse Resp B/P (MAP) Pulse Ox O2 Delivery O2 Flow Rate FiO2 11/18/17 13:25 66 191/84 (119) 11/18/17 12:00 97.1 14 97 11/16/17 01:38 Room Air Labs Laboratory Tests Test 11/17/17 15:50 11/18/17 05:10 Urine Color YELLOW Urine Turbidity CLEAR Urine pH 6.5 Urine Specific [place] LESS/EQUAL 1.005 Urine Protein NEG Urine Glucose (UA) NEG Urine Ketones 40 Urine Occult Blood TRACE Urine Nitrite NEG Urine Bilirubin NEG Urine Urobilinogen 0.2 Urine Leukocyte Esterase SMALL Urine WBC 3-5 Urine WBC Clumps FEW Urine Squamous Epithelial Cells 0-5 Microscopic Urinalysis Comment CULTURE INDICATED Blood Urea Nitrogen 6 Creatinine 0.57 Random Glucose 84 Calcium Level 7.7 Sodium Level 138 Potassium Level 3.4 Chloride Level 101 Carbon Dioxide Level 28.5 Anion Gap 9 Estimat Glomerular Filtration Rate 102 Date/Time Source Procedure Growth Status 11/16/17 00:30 Nasal Washing Influenza Types A,B Antigen (KAYLA) - Final NEGATIVE FOR FLU A AND B ANTIGEN.... Complete 11/17/17 15:50 Urine Clean Catch Urine Culture - Preliminary NO GROWTH IN 24 HOURS. Resulted Radiology Last Impressions Abdomen X-Ray 11/17/17 0600 Signed Impressions: Service Date/Time: November 05:55 - CONCLUSION: 1. Improved bowel gas pattern with resolution of dilated small bowel loops. Aleksandr Sinclair MD Abdomen/Pelvis CT 11/15/172024 Signed Impressions: Service Date/Time: Wednesday, November 15, 2017 21:54 - CONCLUSION: 1. Findings characteristic of distal small bowel obstruction. A transition zone is present just proximal to the terminal ileum. Riley Ocampo MD Narrative Exam NAD Abd: soft, nontender, mild distention. Moderate ttp in right lower abdomen A/P Assessment and Plan 82 yo F with small bowel obstruction. Initially was improving, and then had recurrence of pain today. However, KUB shows air in colon. I will order small bowel follow through. If this shows persistent obstruction, will transfer to [facility] and consider operative intervention tomorrow. Lewis Dennis MD Nov 18, 2017 13:44
[2017-11-18] MEDS ORDERED: DIATRIZOATE MEGLUM/DIATRIZOATE SOD 120 ML BTL (for RAD DIAG) PO ONE (14:00)
[2017-11-18 16:00] VITALS: BP 165/72; PULSE 60; RESP 14; TEMP 96.5; O2SAT 95
[2017-11-18] MEDS ORDERED: HYDROmorphone HCL PF 2 MG/ML VIAL IV PUSH PRN (16:00)
[2017-11-18] MEDS ORDERED: SYSTANE EYE EACH EYE SCH (18:00)
[2017-11-18 20:14] VITALS: BP 120/94; PULSE 85; RESP 18; TEMP 97.9; O2SAT 95
[2017-11-18] MEDS: SUCRALFATE 1 GM/10 ML CUP PO SCH (21:03)
[2017-11-19 00:05] VITALS: BP 118/59; PULSE 63; RESP 16; TEMP 97; O2SAT 94
[2017-11-19] MEDS: LORazepam 0.5 MG TAB PO PRN (00:29)
[2017-11-19] MEDS: SODIUM CHLOR 0.9% 1000 ML INJ 1,000 ML IV SCH (07:00)
[2017-11-19 08:00] VITALS: BP 134/63; PULSE 63; RESP 18; TEMP 98.6; O2SAT 96
[2017-11-19] MEDS ORDERED: PANTOPRAZOLE SOD 40 MG DELAYED RELEASE TAB PO SCH (09:00)
[2017-11-19] MEDS: ENOXAPARIN SODIUM 40 MG/0.4 ML SYRINGE SQ SCH (09:47)
[2017-11-19] MEDS: FLECAINIDE ACETATE 100 MG TAB PO SCH (09:49)
[2017-11-19] MEDS: SUCRALFATE 1 GM/10 ML CUP PO SCH (09:50)
[2017-11-19] MEDS: METOPROLOL TARTRATE 25 MG TAB PO SCH (09:51)
[2017-11-19] MEDS: NIFEdipine 60 MG SUSTAINED RELEASE TAB PO SCH (09:51)
[2017-11-19] MEDS ORDERED: SUCR1S PO (10:48)
--- NOTE | 2017-11-19 10:50 | HHI.PR ---
Subjective Subjective Notes Small bowel follow through was normal with passage into colon after 30minutes. She feels better and tolerated solid food last night and this morning. Objective Vitals/I&O Vital Signs Date Time Temp Pulse Resp B/P (MAP) Pulse Ox O2 Delivery O2 Flow Rate FiO2 11/19/17 08:00 98.6 63 18 134/63 (86) 96 11/16/17 01:38 Room Air Labs Date/Time Source Procedure Growth Status 11/16/17 00:30 Nasal Washing Influenza Types A,B Antigen (KAYLA) - Final NEGATIVE FOR FLU A AND B ANTIGEN.... Complete 11/17/17 15:50 Urine Clean Catch Urine Culture - Final 50-100,000 CFU/ML MIXED GRAM POSITIVE... Complete Radiology Last Impressions Abdomen X-Ray 11/17/17 0600 Signed Impressions: Service Date/Time: November 05:55 - CONCLUSION: 1. Improved bowel gas pattern with resolution of dilated small bowel loops. Aleksandr Sinclair MD Abdomen/Pelvis CT 11/15/172024 Signed Impressions: Service Date/Time: Wednesday, November 15, 2017 21:54 - CONCLUSION: 1. Findings characteristic of distal small bowel obstruction. A transition zone is present just proximal to the terminal ileum. Riley Ocampo MD Narrative Exam NAD Abd: soft, nontender, mild distention. A/P Assessment and Plan 82 yo F with small bowel obstruction. Initially was improving, and then had recurrence of pain today. Small bowel follow through normal and now tolerating diet. Clear for d/c home from my standpoint. She requests a rx for carafate which I placed on chart. F/ u PRN. SonnyLewis MD Nov 19, 2017 10:50
--- NOTE | 2017-11-19 11:52 | HHI.PR ---
Subjective Remarks Tolerating food, a little uncomfortable but feels ok. Having bowel movements. Feels ready to leave. Objective Vitals Vital Signs Date Time Temp Pulse Resp B/P (MAP) Pulse Ox O2 Delivery O2 Flow Rate FiO2 11/19/17 08:00 98.6 63 18 134/63 (86) 96 11/19/17 04:00 11/19/17 00:05 97.0 63 16 118/59 (78) 94 11/18/17 20:14 97.9 85 18 120/94 (103) 95 11/18/17 16:00 96.5 60 14 165/72 (103) 95 11/18/17 13:25 66 191/84 (119) 11/18/17 12:00 97.1 60 14 198/91 (126) 97 189/76 (113) Result Diagram: 11/17/17 0430 11/18/17 0510 Imaging Last Impressions Abdomen X-Ray 11/18/17 0000 Signed Impressions: Service Date/Time: Saturday, November 18, 2017 09:17 - CONCLUSION: Nonspecific bowel gas pattern, negative for obstruction.. Sunny Bejarano MD FACR Abdomen/Pelvis CT 11/15/172024 Signed Impressions: Service Date/Time: Wednesday, November 15, 2017 21:54 - CONCLUSION: 1. Findings characteristic of distal small bowel obstruction. A transition zone is present just proximal to the terminal ileum. Riley Ocampo MD Last Impressions Abdomen X-Ray 11/18/17 0000 Signed Impressions: Service Date/Time: Saturday, November 18, 2017 09:17 - CONCLUSION: Nonspecific bowel gas pattern, negative for obstruction.. Sunny Bejarano MD FACR Abdomen/Pelvis CT 11/15/172024 Signed Impressions: Service Date/Time: Wednesday, November 15, 2017 21:54 - CONCLUSION: 1. Findings characteristic of distal small bowel obstruction. A transition zone is present just proximal to the terminal ileum. Riley Ocampo MD Last Impressions Abdomen X-Ray 11/17/17 0600 Signed Impressions: Service Date/Time: November 05:55 - CONCLUSION: 1. Improved bowel gas pattern with resolution of dilated small bowel loops. Aleksandr Sinclair MD Abdomen/Pelvis CT 11/15/172024 Signed Impressions: Service Date/Time: Wednesday, November 15, 2017 21:54 - CONCLUSION: 1. Findings characteristic of distal small bowel obstruction. A transition zone is present just proximal to the terminal ileum. Riley Ocampo MD Objective Remarks Exam: sitting up playing on mobile device pleasant and conversant, in no distress lungs cta kevin heart rrr abdomen bowel sounds throughout, not tender A/P Problem List: (1) Small bowel obstruction ICD Codes: K56.609 - Unspecified intestinal obstruction, unspecified as to partial versus complete obstruction Status: Resolved Plan: initial discomfort and difficulty tolerating food yesterday .abdominal films and small bowel through showed good transit and she is now tolerating regular diet with no problem. cleared for discharge by general surgery (2) Paroxysmal A-fib ICD Codes: I48.0 - Paroxysmal atrial fibrillation Status: Chronic Plan: s/p ablation and recurrence, now on Tambocor and eliquis, has been on lovenox while admitted should she have needed to go to the OR. Will resume her eliquis at discharge (3) Hypertension ICD Codes: I10 - Essential (primary) hypertension Status: Chronic Plan: controlled on current regime, cont at discharge Assessment and Plan - Discharge Planning Discharge home today Problem Qualifiers (1) Hypertension: Qualified Codes: I10 - Essential (primary) hypertension Monserrat Gregory MD Nov 19, 2017 11:52
[2017-11-19 12:00] VITALS: BP 152/67; PULSE 57; RESP 18; TEMP 97.2; O2SAT 96
[2017-11-19] MEDS ORDERED: FLEC100T PO (12:08)
--- NOTE | 2017-11-19 12:19 | HHI.DS ---
Discharge Summary Admission Date Nov 15, 2017 at 22:55 Admitting Diagnosis Small bowel obstruction, hyponatremia (1) Small bowel obstruction Diagnosis: Principal ICD Codes: K56.609 - Unspecified intestinal obstruction, unspecified as to partial versus complete obstruction Status: Resolved (2) Paroxysmal A-fib Diagnosis: Secondary ICD Codes: I48.0 - Paroxysmal atrial fibrillation Status: Chronic (3) Hypertension ICD Codes: I10 - Essential (primary) hypertension Status: Chronic Consultants general surgery Brief History pt presented to ER with abdominal pain , nausea and vomiting. Ct scan showed distal small bowel obstruction. NG tube was placed and per hospital memorandum by general surgery patient was admitted to medical service. CBC/BMP: 11/17/17 0430 11/18/17 0510 Significant Findings Laboratory Tests Test 11/17/17 04:30 11/17/17 15:50 11/18/17 05:10 Monocytes (%) (Auto) 10.9 % (0.0-8.0) Creatinine 0.36 MG/DL (0.50-1.00) Calcium Level 7.7 MG/DL (8.5-10.1) 7.7 MG/DL (8.5-10.1) Urine Ketones 40 mg/dL (NEG) Urine Leukocyte Esterase SMALL (NEG) Urine WBC Clumps FEW (NONE) Blood Urea Nitrogen 6 MG/DL (7-18) Potassium Level 3.4 MEQ/L (3.5-5.1) PE at Discharge Exam: sitting up playing on mobile device pleasant and conversant, in no distress lungs cta kevin heart rrr abdomen bowel sounds throughout, not tender Hospital Course Patient had NG tube placed , IV fluids and placed on PPI. Followed by general surgery for possible intervention should she not improve. Her eliquis was held and she was placed on lovenox . She was passing gas and slowly improving , NG was pulled. Initially she had increased abdominal discomfort and trouble tolerating diet. SBFT was done and showed no evidence for obstruction, patient was actually able to tolerate diet the next day and was ready for discharge. Pt Condition on Discharge: Good Discharge Disposition: Discharge Home Discharge Instructions DIET: Follow Instructions for: Heart Healthy Diet Activities you can perform: Regular-No Restrictions New Medications: Flecainide (Flecainide) 100 Mg Tab 50 MG PO Q12HR for afib for 30 Days, #60 TAB Sucralfate Liq (Sucralfate Liq) 1 Gram/10 Ml Zulma 1 GM PO ACHS PRN for REFLUX, #200 ML Continued Medications: Apixaban (Eliquis) 5 Mg Tab 5 MG PO BID for Blood Clot Prevention, #60 TAB 0 Refills Cholecalciferol (D3) 2,000 Unit Cap 2000 UNITS PO DAILY Lorazepam (Ativan) 0.5 Mg Tab 0.5 MG PO BID PRN for ANXIETY AND/OR AGITATION, #20 TAB 0 Refills Metoprolol Tartrate (Metoprolol Tartrate) 25 Mg Tab 25 MG PO BID, #60 TAB 0 Refills Nifedipine ER 24 HR (Nifedipine ER 24 HR) 60 Mg Tab 60 MG PO DAILY for htn, #30 TAB 3 Refills [place]-3 Fatty Acids (Fish Oil) 1,000 Mg Cap 2000 MG PO DAILY Omeprazole (Omeprazole) 20 Mg Cap 20 MG PO BID Discontinued Medications: Flecainide (Flecainide) 100 Mg Tab 100 MG PO Q12HR for A. fib, #62 TAB Monserrat Gregory MD Nov 19, 2017 12:19
--- NOTE | 2017-11-19 12:22 | HHI.DS ---
Discharge Summary Admission Date Nov 15, 2017 at 22:55 Admitting Diagnosis Small bowel obstruction, hyponatremia (1) Small bowel obstruction Diagnosis: Principal ICD Codes: K56.609 - Unspecified intestinal obstruction, unspecified as to partial versus complete obstruction Status: Resolved (2) Paroxysmal A-fib Diagnosis: Secondary ICD Codes: I48.0 - Paroxysmal atrial fibrillation Status: Chronic (3) Hypertension ICD Codes: I10 - Essential (primary) hypertension Status: Chronic Brief History pt presented to ER with abdominal pain , nausea and vomiting. Ct scan showed distal small bowel obstruction. NG tube was placed and per hospital memorandum by general surgery patient was admitted to medical service. CBC/BMP: 11/17/17 0430 11/18/17 0510 Significant Findings Laboratory Tests Test 11/17/17 04:30 11/17/17 15:50 11/18/17 05:10 Monocytes (%) (Auto) 10.9 % (0.0-8.0) Creatinine 0.36 MG/DL (0.50-1.00) Calcium Level 7.7 MG/DL (8.5-10.1) 7.7 MG/DL (8.5-10.1) Urine Ketones 40 mg/dL (NEG) Urine Leukocyte Esterase SMALL (NEG) Urine WBC Clumps FEW (NONE) Blood Urea Nitrogen 6 MG/DL (7-18) Potassium Level 3.4 MEQ/L (3.5-5.1) PE at Discharge Exam: sitting up playing on mobile device pleasant and conversant, in no distress lungs cta kevin heart rrr abdomen bowel sounds throughout, not tender Pt Condition on Discharge: Good Discharge Disposition: Discharge Home Discharge Instructions DIET: Follow Instructions for: Heart Healthy Diet Activities you can perform: Regular-No Restrictions Follow up Referrals: PCP Follow-up - 1 Week with Rashard Abbott MD New Medications: Flecainide (Flecainide) 100 Mg Tab 50 MG PO Q12HR for afib for 30 Days, #60 TAB Sucralfate Liq (Sucralfate Liq) 1 Gram/10 Ml Zulma 1 GM PO ACHS PRN for REFLUX, #200 ML Continued Medications: Apixaban (Eliquis) 5 Mg Tab 5 MG PO BID for Blood Clot Prevention, #60 TAB 0 Refills Cholecalciferol (D3) 2,000 Unit Cap 2000 UNITS PO DAILY Lorazepam (Ativan) 0.5 Mg Tab 0.5 MG PO BID PRN for ANXIETY AND/OR AGITATION, #20 TAB 0 Refills Metoprolol Tartrate (Metoprolol Tartrate) 25 Mg Tab 25 MG PO BID, #60 TAB 0 Refills Nifedipine ER 24 HR (Nifedipine ER 24 HR) 60 Mg Tab 60 MG PO DAILY for htn, #30 TAB 3 Refills [place]-3 Fatty Acids (Fish Oil) 1,000 Mg Cap 2000 MG PO DAILY Omeprazole (Omeprazole) 20 Mg Cap 20 MG PO BID Discontinued Medications: Flecainide (Flecainide) 100 Mg Tab 100 MG PO Q12HR for A. fib, #62 TAB Monserrat Gregory MD Nov 19, 2017 12:22
--- NOTE | 2017-11-20 20:57 | RADRPT ---
EXAM DATE/TIME: 11/18/2017 13:13 [place] COMPARISON: ABDOMEN KUB ONLY, November 18, 2017, 9:17. INDICATIONS : Small bowel obstruction. FLUORO TIME: 0.9 minutes IMAGE COUNT: 10 CONTRAST: [facility] IMAGING TIME(S): 15 min, 30 min MEDICAL HISTORY : Hypercholesterolemia. Gastroesophageal reflux disease. Hiatal hernia. Afib Hypertension. Nephrotic sy ndrome SURGICAL HISTORY : Tonsillectomy. Hysterectomy. Cholecystectomy. Appendectomy. Rotator cuff. Cardiac ablation. ENCOUNTER: Subsequent ACUITY: 4 - 6 days PAIN SCORE: 10/10 LOCATION: entire abdomen. FINDINGS: Preliminary film is unremarkable. The stomach is grossly unremarkable. Examination of the small bowel demonstrates normal mucosal pattern involving the jejunum and ileum. There is no evidence of mass or obstruction. No intraluminal filling defects are identified. Small bowel transit time is normal at 30 minutes. Fluoroscopy of the abdomen and terminal ileum demonstrat es no abnormality. CONCLUSION: Unremarkable small bowel examination. Yuriy Peterson MD on November 18, 2017 at 14:50 Board Certified Radiologist. This report was verified electronically.
== END 2017-11-19 14:40 | disposition home or self-care (01) | DRG 389 ==
LOC: PHED 18:26 → PHEDA 22:55 → PH3A 11-16 01:26
PROVIDERS: ADMIT Family Medicine; ATTEND Family Medicine
DX: K56.609 Unspecified intestinal obstruction, unspecified as to partial versus complete obstruction (principal); E87.1 Hypo-osmolality and hyponatremia; I48.0 Paroxysmal atrial fibrillation; I10 Essential (primary) hypertension; E78.5 Hyperlipidemia, unspecified; K21.9 Gastro-esophageal reflux disease without esophagitis; E55.9 Vitamin D deficiency, unspecified; I70.0 Atherosclerosis of aorta; M85.80 Other specified disorders of bone density and structure, unspecified site; M19.90 Unspecified osteoarthritis, unspecified site; F41.9 Anxiety disorder, unspecified; Z79.01 Long term (current) use of anticoagulants; Z87.891 Personal history of nicotine dependence; Z88.0 Allergy status to penicillin; Z88.1 Allergy status to other antibiotic agents; Z88.2 Allergy status to sulfonamides; Z88.6 Allergy status to analgesic agent
CPT/HCPCS: 43752; 74018; 74019; 74177; 74250; 80048; 80053; 81001; 83605; 83690; 85025; 85610; 85730; 87086; 87804; 93005; 96361; 96374; 96375; C9113; J0131; J1170; J1650; J2270; J2405; J7030; Q9963; Q9967

== ENCOUNTER 2018-02-07 23:35 | Inpatient (IN) | payer MEDICARE ==
[~2018-02-07] VITALS: Ht 157.5 cm; Wt 70.0 kg
[~2018-02-07 23:35] MED LIST changes: -CLON0.1T PO; -ENOXAPARIN SODIUM 40 MG/0.4 ML SYRINGE SQ SCH; +SUCR1S PO
[2018-02-08] VITALS (9 sets, daily range): BP systolic 119–150; BP diastolic 58–67; PULSE 56–79; RESP 15–20; TEMP 97.2–98.3; O2SAT 94–98
[2018-02-08] MEDS ORDERED: PROCHLORPERAZINE INJ 10 MG/2 ML VIAL IV PUSH ONE (02:00)
[2018-02-08] MEDS ORDERED: SODIUM CHLORID 0.9% 500 ML INJ 500 ML IV ONE (02:00)
--- NOTE | 2018-02-08 02:06 | PD ---
HPI Chief Complaint: Abdominal Pain Time Seen by Provider: 01:55 Travel History International Travel<30 days: No Contact w/Intl Traveler<30days: No Traveled to known affect area: No History of Present Illness HPI The patient is an 82 year old female who presents to the [facility] emergency department with a history of abdominal pain that she reports is been present and associated with back pain for the last 2 days. She reports that the pain has been constant and a pressure sensation. She reports that it is most prominent in the center of her abdomen just above the umbilicus. She reports that at 5 PM today she began to have nausea and vomiting. She estimates that she has vomited approximately 12 times. She reports that she did have a loose stool when the vomiting began, however because of the pressure in her abdomen she took a laxative. She reports that she last moved her bowels normally in the morning today. The patient reports a recent history of months ago being admitted to the [facility] related to a bowel obstruction that was thought to be related to adhesions. She reports that the symptoms resolved on its own. The patient reports a prior abdominal surgical history of hysterectomy, cholecystectomy, and appendectomy. Review of systems otherwise, she denies having any known recent fevers, cough, congestion, neck pain, chest pain, shortness of breath,urinary symptoms, or neurologic symptoms. The patient 's history is complicated by a history of atrial fibrillation status post ablation approximately a year ago. She is still anticoagulated on Eliquis. [facility] Past Medical History Narrative Medical The patient's past medical history is significant for hiatal hernia, acid reflux , arthritis, atrial fibrillation status post ablation 2 chronically anticoagulated on Eliquis, headaches, hyperlipidemia, hypertension. Hx Anticoagulant Therapy: Yes Arthritis: Yes Asthma: No Atrial Fibrillation: Yes Autoimmune Disease: No Blood Disorders: No Anxiety: No Depression: No Heart Rhythm Problems: Yes (PALPITATIONS) Cancer: No Cardiovascular Problems: Yes (A FIB) High Cholesterol: Yes Chemotherapy: No Chest Pain: No Congestive Heart Failure: No COPD: No Cerebrovascular Accident: No Diabetes: No Diminished Hearing: No Endocrine: No Gastrointestinal Disorders: Yes GERD: Yes Genitourinary: Yes Headaches: Yes Hepatitis: No Hiatal Hernia: Yes Hypertension: Yes Immune Disorder: No Implanted Vascular Access Dvce: No Kidney Stones: No Medical other: Yes (REFLUX, BACK AND NECK) Musculoskeletal: Yes Neurologic: Yes Psychiatric: No Reproductive: No Respiratory: Yes Migraines: No Radiation Therapy: No Renal Failure: No Seizures: No Sleep Apnea: No Thyroid Disease: No Ulcer: No Tetanus Vaccination: < 5 Years Influenza Vaccination: Yes Menopausal: Yes Past Surgical History Narrative Surgical The patient's past surgical history is significant for a hysterectomy, appendectomy, cholecystectomy, bilateral cataract surgery, rotator cuff repair on the right 2, tonsillectomy, cardiac ablation 2. Abdominal Surgery: Yes (CHOLECYSTECTOMY) AICD: No Appendectomy: Yes Cardiac Surgery: Yes (ABLATION) Cholecystectomy: Yes Ear Surgery: No Endocrine Surgery: No Eye Surgery: Yes (CATARACTS BILAT) Genitourinary Surgery: No Gynecologic Surgery: Yes (HYSTERECTOMY) Hysterectomy: Yes Insulin Pump: No Joint Replacement: No Neurologic Surgery: No Oral Surgery: No Pacemaker: No Thoracic Surgery: No Tonsillectomy: Yes Other Surgery: Yes Family History Family Hypercholesterolemia: Yes Social History Alcohol Use: Yes (occas. beer) Tobacco Use: No Substance Use: No Allergies-Medications (Allergen,Severity, Reaction): Coded Allergies: Sulfa (Sulfonamide Antibiotics) (Unverified Allergy, Severe, "TOLD NOT TO TAKE ANYMORE", 02/08/18) aspirin (Unverified Allergy, Severe, "TOLD NOT TO TAKE ANY ANTIINFLAMMATORIES", 02/08/18) cephalexin (Unverified Allergy, Severe, "SWOLLEN THROAT,ITCHING ALL OVER" , 02/08/18) ibuprofen (Unverified Allergy, Severe, "TOLD NOT TO TAKE ANYMORE", 02/08/18 ) lisinopril (Unverified Allergy, Severe, "RASH", 02/08/18) nabumetone (Unverified Allergy, Severe, "NEPHROTIC SYNDROME", 02/08/18) penicillin G (Unverified Allergy, Severe, UNKNOWN, 02/08/18) adhesive (Unverified Allergy, Intermediate, Rash, 02/08/18) digoxin (Unverified Allergy, Intermediate, Fatigue, 02/08/18) telmisartan (Unverified Allergy, Intermediate, Fatigue, 02/08/18) Uncoded Allergies: ANTIINFLAMMATORIES (Allergy, Severe, "TOLD NOT TO TAKE ANYMORE", 01/04/16) . Reported Meds & Prescriptions Reported Meds & Active Scripts Active Flecainide (Flecainide Acetate) 100 Mg Tab 50 Mg PO Q12HR 30 Days Nifedipine ER 24 HR (Nifedipine) 60 Mg Tab 60 Mg PO DAILY Ativan (Lorazepam) 0.5 Mg Tab 0.5 Mg PO BID PRN Reported Metoprolol Tartrate 25 Mg Tab 25 Mg PO BID D3 (Cholecalciferol) 2,000 Unit Cap 2,000 Units PO DAILY Omeprazole 20 Mg Cap 20 Mg PO BID Fish Oil ([place]-3 Fatty Acids) 1,000 Mg Cap 2,000 Mg PO DAILY Eliquis (Apixaban) 5 Mg Tab 5 Mg PO BID Review of Systems Except as stated in HPI: all other systems reviewed are Neg General / Constitutional: No: Fever Eyes: No: Visual changes HENT: No: Headaches Cardiovascular: No: Chest Pain or Discomfort Respiratory: No: Shortness of Breath Gastrointestinal: Positive: Nausea, Vomiting, Abdominal Pain, Changes in Bowel Habits, Indigestion, Loss of Appetite, No: Hematemesis, Hematochezia Genitourinary: No: Dysuria Musculoskeletal: No: Pain Skin: No Rash Neurologic: No: Weakness Psychiatric: No: Depression Endocrine: No: Polydipsia Hematologic/Lymphatic: No: Easy Bruising Physical Exam Narrative General: The patient is a well-developed well-nourished female in no acute distress. Head and Neck exam: Head is normocephalic atraumatic. Eyes: EOMI, pupils are equal round and reactive to light. Nose: Midline septum with pink mucous membranes Mouth: Dentition unremarkable. Moist mucus membranes. Posterior oropharynx is not erythematous. No tonsillar hypertrophy. Uvula midline. Airway patent. Neck: No palpable lymphadenopathy. No nuchal rigidity. No thyromegaly. Cardiovascular: Regular rate and rhythm without murmurs, gallops, or rubs. No pulse deficit to the extremities on simultaneous auscultation and palpation of her radial artery. Lungs: Clear to auscultation bilaterally. No wheezes, rhonchi, or rales. Abdomen: Soft, with tenderness on palpation along the midepigastric area and area just above the umbilicus, no palpable hernia, no other tenderness on palpation of the other quadrants of the abdomen. Normal bowel sounds are audible. No guarding, rebound, or rigidity. No tenderness on palpation of McBurney's point. Extremities: No clubbing, cyanosis, or edema. 2+ pulses in all 4 extremities. No calf tenderness on palpation. Back: No costovertebral angle tenderness to palpation. Neurologic Exam: Grossly nonfocal. Skin Exam: No rash noted. Intact skin that is warm and dry. Data Data Last Documented VS Vital Signs Date Time Temp Pulse Resp B/P (MAP) Pulse Ox O2 Delivery O2 Flow Rate FiO2 02/08/18 06:32 59 15 142/66 (91) 94 Room Air 02/08/18 00:11 98.3 Orders Orders Electrocardiogram (02/08/18 01:56) Complete Blood Count With Diff (02/08/18 01:56) Comprehensive Metabolic Panel (02/08/18 01:56) Creatine Kinase (Cpk) (02/08/18 01:56) Ckmb (Isoenzyme) Profile (02/08/18 01:56) Troponin I (02/08/18 01:56) B-Type Natriuretic Peptide (02/08/18 01:56) Prothrombin Time / Inr (Pt) (02/08/18 01:56) Act Partial Throm Time (Ptt) (02/08/18 01:56) Lipase (02/08/18 01:56) Urinalysis - C+S If Indicated (02/08/18 01:56) Magnesium (Mg) (02/08/18 01:56) Chest, Single Ap (02/08/18 01:56) Ct Abd/Pel W Iv Contrast(Rout) (02/08/18 01:56) Iv Access Insert/Monitor (02/08/18 01:56) Ecg Monitoring (02/08/18 01:56) Oximetry (02/08/18 01:56) Lactic Acid (02/08/18 01:56) Sodium Chlorid 0.9% 500 Ml Inj (Ns 500 M (02/08/18 02:00) Prochlorperazine Inj (Compazine Inj) (02/08/18 02:00) Morphine Inj (Morphine Inj) (02/08/18 05:00) Morphine Inj (Morphine Inj) (02/08/18 05:15) Iohexol 350 Inj (Omnipaque 350 Inj) (02/08/18 05:40) Admit Order (Ed Use Only) (02/08/18 07:07) Labs Laboratory Tests Test 5/23/18 02:00 02/08/18 03:13 02/08/18 03:57 White Blood Count 11.1 TH/MM3 Red Blood Count 4.88 MIL/MM3 Hemoglobin 14.6 GM/DL Hematocrit 42.1 % Mean Corpuscular Volume 86.1 FL Mean Corpuscular Hemoglobin 29.8 PG Mean Corpuscular Hemoglobin Concent 34.6 % Red Cell Distribution Width 14.2 % Platelet Count 235 TH/MM3 Mean Platelet Volume 7.8 FL Neutrophils (%) (Auto) 84.0 % Lymphocytes (%) (Auto) 8.9 % Monocytes (%) (Auto) 6.8 % Eosinophils (%) (Auto) 0.1 % Basophils (%) (Auto) 0.2 % Neutrophils # (Auto) 9.3 TH/MM3 Lymphocytes # (Auto) 1.0 TH/MM3 Monocytes # (Auto) 0.8 TH/MM3 Eosinophils # (Auto) 0.0 TH/MM3 Basophils # (Auto) 0.0 TH/MM3 CBC Comment DIFF FINAL Differential Comment Prothrombin Time 10.2 SEC Prothromb Time International Ratio 1.0 RATIO Activated Partial Thromboplast Time 26.6 SEC Lactic Acid Level 1.1 mmol/L B-Type Natriuretic Peptide 61 PG/ML Blood Urea Nitrogen 14 MG/DL Creatinine 0.63 MG/DL Random Glucose 108 MG/DL Total Protein 6.7 GM/DL Albumin 3.1 GM/DL Calcium Level 8.3 MG/DL Magnesium Level 2.0 MG/DL Alkaline Phosphatase 58 U/L Aspartate Amino Transf (AST/SGOT) 29 U/L Alanine Aminotransferase (ALT/SGPT) 20 U/L Total Bilirubin 0.4 MG/DL Sodium Level 134 MEQ/L Potassium Level 4.3 MEQ/L Chloride Level 97 MEQ/L Carbon Dioxide Level 27.2 MEQ/L Anion Gap 10 MEQ/L Estimat Glomerular Filtration Rate 91 ML/MIN Total Creatine Kinase 70 U/L Troponin I LESS THAN 0.02 NG/ML Lipase 71 U/L Urine Color LIGHT-YELLOW Urine Turbidity CLEAR Urine pH 6.0 Urine Specific [place] 1.007 Urine Protein NEG mg/dL Urine Glucose (UA) NEG mg/dL Urine Ketones NEG mg/dL Urine Occult Blood NEG Urine Nitrite NEG Urine Bilirubin NEG Urine Urobilinogen LESS THAN 2.0 MG/DL Urine Leukocyte Esterase NEG Urine RBC 1 /hpf Urine WBC LESS THAN 1 /hpf Urine Squamous Epithelial Cells <1 /hpf Urine Hyaline Casts 2 /lpf Urine Mucus FEW /lpf Microscopic Urinalysis Comment CULT NOT INDICATED MDM Medical Decision Making Medical Screen Exam Complete: Yes Emergency Medical Condition: Yes Medical Record Reviewed: Yes Differential Diagnosis Ischemic bowel, versus bowel obstruction, versus ileus, versus viral syndrome, versus electrolyte derangements, versus dehydration Narrative Course During the course of the patient's emergency department visit, the patient's history, examination, and differential diagnosis were reviewed with the patient. The patient was placed on a correctional officer captain with oximetry and frequent blood pressure monitoring. The patient had IV access obtained and blood work sent for analysis. The patient had a EKG done on arrival that shows a sinus rhythm heart rate is 68, QRS duration 93 ms, QTC [address] segment elevation is noted. The patient was initially provided Compazine 5 mg IV, normal saline at 500 mL bolus, morphine 2 mg IV The patient's laboratory studies were reviewed and remarkable for a white count of 11.1, hemoglobin 14.6, platelets 235 with 84 neutrophils, CMP is remarkable for a sodium of 134, chloride 97, glucose 108, cardiac enzymes within normal limits, lipase 71, lactic acid is 1.1 decrease the likelihood of ischemic bowel. BNP is 61, PT 10.2, PTT 26.6, urinalysis within normal limits. Radiology studies were reviewed and remarkable for a CT scan of the abdomen and pelvis shows a nonspecific bowel gas pattern which may represent ileus, with multiple loops of borderline dilated air containing small bowel with multiple air-fluid levels. No focal transition zone. Small bowel obstruction is felt to be less likely. The patient's results were discussed with the patient, including the plan of care. I explained that further testing and/ or monitoring is indicated based on the patient's history, examination, and/ or laboratory findings. Therefore, I recommended admission for additional evaluation. The patient expressed understanding and was agreeable with this plan. The patient was admitted to the hospital in stable condition and [facility] Phys[facility] Communication Physician Communication The patient's case including history, pertinent physical examination findings, and laboratory studies were discussed with Dr. August. It was agreed that the [facility] would [facility]. Diagnosis Primary Impression: Abdominal pain Qualified Codes: R10.84 - Generalized abdominal pain Additional Impressions: Vomiting Qualified Codes: R11.14 - Bilious vomiting Ileus Admitting Information Admitting Physician Requests: Admit Yesenia Stroud MD February 08, 2018 02:06
--- NOTE | 2018-02-08 02:31 | RADRPT ---
EXAM DATE: 02/08/2018 2:27 AM EDT AGE/SEX: 82 years / Female INDICATIONS: Vomiting, free air. CLINICAL DATA: This is the patient's initial encounter. Patient reports that signs and symptoms have been present for 2 days and indicates a pain score of 3/10. MEDICAL/SURGICAL HISTORY: . Hypercholesterolemia. Gastroesophageal reflux disease. Hiatal herni a. Afib Hypertension. . Cholecystectomy. Appendectomy COMPARISON: [facility] [place], CHEST SINGLE AP, 01/26/2017. . FINDINGS: A single AP semierect view of the chest was obtained. Patient is more mid inspiratory with crowding o f the lung vasculature. There are no confluent infiltrates or effusions. The heart size is at the upp er limits of normal. Atherosclerotic changes are present in the aorta. There is no free air. Bony str uctures are intact. CONCLUSION: 1. No evidence of free air. 2. Mid inspiratory exam with no acute cardiopulmonary disease. Electronically signed by: Jules Fernández MD 02/08/2018 2:30 AM EDT
[2018-02-08 02:37] LABS: AUTOMATED NEUTROPHIL # 9.3 TH/MM3 (1.8-7.7); BASOPHIL % 0.2 % (0.0-2.0); EOSINOPHIL % 0.1 % (0.0-4.0); HEMATOCRIT 42.1 % (35.0-46.0); HEMOGLOBIN 14.6 GM/DL (11.6-15.3); LYMPH % 8.9 % (9.0-44.0); MEAN CELL VOLUME 86.1 FL (80.0-100.0); MEAN CORPUSCULAR HEMOGLOBIN 29.8 PG (27.0-34.0); MEAN CORPUSCULAR HGB CONC 34.6 % (32.0-36.0); MEAN PLATELET VOLUME 7.8 FL (7.0-11.0); MONO % 6.8 % (0.0-8.0); MONOCYTE # 0.8 TH/MM3 (0-0.9); PLATELET COUNT 235 TH/MM3 (150-450); RED BLOOD COUNT 4.88 MIL/MM3 (4.00-5.30); RED CELL DISTRIBUTION WIDTH 14.2 % (11.6-17.2); WHITE BLOOD COUNT 11.1 TH/MM3 (4.0-11.0)
[2018-02-08 02:51] LABS: PROTHROMBIN TIME - PATIENT 10.2 SEC (9.8-11.6)
[2018-02-08 04:15] LABS: BILIRUBIN, URINE NEG (NEG); BLOOD, URINE NEG (NEG); GLUCOSE,URINE NEG (NEG); HYALINE CAST, URINE 2 /lpf (RARE); KETONE, URINE NEG (NEG); MUCUS URINE FEW /lpf (OCC); NITRITE,URINE NEG (NEG); SQUAMOUS EPITHELIAL CELL URINE <1 /hpf (0-5); URINE COLOR LIGHT-YELLOW (YELLW/STRAW); URINE LEUKOCYTE ESTERASE NEG (NEG)
[2018-02-08 04:27] LABS: ALBUMIN 3.1 GM/DL (3.4-5.0); ALKALINE PHOSPHATASE 58 U/L (45-117); ALT (GPT) 20 U/L (10-53); AST (GOT) 29 U/L (15-37); BICARBONATE 27.2 MEQ/L (21.0-32.0); BLOOD UREA NITROGEN 14 MG/DL (7-18); CALCIUM 8.3 MG/DL (8.5-10.1); CHLORIDE 97 MEQ/L (98-107); CREATININE 0.63 MG/DL (0.50-1.00); GLOMERULAR FILTRATION RATE 91 ML/MIN (>89); GLUCOSE,RANDOM 108 MG/DL (74-106); SODIUM (NA) 134 MEQ/L (136-145); TOTAL BILIRUBIN ADULT 0.4 MG/DL (0.2-1.0); TOTAL PROTEIN 6.7 GM/DL (6.4-8.2); TROPONIN I LESS THAN 0.02 NG/ML (0.02-0.05)
[2018-02-08] MEDS ORDERED: MORPHINE SULFATE 2 MG/ML SYRINGE IV PUSH ONE (05:00)
[2018-02-08] MEDS ORDERED: MORPHINE SULFATE 4 MG/ML INJ IV PUSH ONE (05:15)
[2018-02-08] MEDS ORDERED: IOHEXOL 350 MG/ML 10 ML VIAL (for RAD DIAG) IVCONTRAST ONE (05:40)
--- NOTE | 2018-02-08 06:05 | RADRPT ---
EXAM DATE: 02/08/2018 5:57 AM EDT AGE/SEX: 82 years / Female INDICATIONS: Abdominal pain and vomiting, evaluate for obstruction. CLINICAL DATA: This is the patient's initial encounter. Patient reports that signs and symptoms have been present for 3 days and indicates a pain score of 9/10. MEDICAL/SURGICAL HISTORY: Hypertension. Hiatal hernia. Gastroesophageal reflux disease. Sophie cystectomy. Appendectomy. Hysterectomy. ORAL CONTRAST: No oral contrast ingested. RADIATION DOSE: 7.11 CTDI (mGy) COMPARISON: [facility], CT ABDOMEN & PELVIS W CONTRAST, 11/15/2017. . TECHNIQUE: Multiple contiguous axial images were obtained through the abdomen and pelvis following b olus infusion of 70 ml Omnipaque 350 (iohexol) nonionic water-soluble contrast as a single exam dos e. No oral contrast ingested. Using automated exposure control and adjustment of the mA and/or kV ac cording to patient size, the radiation dose was kept as low as reasonably achievable to obtain optima l diagnostic quality images. FINDINGS: Lower Lungs: The visualized lower lungs are clear. Liver: The liver has a homogeneous density without space-occupying lesion. There is no dilation of th e biliary tree. The patient is status post cholecystectomy. Spleen: Homogeneous density without enlargement. Pancreas: Unremarkable without mass or calcification. Kidneys: Normal in size and shape. No evidence of mass or hydronephrosis. Adrenal Glands: Unremarkable. Aorta: The aorta and proximal iliac vessels are grossly unremarkable without aneurysmal dilation. Bowel/Mesentery: There are multiple loops of borderline dilated air containing small bowel with mult iple air-fluid levels. Gas and stool noted segmentally in the colon. There is no free air or fluid. T here is no focal transition zone. Abdominal Wall: Intact. Retroperitoneum: No evidence of adenopathy in the retrocrural, para-aortic, or deep pelvic regions. Bladder: Contours are smooth. Reproductive Organs: No abnormal masses or calcifications seen. Inguinal: The inguinal region is unremarkable without evidence of adenopathy. Bony Structures: Unremarkable. CONCLUSION: 1. Nonspecific bowel gas pattern which may represent ileus. Small bowel obstruction is felt to be le ss likely. 2. Status post cholecystectomy. 3. No free air or fluid. Electronically signed by: Jules Fernández MD 02/08/2018 6:04 AM EDT
[2018-02-08] MEDS ORDERED: NALOXONE HCL 0.4 MG/ML AMP IV PUSH PRN (08:15)
[2018-02-08] MEDS ORDERED: ACETAMINOPHEN 325 MG TAB PO PRN (08:15)
[2018-02-08] MEDS ORDERED: SODIUM CHLORIDE 0.9% FLUSH 10 ML FLUSH IV FLUSH PRN (08:15)
[2018-02-08] MEDS ORDERED: ONDANSETRON ODT 4 MG TAB PO PRN (08:15)
--- NOTE | 2018-02-08 09:37 | HHI.HP ---
HPI Service CP Hospitalists Primary Care Physician Rashard Abbott MD Admission Diagnosis Ileus vs SBO Chief Complaint: intractable N/V Travel History International Travel<30 Days: No Contact w/Intl Traveler <30 Da: No Traveled to Known Affected Are: No History of Present Illness Mrs. Johnson is an 82 y/o female with a past medical history which includes atrial fibrillation s/p EPS and ablation on 01/20/17, HTN, hyperlipidemia, GERD, hiatal hernia, esophageal stricture, anxiety, osteoarthritis, osteopenia, vitamin D deficiency, paroxysmal SVT, degenerative disc disease and diverticulitis. The patient reports a prior abdominal surgical history of hysterectomy, cholecystectomy, and appendectomy. Patient presented to the ER with abdominal pain that she reports is been present and associated with back pain for the last 2 days. She describes the pain has been constant and a pressure sensation. She reports that it is most prominent in the center of her abdomen just above the umbilicus. Patient also has associated nausea and vomiting. She estimates that she has vomited approximately 12 times. She reports that she did have a loose stool when the vomiting began, however because of the pressure in her abdomen she took a laxative. She reports that she last moved her bowels normally in the morning of 02/07. The patient reports a recent history of months ago being admitted to the [facility] related to a bowel obstruction that was thought to be related to adhesions. She reports that the symptoms resolved on its own. Patient denies having any known recent fevers, cough, congestion, neck pain, chest pain, shortness of breath,urinary symptoms, or neurologic symptoms. Review of Systems Gastrointestinal: COMPLAINS OF: Abdominal pain, Diarrhea, Nausea, Vomiting Musculoskeletal: COMPLAINS OF: Back pain Past Family Social History Past Medical History A. fib with RVR HTN Hyperlipidemia GERD Hiatal hernia Hx of esophageal stricture Anxiety Osteoarthritis Osteopenia Vitamin D deficiency Hx of paroxysmal SVT DDD of lumbar spine Hx of diverticulitis Past Surgical History EPS/cardiac ablation in 2009 and 2016 [facility] with partial left oophorectomy and right salpingo-oophorectomy Lap Sophie Appendectomy Incisional right breast biopsy, benign Removal of Nelson's neuroma, right foot Right shoulder arthroscopy Right RCR Laparoscopy with TANK Bilateral cataract surgery Reported Medications Flecainide (Flecainide Acetate) 100 Mg Tab 50 Mg PO Q12HR 30 Days Nifedipine ER 24 HR (Nifedipine) 60 Mg Tab 60 Mg PO DAILY Ativan (Lorazepam) 0.5 Mg Tab 0.5 Mg PO BID PRN Metoprolol Tartrate 25 Mg Tab 25 Mg PO BID D3 (Cholecalciferol) 2,000 Unit Cap 2,000 Units PO DAILY Omeprazole 20 Mg Cap 20 Mg PO BID Fish Oil ([place]-3 Fatty Acids) 1,000 Mg Cap 2,000 Mg PO DAILY Eliquis (Apixaban) 5 Mg Tab 5 Mg PO BID Allergies: Coded Allergies: Sulfa (Sulfonamide Antibiotics) (Unverified Allergy, Severe, "TOLD NOT TO TAKE ANYMORE", 02/08/18) aspirin (Unverified Allergy, Severe, "TOLD NOT TO TAKE ANY ANTIINFLAMMATORIES", 02/08/18) cephalexin (Unverified Allergy, Severe, "SWOLLEN THROAT,ITCHING ALL OVER" , 02/08/18) ibuprofen (Unverified Allergy, Severe, "TOLD NOT TO TAKE ANYMORE", 02/08/18 ) lisinopril (Unverified Allergy, Severe, "RASH", 02/08/18) nabumetone (Unverified Allergy, Severe, "NEPHROTIC SYNDROME", 02/08/18) penicillin G (Unverified Allergy, Severe, UNKNOWN, 02/08/18) adhesive (Unverified Allergy, Intermediate, Rash, 02/08/18) digoxin (Unverified Allergy, Intermediate, Fatigue, 02/08/18) telmisartan (Unverified Allergy, Intermediate, Fatigue, 02/08/18) Uncoded Allergies: ANTIINFLAMMATORIES (Allergy, Severe, "TOLD NOT TO TAKE ANYMORE", 01/04/16) . Family History Father at 75 y/o, hx of liver cirrhosis Mother at 78 y/o, hx of CAD, diabetes Sister with diabetes Social History Hx of tobacco use, smoked 1/2 ppd x 25 years quit in 1990 Occasional glass of wine or beer Pt lives alone, locally She is a Physical Exam Vital Signs Vital Signs Date Time Temp Pulse Resp B/P (MAP) Pulse Ox O2 Delivery O2 Flow Rate FiO2 02/08/18 08:55 97.2 63 18 150/67 (94) 95 02/08/18 08:29 02/08/18 06:32 59 15 142/66 (91) 94 Room Air 02/08/18 06:05 14 02/08/18 05:26 71 17 147/66 (93) 97 Room Air 02/08/18 01:07 74 16 119/60 (79) 97 Room Air 02/08/18 00:11 98.3 79 18 128/67 (87) 98 Physical Exam GENERAL: This is a well-nourished, well-developed patient, in no apparent distress. SKIN: No rashes, ecchymoses or lesions. Cool and dry. HEAD: Atraumatic. Normocephalic. No temporal or scalp tenderness. EYES: Pupils equal round and reactive. Extraocular motions intact. No scleral icterus. No injection or drainage. ENT: Nose without bleeding, purulent drainage or septal hematoma. Throat without erythema, tonsillar hypertrophy or exudate. Uvula midline. Airway patent. NECK: Trachea midline. No JVD or lymphadenopathy. Supple, nontender, no meningeal signs. CARDIOVASCULAR: Regular rate and rhythm without murmurs, gallops, or rubs. RESPIRATORY: Clear to auscultation. Breath sounds equal bilaterally. No wheezes , rales, or rhonchi. GASTROINTESTINAL: Abdomen soft, non-tender, nondistended. No hepato-splenomegaly , or palpable masses. No guarding. MUSCULOSKELETAL: Extremities without clubbing, cyanosis, or edema. No joint tenderness, effusion, or edema noted. No calf tenderness. Negative Homans sign bilaterally. NEUROLOGICAL: Awake and alert. Cranial nerves II through XII intact. Motor and sensory grossly within normal limits. Five out of 5 muscle strength in all muscle groups. Normal speech. Laboratory Laboratory Tests Test 02/08/18 02:00 02/08/18 03:13 02/08/18 03:57 White Blood Count 11.1 Red Blood Count 4.88 Hemoglobin 14.6 Hematocrit 42.1 Mean Corpuscular Volume 86.1 Mean Corpuscular Hemoglobin 29.8 Mean Corpuscular Hemoglobin Concent 34.6 Red Cell Distribution Width 14.2 Platelet Count 235 Mean Platelet Volume 7.8 Neutrophils (%) (Auto) 84.0 Lymphocytes (%) (Auto) 8.9 Monocytes (%) (Auto) 6.8 Eosinophils (%) (Auto) 0.1 Basophils (%) (Auto) 0.2 Neutrophils # (Auto) 9.3 Lymphocytes # (Auto) 1.0 Monocytes # (Auto) 0.8 Eosinophils # (Auto) 0.0 Basophils # (Auto) 0.0 CBC Comment DIFF FINAL Differential Comment Prothrombin Time 10.2 Prothromb Time International Ratio 1.0 Activated Partial Thromboplast Time 26.6 Lactic Acid Level 1.1 B-Type Natriuretic Peptide 61 Blood Urea Nitrogen 14 Creatinine 0.63 Random Glucose 108 Total Protein 6.7 Albumin 3.1 Calcium Level 8.3 Magnesium Level 2.0 Alkaline Phosphatase 58 Aspartate Amino Transf (AST/SGOT) 29 Alanine Aminotransferase (ALT/SGPT) 20 Total Bilirubin 0.4 Sodium Level 134 Potassium Level 4.3 Chloride Level 97 Carbon Dioxide Level 27.2 Anion Gap 10 Estimat Glomerular Filtration Rate 91 Total Creatine Kinase 70 Troponin I LESS THAN 0.02 Lipase 71 Urine Color LIGHT-YELLOW Urine Turbidity CLEAR Urine pH 6.0 Urine Specific [place] 1.007 Urine Protein NEG Urine Glucose (UA) NEG Urine Ketones NEG Urine Occult Blood NEG Urine Nitrite NEG Urine Bilirubin NEG Urine Urobilinogen LESS THAN 2.0 Urine Leukocyte Esterase NEG Urine RBC 1 Urine WBC LESS THAN 1 Urine Squamous Epithelial Cells <1 Urine Hyaline Casts 2 Urine Mucus FEW Microscopic Urinalysis Comment CULT NOT INDICATED Result Diagram: 02/08/18 0200 02/08/18 0313 Caprini VTE Risk Assessment Caprini VTE Risk Assessment: Mod/High Risk (score >= 2) Caprini Risk Assessment Model Point Value = 1 Point Value = 2 Point Value = 3 Point Value = 5 Age 41-60 Minor surgery BMI > 25 kg/m2 Swollen legs Varicose veins or History of unexplained or recurrent spontaneous Oral contraceptives or hormone replacement Sepsis (< 1 month) Serious lung disease, including pneumonia (< 1 month) Abnormal pulmonary function Acute myocardial infarction Congestive heart failure (< 1 month) History of inflammatory bowel disease Medical patient at bed rest Age 61-74 Arthroscopic surgery Major open surgery (> 45 min) Laparoscopic surgery (> 45 min) Malignancy Confined to bed (> 72 hours) Immobilizing plaster cast Central venous access Age >= 75 History of VTE Family history of VTE Factor V Leiden Prothrombin 10703I Lupus anticoagulant Anticardiolipin antibodies Elevated serum homocysteine Heparin-induced thrombocytopenia Other congenital or acquired thrombophilia Stroke (< 1 month) Elective arthroplasty Hip, pelvis, or leg fracture Acute spinal cord injury (< 1 month) Prophylaxis Regimen Total Risk Factor Score Risk Level Prophylaxis Regimen 0-1 Low Early ambulation 2 Moderate Order ONE of the following: *Sequential Compression Device (SCD) *Heparin 5000 units SQ BID 3-4 Higher Order ONE of the following medications: *Heparin 5000 units SQ TID *Enoxaparin/Lovenox 40 mg SQ daily (WT < 150 kg, CrCl > 30 mL/min) *Enoxaparin/Lovenox 30 mg SQ daily (WT < 150 kg, CrCl > 10-29 mL/min) *Enoxaparin/Lovenox 30 mg SQ BID (WT < 150 kg, CrCl > 30 mL/min) AND/OR *Sequential Compression Device (SCD) 5 or more Highest Order ONE of the following medications: *Heparin 5000 units SQ TID (Preferred with Epidurals) *Enoxaparin/Lovenox 40 mg SQ daily (WT < 150 kg, CrCl > 30 mL/min) *Enoxaparin/Lovenox 30 mg SQ daily (WT < 150 kg, CrCl > 10-29 mL/min) *Enoxaparin/Lovenox 30 mg SQ BID (WT < 150 kg, CrCl > 30 mL/min) AND *Sequential Compression Device (SCD) Assessment and Plan Problem List: (1) Intractable nausea and vomiting ICD Codes: R11.2 - Nausea with vomiting, unspecified Status: Resolved Plan: -Likely secondary to ileus -Patient n.p.o. -Ondansetron as needed for nausea and vomiting -Supportive care (2) Ileus ICD Codes: K56.7 - Ileus, unspecified Status: Acute Plan: - CT abdomen pelvis with IV contrast reviewed and reveals nonspecific bowel gas pattern which may represent ileus. Small bowel obstruction is felt to be less likely. Status post cholecystectomy. No free air or fluid - Bowel rest, NPO - IV fluids for hydration - repeat KUB in AM (3) Atrial fibrillation ICD Codes: I48.91 - Unspecified atrial fibrillation Status: Chronic Plan: - Continue patient's home Flecainide 50 mg PO Q12H, metoprolol 25 mg PO BID, and Eliquis 5 mg daily (4) Hypertension ICD Codes: I10 - Essential (primary) hypertension Status: Chronic Plan: - Continue patient's home metoprolol 25 mg daily and nifedipine 60 mg PO daily (5) Hyperlipidemia ICD Codes: E78.5 - Hyperlipidemia, unspecified Status: Chronic Plan: - held patient's fish oil Assessment and Plan Patient examined. Assessment and plan formulated with Sigrid Anderson PA-C. I agree with the above. Physician Certification 2 Midnight Certification Type: Admission for Inpatient Services Order for Inpatient Services The services are ordered in accordance with Medicare regulations or non- Medicare payer requirements, as applicable. In the case of services not specified as inpatient-only, they are appropriately provided as inpatient services in accordance with the 2-midnight benchmark. Estimated LOS (days): 3 days is the estimated time the patient will need to remain in the hospital, assuming treatment plan goals are met and no additional complications. Post-Hospital Plan: Home Sigrid Anderson February 08, 2018 09:37 Amadeo August DO February 13, 2018 01:17
[2018-02-08] MEDS: SODIUM CHLOR 0.9% 1000 ML INJ 1,000 ML IV SCH ×2 (10:26→21:54)
[2018-02-08] MEDS: SODIUM CHLORIDE 0.9% FLUSH 10 ML FLUSH IV FLUSH SCH ×2 (10:26→21:00)
[2018-02-08] MEDS: PANTOPRAZOLE SOD 20 MG DELAYED RELEASE TAB PO SCH ×2 (13:13→21:08)
[2018-02-08] MEDS: METOPROLOL TARTRATE 25 MG TAB PO SCH ×2 (13:13→21:08)
--- NOTE | 2018-02-08 14:38 | EKG ---
Date Performed: 02/08/2018 Time Performed: 02:47:52 PTAGE: 82 years EKG: Baseline artifact present Sinus rhythm NONSPECIFIC T-WAVE ABNORMALITY BORDERLINE ECG Compared to prior electrocardiogram, Nonspecific T wav e changes are more marked . PREVIOUS TRACING : 11/15/2017 20.45 DOCTOR: Carl Howe Interpretating Date/Time 02/08/2018 14:37:23
[2018-02-08] MEDS: FLECAINIDE ACETATE 100 MG TAB PO SCH ×2 (17:25→21:06)
[2018-02-08] MEDS: NIFEdipine 60 MG SUSTAINED RELEASE TAB PO SCH (17:25)
[2018-02-08] MEDS: APIXABAN 5 MG TABLET PO SCH (21:08)
[2018-02-08] MEDS: LORazepam 0.5 MG TAB PO PRN (22:01)
[2018-02-09] VITALS (9 sets, daily range): BP systolic 127–146; BP diastolic 57–74; PULSE 54–63; RESP 19–21; TEMP 97.4–98.2; O2SAT 94–98
[2018-02-09 05:12] LABS: AUTOMATED NEUTROPHIL # 1.5 TH/MM3 (1.8-7.7); BASOPHIL % 0.7 % (0.0-2.0); EOSINOPHIL # 0.1 TH/MM3 (0-0.4); EOSINOPHIL % 3.6 % (0.0-4.0); HEMATOCRIT 36.6 % (35.0-46.0); HEMOGLOBIN 12.6 GM/DL (11.6-15.3); LYMPH % 39.5 % (9.0-44.0); LYMPHOCYTE # 1.5 TH/MM3 (1.0-4.8); MEAN CELL VOLUME 87.4 FL (80.0-100.0); MEAN CORPUSCULAR HEMOGLOBIN 30.1 PG (27.0-34.0); MEAN CORPUSCULAR HGB CONC 34.4 % (32.0-36.0); MEAN PLATELET VOLUME 7.1 FL (7.0-11.0); MONO % 16.6 % (0.0-8.0); MONOCYTE # 0.6 TH/MM3 (0-0.9); NEUT % 39.6 % (16.0-70.0); PLATELET COUNT 199 TH/MM3 (150-450); RED BLOOD COUNT 4.18 MIL/MM3 (4.00-5.30); RED CELL DISTRIBUTION WIDTH 14.3 % (11.6-17.2); WHITE BLOOD COUNT 3.9 TH/MM3 (4.0-11.0)
[2018-02-09 05:37] LABS: BICARBONATE 28.6 MEQ/L (21.0-32.0); CALCIUM 7.9 MG/DL (8.5-10.1); CREATININE 0.54 MG/DL (0.50-1.00)
[2018-02-09] MEDS: SODIUM CHLORIDE 0.9% FLUSH 10 ML FLUSH IV FLUSH SCH ×2 (09:00→20:25)
[2018-02-09] MEDS: APIXABAN 5 MG TABLET PO SCH ×2 (09:21→20:25)
[2018-02-09] MEDS: METOPROLOL TARTRATE 25 MG TAB PO SCH ×2 (09:21→20:25)
[2018-02-09] MEDS: PANTOPRAZOLE SOD 20 MG DELAYED RELEASE TAB PO SCH ×2 (09:21→20:25)
[2018-02-09] MEDS: FLECAINIDE ACETATE 100 MG TAB PO SCH ×2 (09:21→20:25)
[2018-02-09] MEDS: SODIUM CHLOR 0.9% 1000 ML INJ 1,000 ML IV SCH ×2 (09:22→22:40)
--- NOTE | 2018-02-09 10:56 | RADRPT ---
EXAM DATE: 02/09/2018 10:52 AM EDT AGE/SEX: 82 years / Female INDICATIONS: Abdominal distention. CLINICAL DATA: This is the patient's subsequent encounter. Patient reports that signs and symptoms h ave been present for 2 days and indicates a pain score of 0/10. MEDICAL/SURGICAL HISTORY: Hypertension. Appendectomy. Hysterectomy. COMPARISON: [facility], ABDOMEN KUB ONLY, 11/18/2017. . FINDINGS: The abdominal bowel gas pattern is normal. No abnormal masses, calcifications, or organomegaly is s een. The osseous structures are unremarkable. Surgical clips in the right upper abdominal quadrant are characteristic of prior cholecystectomy CONCLUSION: Radiographically benign-appearing abdomen without obstruction or pneumoperitoneum. Surgical clips leslie racteristic of prior cholecystectomy. Electronically signed by: Jeremy Cox MD 02/09/2018 10:55 AM EDT
[2018-02-09] MEDS: NIFEdipine 60 MG SUSTAINED RELEASE TAB PO SCH (13:10)
--- NOTE | 2018-02-09 13:48 | HHI.PR ---
Subjective Remarks Patient ambulating in the russell no flatus or BM Objective Vitals Vital Signs Date Time Temp Pulse Resp B/P (MAP) Pulse Ox O2 Delivery O2 Flow Rate FiO2 02/09/18 11:43 98.1 54 19 135/62 (86) 97 02/09/18 07:51 98.2 61 19 133/62 (85) 95 02/09/18 04:08 63 02/09/18 04:00 97.5 60 20 127/57 (80) 94 02/09/18 00:05 55 02/09/18 00:00 97.4 59 21 136/62 (86) 94 02/08/18 22:09 Room Air 02/08/18 20:05 75 02/08/18 20:00 98.2 65 20 125/58 (80) 94 02/08/18 16:00 97.9 56 17 138/64 (88) 97 Result Diagram: 02/09/18 0429 02/09/18 0429 Other Results Laboratory Tests Test 02/08/18 02:00 02/08/18 03:13 02/08/18 03:57 02/09/18 04:29 White Blood Count 11.1 TH/MM3 3.9 TH/MM3 Red Blood Count 4.88 MIL/MM3 4.18 MIL/MM3 Hemoglobin 14.6 GM/DL 12.6 GM/DL Hematocrit 42.1 % 36.6 % Mean Corpuscular Volume 86.1 FL 87.4 FL Mean Corpuscular Hemoglobin 29.8 PG 30.1 PG Mean Corpuscular Hemoglobin Concent 34.6 % 34.4 % Red Cell Distribution Width 14.2 % 14.3 % Platelet Count 235 TH/MM3 199 TH/MM3 Mean Platelet Volume 7.8 FL 7.1 FL Neutrophils (%) (Auto) 84.0 % 39.6 % Lymphocytes (%) (Auto) 8.9 % 39.5 % Monocytes (%) (Auto) 6.8 % 16.6 % Eosinophils (%) (Auto) 0.1 % 3.6 % Basophils (%) (Auto) 0.2 % 0.7 % Neutrophils # (Auto) 9.3 TH/MM3 1.5 TH/MM3 Lymphocytes # (Auto) 1.0 TH/MM3 1.5 TH/MM3 Monocytes # (Auto) 0.8 TH/MM3 0.6 TH/MM3 Eosinophils # (Auto) 0.0 TH/MM3 0.1 TH/MM3 Basophils # (Auto) 0.0 TH/MM3 0.0 TH/MM3 CBC Comment DIFF FINAL DIFF FINAL Differential Comment Prothrombin Time 10.2 SEC Prothromb Time International Ratio 1.0 RATIO Activated Partial Thromboplast Time 26.6 SEC Lactic Acid Level 1.1 mmol/L B-Type Natriuretic Peptide 61 PG/ML Blood Urea Nitrogen 14 MG/DL 7 MG/DL Creatinine 0.63 MG/DL 0.54 MG/DL Random Glucose 108 MG/DL 79 MG/DL Total Protein 6.7 GM/DL Albumin 3.1 GM/DL Calcium Level 8.3 MG/DL 7.9 MG/DL Magnesium Level 2.0 MG/DL Alkaline Phosphatase 58 U/L Aspartate Amino Transf (AST/SGOT) 29 U/L Alanine Aminotransferase (ALT/SGPT) 20 U/L Total Bilirubin 0.4 MG/DL Sodium Level 134 MEQ/L 141 MEQ/L Potassium Level 4.3 MEQ/L 3.8 MEQ/L Chloride Level 97 MEQ/L 105 MEQ/L Carbon Dioxide Level 27.2 MEQ/L 28.6 MEQ/L Anion Gap 10 MEQ/L 7 MEQ/L Estimat Glomerular Filtration Rate 91 ML/MIN 108 ML/MIN Total Creatine Kinase 70 U/L Troponin I LESS THAN 0.02 NG/ML Lipase 71 U/L Urine Color LIGHT-YELLOW Urine Turbidity CLEAR Urine pH 6.0 Urine Specific [place] 1.007 Urine Protein NEG mg/dL Urine Glucose (UA) NEG mg/dL Urine Ketones NEG mg/dL Urine Occult Blood NEG Urine Nitrite NEG Urine Bilirubin NEG Urine Urobilinogen LESS THAN 2.0 MG/DL Urine Leukocyte Esterase NEG Urine RBC 1 /hpf Urine WBC LESS THAN 1 /hpf Urine Squamous Epithelial Cells <1 /hpf Urine Hyaline Casts 2 /lpf Urine Mucus FEW /lpf Microscopic Urinalysis Comment CULT NOT INDICATED Imaging Last Impressions Abdomen X-Ray 02/09/18 1000 Signed Impressions: CONCLUSION: Radiographically benign-appearing abdomen without obstruction or pneumoperitone um. Surgical clips characteristic of prior cholecystectomy. Chest X-Ray 02/08/18 015 Signed Impressions: CONCLUSION: 1. No evidence of free air. 2. Mid inspiratory exam with no acute cardiopulmonary disease. Abdomen/Pelvis CT 02/08/18155 Signed Impressions: CONCLUSION: 1. Nonspecific bowel gas pattern which may represent ileus. Small bowel obstru ction is felt to be less likely. 2. Status post cholecystectomy. 3. No free air or fluid. Objective Remarks GENERAL: This is a well-nourished, well-developed patient, in no apparent distress. CARDIOVASCULAR: Regular rate and rhythm RESPIRATORY: Clear to auscultation. Breath sounds equal bilaterally. GASTROINTESTINAL: Abdomen soft, mild tenderness through out, distended, absent bowel sounds MUSCULOSKELETAL: Extremities without clubbing, cyanosis, or edema. NEURO: Alert & Oriented x4 to person, place, time, situation. Moves all ext x4 A/P Problem List: (1) Intractable nausea and vomiting ICD Codes: R11.2 - Nausea with vomiting, unspecified Status: Resolved Plan: -Likely secondary to ileus -Patient n.p.o. -Ondansetron as needed for nausea and vomiting -Supportive care (2) Ileus ICD Codes: K56.7 - Ileus, unspecified Status: Acute Plan: - CT abdomen pelvis with IV contrast reviewed and reveals nonspecific bowel gas pattern which may represent ileus. Small bowel obstruction is felt to be less likely. Status post cholecystectomy. No free air or fluid - Bowel rest, NPO - IV fluids for hydration - repeat KUB (02/09) Radiographically benign appearing abdomen without obstruction or pneumoperitoneum. Surgical clips characteristic or prior cholecystectomy. - dulcolax supp x 1 - consult general surgery, patient has seen Dr. Dennis in November for ileus (3) Atrial fibrillation ICD Codes: I48.91 - Unspecified atrial fibrillation Status: Chronic Plan: - Continue patient's home Flecainide 50 mg PO Q12H, metoprolol 25 mg PO BID, and Eliquis 5 mg daily (4) Hypertension ICD Codes: I10 - Essential (primary) hypertension Status: Chronic Plan: - Continue patient's home metoprolol 25 mg daily and nifedipine 60 mg PO daily (5) Hyperlipidemia ICD Codes: E78.5 - Hyperlipidemia, unspecified Status: Chronic Plan: - held patient's fish oil Assessment and Plan Patient examined. Assessment and plan formulated with Sigrid Anderson PA-C. I agree with the above. Sigrid Anderson February 09, 2018 13:48 Amadeo August DO February 13, 2018 01:17
[2018-02-09] MEDS ORDERED: BISACODYL 10 MG SUPP RECTAL ONE (15:30)
--- NOTE | 2018-02-09 17:04 | PD.CONS ---
HPI Service General surgery Consult Requested By Dr. August Reason for Consult Small bowel obstruction Primary Care Physician Rashard Abbott MD History of Present Illness 82-year-old female known to me from previous admission in October admitted with signs and symptoms of small bowel obstruction. 2 nights ago she developed nausea and vomiting. She has had a small amount of flatus since then a lot of belching. The patient has a history of hysterectomy and at least one lysis of adhesions in the past. CT of the abdomen was somewhat nonspecific yesterday. However, her symptoms have continued. She is on Eliquis for atrial fibrillation. Last colonoscopy was about 5 years ago and was normal. Review of Systems Constitutional: DENIES: Fever, Chills Ears, nose, mouth, throat: DENIES: Oral lesions, Throat pain Respiratory: DENIES: Cough, Shortness of breath Cardiovascular: DENIES: Chest pain, Palpitations Gastrointestinal: COMPLAINS OF: Abdominal pain, Nausea, Vomiting Integumentary: DENIES: Pruritus, Rash Neurologic: DENIES: Paresthesias, Seizures Past Family Social History Past Medical History Atrial fibrillation status post 2 ablations Hyperlipidemia Hypertension GERD Past Surgical History Hysterectomy Ovarian cystectomy Exploratory gynecologic surgery and lysis of adhesions Cholecystectomy Reported Medications Reported Meds & Active Scripts Active Flecainide (Flecainide Acetate) 100 Mg Tab 50 Mg PO Q12HR 30 Days Nifedipine ER 24 HR (Nifedipine) 60 Mg Tab 60 Mg PO DAILY Ativan (Lorazepam) 0.5 Mg Tab 0.5 Mg PO BID PRN Reported Metoprolol Tartrate 25 Mg Tab 25 Mg PO BID D3 (Cholecalciferol) 2,000 Unit Cap 2,000 Units PO DAILY Omeprazole 20 Mg Cap 20 Mg PO BID Fish Oil ([place]-3 Fatty Acids) 1,000 Mg Cap 2,000 Mg PO DAILY Eliquis (Apixaban) 5 Mg Tab 5 Mg PO BID Allergies: Coded Allergies: Sulfa (Sulfonamide Antibiotics) (Unverified Allergy, Severe, "TOLD NOT TO TAKE ANYMORE", 02/08/18) aspirin (Unverified Allergy, Severe, "TOLD NOT TO TAKE ANY ANTIINFLAMMATORIES", 02/08/18) cephalexin (Unverified Allergy, Severe, "SWOLLEN THROAT,ITCHING ALL OVER" , 02/08/18) ibuprofen (Unverified Allergy, Severe, "TOLD NOT TO TAKE ANYMORE", 02/08/18 ) lisinopril (Unverified Allergy, Severe, "RASH", 02/08/18) nabumetone (Unverified Allergy, Severe, "NEPHROTIC SYNDROME", 02/08/18) penicillin G (Unverified Allergy, Severe, UNKNOWN, 02/08/18) adhesive (Unverified Allergy, Intermediate, Rash, 02/08/18) digoxin (Unverified Allergy, Intermediate, Fatigue, 02/08/18) telmisartan (Unverified Allergy, Intermediate, Fatigue, 02/08/18) Uncoded Allergies: ANTIINFLAMMATORIES (Allergy, Severe, "TOLD NOT TO TAKE ANYMORE", 01/04/16) . Active Ordered Medications Current Medications Medications (Trade) Dose Ordered Sig/Shaun Route Start Time Stop Time Status Last Admin Sodium Chloride 1,000 ml @ 75 mls/hr [id number] IV 02/08/18 08:02 02/09/18 09:22 (NS Flush) 2 ml UNSCH PRN IV FLUSH 02/08/18 08:15 (NS Flush) 2 ml BID IV FLUSH 02/08/18 09:00 02/08/18 10:26 (Tylenol) 650 mg Q4H PRN PO 02/08/18 08:15 (Narcan Inj) 0.4 mg UNSCH PRN IV PUSH 02/08/18 08:15 (Zofran Odt) 4 mg Q6H PRN PO 02/08/18 08:15 02/08/18 10:25 (Eliquis) 5 mg BID PO 02/08/18 21:00 02/09/18 09:21 (Tambocor) 50 mg Q12HR PO 02/08/18 14:00 02/09/18 09:21 (Ativan) 0.5 mg BID PRN PO 02/08/18 12:15 02/08/18 22:01 (Lopressor) 25 mg BID PO 02/08/18 13:00 02/09/18 09:21 (Procardia Xl) 60 mg DAILY PO 02/08/18 14:00 02/09/18 13:10 (Protonix) 20 mg BID PO 02/08/18 13:00 02/09/18 09:21 Family History Noncontributory Social History Occasional alcohol. No tobacco or drug use. Physical Exam Vital Signs Vital Signs Date Time Temp Pulse Resp B/P (MAP) Pulse Ox O2 Delivery O2 Flow Rate FiO2 02/09/18 15:41 98.2 57 19 146/65 (92) 98 02/09/18 11:43 98.1 54 19 135/62 (86) 97 02/09/18 09:45 96 21 02/09/18 07:51 98.2 61 19 133/62 (85) 95 02/09/18 04:08 63 02/09/18 04:00 97.5 60 20 127/57 (80) 94 02/09/18 00:05 55 02/09/18 00:00 97.4 59 21 136/62 (86) 94 02/08/18 22:09 Room Air 02/08/18 20:05 75 02/08/18 20:00 98.2 65 20 125/58 (80) 94 Physical Exam GENERAL: Awake and alert. No acute distress. Cooperative. HEAD: Normocephalic. Atraumatic. EYES: Pupils equal round and reactive to light bilaterally. No scleral icterus. ENT: Moist oral mucosa. NECK: Trachea midline. CHEST: Lungs clear to auscultation bilaterally with no wheezing or rhonchi. No respiratory distress. CARDIOVASCULAR: Irregularly irregular ABDOMEN: Mild distention. Tender in the right lower abdomen. No rebound or guarding. EXTREMITIES: No cyanosis or edema. SKIN: Warm, dry, nonjaundiced. Laboratory Laboratory Tests Test 02/09/18 04:29 White Blood Count 3.9 Red Blood Count 4.18 Hemoglobin 12.6 Hematocrit 36.6 Mean Corpuscular Volume 87.4 Mean Corpuscular Hemoglobin 30.1 Mean Corpuscular Hemoglobin Concent 34.4 Red Cell Distribution Width 14.3 Platelet Count 199 Mean Platelet Volume 7.1 Neutrophils (%) (Auto) 39.6 Lymphocytes (%) (Auto) 39.5 Monocytes (%) (Auto) 16.6 Eosinophils (%) (Auto) 3.6 Basophils (%) (Auto) 0.7 Neutrophils # (Auto) 1.5 Lymphocytes # (Auto) 1.5 Monocytes # (Auto) 0.6 Eosinophils # (Auto) 0.1 Basophils # (Auto) 0.0 CBC Comment DIFF FINAL Differential Comment Blood Urea Nitrogen 7 Creatinine 0.54 Random Glucose 79 Calcium Level 7.9 Sodium Level 141 Potassium Level 3.8 Chloride Level 105 Carbon Dioxide Level 28.6 Anion Gap 7 Estimat Glomerular Filtration Rate 108 Result Diagram: 02/09/1842802/09/18428 Imaging Last Impressions Abdomen X-Ray 02/09/18 1000 Signed Impressions: CONCLUSION: Radiographically benign-appearing abdomen without obstruction or pneumoperitone um. Surgical clips characteristic of prior cholecystectomy. Chest X-Ray 02/08/18155 Signed Impressions: CONCLUSION: 1. No evidence of free air. 2. Mid inspiratory exam with no acute cardiopulmonary disease. Abdomen/Pelvis CT 02/08/18155 Signed Impressions: CONCLUSION: 1. Nonspecific bowel gas pattern which may represent ileus. Small bowel obstru ction is felt to be less likely. 2. Status post cholecystectomy. 3. No free air or fluid. 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 Will try a small bowel follow-through as this did help resolve the issue a few months ago. Continue attempts at nonoperative management. SonnyLewis ronquillo MD February 09, 2018 17:04
[2018-02-09] MEDS: LORazepam 0.5 MG TAB PO PRN (23:28)
[2018-02-10] VITALS (8 sets, daily range): BP systolic 131–150; BP diastolic 62–72; PULSE 54–72; RESP 17–20; TEMP 96.6–97.9; O2SAT 95–98
[2018-02-10] MEDS: SODIUM CHLORIDE 0.9% FLUSH 10 ML FLUSH IV FLUSH SCH ×2 (09:00→22:40)
[2018-02-10] MEDS: METOPROLOL TARTRATE 25 MG TAB PO SCH ×2 (09:19→22:41)
[2018-02-10] MEDS: PANTOPRAZOLE SOD 20 MG DELAYED RELEASE TAB PO SCH ×2 (09:19→22:41)
[2018-02-10] MEDS: FLECAINIDE ACETATE 100 MG TAB PO SCH ×2 (09:19→22:40)
[2018-02-10] MEDS: APIXABAN 5 MG TABLET PO SCH ×2 (09:20→22:41)
[2018-02-10] MEDS ORDERED: DIATRIZOATE MEGLUM/DIATRIZOATE SOD 120 ML BTL (for RAD DIAG) PO ONE (10:26)
--- NOTE | 2018-02-10 12:20 | RADRPT ---
EXAM DATE: 02/10/2018 12:07 PM EDT AGE/SEX: 82 years / Female INDICATIONS: Obstruction. CLINICAL DATA: This is the patient's subsequent encounter. Patient reports that signs and symptoms h ave been present for 3 days and indicates a pain score of 7/10. MEDICAL/SURGICAL HISTORY: Hypertension. Appendectomy. Hysterectomy. COMPARISON: [facility]PO, SMALL BOWEL SERIES W/GASTROGRAFIN, 11/18/2017. . FLUORO TIME: 1.4 minutes IMAGE COUNT: 14 CONTRAST: FINDINGS: Preliminary film is unremarkable. The stomach is grossly unremarkable. Examination of the small bowel demonstrates normal mucosal pattern involving the jejunum and ileum. There is no evidence of mass or obstruction. No intraluminal filling defects are identified. Small bowel transit time is rapid at less than 15 minutes. Fluoroscopy of the abdomen and terminal ileum de monstrates no abnormality. CONCLUSION: Normal study Electronically signed by: Carlos Ivey MD 02/10/2018 12:19 PM EDT
[2018-02-10] MEDS: SODIUM CHLOR 0.9% 1000 ML INJ 1,000 ML IV SCH (13:22)
[2018-02-10] MEDS: NIFEdipine 60 MG SUSTAINED RELEASE TAB PO SCH (13:51)
[2018-02-10] MEDS ORDERED: COLA100C5 PO (14:30)
--- NOTE | 2018-02-10 14:33 | HHI.PR ---
Subjective Remarks Patient has had multiple BMs after small bowel follow through reports feeling much better Objective Vitals Vital Signs Date Time Temp Pulse Resp B/P (MAP) Pulse Ox O2 Delivery O2 Flow Rate FiO2 02/10/18 12:30 96.6 54 17 132/62 (85) 96 02/10/18 10:08 95 21 02/10/18 08:00 97.9 62 17 142/65 (90) 97 02/10/18 00:00 97.3 56 20 144/72 (96) 96 02/09/18 20:00 97.4 60 21 131/74 (93) 98 02/09/18 20:00 55 02/09/18 15:41 98.2 57 19 146/65 (92) 98 Result Diagram: 02/09/18 0429 02/09/18 0429 Other Results Laboratory Tests Test 02/08/18 02:00 02/08/18 03:13 02/08/18 03:57 02/09/18 04:29 White Blood Count 11.1 TH/MM3 3.9 TH/MM3 Red Blood Count 4.88 MIL/MM3 4.18 MIL/MM3 Hemoglobin 14.6 GM/DL 12.6 GM/DL Hematocrit 42.1 % 36.6 % Mean Corpuscular Volume 86.1 FL 87.4 FL Mean Corpuscular Hemoglobin 29.8 PG 30.1 PG Mean Corpuscular Hemoglobin Concent 34.6 % 34.4 % Red Cell Distribution Width 14.2 % 14.3 % Platelet Count 235 TH/MM3 199 TH/MM3 Mean Platelet Volume 7.8 FL 7.1 FL Neutrophils (%) (Auto) 84.0 % 39.6 % Lymphocytes (%) (Auto) 8.9 % 39.5 % Monocytes (%) (Auto) 6.8 % 16.6 % Eosinophils (%) (Auto) 0.1 % 3.6 % Basophils (%) (Auto) 0.2 % 0.7 % Neutrophils # (Auto) 9.3 TH/MM3 1.5 TH/MM3 Lymphocytes # (Auto) 1.0 TH/MM3 1.5 TH/MM3 Monocytes # (Auto) 0.8 TH/MM3 0.6 TH/MM3 Eosinophils # (Auto) 0.0 TH/MM3 0.1 TH/MM3 Basophils # (Auto) 0.0 TH/MM3 0.0 TH/MM3 CBC Comment DIFF FINAL DIFF FINAL Differential Comment Prothrombin Time 10.2 SEC Prothromb Time International Ratio 1.0 RATIO Activated Partial Thromboplast Time 26.6 SEC Lactic Acid Level 1.1 mmol/L B-Type Natriuretic Peptide 61 PG/ML Blood Urea Nitrogen 14 MG/DL 7 MG/DL Creatinine 0.63 MG/DL 0.54 MG/DL Random Glucose 108 MG/DL 79 MG/DL Total Protein 6.7 GM/DL Albumin 3.1 GM/DL Calcium Level 8.3 MG/DL 7.9 MG/DL Magnesium Level 2.0 MG/DL Alkaline Phosphatase 58 U/L Aspartate Amino Transf (AST/SGOT) 29 U/L Alanine Aminotransferase (ALT/SGPT) 20 U/L Total Bilirubin 0.4 MG/DL Sodium Level 134 MEQ/L 141 MEQ/L Potassium Level 4.3 MEQ/L 3.8 MEQ/L Chloride Level 97 MEQ/L 105 MEQ/L Carbon Dioxide Level 27.2 MEQ/L 28.6 MEQ/L Anion Gap 10 MEQ/L 7 MEQ/L Estimat Glomerular Filtration Rate 91 ML/MIN 108 ML/MIN Total Creatine Kinase 70 U/L Troponin I LESS THAN 0.02 NG/ML Lipase 71 U/L Urine Color LIGHT-YELLOW Urine Turbidity CLEAR Urine pH 6.0 Urine Specific Chloride 1.007 Urine Protein NEG mg/dL Urine Glucose (UA) NEG mg/dL Urine Ketones NEG mg/dL Urine Occult Blood NEG Urine Nitrite NEG Urine Bilirubin NEG Urine Urobilinogen LESS THAN 2.0 MG/DL Urine Leukocyte Esterase NEG Urine RBC 1 /hpf Urine WBC LESS THAN 1 /hpf Urine Squamous Epithelial Cells <1 /hpf Urine Hyaline Casts 2 /lpf Urine Mucus FEW /lpf Microscopic Urinalysis Comment CULT NOT INDICATED Imaging Last Impressions Abdomen X-Ray 02/09/18 1000 Signed Impressions: CONCLUSION: Radiographically benign-appearing abdomen without obstruction or pneumoperitone um. Surgical clips characteristic of prior cholecystectomy. Chest X-Ray 02/08/18 015 Signed Impressions: CONCLUSION: 1. No evidence of free air. 2. Mid inspiratory exam with no acute cardiopulmonary disease. Abdomen/Pelvis CT 02/08/18155 Signed Impressions: CONCLUSION: 1. Nonspecific bowel gas pattern which may represent ileus. Small bowel obstru ction is felt to be less likely. 2. Status post cholecystectomy. 3. No free air or fluid. Objective Remarks GENERAL: This is a well-nourished, well-developed patient, in no apparent distress. CARDIOVASCULAR: Regular rate and rhythm RESPIRATORY: Clear to auscultation. Breath sounds equal bilaterally. GASTROINTESTINAL: Abdomen soft, non tender, non distended, active bowel sounds MUSCULOSKELETAL: Extremities without clubbing, cyanosis, or edema. NEURO: Alert & Oriented x4 to person, place, time, situation. Moves all ext x4 A/P Problem List: (1) Intractable nausea and vomiting ICD Codes: R11.2 - Nausea with vomiting, unspecified Status: Resolved Plan: -Likely secondary to ileus -Ondansetron as needed for nausea and vomiting -Supportive care (2) Ileus ICD Codes: K56.7 - Ileus, unspecified Status: Acute Plan: - CT abdomen pelvis with IV contrast reviewed and reveals nonspecific bowel gas pattern which may represent ileus. Small bowel obstruction is felt to be less likely. Status post cholecystectomy. No free air or fluid - Bowel rest, NPO - IV fluids for hydration - repeat KUB (02/09) Radiographically benign appearing abdomen without obstruction or pneumoperitoneum. Surgical clips characteristic or prior cholecystectomy. - Dulcolax supp x 1 (02/09) - consult general surgery, patient has seen Dr. Dennis in November for ileus. Appreciate input - Patient multiple stools after small bowel series today - tolerating clear liquid diet - plan to advance diet and DC in AM (3) Atrial fibrillation ICD Codes: I48.91 - Unspecified atrial fibrillation Status: Chronic Plan: - Continue patient's home Flecainide 50 mg PO Q12H, metoprolol 25 mg PO BID, and Eliquis 5 mg daily (4) Hypertension ICD Codes: I10 - Essential (primary) hypertension Status: Chronic Plan: - Continue patient's home metoprolol 25 mg daily and nifedipine 60 mg PO daily (5) Hyperlipidemia ICD Codes: E78.5 - Hyperlipidemia, unspecified Status: Chronic Plan: - held patient's fish oil Assessment and Plan Patient examined. Assessment and plan formulated with Sigrid Anderson PA-C. I agree with the above. Sigrid Anderson February 10, 2018 14:32 Amadeo August DO February 13, 2018 01:18
--- NOTE | 2018-02-10 14:52 | HHI.PR ---
Subjective Subjective Notes Has had multiple bowel movts after small bowel series and feels much better. She is hungry. TOlerating clears. Objective Vitals/I&O Vital Signs Date Time Temp Pulse Resp B/P (MAP) Pulse Ox O2 Delivery O2 Flow Rate FiO2 02/10/18 12:30 96.6 54 17 132/62 (85) 96 02/10/18 10:08 21 02/09/18 08:00 Room Air Radiology Last Impressions Abdomen X-Ray 02/09/18 1000 Signed Impressions: CONCLUSION: Radiographically benign-appearing abdomen without obstruction or pneumoperitone um. Surgical clips characteristic of prior cholecystectomy. Chest X-Ray 02/08/18155 Signed Impressions: CONCLUSION: 1. No evidence of free air. 2. Mid inspiratory exam with no acute cardiopulmonary disease. Abdomen/Pelvis CT 02/08/18155 Signed Impressions: CONCLUSION: 1. Nonspecific bowel gas pattern which may represent ileus. Small bowel obstru ction is felt to be less likely. 2. Status post cholecystectomy. 3. No free air or fluid. Narrative Exam No distress Abd soft A/P Assessment and Plan 82 yo F with pSBO, resolved. STart soft diet. Clear for discharge from my standpoint as long as she tolerates at least one solid meal. F/u PRN. Try to avoid high fiber diet. Discussed in detail iwth patient. SonnyLewis MD February 10, 2018 14:52
--- NOTE | 2018-02-10 15:57 | HHI.DCPOC ---
Discharge Care Plan Diagnosis: (1) Ileus (2) Abdominal pain (3) Intractable nausea and vomiting Goals to Promote Your Health * To prevent worsening of your condition and complications * To maintain your health at the optimal level Directions to Meet Your Goals Take your medications as prescribed Follow your dietary instruction Follow activity as directed Keep your appointments as scheduled Take your immunizations and boosters as scheduled If your symptoms worsen call your PCP, if no PCP go to Urgent Care Center or Emergency Room Smoking is Dangerous to Your Health. Avoid second hand smoke Call the 24-hour hour crisis hotline for domestic abuse at Sigrid Anderson February 10, 2018 15:57 Amadeo August DO February 13, 2018 01:19
--- NOTE | 2018-02-10 15:59 | HHI.DS ---
Discharge Summary Admission Date February 08, 2018 at 07:10 Discharge Date: February 11, 2018 Admitting Diagnosis Ileus vs SBO (1) Intractable nausea and vomiting Diagnosis: Principal ICD Codes: R11.2 - Nausea with vomiting, unspecified Status: Resolved (2) Ileus Diagnosis: Principal ICD Codes: K56.7 - Ileus, unspecified Status: Acute (3) Atrial fibrillation Diagnosis: Secondary ICD Codes: I48.91 - Unspecified atrial fibrillation Status: Chronic (4) Hypertension Diagnosis: Secondary ICD Codes: I10 - Essential (primary) hypertension Status: Chronic (5) Hyperlipidemia Diagnosis: Secondary ICD Codes: E78.5 - Hyperlipidemia, unspecified Status: Chronic Consultants Dr. Dennis, general surgery Procedures None Brief History Mrs. Johnson is an 82 y/o female with a past medical history which includes atrial fibrillation s/p EPS and ablation on 01/20/17, HTN, hyperlipidemia, GERD, hiatal hernia, esophageal stricture, anxiety, osteoarthritis, osteopenia, vitamin D deficiency, paroxysmal SVT, degenerative disc disease and diverticulitis. The patient reports a prior abdominal surgical history of hysterectomy, cholecystectomy, and appendectomy. Patient presented to the ER with abdominal pain that she reports is been present and associated with back pain for the last 2 days. She describes the pain has been constant and a pressure sensation. She reports that it is most prominent in the center of her abdomen just above the umbilicus. Patient also has associated nausea and vomiting. She estimates that she has vomited approximately 12 times. She reports that she did have a loose stool when the vomiting began, however because of the pressure in her abdomen she took a laxative. She reports that she last moved her bowels normally in the morning of 02/07. The patient reports a recent history of months ago being admitted to the [facility] related to a bowel obstruction that was thought to be related to adhesions. She reports that the symptoms resolved on its own. Patient denies having any known recent fevers, cough, congestion, neck pain, chest pain, shortness of breath,urinary symptoms, or neurologic symptoms. CBC/BMP: 02/09/18 0429 02/09/18 0429 Significant Findings Laboratory Tests Test 02/08/18 02:00 02/08/18 03:13 02/08/18 03:57 02/09/18 04:29 White Blood Count 11.1 TH/MM3 (4.0-11.0) 3.9 TH/MM3 (4.0-11.0) Neutrophils (%) (Auto) 84.0 % (16.0-70.0) Lymphocytes (%) (Auto) 8.9 % (9.0-44.0) Neutrophils # (Auto) 9.3 TH/MM3 (1.8-7.7) 1.5 TH/MM3 (1.8-7.7) Random Glucose 108 MG/DL (74-106) Albumin 3.1 GM/DL (3.4-5.0) Calcium Level 8.3 MG/DL (8.5-10.1) 7.9 MG/DL (8.5-10.1) Sodium Level 134 MEQ/L (136-145) Chloride Level 97 MEQ/L (98-107) Troponin I LESS THAN 0.02 NG/ML Lipase 71 U/L (73-393) Urine Mucus FEW /lpf (OCC) Monocytes (%) (Auto) 16.6 % (0.0-8.0) Imaging Last Impressions Small Bowel X-Ray 02/10/18 0000 Signed Impressions: CONCLUSION: Normal study Abdomen X-Ray 02/09/18 1000 Signed Impressions: CONCLUSION: Radiographically benign-appearing abdomen without obstruction or pneumoperitone um. Surgical clips characteristic of prior cholecystectomy. Chest X-Ray 02/08/18 0156 Signed Impressions: CONCLUSION: 1. No evidence of free air. 2. Mid inspiratory exam with no acute cardiopulmonary disease. Abdomen/Pelvis CT 02/08/18 0156 Signed Impressions: CONCLUSION: 1. Nonspecific bowel gas pattern which may represent ileus. Small bowel obstru ction is felt to be less likely. 2. Status post cholecystectomy. 3. No free air or fluid. PE at Discharge GENERAL: This is a well-nourished, well-developed patient, in no apparent distress. CARDIOVASCULAR: Regular rate and rhythm RESPIRATORY: Clear to auscultation. Breath sounds equal bilaterally. GASTROINTESTINAL: Abdomen soft, non tender, non distended, active bowel sounds MUSCULOSKELETAL: Extremities without clubbing, cyanosis, or edema. NEURO: Alert & Oriented x4 to person, place, time, situation. Moves all ext x4 Hospital Course Intractable nausea and vomiting - resolved -Likely secondary to ileus -Ondansetron as needed for nausea and vomiting -Supportive care Ileus - CT abdomen pelvis with IV contrast reviewed and reveals nonspecific bowel gas pattern which may represent ileus. Small bowel obstruction is felt to be less likely. Status post cholecystectomy. No free air or fluid - Bowel rest, NPO - IV fluids for hydration - repeat KUB (02/09) Radiographically benign appearing abdomen without obstruction or pneumoperitoneum. Surgical clips characteristic or prior cholecystectomy. - Dulcolax supp x 1 (02/09) - consult general surgery, patient has seen Dr. Dennis in November for ileus. Appreciate input - Patient multiple stools after small bowel series today - tolerating diet Atrial fibrillation - Continue patient's home Flecainide 50 mg PO Q12H, metoprolol 25 mg PO BID, and Eliquis 5 mg daily Hypertension - Continue patient's home metoprolol 25 mg daily and nifedipine 60 mg PO daily Hyperlipidemia - held patient's fish oil Pt Condition on Discharge: Stable Discharge Disposition: Discharge Home Discharge Instructions DIET: Follow Instructions for: Heart Healthy Diet Speech Therapy-Diet Recommends: Soft Activities you can perform: Regular-No Restrictions Follow up Referrals: PCP Follow-up - [address] Abbott New Medications: Docusate Sodium (Colace) 100 Mg Capsule 100 MG PO BID for Prevent Constipation, #60 CAP 0 Refills Continued Medications: Apixaban (Eliquis) 5 Mg Tab 5 MG PO BID for Blood Clot Prevention, #60 TAB 0 Refills Cholecalciferol (D3) 2,000 Unit Cap 2000 UNITS PO DAILY Flecainide (Flecainide) 100 Mg Tab 50 MG PO Q12HR for afib for 30 Days, #60 TAB Lorazepam (Ativan) 0.5 Mg Tab 0.5 MG PO BID PRN for ANXIETY AND/OR AGITATION, #20 TAB 0 Refills Metoprolol Tartrate (Metoprolol Tartrate) 25 Mg Tab 25 MG PO BID, #60 TAB 0 Refills Nifedipine ER 24 HR (Nifedipine ER 24 HR) 60 Mg Tab 60 MG PO DAILY for htn, #30 TAB 3 Refills [place]-3 Fatty Acids (Fish Oil) 1,000 Mg Cap 2000 MG PO DAILY Omeprazole (Omeprazole) 20 Mg Cap 20 MG PO BID Additional Information Patient examined. Assessment and plan formulated with Sigrid Anderson PA-C. I agree with the above. Sigrid Anderson February 10, 2018 15:59 Amadeo August DO February 13, 2018 01:18
[2018-02-10] MEDS: LORazepam 0.5 MG TAB PO PRN (22:41)
[2018-02-11 00:15] VITALS: PULSE 57
[2018-02-11] MEDS: SODIUM CHLOR 0.9% 1000 ML INJ 1,000 ML IV SCH (01:14)
[2018-02-11 04:00] VITALS: PULSE 56
[2018-02-11 04:50] VITALS: BP 142/64; PULSE 61; RESP 17; TEMP 97.5; O2SAT 96
[2018-02-11 08:00] VITALS: BP 133/66; PULSE 61; RESP 18; TEMP 97.8; O2SAT 96
[2018-02-11] MEDS: APIXABAN 5 MG TABLET PO SCH (10:00)
[2018-02-11] MEDS: METOPROLOL TARTRATE 25 MG TAB PO SCH (10:01)
[2018-02-11] MEDS: PANTOPRAZOLE SOD 20 MG DELAYED RELEASE TAB PO SCH (10:01)
[2018-02-11] MEDS: FLECAINIDE ACETATE 100 MG TAB PO SCH (10:01)
[2018-02-11] MEDS: NIFEdipine 60 MG SUSTAINED RELEASE TAB PO SCH (10:01)
[2018-02-11] MEDS: SODIUM CHLORIDE 0.9% FLUSH 10 ML FLUSH IV FLUSH SCH (10:07)
[2018-02-11 12:00] VITALS: BP 130/73; PULSE 68; RESP 18; TEMP 97.9; O2SAT 97
== END 2018-02-11 12:33 | disposition home or self-care (01) | DRG 389 ==
LOC: NEPE 23:35 → NEDA 02-08 07:10 → N06A 02-08 08:41
PROVIDERS: ADMIT Hospitalist; ATTEND Hospitalist
DX: K56.7 Ileus, unspecified (principal); I47.1 Supraventricular tachycardia; I48.91 Unspecified atrial fibrillation; I10 Essential (primary) hypertension; E78.5 Hyperlipidemia, unspecified; M85.80 Other specified disorders of bone density and structure, unspecified site; M19.90 Unspecified osteoarthritis, unspecified site; E55.9 Vitamin D deficiency, unspecified; F41.9 Anxiety disorder, unspecified; K21.9 Gastro-esophageal reflux disease without esophagitis; R11.2 Nausea with vomiting, unspecified; Z87.891 Personal history of nicotine dependence; Z90.49 Acquired absence of other specified parts of digestive tract; Z90.710 Acquired absence of both cervix and uterus; Z90.721 Acquired absence of ovaries, unilateral; Z88.8 Allergy status to other drugs, medicaments and biological substances; Z79.01 Long term (current) use of anticoagulants
CPT/HCPCS: 71045; 74018; 74177; 74250; 80048; 80053; 81001; 82550; 83605; 83690; 83735; 83880; 84484; 85025; 85610; 85730; 93005; 96361; 96374; 96375; 99285; J0780; J2270; J7030; J7040; Q9963; Q9967

== ENCOUNTER 2018-07-22 18:52 | Inpatient (IN) ==
[2018-07-22] MEDS ORDERED: dilTIAZem Inj 125 MG in Sodium Chlor 0.9% Inj 100 ML IV.CONT PRN (19:09)
--- NOTE | 2018-07-22 19:13 | ED ---
HPI General Chief Complaint: Chest Pain Stated Complaint: Cardiac complaint Time Seen by Provider: 07/22/18 18:55 Source: patient, RN notes reviewed and old records reviewed Mode of arrival: ambulatory Limitations: no limitations History of Present Illness HPI narrative: 83-year-old female presents to the emergency department via EMS for evaluation of tachycardia, generalized weakness. Patient states she went to [facility] and when she came out she believes her heart was racing. When she got home, she checked her blood pressure and it was 190 systolic with a heart rate in the 170s. She took her home with trouble and called EMS. Patient has history of A. fib. She is on Eliquis. 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 Howe. She states she has had A. fib for 8-9 years and has had 2 ablations. She states she has never had felt or had a heart rate this fast before. She denies chest pain. She reports some shortness of breath that is been chronic for several months with exertion. No shortness of breath at this time. Moderate severity. MD complaint: Reports rapid heart beat, "heart racing", irregular heart beat and atrial fibrillation Onset (ago): hour(s) Duration: constant Severity: moderate Context: Reports occurred during rest Arrhythmia history: Reports atrial fibrillation, on anti-coagulants and history of ablation Associated symptoms: Reports shortness of breath; Denies chest pain, syncope, near-syncope, nausea, vomiting, anxiety, diaphoresis, cough, paresthesias, feeling of impending doom and muscle cramps Treatments prior to arrival: Reports beta-jane Related Data Home Medications Medication Instructions Recorded Confirmed apixaban [Eliquis] 5 mg PO BID 06/28/18 07/22/18 flecainide 50 mg PO Q12H 06/28/18 07/22/18 metoprolol tartrate 25 mg PO BID 06/28/18 07/22/18 omeprazole 20 mg PO BID 06/28/18 07/22/18 Previous Rx's Medication Instructions Recorded hydrocodone-acetaminophen [Odin] 2 tab PO Q6H #30 tab 07/05/18 Allergies Allergy/AdvReac Type Severity Reaction Status Date / Time aspirin Allergy Severe "TOLD NOT Verified 07/22/18 19:11 TO TAKE ANY ANTIINFLAMMATORIES" cephalexin Allergy Severe "SWOLLEN Verified 11/03/18 19:11 THROAT,ITCHING ALL OVER" ibuprofen Allergy Severe "TOLD NOT Verified 07/22/18 19:11 TO TAKE ANYMORE" lisinopril Allergy Severe "RASH" Verified 07/22/18 19:11 nabumetone Allergy Severe "NEPHROTIC Verified 07/22/18 19:11 SYNDROME" NSAIDS (Non-Steroidal Allergy Severe advised Verified 07/22/18 19:11 Anti-Inflamma not to take anymore penicillin G Allergy Severe UNKNOWN Verified 07/22/18 19:11 Sulfa (Sulfonamide Allergy Severe "TOLD NOT Verified 07/22/18 19:11 Antibiotics) TO TAKE ANYMORE" adhesive Allergy Intermediate Rash Verified 07/22/18 19:11 digoxin Allergy Intermediate disorientat Verified 07/22/18 19:11 ion telmisartan Allergy Intermediate disorientat Verified 07/01/18 17:31 ion Review of Systems ROS: all other systems reviewed are negative [facility] Social History Social History Substance History: No History of Abuse Second Hand Smoke Exposure: No Smoking Status: Never smoker Tobacco Type: Cigarettes How Often Do You Have a Drink Containing Alcohol: Monthly or less Recent Travel in [facility] within the Last 8 Weeks: No Recent Out of Country Travel within the Last 8 Weeks: No Immunization History Tetanus Immunization: <5 Years Exam Narrative Exam Narrative: GENERAL: Well-nourished, well-developed elderly female patient, afebrile SKIN: Focused skin assessment warm/dry. HEAD: Normocephalic. Atraumatic EYES: No scleral icterus. No injection or drainage. NECK: Supple, trachea midline. No JVD or lymphadenopathy. CARDIOVASCULAR: Irregular rhythm, tachycardia with HR between 110 and 135, without murmurs, gallops, or rubs. Bilateral radial and pedal pulses are 2+ RESPIRATORY: Breath sounds equal bilaterally. No accessory muscle use. Lung sounds are clear to auscultation GASTROINTESTINAL: Abdomen soft, non-tender, nondistended. MUSCULOSKELETAL: No cyanosis, or edema. BACK: Nontender without obvious deformity. No CVA tenderness. Course Initial Documented Vital Signs Temperature 98.5 F 07/22/18 18:57 Pulse Rate 133 H 07/22/18 18:57 Respiratory Rate 20 07/22/18 18:57 Blood Pressure 226/108 H 07/22/18 18:57 Pulse Oximetry 99 07/22/18 18:57 Last Documented Vital Signs Temperature 98.5 F 07/22/18 18:57 Pulse Rate 88 07/22/18 20:44 Respiratory Rate 18 07/22/18 20:44 Blood Pressure 150/81 H 07/22/18 20:44 Pulse Oximetry 97 07/22/18 20:44 Medical Decision Making MDM Narrative Medical decision making narrative: 83-year-old female presents to the emergency department for evaluation of A. fib with RVR. IV access was obtained by EMS. CBC, CMP, magnesium, CK, troponin, PTT, PT/INR, chest x-ray ordered and pending. Patient is given Cardizem 16 mg IV and a Cardizem drip is started. EKG shows A. fib heart rate 123, with PVC CBC shows no acute abnormalities. CMP shows hyponatremia of 129. Magnesium is 2.0. CK is 55. Troponin is less than 0.02. BNP is 367. PTT is 30.0. PT/INR is 10.3/1.0. Chest x-ray shows No acute cardiopulmonary disease demonstrated. Upon reexamination, patient states she had nephrotic syndrome approximately 15 years ago. She states that her urine has been abnormal with "bubbles in it" since yesterday. She is concerned that she is a nephrotic syndrome again. UA is ordered and pending. [facility] is paged for admission. Medical Screen Exam Complete: Yes Emergency Medical Condition: Yes Differential Diagnosis Differential Diagnosis: A-fib with RVR vs. ACS vs. electrolyte abnormality Medical Records Medical records reviewed: Yes I reviewed the patient's medical records. Lab Data Result diagrams: 07/22/18 19:19 07/22/18 19:19 Lab Results 07/22/18 07/22/18 07/22/18 Range/Units 19:19 19:19 19:19 WBC 7.0 (4.0-11.0) th/mm3 RBC 4.26 (4.00-5.30) mil/mm3 Hgb 13.0 (11.6-15.3) gm/dL Hct 37.3 (35.0-46.0) % MCV 87.5 (80.0-100.0) fL MCH 30.4 (27.0-34.0) pg MCHC 34.8 (32.0-36.0) % RDW 13.8 (11.6-17.2) % Plt Count 287 (150-450) th/mm3 MPV 7.6 (7.0-11.0) fL Neut % (Auto) 55.5 (16.0-70.0) % Lymph % (Auto) 28.8 (9.0-44.0) % Cocke % (Auto) 12.8 H (0.0-8.0) % Eos % (Auto) 2.1 (0.0-4.0) % Baso % (Auto) 0.8 (0.0-2.0) % Neut # (Auto) 3.9 (1.8-7.7) th/mm3 Lymph # (Auto) 2.0 (1.0-4.8) th/mm3 Cocke # (Auto) 0.9 (0.0-0.9) th/mm3 Eos # (Auto) 0.1 (0.0-0.4) th/mm3 Baso # (Auto) 0.1 (0.0-0.2) th/mm3 WBC Differential . Differential Comment Auto diff final PT 10.3 (9.8-11.6) sec INR 1.0 Ratio APTT 30.0 (23.4-31.7) sec Sodium 129 L (136-145) meq/L Potassium 3.8 (3.5-5.1) meq/L Chloride 94 L (98-107) meq/L Carbon Dioxide 24.2 (21.0-32.0) meq/L Anion Gap 11 (5-15) meq/L BUN 11 (7-18) mg/dL Creatinine 0.64 (0.50-1.00) mg/dL Estimated GFR 89 (>89) mL/min Random Glucose 99 (74-106) mg/dL Calcium 8.9 (8.5-10.1) mg/dL Magnesium 2.0 (1.5-2.5) mg/dL Total Bilirubin 0.3 (0.2-1.0) mg/dL AST 22 (15-37) U/L ALT 36 (10-53) U/L Alkaline Phosphatase 90 (45-117) U/L Total Creatine Kinase 55 (26-192) U/L Troponin I Less than 0.02 L (0.02-0.05) ng/mL B-Natriuretic Peptide (0-100) pg/mL Total Protein 8.0 (6.4-8.2) g/dL Albumin 3.8 (3.4-5.0) g/dL 07/22/18 Range/Units 19:19 WBC (4.0-11.0) th/mm3 RBC (4.00-5.30) mil/mm3 Hgb (11.6-15.3) gm/dL Hct (35.0-46.0) % MCV (80.0-100.0) fL MCH (27.0-34.0) pg MCHC (32.0-36.0) % RDW (11.6-17.2) % Plt Count (150-450) th/mm3 MPV (7.0-11.0) fL Neut % (Auto) (16.0-70.0) % Lymph % (Auto) (9.0-44.0) % Cocke % (Auto) (0.0-8.0) % Eos % (Auto) (0.0-4.0) % Baso % (Auto) (0.0-2.0) % Neut # (Auto) (1.8-7.7) th/mm3 Lymph # (Auto) (1.0-4.8) th/mm3 Cocke # (Auto) (0.0-0.9) th/mm3 Eos # (Auto) (0.0-0.4) th/mm3 Baso # (Auto) (0.0-0.2) th/mm3 WBC Differential Differential Comment PT (9.8-11.6) sec INR Ratio APTT (23.4-31.7) sec Sodium (136-145) meq/L Potassium (3.5-5.1) meq/L Chloride (98-107) meq/L Carbon Dioxide (21.0-32.0) meq/L Anion Gap (5-15) meq/L BUN (7-18) mg/dL Creatinine (0.50-1.00) mg/dL Estimated GFR (>89) mL/min Random Glucose (74-106) mg/dL Calcium (8.5-10.1) mg/dL Magnesium (1.5-2.5) mg/dL Total Bilirubin (0.2-1.0) mg/dL AST (15-37) U/L ALT (10-53) U/L Alkaline Phosphatase (45-117) U/L Total Creatine Kinase (26-192) U/L Troponin I (0.02-0.05) ng/mL B-Natriuretic Peptide 367 H (0-100) pg/mL Total Protein (6.4-8.2) g/dL Albumin (3.4-5.0) g/dL Imaging Data Radiologist's impression: Chest X-Ray 07/22/18 19:30 CONCLUSION: No acute cardiopulmonary disease demonstrated. Discharge Plan Discharge Disposition Patient Disposition: 30 Still Patient Discharge Details Diagnosis: Atrial fibrillation with RVR Physicians Team ED Provider: Kevin Ramesh ED Midlevel Provider: Steph Barton Primary Care Provider: Rashard Abbott Attending Provider: Jesse Arndt Other Providers: Ifeanyi Delgado Status ED Status: Admitted Patient
--- NOTE | 2018-07-22 19:50 | XR ---
EXAM DATE: 07/22/2018 7:44 PM EDT AGE/SEX: 83 years / Female INDICATIONS: Chest discomfort and rapid heart beat today. CLINICAL DATA: This is the patient's initial encounter. Patient reports that signs and symptoms have been present for 1 day and indicates a pain score of 2/10. MEDICAL/SURGICAL HISTORY: . Hypertension. Cardiovascular disease. . Appendectomy. Hysterectom y. COMPARISON: [facility], CHEST SINGLE AP, 02/08/2018. . FINDINGS: No infiltrate, effusion or pneumothorax demonstrated. Heart size stable, upper limits of normal. Thor acic aorta is tortuous. CONCLUSION: No acute cardiopulmonary disease demonstrated. Electronically signed by: Carlos Franco MD 07/22/2018 7:49 PM EDT
[2018-07-22 19:54] LABS: Baso # (Auto) 0.1 th/mm3 (0.0-0.2); Baso % (Auto) 0.8 % (0.0-2.0); Eos # (Auto) 0.1 th/mm3 (0.0-0.4); Eos % (Auto) 2.1 % (0.0-4.0); Hematocrit 37.3 % (35.0-46.0); Lymph % (Auto) 28.8 % (9.0-44.0); Mean Corpuscular HGB Conc 34.8 % (32.0-36.0); Mean Corpuscular Hemoglobin 30.4 pg (27.0-34.0); Mean Corpuscular Volume 87.5 fL (80.0-100.0); Mean Platelet Volume 7.6 fL (7.0-11.0); Mono # (Auto) 0.9 th/mm3 (0.0-0.9); Mono % (Auto) 12.8 % (0.0-8.0); Neut # (Auto) 3.9 th/mm3 (1.8-7.7); Neut % (Auto) 55.5 % (16.0-70.0); Platelet Count 287 th/mm3 (150-450); Red Blood Count 4.26 mil/mm3 (4.00-5.30); Red Cell Distribution Width 13.8 % (11.6-17.2)
[2018-07-22 20:04] LABS: Prothrombin Time 10.3 sec (9.8-11.6)
[2018-07-22 20:19] LABS: Albumin 3.8 g/dL (3.4-5.0); Anion Gap 11 meq/L (5-15); Aspartate Aminotransferase 22 U/L (15-37); Blood Urea Nitrogen 11 mg/dL (7-18); Calcium 8.9 mg/dL (8.5-10.1); Carbon Dioxide 24.2 meq/L (21.0-32.0); Chloride 94 meq/L (98-107); Glomerular Filtration Rate 89 mL/min (>89); Glucose,Random 99 mg/dL (74-106); Potassium 3.8 meq/L (3.5-5.1); Sodium 129 meq/L (136-145)
[2018-07-22 20:20] LABS: Alanine Aminotransferase 36 U/L (10-53)
[2018-07-22 20:23] LABS: Alkaline Phosphatase 90 U/L (45-117)
[2018-07-22 20:30] LABS: Creatine Kinase 55 U/L (26-192)
[2018-07-22] MEDS ORDERED: Bisacodyl 10 MG Supp RECTAL PRN (21:54)
--- NOTE | 2018-07-22 22:05 | P.HP ---
History of Present Illness [facility]: [facility] Primary Care Physician: Rashard Abbott MD Chief Complaint: Rapid heart rate History of Present Illness: HPI narrative: 83-year-old female presents to the emergency department via EMS for evaluation of tachycardia, generalized weakness. Patient states she went to [facility] and when she came out she believes her heart was racing. When she got home, she checked her blood pressure and it was 190 systolic with a heart rate in the 170s. She called EMS. Patient has history of A. fib. She is on Eliquis. 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 Howe. She states she has had A. fib for 8-9 years and has had 2 ablations. She states she has never had felt or had a heart rate this fast before. She denies chest pain. She reports some shortness of breath that is been chronic for several months with exertion. No shortness of breath at this time. Patient also has noted that she has had some bubbling of her urine, and has a history of nephrotic syndrome several years ago and was afraid it may be coming back. In the emergency room patient received a Cardizem bolus, and started a Cardizem drip with improvement in heart rate. Patient will be admitted to the cardiac unit and will consult cardiology note recently patient was changed from nifedipine to hydralazine for her blood pressure she was having side effects of flushing of the face with nifedipine. Also patient takes clonidine as needed for her blood pressure. - Diagnosis (1) Atrial fibrillation with RVR (2) Elevated blood pressure reading Inpatient Certification: I certify that the inpatient services were ordered in accordance with Medicare regulations governing the order. This includes certification that hospital inpatient services are reasonable and necessary and in the case of services not specified as inpatient-only under 42 CFR 419.22(n), that they are appropriately provided as inpatient services in accordance to with the 2-midnight benchmark under 43 CFR 412.3(e) Estimated Total Length of Stay (Days): 2 Plans for Post Hospital Care: Home Review of Systems All other systems reviewed negative except as stated in HPI PMFSH - History History Provided By: Patient, Bobbin Collector / EMT - Medical History Medical History: Medical History (Last Reviewed 07/22/18 @ 22:02 by Lino Reno MD) Afib Arthritis GERD (gastroesophageal reflux disease) H/O small bowel obstruction H/O: hysterectomy Hypertension Nephrotic syndrome Wears glasses - Surgical History Surgical History: Surgical History (Last Reviewed 07/22/18 @ 22:02 by Lino Reno MD) H/O cardiac radiofrequency ablation Hx of appendectomy Hx of cholecystectomy Hx of tonsillectomy S/P arthroscopy of right shoulder Status post cataract extraction of both eyes with insertion of intraocular lens - Tobacco History Second Hand Smoke Exposure: No Smoking Status: Never smoker Tobacco Type: Cigarettes - Alcohol History How Often Do You Have a Drink Containing Alcohol: Monthly or less - Substance Use History Substance History: No History of Abuse - Travel History Recent Travel in the [place] Within the Last 8 Weeks: No Recent Travel Out of the Country Within the Last 8 Weeks: No - Immunization History Tetanus Immunization: <5 Years Medications and Allergies Active Medications: Active Medications Apixaban (Eliquis) 5 mg PO BID GUERO Clonidine HCl (Catapres) 0.1 mg PO Q6H PRN PRN Reason: SBP> OR = 180, DBP> OR = 100 Hydralazine HCl (Apresoline) 25 mg PO BID GUERO Diltiazem HCl 125 mg/ Sodium (Chloride) 125 mls @ 5 mls/hr IV.CONT TITRATE PRN ; Protocol PRN Reason: Per Protocol Metoprolol Tartrate (Lopressor) 25 mg PO BID GUERO Non-Formulary Medication (Flecainide [Flecainide]) 50 mg PO Q12H GUERO Non-Formulary Medication (Omeprazole [Omeprazole]) 20 mg PO BID GUERO Sodium Chloride (Ns Flush) 2 ml IV.FLUSH UNSCH PRN PRN Reason: FLUSH AFTER USING IV ACCESS Allergies Allergy/AdvReac Type Severity Reaction Status Date / Time aspirin Allergy Severe "TOLD NOT Verified 07/22/18 19:11 TO TAKE ANY ANTIINFLAMMATORIES" cephalexin Allergy Severe "SWOLLEN Verified 07/22/18 19:11 THROAT,ITCHING ALL OVER" ibuprofen Allergy Severe "TOLD NOT Verified 07/22/18 19:11 TO TAKE ANYMORE" lisinopril Allergy Severe "RASH" Verified 07/22/18 19:11 nabumetone Allergy Severe "NEPHROTIC Verified 07/22/18 19:11 SYNDROME" NSAIDS (Non-Steroidal Allergy Severe advised Verified 07/22/18 19:11 Anti-Inflamma not to take anymore penicillin G Allergy Severe UNKNOWN Verified 07/22/18 19:11 Sulfa (Sulfonamide Allergy Severe "TOLD NOT Verified 07/22/18 19:11 Antibiotics) TO TAKE ANYMORE" adhesive Allergy Intermediate Rash Verified 07/22/18 19:11 digoxin Allergy Intermediate disorientat Verified 07/22/18 19:11 ion telmisartan Allergy Intermediate disorientat Verified 07/01/18 17:31 ion Home Medications Medication Instructions Recorded Confirmed Type apixaban [Eliquis] 5 mg PO BID 06/28/18 07/22/18 History flecainide 50 mg PO Q12H 06/28/18 07/22/18 History metoprolol tartrate 25 mg PO BID 06/28/18 07/22/18 History omeprazole 20 mg PO BID 06/28/18 07/22/18 History Exam Vital signs: Vital Signs 07/22/18 18:57 07/22/18 19:03 07/22/18 19:26 Temperature 98.5 F Pulse Rate 133 H Respiratory Rate 20 Blood Pressure 226/108 H Pulse Oximetry 99 98 98 07/22/18 20:05 07/22/18 20:07 07/22/18 20:44 Temperature Pulse Rate 86 88 Respiratory Rate 18 18 Blood Pressure 150/81 H Pulse Oximetry 98 98 97 Intake & Output 07/22/18 07/22/18 07/23/18 06:59 18:59 05:59 Weight 63.503 kg Narrative: GENERAL: SKIN: Warm and dry. HEAD: Normocephalic. EYES: No scleral icterus. No injection or drainage. NECK: Supple, trachea midline. No JVD or lymphadenopathy. CARDIOVASCULAR:IREEG rate and rhythm without murmurs, gallops, or rubs. RESPIRATORY: Breath sounds equal bilaterally. No accessory muscle use. GASTROINTESTINAL: Abdomen soft, non-tender, nondistended. MUSCULOSKELETAL: No cyanosis, or edema. BACK: Nontender without obvious deformity. No CVA tenderness. Results - Labs CBC & Chem 7: 07/22/18 19:19 07/22/18 19:19 Labs: Laboratory Results - last 24 hr 07/22/18 07/22/18 07/22/18 19:19 19:19 19:19 WBC 7.0 RBC 4.26 Hgb 13.0 Hct 37.3 MCV 87.5 MCH 30.4 MCHC 34.8 RDW 13.8 Plt Count 287 MPV 7.6 Neut % (Auto) 55.5 Lymph % (Auto) 28.8 Burnet % (Auto) 12.8 H Eos % (Auto) 2.1 Baso % (Auto) 0.8 Neut # (Auto) 3.9 Lymph # (Auto) 2.0 [place]et # (Auto) 0.9 Eos # (Auto) 0.1 Baso # (Auto) 0.1 WBC Differential . Differential Comment Auto diff final PT 10.3 INR 1.0 APTT 30.0 Sodium 129 L Potassium 3.8 Chloride 94 L Carbon Dioxide 24.2 Anion Gap 11 BUN 11 Creatinine 0.64 Estimated GFR 89 Random Glucose 99 Calcium 8.9 Magnesium 2.0 Total Bilirubin 0.3 AST 22 ALT 36 Alkaline Phosphatase 90 Total Creatine Kinase 55 Troponin I Less than 0.02 L B-Natriuretic Peptide Total Protein 8.0 Albumin 3.8 07/22/18 19:19 WBC RBC Hgb Hct MCV MCH MCHC RDW Plt Count MPV Neut % (Auto) Lymph % (Auto) [place]et % (Auto) Eos % (Auto) Baso % (Auto) Neut # (Auto) Lymph # (Auto) [place]et # (Auto) Eos # (Auto) Baso # (Auto) WBC Differential Differential Comment PT INR APTT Sodium Potassium Chloride Carbon Dioxide Anion Gap BUN Creatinine Estimated GFR Random Glucose Calcium Magnesium Total Bilirubin AST ALT Alkaline Phosphatase Total Creatine Kinase Troponin I B-Natriuretic Peptide 367 H Total Protein Albumin - Imaging Impressions Chest X-Ray 07/22/18 19:30 CONCLUSION: No acute cardiopulmonary disease demonstrated. Caprini VTE Risk Assessment Caprini VTE Risk Assessment: Moderate/High Risk (score >= 2) Caprini Risk Assessment Model: Point Value = 1 Point Value = 2 Point Value = 3 Point Value = 5 Age 41-60 Minor surgery BMI > 25 kg/m2 Swollen legs Varicose veins or History of unexplained or recurrent spontaneous Oral contraceptives or hormone replacement Sepsis (< 1 month) Serious lung disease, including pneumonia (< 1 month) Abnormal pulmonary function Acute myocardial infarction Congestive heart failure (< 1 month) History of inflammatory bowel disease Medical patient at bed rest Age 61-74 Arthroscopic surgery Major open surgery (> 45 min) Laparoscopic surgery (> 45 min) Malignancy Confined to bed (> 72 hours) Immobilizing plaster cast Central venous access Age >= 75 History of VTE Family history of VTE Factor V Leiden Prothrombin [id number] Lupus anticoagulant Anticardiolipin antibodies Elevated serum homocysteine Heparin-induced thrombocytopenia Other congenital or acquired thrombophilia Stroke (< 1 month) Elective arthroplasty Hip, pelvis, or leg fracture Acute spinal cord injury (< 1 month) Prophylaxis Regimen: Total Risk Factor Score Risk Level Prophylaxis Regimen 0-1 Low Early ambulation 2 Moderate Order ONE of the following: *Sequential Compression Device (SCD) *Heparin 5000 units SQ BID 3-4 Higher Order ONE of the following medications: *Heparin 5000 units SQ TID *Enoxaparin/Lovenox 40 mg SQ daily (WT < 150 kg, CrCl > 30 mL/min) *Enoxaparin/Lovenox 30 mg SQ daily (WT < 150 kg, CrCl > 10-29 mL/min) *Enoxaparin/Lovenox 30 mg SQ BID (WT < 150 kg, CrCl > 30 mL/min) AND/OR *Sequential Compression Device (SCD) 5 or more Highest Order ONE of the following medications: *Heparin 5000 units SQ TID (Preferred with Epidurals) *Enoxaparin/Lovenox 40 mg SQ daily (WT < 150 kg, CrCl > 30 mL/min) *Enoxaparin/Lovenox 30 mg SQ daily (WT < 150 kg, CrCl > 10-29 mL/min) *Enoxaparin/Lovenox 30 mg SQ BID (WT < 150 kg, CrCl > 30 mL/min) AND *Sequential Compression Device (SCD) Assessment and Plan - Assessment (1) Atrial fibrillation with RVR Code(s): I48.91 - Unspecified atrial fibrillation Status: Acute Plan: Patient given Cardizem bolus with Cardizem drip will consult cardiology Dr. Marley normally sees the patient (2) Elevated blood pressure reading Code(s): R03.0 - Elevated blood-pressure reading, without diagnosis of hypertension Status: Acute Plan: Continue home blood pressure medicines of hydralazine and clonidine as needed for now also she takes metoprolol we will continue that 25 twice daily - Plan Further plan as case develops Code Status: Full Discussed Condition With: Patient
--- NOTE | 2018-07-22 22:10 | P.PNADD ---
Addendum to Inpatient Note Reason for Addendum: Additional Documentation Additional information: Patient was concerned about bubbles in her urine, and we ordered a urinalysis for further evaluation. Also patient had a low sodium of 129, I do not know her baseline we will recheck this in a.m.
[2018-07-22] MEDS ORDERED: LORazepam 0.5 MG Tablet PO ONE (22:16)
[2018-07-22 22:19] LABS: Bilirubin,Urine Negative (Negative); Clarity,Urine Clear (Clear); Color,Urine Colorless (Yellw/Straw); Glucose,Urine (UA) Negative (Negative); Leukocyte Esterase,Urine Negative (Negative); Mucus,Urine Few /lpf (Occasional); Nitrite,Urine Negative (Negative); Specific Gravity,Urine 1.004 (1.002-1.035)
[2018-07-22] MEDS ORDERED: Sodium Chloride 0.9% 2 ML Flush PRN IV.FLUSH (22:28)
[2018-07-23] MEDS: Flecainide 100 MG Tablet PO SCH ×3 (00:28→20:45)
[2018-07-23] MEDS: Metoprolol Tartrate 25 MG Tablet PO SCH ×2 (08:24→20:35)
[2018-07-23] MEDS: Pantoprazole Sodium 20 MG DR Tablet PO SCH ×2 (08:25→20:36)
[2018-07-23] MEDS: hydrALAZINE 25 MG Tablet PO SCH ×2 (08:25→20:35)
[2018-07-23] MEDS: Senna/Docusate Sodium 8.6/50 MG Tablet PO SCH ×2 (08:25→20:35)
[2018-07-23] MEDS: Sodium Chloride 0.9% 2 ML Flush BID IV.FLUSH SCH ×2 (08:25→20:36)
[2018-07-23 09:24] LABS: Eos # (Auto) 0.1 th/mm3 (0.0-0.4); Eos % (Auto) 2.3 % (0.0-4.0); Hematocrit 37.2 % (35.0-46.0); Lymph # (Auto) 1.4 th/mm3 (1.0-4.8); Mean Corpuscular HGB Conc 34.9 % (32.0-36.0); Mean Corpuscular Hemoglobin 30.5 pg (27.0-34.0); Mean Corpuscular Volume 87.4 fL (80.0-100.0); Mean Platelet Volume 7.1 fL (7.0-11.0); Mono # (Auto) 0.8 th/mm3 (0.0-0.9); Mono % (Auto) 16.1 % (0.0-8.0); Neut # (Auto) 2.7 th/mm3 (1.8-7.7); Neut % (Auto) 52.6 % (16.0-70.0); Platelet Count 299 th/mm3 (150-450); Red Blood Count 4.26 mil/mm3 (4.00-5.30); Red Cell Distribution Width 13.9 % (11.6-17.2)
[2018-07-23 09:43] LABS: Carbon Dioxide 25.4 meq/L (21.0-32.0)
--- NOTE | 2018-07-23 10:22 | P.PNIM ---
Subjective Interval history: c/o alot of "bubbles" in urine bp uncontrolled starting yesterday Physical Exam Vital signs: Last Vital Signs Temp 98.7 F 07/23/18 08:00 Pulse 99 H 07/23/18 08:00 Resp 18 07/23/18 08:00 BP 120/72 07/23/18 08:00 Pulse Ox 96 07/23/18 08:00 Narrative: heart reg lung cta abd s/nt ext no edema Results Labs CBC & Chem 7: 07/23/18 08:19 07/23/18 08:19 Assessment and Plan Assessment (1) Atrial fibrillation with RVR: Code(s): I48.91 - Unspecified atrial fibrillation Status: Acute Plan 1. afib/rvr 2. elevated htn 3. proteinuria. r/o nephrotic proteinuria 4. hyponatremia pt on metoprolol, flecainide and cardizem gtt. her cariologist is consulted cont kamilah send spot urine pr/cr ration. if elevated then do 24hr urine protein to exclude nephrotic range protein adjust bp meds as needed. Progress Note: Quality VTE Deep Vein Thrombosis/Pulmonary Embolism Present on Admission: No
[2018-07-23 10:51] LABS: Protein/Creatinine Ratio,Urine 0.98 (0.00-0.14)
--- NOTE | 2018-07-23 11:35 | MB ---
cc: Ifeanyi Delgado MD DATE: 07/23/2018 REASON FOR CONSULTATION: Atrial fibrillation. HISTORY OF PRESENT ILLNESS: The patient is a very pleasant 83-year-old woman who sees my partner, Dr. Howe, who has a history of atrial fibrillation despite 2 ablations and who is maintained on Eliquis, flecainide and metoprolol. The patient developed tachycardia at home, became concerned and uncomfortable and presented to [facility] in mildly rapid atrial fibrillation, generally in the 130s. She was transferred to the cardiac floor but converted rather quickly to sinus rhythm, where she remains now. She has no further cardiac symptoms. She denies any chest pain, shortness of breath, lightheadedness, dizziness. She does say that she has had frothy urine with a history of nephrotic syndrome and that is currently being worked up by the medical team. PAST MEDICAL HISTORY: Atrial fibrillation as above, nephrotic syndrome, hypertension. CURRENT MEDICATIONS: 1. Eliquis 5 mg b.i.d. 2. Clonidine p.r.n. 3. Flecainide 50 mg q.12. 4. Hydralazine 25 mg b.i.d. 5. Lopressor 25 mg b.i.d. 6. Protonix. ALLERGIES: MULTIPLE. PLEASE SEE THE EMR. PHYSICAL EXAMINATION: VITAL SIGNS: Afebrile, pulse 80, respiratory rate 16, BP 119/62, saturating 96% on room air. GENERAL: A very pleasant woman in no distress. NECK: No JVD. LUNGS: Clear to auscultation bilaterally. CARDIOVASCULAR: Regular rate and rhythm. No significant murmurs appreciated. ABDOMEN: Benign. EXTREMITIES: No edema. LABORATORY DATA: White count 7.0, hematocrit 37.3, platelets 287. INR is 1.0. Sodium 129, potassium 2.8, chloride 94, bicarbonate 24.2, BUN 11, creatinine 0.64, glucose 99. Troponin is negative. EKG showed a mildly rapid atrial fibrillation in the 130s with mild nonspecific ST changes. Current telemetry shows sinus rhythm at about 90. IMPRESSION: Paroxysmal atrial fibrillation. The patient has known paroxysmal atrial fibrillation and had an episode, possibly due to electrolyte abnormalities, and she is currently quite hyponatremic. This is being addressed by the medical team. I will have her diltiazem drip discontinued. For now, I do not think it is required to increase her oral home medications, but I did ask her to talk with Dr. Howe this next week and he can make any adjustments he feels required. I will sign off and be available as needed. Please call with any further questions. Thank you again for the opportunity to participate in this patient's care. MD BEVERLY Sandoval/eloisa , 09:05 AM , 09:11 AM
--- NOTE | 2018-07-23 23:20 | ECG ---
Date Performed: 07/22/2018 Time Performed: 19:00:25 PTAGE: 83 years EKG: ATRIAL FIBRILLATION WITH RAPID VENTRICULAR RESPONSE WITH ABERRANT CONDUCTION OR VENTRICULAR PREMATURE COMPLEXES SEPTAL MYOCARDIAL INFARCTION ABNORMAL ECG PREVIOUS TRACING : 07/01/2018 17.45 Since the previous tracing, no significant change noted DOCTOR: Joshua Mccain Interpretating Date/Time 07/23/2018 23:19:44
[2018-07-23] MEDS: LORazepam 0.5 MG Tablet PO PRN (23:55)
[2018-07-24] MEDS: hydrALAZINE 25 MG Tablet PO SCH ×2 (08:38→21:36)
[2018-07-24] MEDS: Pantoprazole Sodium 20 MG DR Tablet PO SCH ×2 (08:38→21:37)
[2018-07-24] MEDS: Metoprolol Tartrate 25 MG Tablet PO SCH (08:38)
[2018-07-24] MEDS: Sodium Chloride 0.9% 2 ML Flush BID IV.FLUSH SCH ×2 (08:39→21:37)
[2018-07-24] MEDS: Senna/Docusate Sodium 8.6/50 MG Tablet PO SCH ×2 (08:39→21:37)
[2018-07-24] MEDS: Flecainide 100 MG Tablet PO SCH ×2 (09:06→21:37)
--- NOTE | 2018-07-24 17:55 | P.PN ---
Subjective Interval history: Feeling better now No palpitation Physical Exam Vital signs: Vital Signs 07/23/18 19:00 07/23/18 20:00 07/23/18 21:00 Temperature 97.6 F Pulse Rate 95 H 96 H 94 H Respiratory Rate 18 Blood Pressure 131/86 Pulse Oximetry 95 07/23/18 22:00 07/23/18 23:00 07/24/18 00:00 Temperature 97.8 F Pulse Rate 95 H 87 88 Respiratory Rate 18 Blood Pressure 124/77 Pulse Oximetry 97 07/24/18 01:00 07/24/18 02:00 07/24/18 03:00 Temperature Pulse Rate 90 93 H 93 H Respiratory Rate Blood Pressure Pulse Oximetry 07/24/18 03:42 07/24/18 04:00 07/24/18 05:00 Temperature 97.5 F L Pulse Rate 91 H 87 92 H Respiratory Rate 18 Blood Pressure 143/88 H Pulse Oximetry 96 07/24/18 06:00 07/24/18 07:00 07/24/18 08:00 Temperature 98.6 F Pulse Rate 62 98 H 98 H Respiratory Rate 16 Blood Pressure 122/68 Pulse Oximetry 96 07/24/18 09:00 07/24/18 09:58 07/24/18 11:00 Temperature Pulse Rate 95 H 92 H 91 H Respiratory Rate Blood Pressure Pulse Oximetry 07/24/18 12:00 07/24/18 13:00 07/24/18 14:00 Temperature 98.7 F Pulse Rate 93 H 92 H 94 H Respiratory Rate 18 Blood Pressure 100/68 Pulse Oximetry 95 07/24/18 14:06 07/24/18 16:00 07/24/18 16:58 Temperature 98.5 F Pulse Rate 94 H 96 H 92 H Respiratory Rate 18 Blood Pressure 136/85 Pulse Oximetry 96 07/24/18 17:04 Temperature Pulse Rate 95 H Respiratory Rate Blood Pressure Pulse Oximetry Intake & Output 07/23/18 07/24/18 07/24/18 18:59 06:59 18:59 Intake Total 1385 / 1385 500 / 500 620 / 620 Output Total 900 / 900 1500 / 1500 1350 / 1350 Balance 485 / 485 -1000 / -1000 -730 / -730 Weight 64 kg Intake: IV 125 / 125 Cardizem Inj 125 MG In NS Inj 125 / 125 100 ML @ 5 MG/HR 5 mls/hr IV. CONT TITRATE PRN Rx#:[id number] Oral 1260 / 1260 500 / 500 620 / 620 Output: Urine 900 / 900 1500 / 1500 1350 / 1350 Other: # Voids 4 Date of Last Bowel Movement 07/23/18 07/24/18 # Bowel Movements 1 1 - Constitutional no acute distress - Routine HEENT Exam Head: Present: normocephalic Eye: Present: PERRL ENT: Present: mucous membranes moist - Routine Respiratory Exam Present: CTA bilaterally - Routine Cardiovascular Exam Present: RRR, S1, S2 - Routine Abdominal Exam Present: soft - Routine Neurological Exam Present: alert, oriented X3 - Detailed Neurological Exam: Coma Scale Eye Opening: Spontaneous Verbal Response: Oriented Results - Labs CBC & Chem 7: 07/23/18 08:19 07/23/18 08:19 Assessment and Plan - Assessment (1) HTN (hypertension) Code(s): I10 - Essential (primary) hypertension Status: Acute Plan: SBP 136 Metoprolol will be increased (2) Atrial fibrillation with RVR Code(s): I48.91 - Unspecified atrial fibrillation Status: Acute Plan: Back into sinus rhythm Doing well Metoprolol increased Continue on current management can be DH when ok with the managing team
--- NOTE | 2018-07-24 18:00 | P.PNIM ---
Subjective Interval history: Pt without any new complaints. No further palpitations Denies and chest pain Physical Exam Vital signs: Last Vital Signs Temp 98.5 F 07/24/18 16:00 Pulse 95 H 07/24/18 17:04 Resp 18 07/24/18 16:00 BP 136/85 07/24/18 16:00 Pulse Ox 96 07/24/18 16:00 Narrative: heart reg lung cta abd s/nt ext no edema Results Labs CBC & Chem 7: 07/23/18 08:19 07/25/18 09:01 Assessment and Plan Assessment (1) HTN (hypertension): Code(s): I10 - Essential (primary) hypertension Status: Acute (2) Atrial fibrillation with RVR: Code(s): I48.91 - Unspecified atrial fibrillation Status: Acute Plan A.fib/RVR - Pt is an 83 y/o female with A. fib and HTN she [place] [facility] [place] for evaluation of tachycardia and generalized weakness. She is on Eliquis. Patient's geothermal operations engineer is Dr. Howe. She states she has had A. fib for 8-9 years and has had 2 ablations. - She was at the grocery store and was having palpitations. When she got home, she checked her blood pressure and it was 190 systolic with a heart rate in the 170s. - In the emergency room patient received a Cardizem bolus, and started a Cardizem drip with improvement in heart rate. - Of note pt was recently changed from nifedipine to hydralazine for her blood pressure she was having side effects of flushing of the face with nifedipine. She also was on clonidine as needed for her blood pressure prior to admission. - Pt was on metoprolol 25mg po BID prior to admission. This was increased to 50mg po BID. - Pt was able to be weaned off the Cardizem gtt and is back in sinus rhythm. - She has been continued on Flecainide 50mg Q12H. - Anesthesia Associate is following - Cont Eliquis Proteinuria r/o nephrotic proteinuria - Patient also has noted that she has had some bubbling of her urine and has a history of nephrotic syndrome several years ago and was afraid it may be coming back. - Random urine protein 46.8 - Urine total protein 190. protein/cr ratio 0.98 - Renal US - Consult nephrology Elevated HTN - Continue Hydralazine and Metoprolol Hyponatremia - Improving Progress Note: Quality VTE Deep Vein Thrombosis/Pulmonary Embolism Present on Admission: No _ (1) HTN (hypertension) Qualifiers: Hypertension type:
--- NOTE | 2018-07-24 20:07 | US ---
EXAM DATE: 07/24/2018 8:04 PM EST AGE/SEX: 83 years / Female INDICATIONS: Increased lab values. CLINICAL DATA: This is the patient's initial encounter. Patient reports that signs and symptoms have been present for 1 day and indicates a pain score of 0/10. MEDICAL/SURGICAL HISTORY: Gastroesophageal reflux disease. Hypertension. AFIB. Arthritis. Neph rotic syndrome. Small bowel obstruction. Hysterectomy. Appendectomy. Cholecystectomy. Cardic radi ofrequency ablation. Tonsillectomy. Arthroscopy of right shoulder. COMPARISON: [facility] [place] ABDOMEN & PELVIS W CONTRAST, 03/15/2018. . MEASUREMENTS: Right Kidney:__10.0 x 5.3 x 4.6 cm Left Kidney:__10.0 x 4.5 x 5.0 cm FINDINGS: Right Kidney: Normal echotexture and cortical thickness. No mass or hydronephrosis. Left Kidney: Normal echotexture and cortical thickness. No mass or hydronephrosis. Bladder: Within normal limits given the degree of distension. Other: None. CONCLUSION: Ultrasound appearance of the kidneys and urinary bladder within normal limits. Electronically signed by: Carlos Franco MD 07/24/2018 8:06 PM EST
[2018-07-24] MEDS: Metoprolol Tartrate 50 MG Tablet PO SCH (21:36)
[2018-07-24] MEDS: LORazepam 0.5 MG Tablet PO PRN (23:10)
[2018-07-25] MEDS: Pantoprazole Sodium 20 MG DR Tablet PO SCH ×2 (09:37→20:43)
[2018-07-25] MEDS: hydrALAZINE 25 MG Tablet PO SCH ×2 (09:37→20:43)
[2018-07-25] MEDS: Sodium Chloride 0.9% 2 ML Flush BID IV.FLUSH SCH ×2 (09:37→20:43)
[2018-07-25] MEDS: Metoprolol Tartrate 50 MG Tablet PO SCH ×2 (09:37→20:43)
[2018-07-25] MEDS: Flecainide 100 MG Tablet PO SCH ×2 (09:37→21:37)
[2018-07-25] MEDS: Senna/Docusate Sodium 8.6/50 MG Tablet PO SCH ×2 (09:39→21:34)
[2018-07-25 10:14] LABS: Calcium 8.9 mg/dL (8.5-10.1); Potassium 4.1 meq/L (3.5-5.1)
--- NOTE | 2018-07-25 13:03 | P.PNIM ---
Subjective Interval history: Pts BP has been fluctuating today Was low this afternoon and elevated in the evening time. On review of telemetry this evening she appears to be in A. fib, rate controlled currently. Physical Exam Vital signs: Last Vital Signs Temp 97.9 F 07/25/18 12:00 Pulse 97 H 07/25/18 12:00 Resp 16 07/25/18 12:00 BP 99/70 L 07/25/18 12:00 Pulse Ox 97 07/25/18 12:00 Narrative: General: NAD, AAOx3 Cardiac: Irregularly irregular Chest: CTA Bilaterally Abd: +BS, soft ND/NT Ext: No edema Results Labs CBC & Chem 7: 07/23/18 08:19 07/25/18 09:01 Imaging Chest X-Ray 07/22/18 19:30 CONCLUSION: No acute cardiopulmonary disease demonstrated. Abdomen/Bladder Ultrasound 07/24/18 00:00 CONCLUSION: Ultrasound appearance of the kidneys and urinary bladder within normal limits. Assessment and Plan Assessment (1) HTN (hypertension): Code(s): I10 - Essential (primary) hypertension Status: Acute (2) Atrial fibrillation with RVR: Code(s): I48.91 - Unspecified atrial fibrillation Status: Acute Plan A.fib/RVR - Pt is an 83 y/o female with A. fib and HTN [place] [facility] [place] for evaluation of tachycardia and generalized weakness. She is on Eliquis. Patient's rn discharge is Dr. Howe. She states she has had A. fib for 8-9 years and has had 2 ablations. - She was at the grocery store and was having palpitations. When she got home, she checked her blood pressure and it was 190 systolic with a heart rate in the 170s. - In the emergency room patient received a Cardizem bolus, and started a Cardizem drip with improvement in heart rate. - Of note pt was recently changed from nifedipine to hydralazine for her blood pressure she was having side effects of flushing of the face with nifedipine. She also was on clonidine as needed for her blood pressure prior to admission. - Pt was on metoprolol 25mg po BID prior to admission. This was increased to 50mg po BID. - Pt was able to be weaned off the Cardizem gtt and was back in sinus rhythm. - She has been continued on Flecainide 50mg Q12H. - Currently on telemetry she is back in A. fib but rate controlled. - Check 12 lead EKG in AM - Associate [employer] is following - Cont Eliquis Proteinuria r/o nephrotic proteinuria - Patient also has noted that she has had some bubbling of her urine and has a history of nephrotic syndrome several years ago and was afraid it may be coming back. - Random urine protein 46.8 - Urine total protein 190. protein/cr ratio 0.98 - Renal US --> Ultrasound appearance of the kidneys and urinary bladder within normal limits. - Appreciate consult from nephrology. They felt that there are no major concerns with nephrotic syndrome at this point - Monitor labs Elevated HTN - Pt has been on Hydralazine and Metoprolol - Her BP has been fluctuating up and down today. Had planned to hold her Hydralazine but will resume this morning and monitor closely - Monitor Hyponatremia - Improving Progress Note: Quality VTE Deep Vein Thrombosis/Pulmonary Embolism Present on Admission: No _ (1) HTN (hypertension) Qualifiers: Hypertension type:
--- NOTE | 2018-07-25 14:28 | P.CONNP ---
History of Present Illness Service: Nephrology Consult date: 07/25/18 Requesting Physician: Jesse Arndt Reason for Consult: Proteinuria Primary Care Provider: Rashard Abbott MD Chief Complaint: Rapid heart rate History of Present Illness: 83-year-old white female with history of atrial fibrillation, she was admitted after having labile hypertension and palpitations with increased heart rate, patient states she has atrial fibrillation status post 2 ablation procedure and has recurrent atrial fibrillation. Patient about 20 years ago had history of nephrotic syndrome followed with Dr. Kevin Kraus He placed her on prednisone and this resolved and after year to year and a half she did not followed up Patient was admitted due to atrial fibrillation. She denies any swelling of her feet, or shortness of breath. Review of Systems Constitutional: Denies anorexia, Denies body ache(s), Denies chills, Denies daytime sleepiness, Denies excessive sweating, Denies fatigue, Denies fever(s), Denies headache(s), Denies increased appetite, Denies lack of energy, Denies malaise, Denies night sweats, Denies weakness, Denies weight gain, Denies weight loss, Denies other Eyes: Denies blind spots, Denies blurry vision, Denies bulging eyes, Denies change in vision, Denies double vision, Denies discharge, Denies dry eyes, Denies floaters, Denies irritation, Denies itchy eyes, Denies loss of vision, Denies pain, Denies requires corrective lenses, Denies sensitivity to light, Denies other Ears, Nose, Mouth, and Throat: Denies abnormal hearing, Denies bleeding gums, Denies bad breath, Denies change in voice, Denies dental pain, Denies difficulty swallowing, Denies dizziness, Denies dry mouth, Denies ear discharge , Denies ear pain, Denies facial pain, Denies headache(s), Denies hearing loss, Denies hoarseness, Denies lip swelling, Denies nosebleed, Denies mouth lesions, Denies mouth pain, Denies nasal congestion, Denies nasal discharge, Denies nasal obstruction, Denies nasal trauma, Denies neck lump, Denies neck pain, Denies nose pain, Denies pain with swallowing, Denies poor balance, Denies post nasal drip, Denies ringing in the ears, Denies sinus pain, Denies sinus pressure , Denies sore throat, Denies throat swelling, Denies tongue swelling, Denies other Cardiovascular: Reports irregular heart rhythm Gastrointestinal: Reports constipation Genitourinary: Reports other Skin/Breast: Denies acne, Denies bleeding lesions, Denies boil, Denies breast swelling, Denies breast skin changes, Denies breast pain, Denies breast lump, Denies change in breast shape, Denies change in hair, Denies change in skin color, Denies changing lesions, Denies dry skin, Denies excessive hair growth, Denies hair loss, Denies itching, Denies lesions, Denies nail changes, Denies new lesions, Denies nipple discharge, Denies non-healing lesions, Denies redness , Denies sensitivity to light, Denies rash, Denies skin pain, Denies skin ulcer , Denies sores, Denies stretch madrid, Denies unusual bruising, Denies wounds, Denies yellowing of the skin, Denies other Neurologic: Reports weakness Psychiatric: Reports anxiety Endocrine: Denies cold intolerance, Denies excessive sweating, Denies flushing, Denies heat intolerance, Denies increased hunger, Denies increased thirst, Denies increased urination, Denies rapid, pounding, or irregular heartbeat, Denies other Hematologic/Lymphatic: Denies easy bleeding, Denies easy bruising, Denies enlarged lymph nodes, Denies other Allergic/Immunologic: Denies GI upset with certain foods, Denies hives, Denies itchy eyes, Denies lip swelling, Denies seasonal runny nose, Denies throat swelling, Denies tongue swelling, Denies wheezing, Denies other PMFSH - History History Provided By: Patient - Medical History Medical History: Medical History (Last Reviewed 07/25/18 @ 14:25 by Ryan Varela MD) Afib Arthritis GERD (gastroesophageal reflux disease) H/O small bowel obstruction H/O: hysterectomy Hypertension Nephrotic syndrome Wears glasses - Surgical History Surgical History: Surgical History (Last Reviewed 07/25/18 @ 14:25 by Ryan Varela MD) H/O cardiac radiofrequency ablation Hx of appendectomy Hx of cholecystectomy Hx of tonsillectomy S/P arthroscopy of right shoulder Status post cataract extraction of both eyes with insertion of intraocular lens - Family History Family History: Family History (Last Updated 07/25/18 @ 14:25 by Ryan Varela MD) Other Family history non-contributory - Social History I have reviewed the patient's Social History: Yes - Tobacco History Second Hand Smoke Exposure: No Smoking Status: Former smoker Tobacco Type: Cigarettes - Alcohol History How Often Do You Have a Drink Containing Alcohol: Monthly or less - Substance Use History Substance History: No History of Abuse - Travel History Recent Travel in the [place] Within the Last 8 Weeks: No Recent Travel Out of the Country Within the Last 8 Weeks: No - Immunization History Tetanus Immunization: <5 Years Medications and Allergies Active Medications: Active Medications Al Hydroxide/Mg Hydroxide (Milk Of Magnesia Liq) 30 ml PO Q12H PRN PRN Reason: Mild Constipation Apixaban (Eliquis) 5 mg PO BID [facility] Last Admin: 07/25/18 09:37 Dose: 5 mg Bisacodyl (Dulcolax Supp) 10 mg RECTAL DAILY PRN PRN Reason: SEVERE CONSITIPATION Clonidine HCl (Catapres) 0.1 mg PO Q6H PRN PRN Reason: SBP> OR = 180, DBP> OR = 100 Last Admin: 07/23/18 16:06 Dose: 0.1 mg Flecainide Acetate (Tambocor) 50 mg PO Q12H [facility] Last Admin: 07/25/18 09:37 Dose: 50 mg Hydralazine HCl (Apresoline) 25 mg PO BID [facility] Last Admin: 07/25/18 09:37 Dose: 25 mg Lactulose (Lactulose Liq) 30 ml PO DAILY PRN PRN Reason: SEVERE CONSITIPATION Lorazepam (Ativan) 0.5 mg PO HS PRN PRN Reason: FOR SLEEP Last Admin: 07/24/18 23:10 Dose: 0.5 mg Metoprolol Tartrate (Lopressor) 50 mg PO BID [facility] Last Admin: 07/25/18 09:37 Dose: 50 mg Pantoprazole Sodium (Protonix) 20 mg PO BID [facility] Last Admin: 07/25/18 09:37 Dose: 20 mg Senna/Docusate Sodium (Catrachita-Colace) 1 tab PO BID [facility] Last Admin: 07/25/18 09:39 Dose: Not Given Sennosides (Senokot) 17.2 mg PO Q12H PRN PRN Reason: Moderate Constipation Sodium Chloride (Ns Flush) 2 ml IV.FLUSH BID [facility] Last Admin: 07/25/18 09:37 Dose: 2 ml Sodium Chloride (Ns Flush) 2 ml IV.FLUSH PRN PRN PRN Reason: FLUSH AFTER USING IV ACCESS Allergies Allergy/AdvReac Type Severity Reaction Status Date / Time aspirin Allergy Severe "TOLD NOT Verified 07/22/18 19:11 TO TAKE ANY ANTIINFLAMMATORIES" cephalexin Allergy Severe "SWOLLEN Verified 07/22/18 19:11 THROAT,ITCHING ALL OVER" ibuprofen Allergy Severe "TOLD NOT Verified 07/22/18 19:11 TO TAKE ANYMORE" lisinopril Allergy Severe "RASH" Verified 07/22/18 19:11 nabumetone Allergy Severe "NEPHROTIC Verified 07/22/18 19:11 SYNDROME" NSAIDS (Non-Steroidal Allergy Severe advised Verified 07/22/18 19:11 Anti-Inflamma not to take anymore penicillin G Allergy Severe UNKNOWN Verified 07/22/18 19:11 Sulfa (Sulfonamide Allergy Severe "TOLD NOT Verified 07/22/18 19:11 Antibiotics) TO TAKE ANYMORE" adhesive Allergy Intermediate Rash Verified 07/22/18 19:11 digoxin Allergy Intermediate disorientat Verified 07/22/18 19:11 ion telmisartan Allergy Intermediate disorientat Verified 07/01/18 17:31 ion Home Medications Medication Instructions Recorded Confirmed Type apixaban [Eliquis] 5 mg PO BID 06/28/18 07/22/18 History flecainide 50 mg PO Q12H 06/28/18 07/22/18 History metoprolol tartrate 25 mg PO BID 06/28/18 07/22/18 History omeprazole 20 mg PO BID 06/28/18 07/22/18 History Exam Vital signs: Vital Signs 07/24/18 16:00 07/24/18 16:58 07/24/18 17:04 Temperature 98.5 F Pulse Rate 96 H 92 H 95 H Respiratory Rate 18 Blood Pressure 136/85 Pulse Oximetry 96 07/24/18 19:00 07/24/18 20:00 07/24/18 21:00 Temperature 97.9 F Pulse Rate 96 H 98 H 98 H Respiratory Rate 16 Blood Pressure 149/90 H Pulse Oximetry 99 07/24/18 22:00 07/24/18 23:00 07/24/18 23:35 Temperature 98.1 F Pulse Rate 98 H 91 H 91 H Respiratory Rate 16 Blood Pressure 117/70 Pulse Oximetry 96 07/25/18 00:00 07/25/18 01:00 07/25/18 02:00 Temperature Pulse Rate 91 H 93 H 94 H Respiratory Rate Blood Pressure Pulse Oximetry 07/25/18 03:00 07/25/18 03:51 07/25/18 04:00 Temperature 98.2 F Pulse Rate 98 H 98 H 98 H Respiratory Rate 16 Blood Pressure 111/63 Pulse Oximetry 96 07/25/18 05:00 07/25/18 06:00 07/25/18 07:00 Temperature Pulse Rate 98 H 99 H 89 Respiratory Rate Blood Pressure Pulse Oximetry 07/25/18 08:00 07/25/18 11:00 07/25/18 12:00 Temperature 97.8 F 97.9 F Pulse Rate 105 H 99 H 97 H Respiratory Rate 16 16 Blood Pressure 107/62 99/70 L Pulse Oximetry 96 97 Intake & Output 07/24/18 07/25/18 07/25/18 18:59 06:59 18:59 Intake Total 620 / 620 480 / 480 Output Total 1350 / 1350 1300 / 1300 Balance -730 / -730 -820 / -820 Weight 71.2 kg Intake: Oral 620 / 620 480 / 480 Output: Urine 1350 / 1350 1300 / 1300 Other: Date of Last Bowel Movement 07/24/18 07/24/18 # Bowel Movements 1 0 Narrative: GENERAL: Well-nourished, well-developed patient. SKIN: Warm and dry. HEAD: Normocephalic. EYES: No scleral icterus. No injection or drainage. NECK: Supple, trachea midline. No JVD or lymphadenopathy. CARDIOVASCULAR: S1-S2 irregular, gallops, or rubs. RESPIRATORY: Breath sounds equal bilaterally. No accessory muscle use. GASTROINTESTINAL: Abdomen soft, non-tender, nondistended. EXTREMITIES: As above NEUROLOGICAL: Awake, alert, and oriented x 3. Non-focal. Results - Lab Results 07/26/18 03:51 07/26/18 03:51 Most recent lab results Calcium 8.9 mg/dL (8.5-10.1) 07/25/18 09:01 Magnesium 2.0 mg/dL (1.5-2.5) 07/22/18 19:19 Ur Total Protein 24 Hr 190 mg/24hr (0-150) H 07/24/18 16:10 Assessment and Plan - Assessment (1) Proteinuria Code(s): R80.9 - Proteinuria, unspecified Status: Acute (2) HTN (hypertension) Code(s): I10 - Essential (primary) hypertension Status: Acute (3) Atrial fibrillation with RVR Code(s): I48.91 - Unspecified atrial fibrillation Status: Acute (4) Elevated blood pressure reading Code(s): R03.0 - Elevated blood-pressure reading, without diagnosis of hypertension Status: Acute - Plan History of nephrotic syndrome long time ago with complete remission There is no signs of recurrence Urine protein 190 mg slightly elevated Creatinine 0.79 I do not see any major concerns with nephrotic syndrome at this point She will continue to follow with primary physician Control of heart rate and water intake was discussed Follow-up as needed
[2018-07-26 05:12] LABS: Baso % (Auto) 0.5 % (0.0-2.0); Eos # (Auto) 0.1 th/mm3 (0.0-0.4); Eos % (Auto) 2.3 % (0.0-4.0); Hematocrit 38.5 % (35.0-46.0); Hemoglobin 13.1 gm/dL (11.6-15.3); Lymph # (Auto) 1.9 th/mm3 (1.0-4.8); Lymph % (Auto) 37.2 % (9.0-44.0); Mean Corpuscular HGB Conc 34.2 % (32.0-36.0); Mean Corpuscular Hemoglobin 29.9 pg (27.0-34.0); Mean Corpuscular Volume 87.6 fL (80.0-100.0); Mean Platelet Volume 7.4 fL (7.0-11.0); Mono # (Auto) 0.7 th/mm3 (0.0-0.9); Mono % (Auto) 14.6 % (0.0-8.0); Neut # (Auto) 2.3 th/mm3 (1.8-7.7); Neut % (Auto) 45.4 % (16.0-70.0); Platelet Count 268 th/mm3 (150-450); Red Cell Distribution Width 13.9 % (11.6-17.2); White Blood Count 5.1 th/mm3 (4.0-11.0)
[2018-07-26 05:28] LABS: Carbon Dioxide 28.6 meq/L (21.0-32.0); Magnesium 2.1 mg/dL (1.5-2.5); Potassium 4.6 meq/L (3.5-5.1)
[2018-07-26] MEDS: Flecainide 100 MG Tablet PO SCH ×2 (09:13→21:10)
[2018-07-26] MEDS: Metoprolol Tartrate 50 MG Tablet PO SCH ×2 (09:14→20:26)
[2018-07-26] MEDS: Pantoprazole Sodium 20 MG DR Tablet PO SCH ×2 (09:14→20:26)
[2018-07-26] MEDS: hydrALAZINE 25 MG Tablet PO SCH ×2 (09:14→20:26)
[2018-07-26] MEDS: Sodium Chloride 0.9% 2 ML Flush BID IV.FLUSH SCH ×2 (09:14→20:26)
[2018-07-26] MEDS: Senna/Docusate Sodium 8.6/50 MG Tablet PO SCH ×2 (09:14→20:26)
[2018-07-26] MEDS ORDERED: ALPRAZolam 0.25 MG Tablet PO PRN (16:28)
--- NOTE | 2018-07-26 16:35 | P.PNIM ---
Subjective Interval history: Follow up: HTN and Atrial Fibrillation patient reports feeling well at this time, but does report feeling weak and fatigued after AM medications Does not feel ready to go home due to feeling of fatigue and weakness earlier today Physical Exam Vital signs: Last Vital Signs Temp 98.1 F 07/26/18 15:00 Pulse 91 H 07/26/18 15:00 Resp 18 07/26/18 15:00 BP 133/80 07/26/18 15:00 Pulse Ox 98 07/26/18 09:14 Narrative: heart reg lung cta abd s/nt ext no edema Results Labs CBC & Chem 7: 07/26/18 03:51 07/26/18 03:51 Assessment and Plan Assessment (1) Proteinuria: Code(s): R80.9 - Proteinuria, unspecified Status: Acute (2) HTN (hypertension): Code(s): I10 - Essential (primary) hypertension Status: Acute (3) Atrial fibrillation with RVR: Code(s): I48.91 - Unspecified atrial fibrillation Status: Acute (4) Elevated blood pressure reading: Code(s): R03.0 - Elevated blood-pressure reading, without diagnosis of hypertension Status: Acute Plan A.fib/RVR - Pt is an 83 y/o female with A. fib and HTN she [place] [facility] [place] for evaluation of tachycardia and generalized weakness. She is on Eliquis. Patient's academic director is Dr. Howe. She states she has had A. fib for 8-9 years and has had 2 ablations. - She was at the grocery store and was having palpitations. When she got home, she checked her blood pressure and it was 190 systolic with a heart rate in the 170s. - In the emergency room patient received a Cardizem bolus, and started a Cardizem drip with improvement in heart rate. - Of note pt was recently changed from nifedipine to hydralazine for her blood pressure she was having side effects of flushing of the face with nifedipine. She also was on clonidine as needed for her blood pressure prior to admission. - Pt was on metoprolol 25mg po BID prior to admission. This was increased to 50mg po BID. - Pt was able to be weaned off the Cardizem gtt and is back in sinus rhythm. - She has been continued on Flecainide 50mg Q12H. - Pharmacy Technician Inpatient is following, cleared for DC - Cont Eliquis Proteinuria r/o nephrotic proteinuria - Patient also has noted that she has had some bubbling of her urine and has a history of nephrotic syndrome several years ago and was afraid it may be coming back. - Random urine protein 46.8 - Urine total protein 190. protein/cr ratio 0.98 - Renal US Abdomen/Bladder Ultrasound 07/24/18 CONCLUSION: Ultrasound appearance of the kidneys and urinary bladder within normal limits. - Consult nephrology appreciated. No need for further intervention at time. Patient to follow up with PCP. Elevated HTN - Continue Hydralazine and Metoprolol - patient reports that she had episode of feeling weak and fatigued after AM medications, possibly related to increased metoprolol. Will continue current regiment - possible DC in AM Hyponatremia - Improving Progress Note: Quality VTE Deep Vein Thrombosis/Pulmonary Embolism Present on Admission: No _ (1) Proteinuria Qualifiers: Proteinuria type: Isolated proteinuria type: Trimester: (2) HTN (hypertension) Qualifiers: Hypertension type:
--- NOTE | 2018-07-26 18:10 | ECG ---
Date Performed: 07/26/2018 Time Performed: 10:31:16 PTAGE: 83 years EKG: Sinus rhythm First degree AV block Anterior T wave changes are nonspecific Abnormal ECG PREVIOUS TRACING : 07/22/2018 19.00 Compared to previous tracing, Atrial fibrillation has resol huan DOCTOR: Drew Gray Interpretating Date/Time 07/26/2018 18:10:03
[2018-07-27] MEDS: Pantoprazole Sodium 20 MG DR Tablet PO SCH (08:20)
[2018-07-27] MEDS: hydrALAZINE 25 MG Tablet PO SCH (08:20)
[2018-07-27] MEDS: Metoprolol Tartrate 50 MG Tablet PO SCH (08:20)
[2018-07-27] MEDS: Senna/Docusate Sodium 8.6/50 MG Tablet PO SCH (09:41)
[2018-07-27] MEDS: Flecainide 100 MG Tablet PO SCH (09:44)
[2018-07-27] MEDS: Sodium Chloride 0.9% 2 ML Flush BID IV.FLUSH SCH (09:44)
[2018-07-27 09:53] VITALS: BP 115/79; RESP 16; TEMP 97.8; O2SAT 98
--- NOTE | 2018-07-27 10:37 | P.DS ---
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 Ordering Provider: EDMUND 07/24/18 18:20 Consult to Nephrology Routine Consulting Provider: Ryan Varela Does the patient have a Sneller Hand who follows them?: No Preferred Nephrology Slab Miller Operator:: Museum Tour Guide Physician Reason for Consultation: Proteinuria, r/o nephrotic syndrome Notified:: Service Spoke with:: OUMAR Date Notified:: 07/24/18 Time Notified:: 18:24 Ordering Provider: VINICIO DS: Diagnosis Discharge Diagnosis (1) Proteinuria: Status: Acute (2) HTN (hypertension): Status: Acute (3) Atrial fibrillation with RVR: Status: Acute (4) Elevated blood pressure reading: Status: Acute DS: Summary A.fib/RVR - Pt is an 83 y/o female with A. fib and HTN she presented to the ED at [facility] on 07/23/18 for evaluation of tachycardia and generalized weakness. She is on Eliquis. 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 Trujillo. She states she has had A. fib for 8-9 years and has had 2 ablations. - She was at the grocery store and was having palpitations. When she got home, she checked her blood pressure and it was 190 systolic with a heart rate in the 170s. - In the emergency room patient received a Cardizem bolus, and started a Cardizem drip with improvement in heart rate. - Of note pt was recently changed from nifedipine to hydralazine for her blood pressure she was having side effects of flushing of the face with nifedipine. She also was on clonidine as needed for her blood pressure prior to admission. - Pt was on metoprolol 25mg po BID prior to admission. This was increased to 50mg po BID. - Pt was able to be weaned off the Cardizem gtt and is back in sinus rhythm. - She has been continued on Flecainide 50mg Q12H. - Medical Technician Assistant is following, cleared for DC - Cont Eliquis Proteinuria r/o nephrotic proteinuria - Patient also has noted that she has had some bubbling of her urine and has a history of nephrotic syndrome several years ago and was afraid it may be coming back. - Random urine protein 46.8 - Urine total protein 190. protein/cr ratio 0.98 - Renal US Abdomen/Bladder Ultrasound 07/24/18 CONCLUSION: Ultrasound appearance of the kidneys and urinary bladder within normal limits. - Consult nephrology appreciated. No need for further intervention at time. Patient to follow up with PCP. Elevated HTN - Continue Hydralazine and Metoprolol - patient reports that she had episode of feeling weak and fatigued after AM medications, possibly related to increased metoprolol. Hyponatremia - Improving - Patient reports feeling much better today asking to be DC'd home Will DC home patient to follow up with PCP and cardiology after DC Time Spent with Patient Total time spent providing and/or coordinating discharge services: Quality: VTE Deep Vein Thrombosis/Pulmonary Embolism Present on Admission: No Exam Narrative Exam Narrative: heart reg lung cta abd s/nt ext no edema DS: Data Impressions Chest X-Ray 07/22/18 19:30 CONCLUSION: No acute cardiopulmonary disease demonstrated. Abdomen/Bladder Ultrasound 07/24/18 00:00 CONCLUSION: Ultrasound appearance of the kidneys and urinary bladder within normal limits. Discharge Plan Discharge Disposition Patient Disposition: 01 Discharge Home Discharge Condition Condition: Stable Discharge Order Discharge Orders: Discharge Order (Routine); Ordered 07/27/18 Ordered By: Sigrid Anderson Discharge Details Anticipated Discharge Date: 07/27/18 Physicians Team ED Provider: Kevin Ramesh ED Midlevel Provider: Steph Barton Primary Care Provider: Rashard Abbott Attending Provider: Jesse Arndt Other Providers: Ifeanyi Delgado ; Ryan Varela Rxs /Orders / Referrals /Forms Prescriptions: New hydralazine 25 mg Tablet 25 mg PO BID 30 Days Qty: 60 RF: 0 metoprolol tartrate 50 mg Tablet 50 mg PO BID 30 Days Qty: 60 RF: 0 Continue flecainide 50 mg Tablet 50 mg PO Q12H RF: 0 omeprazole 20 mg Capsule,Delayed Release(Dr/Ec) 20 mg PO BID RF: 0 apixaban [Eliquis] 5 mg Tablet 5 mg PO BID RF: 0 hydrocodone-acetaminophen [Antigo] 5-325 mg Tablet 2 tab PO Q6H Qty: 30 RF: 0 Discontinued metoprolol tartrate 25 mg Tablet 25 mg PO BID RF: 0 Referrals: Rashard Abbott MD [Primary Care Provider] - See Instructions (follow up in 1 week) Pam Trujillo MD [Physician] - See Instructions (follow up in 2 weeks) Discharge Instructions Patient Printed Instructions: Hydralazine (By mouth), A-fib (Atrial Fibrillation) (DC), Chest Pain (ED), Tachycardia (GEN) Status ED Status: Left Department
[2018-07-27 10:52] VITALS: PULSE 108
== END 2018-07-27 10:45 | disposition home or self-care (01) ==
LOC: NEPC 18:52 → NEDA 20:48 → HCIS 07-23
PROVIDERS: ADMIT Hospitalist; ATTEND Hospitalist
DX: Z79.02 Long term (current) use of antithrombotics/antiplatelets; R80.9 Proteinuria, unspecified; Z96.1 Presence of intraocular lens; E87.1 Hypo-osmolality and hyponatremia; I10 Essential (primary) hypertension; I48.0 Paroxysmal atrial fibrillation

== ENCOUNTER 2018-08-23 16:01 | Observation (INO) ==
--- NOTE | 2018-08-23 18:12 | ED ---
HPI General Chief Complaint: Shortness of Breath/Dyspnea Stated Complaint: respiratory Time Seen by Provider: 08/23/18 17:27 Source: patient Mode of arrival: ambulatory Limitations: no limitations History of Present Illness 83-year-old female with a history of atrial fibrillation on Eliquis, nephrotic syndrome, hypertension presents to the emergency department evaluation of shortness of breath with exertion that has been present since discharge from the hospital 1 month ago. She states that she was admitted for atrial fibrillation with RVR and was discharged home after control of her heart rate. Says that she followed up with Dr. Pineda, her front end ui developer 2 weeks ago but denies medication changes since then. She says her shortness of breath is associated with activity and she occasionally has pressure in the lower chest that is relieved with rest. She has symptoms walking just a couple of steps which is abnormal for her. She denies heart palpitations. She says she is called her front end ui developer office within the last week and she she was advised to come to the emergency department for evaluation. She denies medication changes except for amlodipine which was at discharge 1 month ago. She denies history of coronary artery disease, COPD. She states compliance with her medications. Related Data Home Medications Medication Instructions Recorded Confirmed apixaban [Eliquis] 5 mg PO BID 06/28/18 08/23/18 flecainide 50 mg PO Q12H 06/28/18 08/23/18 omeprazole 20 mg PO BID 06/28/18 08/23/18 amlodipine 5 mg PO DAILY 08/23/18 08/23/18 Previous Rx's Medication Instructions Recorded hydrocodone-acetaminophen [[place]] 2 tab PO Q6H #30 tab 07/05/18 metoprolol tartrate 50 mg PO BID 30 Days #60 tab 07/26/18 Allergies Allergy/AdvReac Type Severity Reaction Status Date / Time aspirin Allergy Severe "TOLD NOT Verified 08/23/18 17:50 TO TAKE ANY ANTIINFLAMMATORIES" cephalexin Allergy Severe "SWOLLEN Verified 08/23/18 17:50 THROAT,ITCHING ALL OVER" ibuprofen Allergy Severe "TOLD NOT Verified 08/23/18 17:50 TO TAKE ANYMORE" lisinopril Allergy Severe "RASH" Verified 08/23/18 17:50 nabumetone Allergy Severe "NEPHROTIC Verified 08/23/18 17:50 SYNDROME" NSAIDS (Non-Steroidal Allergy Severe advised Verified 08/23/18 17:50 Anti-Inflamma not to take anymore penicillin G Allergy Severe UNKNOWN Verified 08/23/18 17:50 Sulfa (Sulfonamide Allergy Severe "TOLD NOT Verified 08/23/18 17:50 Antibiotics) TO TAKE ANYMORE" adhesive Allergy Intermediate Rash Verified 08/23/18 17:50 digoxin Allergy Intermediate disorientat Verified 08/23/18 17:50 ion telmisartan Allergy Intermediate disorientat Verified 08/23/18 16:44 ion Review of Systems ROS: all other systems reviewed are negative [facility] Medical History Medical History Afib (Acute) Arthritis (Acute) GERD (gastroesophageal reflux disease) (Acute) H/O small bowel obstruction (Acute) H/O: hysterectomy (Acute) Hypertension (Acute) Nephrotic syndrome (Acute) Wears glasses (Acute) Family History Family History Other Family history non-contributory Social History Social History Substance History: No History of Abuse Second Hand Smoke Exposure: No Smoking Status: Never smoker Tobacco Type: Cigarettes How Often Do You Have a Drink Containing Alcohol: Never Recent Travel in [facility] within the Last 8 Weeks: No Recent Out of Country Travel within the Last 8 Weeks: No Immunization History Tetanus Immunization: <5 Years Exam Narrative Exam Narrative: GENERAL: WD, WN in NAD SKIN: Focused skin assessment warm/dry. HEAD: Atraumatic. Normocephalic. EYES: Pupils equal and round. No scleral icterus. No injection or drainage. ENT: No nasal bleeding or discharge. Mucous membranes pink and moist. No tonsillar hypertrophy or exudate. NECK: Trachea midline. No JVD. No meningismus. No midline tenderness. CARDIOVASCULAR: Regular rate and rhythm. No murmur appreciated. RESPIRATORY: No accessory muscle use. Clear to auscultation. Breath sounds equal bilaterally. GASTROINTESTINAL: Abdomen soft, non-tender, nondistended. No CVAT. MUSCULOSKELETAL: No obvious deformities. No clubbing. No cyanosis. No edema. No tenderness to palpation of the calves. Sensation intact to bilateral lower extremities. NEUROLOGICAL: Awake and alert. No obvious cranial nerve deficits. Motor grossly within normal limits. Normal speech. PSYCHIATRIC: Appropriate mood and affect; insight and judgment normal. Course Initial Documented Vital Signs Temperature 98.7 F 08/23/18 16:39 Pulse Rate 89 08/23/18 16:39 Respiratory Rate 18 08/23/18 16:39 Blood Pressure 149/84 H 08/23/18 16:39 Pulse Oximetry 99 08/23/18 16:39 Last Documented Vital Signs Temperature 97.7 F 08/24/18 00:23 Pulse Rate 80 08/24/18 00:23 Respiratory Rate 18 08/24/18 00:23 Blood Pressure 158/72 H 08/24/18 00:23 Pulse Oximetry 99 08/24/18 00:23 Medical Decision Making ARLEY Attestation ARLEY supervised visit: Yes Attestation: The patient is a 83-year-old female who presents to the emergency department for chest pain and shortness of breath. The patient states she was hospitalized 1 month ago and was discharged home, outpatient follow-up with her front end ui developer, Dr. Howe, was scheduled. Patient is scheduled to undergo echocardiogram next month. However, the patient has had increasing chest pain which she described as pressure with shortness of breath that is exertional. The patient states she will rest and her symptoms will improve, or repetitive, and worse with activity. The patient states her last stress test was 10 years ago, she is never undergone cardiac catheterization. The patient does have a history of hypertension and atrial fibrillation, her symptoms may be anginal and she may benefit from 23-hour observation in the chest pain center for serial cardiac enzymes and further evaluation by cardiology for possible stress test. The patient is comfortable with this plan of care and disposition. We attempted to call Dr. Howe at 7:30 PM, however, the call center would not put a call directly to him. MDM Narrative Medical decision making narrative: 83-year-old female presents to the emergency department for evaluation of breath and mild chest pressure with exertion that has been present since discharge a month ago. She says it is worsened and she called her front end ui developer's office who recommended she come in today for evaluation. Vital signs stable. HR 79. BP 164/90. Physical exam findings demonstrate a well developed, well nourished 83y female appears breathing heavily with exertion or talking quickly. No edema of lower extremities. No TTP to calves. Ambulates without assistance but becomes short of breath. EKG Sinus rhythm rate 89 without STEMI changes. No change since 07/2018. CXR without acute process. Labs show WBC 7.1, Na 130, K 4.1, BUN/Cr 14/0.73, troponin<0.02, BNP 226. Urinalysis shows UTI. Initiated Cipro. BNP is stable from previous values. Pt has a h/o hyponatremia. Recommend fluid restriction. Unable to reach Dr. Howe for consult as this is his patient. Will admit to the chest pain center for ACS/anginal equivalent. Medical Screen Exam Complete: Yes Emergency Medical Condition: Yes Differential Diagnosis Differential Diagnosis: AMI, pneumonitis, pulmonary embolism, adverse medication reaction Lab Data Result diagrams: 08/23/18 17:54 08/23/18 17:54 Lab Results 08/23/18 08/23/18 08/23/18 Range/Units 17:54 17:54 17:54 WBC 7.1 (4.0-11.0) th/mm3 RBC 4.35 (4.00-5.30) mil/mm3 Hgb 12.8 (11.6-15.3) gm/dL Hct 37.5 (35.0-46.0) % MCV 86.3 (80.0-100.0) fL MCH 29.4 (27.0-34.0) pg MCHC 34.1 (32.0-36.0) % RDW 13.8 (11.6-17.2) % Plt Count 266 (150-450) th/mm3 MPV 7.2 (7.0-11.0) fL Neut % (Auto) 54.8 (16.0-70.0) % Lymph % (Auto) 30.2 (9.0-44.0) % Swain % (Auto) 13.1 H (0.0-8.0) % Eos % (Auto) 1.3 (0.0-4.0) % Baso % (Auto) 0.6 (0.0-2.0) % Neut # (Auto) 3.9 (1.8-7.7) th/mm3 Lymph # (Auto) 2.1 (1.0-4.8) th/mm3 Swain # (Auto) 0.9 (0.0-0.9) th/mm3 Eos # (Auto) 0.1 (0.0-0.4) th/mm3 Baso # (Auto) 0.0 (0.0-0.2) th/mm3 WBC Differential . Differential Comment Auto diff final PT 10.2 (9.8-11.6) sec INR 1.0 Ratio APTT 28.3 (23.4-31.7) sec Sodium 130 L (136-145) meq/L Potassium 4.1 (3.5-5.1) meq/L Chloride 95 L (98-107) meq/L Carbon Dioxide 29.2 (21.0-32.0) meq/L Anion Gap 6 (5-15) meq/L BUN 14 (7-18) mg/dL Creatinine 0.73 (0.50-1.00) mg/dL Estimated GFR 76 L (>89) mL/min Random Glucose 89 (74-106) mg/dL Calcium 8.8 (8.5-10.1) mg/dL Magnesium 2.1 (1.5-2.5) mg/dL Total Bilirubin 0.3 (0.2-1.0) mg/dL AST 20 (15-37) U/L ALT 48 (10-53) U/L Alkaline Phosphatase 91 (45-117) U/L Total Creatine Kinase (26-192) U/L Troponin I Less than 0.02 L (0.02-0.05) ng/mL B-Natriuretic Peptide (0-100) pg/mL Total Protein 8.1 (6.4-8.2) g/dL Albumin 4.1 (3.4-5.0) g/dL Urine Color (Yellw/Straw) Urine Clarity (Clear) Urine pH (5.0-8.5) Ur Specific [place] (1.002-1.035) Urine Protein (Neg-Trace) mg/dL Urine Glucose (UA) (Negative) mg/dL Urine Ketones (Negative) mg/dL Urine Occult Blood (Negative) Urine Nitrate (Negative) Urine Bilirubin (Negative) Urine Urobilinogen (Less than 2) mg/dL Ur Leukocyte Esterase (Negative) Urine RBC (0-3) /hpf Urine WBC (0-5) /hpf Urine WBC Clumps (None) Ur Squamous Epith Cells (0-5) /hpf Urine Bacteria (None) /hpf Micro UA Comment Ur Microscopic Review Urine Culture Comments 08/23/18 08/23/18 08/23/18 Range/Units 17:54 19:30 21:00 WBC (4.0-11.0) th/mm3 RBC (4.00-5.30) mil/mm3 Hgb (11.6-15.3) gm/dL Hct (35.0-46.0) % MCV (80.0-100.0) fL MCH (27.0-34.0) pg MCHC (32.0-36.0) % RDW (11.6-17.2) % Plt Count (150-450) th/mm3 MPV (7.0-11.0) fL Neut % (Auto) (16.0-70.0) % Lymph % (Auto) (9.0-44.0) % Swain % (Auto) (0.0-8.0) % Eos % (Auto) (0.0-4.0) % Baso % (Auto) (0.0-2.0) % Neut # (Auto) (1.8-7.7) th/mm3 Lymph # (Auto) (1.0-4.8) th/mm3 Swain # (Auto) (0.0-0.9) th/mm3 Eos # (Auto) (0.0-0.4) th/mm3 Baso # (Auto) (0.0-0.2) th/mm3 WBC Differential Differential Comment PT (9.8-11.6) sec INR Ratio APTT (23.4-31.7) sec Sodium (136-145) meq/L Potassium (3.5-5.1) meq/L Chloride (98-107) meq/L Carbon Dioxide (21.0-32.0) meq/L Anion Gap (5-15) meq/L BUN (7-18) mg/dL Creatinine (0.50-1.00) mg/dL Estimated GFR (>89) mL/min Random Glucose (74-106) mg/dL Calcium (8.5-10.1) mg/dL Magnesium (1.5-2.5) mg/dL Total Bilirubin (0.2-1.0) mg/dL AST (15-37) U/L ALT (10-53) U/L Alkaline Phosphatase (45-117) U/L Total Creatine Kinase 55 (26-192) U/L Troponin I Less than 0.02 L (0.02-0.05) ng/mL B-Natriuretic Peptide 226 H (0-100) pg/mL Total Protein (6.4-8.2) g/dL Albumin (3.4-5.0) g/dL Urine Color Straw (Yellw/Straw) Urine Clarity Clear (Clear) Urine pH 7.0 (5.0-8.5) Ur Specific [place] 1.003 (1.002-1.035) Urine Protein Negative (Neg-Trace) mg/dL Urine Glucose (UA) Negative (Negative) mg/dL Urine Ketones Negative (Negative) mg/dL Urine Occult Blood Negative (Negative) Urine Nitrate Negative (Negative) Urine Bilirubin Negative (Negative) Urine Urobilinogen Less than 2 (Less than 2) mg/dL Ur Leukocyte Esterase Large H (Negative) Urine RBC 1 (0-3) /hpf Urine WBC 85 H (0-5) /hpf Urine WBC Clumps Occasional H (None) Ur Squamous Epith Cells <1 (0-5) /hpf Urine Bacteria Moderate H (None) /hpf Micro UA Comment Culture indicated Ur Microscopic Review Not Reportable Urine Culture Comments Culture indicated Imaging Data Radiologist's impression: Chest X-Ray 08/23/18 17:51 CONCLUSION: No evidence of acute cardiopulmonary disease. Discharge Plan Discharge Disposition Patient Disposition: ED Admit(ED Internal Use Only) Discharge Condition Condition: Stable Discharge Order Discharge Orders: ED Use Only Admit Order (Routine); Ordered 08/23/18 Ordered By: Jenna Tavarez Discharge Details Diagnosis: Chest pain Physicians Team ED Provider: Ben Burnett ED Midlevel Provider: Jenna Tavarez Primary Care Provider: Rashard Abbott Attending Provider: Riley Johnson Status ED Status: Left Department Discharge Information Discharge Date/Time: 08/23/18 21:49
[2018-08-23 18:18] LABS: Activated Partial Thrombo Time 28.3 sec (23.4-31.7); Prothrombin Time 10.2 sec (9.8-11.6)
--- NOTE | 2018-08-23 18:18 | XR ---
EXAM DATE: 08/23/2018 6:07 PM EST AGE/SEX: 83 years / Female INDICATIONS: Shortness of breath. CLINICAL DATA: This is the patient's initial encounter. Patient reports that signs and symptoms have been present for 1 month and indicates a pain score of 0/10. MEDICAL/SURGICAL HISTORY: Hypertension. None. COMPARISON: [facility] [place], CHEST 1V SINGLE AP, 07/22/2018. . FINDINGS: A single AP view of the chest demonstrates the lungs to be symmetrically aerated without evidence of mass, infiltrate or effusion. The cardiomediastinal contours are unremarkable. Osseous structures a re intact. CONCLUSION: No evidence of acute cardiopulmonary disease. Electronically signed by: Carlos Franco MD 08/23/2018 6:17 PM EST
[2018-08-23 18:19] LABS: Baso % (Auto) 0.6 % (0.0-2.0); Eos # (Auto) 0.1 th/mm3 (0.0-0.4); Eos % (Auto) 1.3 % (0.0-4.0); Hematocrit 37.5 % (35.0-46.0); Hemoglobin 12.8 gm/dL (11.6-15.3); Lymph # (Auto) 2.1 th/mm3 (1.0-4.8); Lymph % (Auto) 30.2 % (9.0-44.0); Mean Corpuscular HGB Conc 34.1 % (32.0-36.0); Mean Corpuscular Hemoglobin 29.4 pg (27.0-34.0); Mean Corpuscular Volume 86.3 fL (80.0-100.0); Mean Platelet Volume 7.2 fL (7.0-11.0); Mono # (Auto) 0.9 th/mm3 (0.0-0.9); Mono % (Auto) 13.1 % (0.0-8.0); Neut # (Auto) 3.9 th/mm3 (1.8-7.7); Neut % (Auto) 54.8 % (16.0-70.0); Platelet Count 266 th/mm3 (150-450); Red Blood Count 4.35 mil/mm3 (4.00-5.30); Red Cell Distribution Width 13.8 % (11.6-17.2); White Blood Count 7.1 th/mm3 (4.0-11.0)
[2018-08-23 18:34] LABS: Alanine Aminotransferase 48 U/L (10-53); Albumin 4.1 g/dL (3.4-5.0); Anion Gap 6 meq/L (5-15); Aspartate Aminotransferase 20 U/L (15-37); Blood Urea Nitrogen 14 mg/dL (7-18); Calcium 8.8 mg/dL (8.5-10.1); Carbon Dioxide 29.2 meq/L (21.0-32.0); Chloride 95 meq/L (98-107); Glomerular Filtration Rate 76 mL/min (>89); Glucose,Random 89 mg/dL (74-106); Magnesium 2.1 mg/dL (1.5-2.5); Potassium 4.1 meq/L (3.5-5.1); Sodium 130 meq/L (136-145)
[2018-08-23 18:39] LABS: Alkaline Phosphatase 91 U/L (45-117); Total Protein 8.1 g/dL (6.4-8.2)
[2018-08-23] MEDS ORDERED: Acetaminophen 500 MG Tablet PO PRN (19:44)
[2018-08-23 20:05] LABS: Bacteria,Urine Moderate /hpf; Bilirubin,Urine Negative (Negative); Clarity,Urine Clear (Clear); Color,Urine Straw (Yellw/Straw); Glucose,Urine (UA) Negative (Negative); Leukocyte Esterase,Urine Large (Negative); Nitrite,Urine Negative (Negative); Specific Gravity,Urine 1.003 (1.002-1.035); Squamous Epithelial Cell,Urine <1 /hpf (0-5)
[2018-08-23] MEDS ORDERED: Ciprofloxacin 400 MG/200 ML 400 MG/200 ML PIGGYBACK IV.SIG ONE (20:09)
[2018-08-23 22:00] LABS: Creatine Kinase 55 U/L (26-192)
--- NOTE | 2018-08-24 08:50 | P.HPCA ---
History of Present Illness Primary Care Physician: Rashard Abbott MD Chief Complaint: Dyspnea on exertion History of Present Illness: 83 year old female with history of atrial fibrillation, nephrotic syndrome, and hypertension presents emergency room for further evaluation times 1 month. Onset reported after last hospitalization with Afib RVR last month. Admitted for 5 days. Reports metoprolol increased upon discharge. Reports dyspnea with any amount of exertion, walking, shopping, and performing light duties such as lifting her arms to water house plants. Associated symptoms of substernal pressure. Dyspnea and pressure resolves rapidly with rest. No associated symptoms of nausea, vomiting, diaphoresis, palpitations, and it did not hurt to take a deep breath. Reports increased fatigue in the past month. This is concerning to her, she reports being very active and is frustrated she has canceled social engagements over fatigue and dyspnea. No current dyspnea or chest pressure. Seen Dr. Howe after last month admission and reports they discussed increase in fatigue and dyspnea. Metoprolol unchanged at visit, but states blood pressure changed to amlodipine. Follows with Dr. Howe, calling office yesterday and was instructed to go to ER for further evaluation. Past cardiac testing Does not recall any past cardiac stress testing Scheduled for echocardiogram next week. Social history Known hypertension and hyperlipidemia, was taken off statin therapy due to elevated liver enzymes. No known coronary artery disease or diabetes. Former smoker quit her over 30 years ago. Occasional alcohol use. No recreational drug use. Reports being fairly active until 1 month ago. - Diagnosis (1) Dyspnea on exertion (2) History of atrial fibrillation (3) HTN (hypertension) (4) GERD (gastroesophageal reflux disease) (5) Hyponatremia Review of Systems All other systems reviewed negative except as stated in HPI PMFSH - History History Provided By: Patient - Medical History Medical History: Medical History (Last Reviewed 08/24/18 @ 10:51 by CATHERINE Castañeda) Afib Arthritis GERD (gastroesophageal reflux disease) H/O small bowel obstruction H/O: hysterectomy Hypertension Nephrotic syndrome Wears glasses - Surgical History Surgical History: Surgical History (Last Reviewed 08/24/18 @ 10:51 by CATHERINE Castañeda) H/O cardiac radiofrequency ablation Hx of appendectomy Hx of cholecystectomy Hx of tonsillectomy S/P arthroscopy of right shoulder Status post cataract extraction of both eyes with insertion of intraocular lens - Family History Family History: Family History (Last Updated 07/25/18 @ 14:25 by Ryan Varela MD) Other Family history non-contributory - Tobacco History Second Hand Smoke Exposure: No Smoking Status: Former smoker (quit 30+ years ago) Tobacco Type: Cigarettes - Alcohol History How Often Do You Have a Drink Containing Alcohol: Monthly or less - Substance Use History Substance History: No History of Abuse - Travel History History of Recent Travel: No Recent Travel in the [place] Within the Last 8 Weeks: No Recent Travel Out of the Country Within the Last 8 Weeks: No - Immunization History Tetanus Immunization: <5 Years Medications and Allergies Active Medications: Active Medications Acetaminophen (Tylenol) 500 mg PO Q4H PRN PRN Reason: HEADACHE Ondansetron HCl (Zofran Inj) 4 mg IV.PUSH Q6H PRN PRN Reason: NAUSEA Sodium Chloride (Ns Flush) 2 ml IV.FLUSH UNSCH PRN PRN Reason: FLUSH AFTER USING IV ACCESS Sodium Chloride (Ns Flush) 2 ml IV.FLUSH BID [facility] Last Admin: 08/23/18 21:15 Dose: 2 ml Sodium Chloride (Ns Flush) 2 ml IV.FLUSH PRN PRN PRN Reason: FLUSH AFTER USING IV ACCESS Allergies Allergy/AdvReac Type Severity Reaction Status Date / Time aspirin Allergy Severe "TOLD NOT Verified 08/23/18 17:50 TO TAKE ANY ANTIINFLAMMATORIES" cephalexin Allergy Severe "SWOLLEN Verified 08/23/18 17:50 THROAT,ITCHING ALL OVER" ibuprofen Allergy Severe "TOLD NOT Verified 08/23/18 17:50 TO TAKE ANYMORE" lisinopril Allergy Severe "RASH" Verified 08/23/18 17:50 nabumetone Allergy Severe "NEPHROTIC Verified 08/23/18 17:50 SYNDROME" NSAIDS (Non-Steroidal Allergy Severe advised Verified 08/23/18 17:50 Anti-Inflamma not to take anymore penicillin G Allergy Severe UNKNOWN Verified 08/23/18 17:50 Sulfa (Sulfonamide Allergy Severe "TOLD NOT Verified 08/23/18 17:50 Antibiotics) TO TAKE ANYMORE" adhesive Allergy Intermediate Rash Verified 08/23/18 17:50 digoxin Allergy Intermediate disorientat Verified 08/23/18 17:50 ion telmisartan Allergy Intermediate disorientat Verified 08/23/18 16:44 ion Home Medications Medication Instructions Recorded Confirmed Type apixaban [Eliquis] 5 mg PO BID 06/28/18 08/23/18 History flecainide 50 mg PO Q12H 06/28/18 08/23/18 History omeprazole 20 mg PO BID 06/28/18 08/23/18 History amlodipine 5 mg PO DAILY 08/23/18 08/23/18 History Exam Vital signs: Vital Signs 08/23/18 16:39 08/23/18 17:45 08/23/18 19:07 Temperature 98.7 F Pulse Rate 89 79 Respiratory Rate 18 21 Blood Pressure 149/84 H 164/90 H Pulse Oximetry 99 99 98 08/23/18 20:00 08/23/18 21:00 08/24/18 00:23 Temperature 97.5 F L 97.7 F Pulse Rate 94 H 82 80 Respiratory Rate 18 16 18 Blood Pressure 147/76 H 160/80 H 158/72 H Pulse Oximetry 98 98 99 08/24/18 04:32 08/24/18 07:32 Temperature 97.9 F 98.0 F Pulse Rate 95 H 101 H Respiratory Rate 18 18 Blood Pressure 116/67 119/70 Pulse Oximetry 95 96 Intake & Output 08/23/18 08/24/18 08/24/18 18:59 06:59 18:59 Intake Total 200 / 200 Balance 200 / 200 Weight 68.039 kg 68.039 kg Intake: IV 200 / 200 Cipro 400 MG/200 ML Inj 400 mg 200 / 200 In 200 ml @ 200 mls/hr IV.SIG ONCE ONE Rx#:[id number] Other: Date of Last Bowel Movement 08/23/18 Weight On Admission 68.039 kg Narrative: GENERAL: Alert WN, WD, NAD, pleasant, elderly female HEAD: NC, AT EYES: Sclera clear, conjunctiva without injection, pupils equal and round ENT: Mucous membranes pink and moist, no nasal discharge or bleeding NECK: Supple, no masses, trachea midline CV: RRR, without murmur, rub, gallop, no JVD, S1-S2 RESP: Clear lungs throughout bilateral, no crackles, wheeze, rhonchi, symmetrical chest rise, nonlabored, able to speak in full sentences ABD: Soft, NT, ND, no masses, positive bowel tones EXT: Pulses +2x4, no dependent edema MS: Normal tone x4 extremities, nontender, no obvious deformities, full range of motion NEURO: Motor strength 5/5 PSYCH: A+O x3, pleasant affect, appropriate speech, mood, insight and judgment SKIN: Normal turgor, normal texture, no lesions, no rashes, brisk cap refill, even hair distribution Results 08/23/18 17:54 08/23/18 17:54 Cardiac Enzymes 08/23/18 08/23/18 08/23/18 Range/Units 17:54 17:54 21:00 AST 20 (15-37) U/L Troponin I Less than 0.02 L Less than 0.02 L (0.02-0.05) ng/mL B-Natriuretic Peptide 226 H (0-100) pg/mL 08/24/18 Range/Units 00:10 AST (15-37) U/L Troponin I Less than 0.02 L (0.02-0.05) ng/mL B-Natriuretic Peptide (0-100) pg/mL Coagulation 08/23/18 08/23/18 Range/Units 17:54 17:54 PT 10.2 (9.8-11.6) sec APTT 28.3 (23.4-31.7) sec B-Natriuretic Peptide 226 H (0-100) pg/mL CBC 08/23/18 Range/Units 17:54 WBC 7.1 (4.0-11.0) th/mm3 RBC 4.35 (4.00-5.30) mil/mm3 Hgb 12.8 (11.6-15.3) gm/dL Hct 37.5 (35.0-46.0) % Plt Count 266 (150-450) th/mm3 Neut # (Auto) 3.9 (1.8-7.7) th/mm3 Lymph # (Auto) 2.1 (1.0-4.8) th/mm3 [place] # (Auto) 0.9 (0.0-0.9) th/mm3 Eos # (Auto) 0.1 (0.0-0.4) th/mm3 Baso # (Auto) 0.0 (0.0-0.2) th/mm3 Comprehensive Metabolic Panel 08/23/18 Range/Units 17:54 Sodium 130 L (136-145) meq/L Potassium 4.1 (3.5-5.1) meq/L Chloride 95 L (98-107) meq/L Carbon Dioxide 29.2 (21.0-32.0) meq/L BUN 14 (7-18) mg/dL Creatinine 0.73 (0.50-1.00) mg/dL Calcium 8.8 (8.5-10.1) mg/dL AST 20 (15-37) U/L ALT 48 (10-53) U/L Alkaline Phosphatase 91 (45-117) U/L Total Protein 8.1 (6.4-8.2) g/dL Albumin 4.1 (3.4-5.0) g/dL Intake and Output 08/23/18 08/24/18 08/24/18 22:59 06:59 14:59 Intake Total 200 / 200 Balance 200 / 200 Intake: IV 200 / 200 Cipro 400 MG/200 ML Inj 400 mg 200 / 200 In 200 ml @ 200 mls/hr IV.SIG ONCE ONE Rx#:[id number] Other: Date of Last Bowel Movement 08/23/18 Weight 68.039 kg Weight On Admission 68.039 kg - Imaging and Cardiology Imaging: Impressions Chest X-Ray 08/23/18 17:51 CONCLUSION: No evidence of acute cardiopulmonary disease. EKG interpretations - Dysrhythmias Supraventricular dysrhythmia: atrial fibrillation Caprini VTE Risk Assessment Caprini VTE Risk Assessment: Moderate/High Risk (score >= 2) Caprini Risk Assessment Model: Point Value = 1 Point Value = 2 Point Value = 3 Point Value = 5 Age 41-60 Minor surgery BMI > 25 kg/m2 Swollen legs Varicose veins or History of unexplained or recurrent spontaneous Oral contraceptives or hormone replacement Sepsis (< 1 month) Serious lung disease, including pneumonia (< 1 month) Abnormal pulmonary function Acute myocardial infarction Congestive heart failure (< 1 month) History of inflammatory bowel disease Medical patient at bed rest Age 61-74 Arthroscopic surgery Major open surgery (> 45 min) Laparoscopic surgery (> 45 min) Malignancy Confined to bed (> 72 hours) Immobilizing plaster cast Central venous access Age >= 75 History of VTE Family history of VTE Factor V Leiden Prothrombin [id number] Lupus anticoagulant Anticardiolipin antibodies Elevated serum homocysteine Heparin-induced thrombocytopenia Other congenital or acquired thrombophilia Stroke (< 1 month) Elective arthroplasty Hip, pelvis, or leg fracture Acute spinal cord injury (< 1 month) Prophylaxis Regimen: Total Risk Factor Score Risk Level Prophylaxis Regimen 0-1 Low Early ambulation 2 Moderate Order ONE of the following: *Sequential Compression Device (SCD) *Heparin 5000 units SQ BID 3-4 Higher Order ONE of the following medications: *Heparin 5000 units SQ TID *Enoxaparin/Lovenox 40 mg SQ daily (WT < 150 kg, CrCl > 30 mL/min) *Enoxaparin/Lovenox 30 mg SQ daily (WT < 150 kg, CrCl > 10-29 mL/min) *Enoxaparin/Lovenox 30 mg SQ BID (WT < 150 kg, CrCl > 30 mL/min) AND/OR *Sequential Compression Device (SCD) 5 or more Highest Order ONE of the following medications: *Heparin 5000 units SQ TID (Preferred with Epidurals) *Enoxaparin/Lovenox 40 mg SQ daily (WT < 150 kg, CrCl > 30 mL/min) *Enoxaparin/Lovenox 30 mg SQ daily (WT < 150 kg, CrCl > 10-29 mL/min) *Enoxaparin/Lovenox 30 mg SQ BID (WT < 150 kg, CrCl > 30 mL/min) AND *Sequential Compression Device (SCD) Assessment and Plan - Assessment (1) Dyspnea on exertion Code(s): R06.09 - Other forms of dyspnea Status: Acute Plan: Admitted chest pain center. ACS ruled out 3 sets of EKGs and cardiac enzymes. Will be seen and evaluated by Dr. Rashard Penn. Discussed possible chemical cardiac testing later this morning. Will be determined after evaluation by Dr. Penn. Patient agreeable to plan of care and verbalizes understanding. BNP elevated 226. (2) History of atrial fibrillation Code(s): Z86.79 - Personal history of other diseases of the circulatory system Status: Chronic Plan: Continue flecainide, metoprolol, and Eliquis. Discussed with RN as patient currently heart rate low 100s. (3) HTN (hypertension) Code(s): I10 - Essential (primary) hypertension Status: Chronic Plan: Continue amlodipine. Continue to monitor. (4) GERD (gastroesophageal reflux disease) Code(s): K21.9 - Gastro-esophageal reflux disease without esophagitis Status: Chronic Plan: Continue omeprazole once updated in EMR. (5) Hyponatremia Code(s): E87.1 - Hypo-osmolality and hyponatremia Status: Acute Plan: Discussed findings of sodium level of 130. Apparently been told in past as well. Reviewing past sodium levels ranges between 129-141. Instructed to follow up with primary care provider upon discharge. H&P: Quality - VTE Deep Vein Thrombosis/Pulmonary Embolism Present on Admission: No (3) HTN (hypertension) Qualifiers: Hypertension type: secondary to other renal disorders Qualified Code(s): I15.1 - Hypertension secondary to other renal disorders; N28.89 - Other specified disorders of kidney and ureter (4) GERD (gastroesophageal reflux disease) Qualifiers: Esophagitis presence: esophagitis presence not specified Qualified Code(s): K21.9 - Gastro-esophageal reflux disease without esophagitis
[2018-08-24] MEDS ORDERED: Metoprolol Tartrate 50 MG Tablet PO SCH (09:00)
[2018-08-24] MEDS ORDERED: amLODIPine 5 MG Tablet PO SCH (09:00)
[2018-08-24] MEDS ORDERED: Flecainide 100 MG Tablet PO SCH (09:00)
--- NOTE | 2018-08-24 10:24 | P.PNCA ---
Subjective Interval history: 83-year-old lady evaluated by a nurse practitioner and presented and then personally seen and evaluated and examined. Am in agreement with the dictation as entered. I would emphasize that her shortness of breath began with her last admission to the hospital and has persisted since discharge. Her heart rate is quite apparently inadequately controlled. Her hypertension has not been adequately controlled at least part of which is due to her reticence to take additional blood pressure medication. Her evaluation by chest pain center protocol has been negative aside from the fact that her BNP is elevated at 226. Her chest x-ray also shows cardiomegaly although not read as such. She was already scheduled for an echo with Dr. Hedrick office next week and is encouraged to follow through with that evaluation. In essence she became tired of waiting to get back into see Dr. Rothman came to the emergency room as a result. Medications and Allergies Active Medications: Active Medications Acetaminophen (Tylenol) 500 mg PO Q4H PRN PRN Reason: HEADACHE Amlodipine Besylate (Norvasc) 5 mg PO DAILY [facility] Last Admin: 08/24/18 09:39 Dose: 5 mg Apixaban (Eliquis) 5 mg PO BID [facility] Last Admin: 08/24/18 09:38 Dose: 5 mg Flecainide Acetate (Tambocor) 50 mg PO Q12HR [facility] Metoprolol Tartrate (Lopressor) 50 mg PO BID [facility] Last Admin: 08/24/18 09:39 Dose: 50 mg Miscellaneous (Pill Splitter) 1 each OTHER UNSCH [facility] Ondansetron HCl (Zofran Inj) 4 mg IV.PUSH Q6H PRN PRN Reason: NAUSEA Sodium Chloride (Ns Flush) 2 ml IV.FLUSH UNSCH PRN PRN Reason: FLUSH AFTER USING IV ACCESS Sodium Chloride (Ns Flush) 2 ml IV.FLUSH BID [facility] Last Admin: 08/23/18 21:15 Dose: 2 ml Sodium Chloride (Ns Flush) 2 ml IV.FLUSH PRN PRN PRN Reason: FLUSH AFTER USING IV ACCESS Allergies Allergy/AdvReac Type Severity Reaction Status Date / Time aspirin Allergy Severe "TOLD NOT Verified 08/23/18 17:50 TO TAKE ANY ANTIINFLAMMATORIES" cephalexin Allergy Severe "SWOLLEN Verified 08/23/18 17:50 THROAT,ITCHING ALL OVER" ibuprofen Allergy Severe "TOLD NOT Verified 08/23/18 17:50 TO TAKE ANYMORE" lisinopril Allergy Severe "RASH" Verified 08/23/18 17:50 nabumetone Allergy Severe "NEPHROTIC Verified 08/23/18 17:50 SYNDROME" NSAIDS (Non-Steroidal Allergy Severe advised Verified 08/23/18 17:50 Anti-Inflamma not to take anymore penicillin G Allergy Severe UNKNOWN Verified 08/23/18 17:50 Sulfa (Sulfonamide Allergy Severe "TOLD NOT Verified 08/23/18 17:50 Antibiotics) TO TAKE ANYMORE" adhesive Allergy Intermediate Rash Verified 08/23/18 17:50 digoxin Allergy Intermediate disorientat Verified 08/23/18 17:50 ion telmisartan Allergy Intermediate disorientat Verified 08/23/18 16:44 ion Home Medications Medication Instructions Recorded Confirmed Type apixaban [Eliquis] 5 mg PO BID 06/28/18 08/23/18 History flecainide 50 mg PO Q12H 06/28/18 08/23/18 History omeprazole 20 mg PO BID 06/28/18 08/23/18 History amlodipine 5 mg PO DAILY 08/23/18 08/23/18 History Physical Exam Vital signs: Vital Signs 08/23/18 16:39 08/23/18 17:45 08/23/18 19:07 Temperature 98.7 F Pulse Rate 89 79 Respiratory Rate 18 21 Blood Pressure 149/84 H 164/90 H Pulse Oximetry 99 99 98 08/23/18 20:00 08/23/18 21:00 08/24/18 00:23 Temperature 97.5 F L 97.7 F Pulse Rate 94 H 82 80 Respiratory Rate 18 16 18 Blood Pressure 147/76 H 160/80 H 158/72 H Pulse Oximetry 98 98 99 08/24/18 04:32 08/24/18 07:32 Temperature 97.9 F 98.0 F Pulse Rate 95 H 101 H Respiratory Rate 18 18 Blood Pressure 116/67 119/70 Pulse Oximetry 95 96 Intake & Output 08/23/18 08/24/18 08/24/18 18:59 06:59 18:59 Intake Total 200 / 200 Balance 200 / 200 Weight 68.039 kg 68.039 kg Intake: IV 200 / 200 Cipro 400 MG/200 ML Inj 400 mg 200 / 200 In 200 ml @ 200 mls/hr IV.SIG ONCE ONE Rx#:[id number] Other: Date of Last Bowel Movement 08/23/18 Weight On Admission 68.039 kg Narrative: Somewhat obese white lady resting comfortably in bed with a resting heart rate documented by myself in 100 bpm. Head is normocephalic atraumatic Eyes PERRLA EOMI bilateral intraocular lenses are noted sclera clear Mouth mucous membranes moist and well papillated upper and lower partial plates in place no lesions Neck supple no JVD masses nodes or bruits Chest diminished breath sounds but no rales wheezes or rhonchi Cardiovascular evaluation reveals the PMI to be shifted to the left with a diffuse slight heave. Resting rate is 100 by apical and radial count. No gallops rubs or murmurs are noted. The abdomen is obese soft slightly tender in the midepigastric area extremities no clubbing cyanosis or edema noted although her ankles do appear to be somewhat thickened Results 08/23/18 17:54 08/23/18 17:54 Cardiac Enzymes 08/23/18 08/23/18 08/23/18 Range/Units 17:54 17:54 21:00 AST 20 (15-37) U/L Troponin I Less than 0.02 L Less than 0.02 L (0.02-0.05) ng/mL B-Natriuretic Peptide 226 H (0-100) pg/mL 08/24/18 Range/Units 00:10 AST (15-37) U/L Troponin I Less than 0.02 L (0.02-0.05) ng/mL B-Natriuretic Peptide (0-100) pg/mL Coagulation 18 08/23/18 Range/Units 17:54 17:54 PT 10.2 (9.8-11.6) sec APTT 28.3 (23.4-31.7) sec B-Natriuretic Peptide 226 H (0-100) pg/mL CBC 08/23/18 Range/Units 17:54 WBC 7.1 (4.0-11.0) th/mm3 RBC 4.35 (4.00-5.30) mil/mm3 Hgb 12.8 (11.6-15.3) gm/dL Hct 37.5 (35.0-46.0) % Plt Count 266 (150-450) th/mm3 Neut # (Auto) 3.9 (1.8-7.7) th/mm3 Lymph # (Auto) 2.1 (1.0-4.8) th/mm3 [place] # (Auto) 0.9 (0.0-0.9) th/mm3 Eos # (Auto) 0.1 (0.0-0.4) th/mm3 Baso # (Auto) 0.0 (0.0-0.2) th/mm3 Comprehensive Metabolic Panel 08/23/18 Range/Units 17:54 Sodium 130 L (136-145) meq/L Potassium 4.1 (3.5-5.1) meq/L Chloride 95 L (98-107) meq/L Carbon Dioxide 29.2 (21.0-32.0) meq/L BUN 14 (7-18) mg/dL Creatinine 0.73 (0.50-1.00) mg/dL Calcium 8.8 (8.5-10.1) mg/dL AST 20 (15-37) U/L ALT 48 (10-53) U/L Alkaline Phosphatase 91 (45-117) U/L Total Protein 8.1 (6.4-8.2) g/dL Albumin 4.1 (3.4-5.0) g/dL Intake and Output 08/23/18 08/24/18 08/24/18 22:59 06:59 14:59 Intake Total 200 / 200 Balance 200 / 200 Intake: IV 200 / 200 Cipro 400 MG/200 ML Inj 400 mg 200 / 200 In 200 ml @ 200 mls/hr IV.SIG ONCE ONE Rx#:[id number] Other: Date of Last Bowel Movement 08/23/18 Weight 68.039 kg Weight On Admission 68.039 kg - Imaging and Cardiology Imaging: Impressions Chest X-Ray 08/23/18 17:51 CONCLUSION: No evidence of acute cardiopulmonary disease. Assessment and Plan - Plan This patient most likely has an underlying cardiomyopathy and rate control issues. She will be evaluated with Lexiscan to rule out ischemia but also to help evaluate ejection fraction. She is already followed on an outpatient basis by Dr. Abbott with [facility] and Dr. Marley for her cardiac issues. If she has a negative Lexiscan she will be discharged back to follow- up as scheduled on an outpatient basis.
--- NOTE | 2018-08-24 11:52 | ECG ---
Date Performed: 08/24/2018 Time Performed: 00:36:18 PTAGE: 83 years EKG: ATRIAL FLUTTER/TACHYCARDIA NONSPECIFIC T-WAVE ABNORMALITY ABNORMAL RHYTHM ECG No significan t change PREVIOUS TRACING : 08/23/2018 20.40 DOCTOR: Rashard Penn Interpretating Date/Time 08/24/2018 11:50:45
[2018-08-24] MEDS ORDERED: Regadenoson Inj 0.4 MG/5 ML Syringe IV.PUSH ONE (11:53)
--- NOTE | 2018-08-24 11:53 | ECG ---
Date Performed: 08/23/2018 Time Performed: 20:40:28 PTAGE: 83 years EKG: Sinus rhythm WITH FIRST DEGREE AV BLOCK NONSPECIFIC T-WAVE ABNORMALITY ABNORMAL ECG PREVIOUS TRACING : 07/26/2018 10.31 DOCTOR: Rashard Penn Interpretating Date/Time 08/24/2018 11:52:00
--- NOTE | 2018-08-24 14:05 | NM ---
EXAM DATE: 08/24/2018 1:43 PM EST AGE/SEX: 83 years / Female INDICATIONS:Angina. . Shortness of breath and chest pressure. CLINICAL DATA: This is the patient's initial encounter. Patient reports that signs and symptoms have been present for 1 month and indicates a pain score of 3/10. MEDICAL/SURGICAL HISTORY: Gastroesophageal reflux disease. Hypertension. Arthritis. History of small bowel obstruction, a-fib, nephrotic syndrome. Appendectomy. Cholecystectomy. Tonsillectom y. Cardiac ablation. COMPARISON: No prior exams available for comparison. DOSE: 8.8 mCi Tc 99m Myoview at rest 26.3 mCi [id number] at stress 0.4 mg Lexiscan STRESS SYMPTOMS: None. EJECTION FRACTION: 59 % TECHNIQUE: The patient underwent pharmacologic stress with infusion of prescribed dose. Continuous ECG tracing was monitored during stress. Gated SPECT imaging was performed after stress and conventi onal SPECT imaging was performed at rest. The examination was performed on a SPECT/CT scanner, both attenuation and non-corrected datasets were reviewed. FINDINGS: Distribution: The maximum perfused segment at stress is in the anterior wall. Perfusion Study: The pattern of perfusion at stress is within normal limits. Gated Study: There are intact wall motion and wall thickening without hypokinetic or dyskinetic segm ents. The ejection fraction is calculated at 59%. RISK CATEGORY: Low (<1% Annual Motality Rate) CONCLUSION: No areas of ischemia are seen. Electronically signed by: Carlos Dupont MD 08/24/2018 2:03 PM EST
--- NOTE | 2018-08-25 14:52 | TR ---
Date Performed: 08/24/2018 Time Performed: 11:58:10 DOCTOR: Riley Johnson DRUG LIST: CLINICAL HISTORY: REASON FOR TEST: REASON FOR ENDING: OBSERVATION: CONCLUSION: COMMENTS: Lexiscan stress test was performed under standard four minute protocol. Radionuclide was injected one minute prior to ending the test. No electrocardiographic abormalities were present t o suggest ischemia. Nuclear imaging and interpretation are pending.
== END 2018-08-24 15:04 | disposition home or self-care (01) ==
LOC: NEDA 16:01 → NEPE 16:01 → NEPFCDU 21:43
PROVIDERS: ADMIT Internal Medicine Cardiovascular Disease; ATTEND Internal Medicine Cardiovascular Disease
DX: N39.0 Urinary tract infection, site not specified; M19.90 Unspecified osteoarthritis, unspecified site; E87.1 Hypo-osmolality and hyponatremia; I48.91 Unspecified atrial fibrillation; I42.9 Cardiomyopathy, unspecified; E78.5 Hyperlipidemia, unspecified; Z88.6 Allergy status to analgesic agent; Z90.710 Acquired absence of both cervix and uterus; Z79.01 Long term (current) use of anticoagulants; Z90.49 Acquired absence of other specified parts of digestive tract; Z87.891 Personal history of nicotine dependence; I15.1 Hypertension secondary to other renal disorders; Z88.2 Allergy status to sulfonamides; R07.89 Other chest pain; B95.1 Streptococcus, group B, as the cause of diseases classified elsewhere; Z88.1 Allergy status to other antibiotic agents; N04.9 Nephrotic syndrome with unspecified morphologic changes; Z88.8 Allergy status to other drugs, medicaments and biological substances; R06.09 Other forms of dyspnea; K21.9 Gastro-esophageal reflux disease without esophagitis

== ENCOUNTER 2018-11-16 12:52 | Inpatient (IN) ==
--- NOTE | 2018-11-16 16:53 | ECG ---
Date Performed: 11/16/2018 Time Performed: 13:18:03 PTAGE: 83 years EKG: ATRIAL FLUTTER/TACHYCARDIA WITH RAPID VENTRICULAR RESPONSE NONSPECIFIC ST ABNORMALITY ABNOR MAL ECG PREVIOUS TRACING : 08/24/2018 00.36 No change from previous tracing noted DOCTOR: Rolly Hamm Interpretating Date/Time 11/16/2018 16:53:02
[2018-11-16 19:04] LABS: Baso % (Auto) 0.7 % (0.0-2.0); Eos # (Auto) 0.1 th/mm3 (0.0-0.4); Eos % (Auto) 1.8 % (0.0-4.0); Hematocrit 43.5 % (35.0-46.0); Hemoglobin 14.7 gm/dL (11.6-15.3); Lymph # (Auto) 2.1 th/mm3 (1.0-4.8); Lymph % (Auto) 32.1 % (9.0-44.0); Mean Corpuscular HGB Conc 33.7 % (32.0-36.0); Mean Corpuscular Hemoglobin 27.6 pg (27.0-34.0); Mean Corpuscular Volume 81.7 fL (80.0-100.0); Mean Platelet Volume 7.6 fL (7.0-11.0); Mono # (Auto) 0.8 th/mm3 (0.0-0.9); Mono % (Auto) 12.7 % (0.0-8.0); Neut # (Auto) 3.5 th/mm3 (1.8-7.7); Neut % (Auto) 52.7 % (16.0-70.0); Platelet Count 236 th/mm3 (150-450); Red Blood Count 5.32 mil/mm3 (4.00-5.30); Red Cell Distribution Width 18.5 % (11.6-17.2); White Blood Count 6.6 th/mm3 (4.0-11.0)
[2018-11-16 19:06] LABS: Alanine Aminotransferase 29 U/L (10-53)
--- NOTE | 2018-11-16 19:08 | XR ---
EXAM DATE: 11/16/2018 7:00 PM EST AGE/SEX: 83 years / Female INDICATIONS: Short of breath. CLINICAL DATA: This is the patient's initial encounter. Patient reports that signs and symptoms have been present for 2 days and indicates a pain score of 1/10. MEDICAL/SURGICAL HISTORY: Hypertension. A-fib. None. [place] [facility] [place]. . FINDINGS: The heart size is mildly enlarged. The lungs are grossly clear. No effusion is seen. CONCLUSION: Cardiomegaly. Electronically signed by: Carlos Dupont MD Board Certified Radiologist 11/16/2018 7:06 PM EST
[2018-11-16 19:10] LABS: Albumin 3.8 g/dL (3.4-5.0); Alkaline Phosphatase 68 U/L (45-117); Anion Gap 6 meq/L (5-15); Aspartate Aminotransferase 42 U/L (15-37); Blood Urea Nitrogen 8 mg/dL (7-18); Calcium 8.9 mg/dL (8.5-10.1); Carbon Dioxide 25.9 meq/L (21.0-32.0); Chloride 96 meq/L (98-107); Creatine Kinase 106 U/L (26-192); Glomerular Filtration Rate Greater Than 89 mL/min (>89); Glucose,Random 87 mg/dL (74-106); Magnesium 2.1 mg/dL (1.5-2.5); Potassium 5.2 meq/L (3.5-5.1); Sodium 128 meq/L (136-145); Total Protein 8.2 g/dL (6.4-8.2)
[2018-11-16 19:20] LABS: Bacteria,Urine Many /hpf; Bilirubin,Urine Negative (Negative); Clarity,Urine Cloudy (Clear); Color,Urine Yellow (Yellw/Straw); Glucose,Urine (UA) Negative (Negative); Leukocyte Esterase,Urine Large (Negative); Nitrite,Urine Negative (Negative); Specific Gravity,Urine 1.003 (1.002-1.035); Squamous Epithelial Cell,Urine 1 /hpf (0-5)
[2018-11-16 19:22] LABS: Creatine Kinase MB 1.4 ng/mL (0.5-3.6)
--- NOTE | 2018-11-16 20:04 | ED ---
HPI General Chief Complaint: Arrhythmia / Palpitations Stated Complaint: Elevated heart rate Time Seen by Provider: 11/16/18 18:10 Source: patient Mode of arrival: ambulatory Limitations: no limitations History of Present Illness HPI narrative: 83-year-old female who presents to the ED for evaluation of weakness and palpitations. Patient has had this for a couple of days. Per patient she has a history of atrial fibrillation and used to take medications for it. Per patient she continues to take her medications but states that for the past 2-3 days has been feeling her heart is palpitating worse today. She does not have any chest pain but states that the palpitations is very discomforting. Denies any urinary or bowel movement issues. No fevers chills or sweats. She does state that she was diagnosed with a UTI and this will be her fourth UTI but she is been diagnosed with. She was put on clindamycin by her doctor as there is no other alternatives per her. She does take a blood thinner. Per patient she is been feeling dizzy and lightheaded with the symptoms. She was trying to see her doctor but the recommended that she comes here for further evaluation. She follows with Fernando for cardiology. Related Data Home Medications Medication Instructions Recorded Confirmed apixaban [Eliquis] 5 mg PO BID 06/28/18 11/16/18 omeprazole 20 mg PO BID 06/28/18 11/16/18 amlodipine 5 mg PO DAILY 08/23/18 11/16/18 clindamycin HCl 300 mg PO QID 11/16/18 11/16/18 sotalol 80 mg PO Q12H 11/16/18 11/16/18 Previous Rx's Medication Instructions Recorded hydrocodone-acetaminophen [[place]] 2 tab PO Q6H #30 tab 07/05/18 Allergies Allergy/AdvReac Type Severity Reaction Status Date / Time aspirin Allergy Severe "TOLD NOT Verified 08/23/18 17:50 TO TAKE ANY ANTIINFLAMMATORIES" cephalexin Allergy Severe "SWOLLEN Verified 08/23/18 17:50 THROAT,ITCHING ALL OVER" ibuprofen Allergy Severe "TOLD NOT Verified 08/23/18 17:50 TO TAKE ANYMORE" lisinopril Allergy Severe "RASH" Verified 08/23/18 17:50 nabumetone Allergy Severe "NEPHROTIC Verified 08/23/18 17:50 SYNDROME" NSAIDS (Non-Steroidal Allergy Severe advised Verified 08/23/18 17:50 Anti-Inflamma not to take anymore penicillin G Allergy Severe UNKNOWN Verified 08/23/18 17:50 Sulfa (Sulfonamide Allergy Severe "TOLD NOT Verified 08/23/18 17:50 Antibiotics) TO TAKE ANYMORE" adhesive Allergy Intermediate Rash Verified 08/23/18 17:50 digoxin Allergy Intermediate disorientat Verified 08/23/18 17:50 ion telmisartan Allergy Intermediate disorientat Verified 08/23/18 16:44 ion ciprofloxacin [From Cipro] Allergy Mild Generalized Verified 11/16/18 13:14 Rash Review of Systems ROS: all other systems reviewed are negative [facility] Medical History Medical History Afib (Acute) Arthritis (Acute) GERD (gastroesophageal reflux disease) (Acute) H/O small bowel obstruction (Acute) H/O: hysterectomy (Acute) Hypertension (Acute) Nephrotic syndrome (Acute) Wears glasses (Acute) Surgical History Surgical History H/O cardiac radiofrequency ablation (Acute) Hx of appendectomy (Acute) Hx of cholecystectomy (Acute) Hx of tonsillectomy (Acute) S/P arthroscopy of right shoulder (Acute) Status post cataract extraction of both eyes with insertion of intraocular lens (Acute) Family History Family History Other Family history non-contributory Social History Social History Substance History: No History of Abuse Second Hand Smoke Exposure: No Smoking Status: Never smoker Tobacco Type: Cigarettes How Often Do You Have a Drink Containing Alcohol: Never Hx Recent Travel: No Recent Travel in [facility] within the Last 8 Weeks: No Recent Out of Country Travel within the Last 8 Weeks: No Immunization History Tetanus Immunization: <5 Years Exam Narrative Exam Narrative: GENERAL: Well-appearing in no distress. SKIN: Focused skin assessment warm/dry. HEAD: Atraumatic. Normocephalic. EYES: Pupils equal and round. No scleral icterus. No injection or drainage. ENT: No nasal bleeding or discharge. Mucous membranes pink and moist. Tongue is midline. No uvula deviation. NECK: Trachea midline. No JVD. CARDIOVASCULAR: Irregular tachycardic rate and rhythm. No murmur appreciated. RESPIRATORY: No accessory muscle use. Clear to auscultation. Breath sounds equal bilaterally. GASTROINTESTINAL: Abdomen soft, non-tender, nondistended. Hepatic and splenic margins not palpable. MUSCULOSKELETAL: No obvious deformities. No clubbing. No cyanosis. No edema. Full range of motion of the upper and lower extremity bilaterally. 2+ pulses bilaterally. NEUROLOGICAL: Awake and alert. No obvious cranial nerve deficits. Motor grossly within normal limits. Normal speech. PSYCHIATRIC: Appropriate mood and affect; insight and judgment normal. Course Initial Documented Vital Signs Temperature 97.6 F 11/16/18 13:09 Pulse Rate 115 H 11/16/18 13:09 Respiratory Rate 18 11/16/18 13:09 Blood Pressure 170/106 H 11/16/18 13:09 Pulse Oximetry 98 11/16/18 13:09 Last Documented Vital Signs Temperature 97.6 F 11/16/18 13:09 Pulse Rate 102 H 11/16/18 21:51 Respiratory Rate 20 11/16/18 21:51 Blood Pressure 142/84 H 11/16/18 21:51 Pulse Oximetry 99 11/16/18 21:51 Medical Decision Making ARLEY Attestation ARLEY supervised visit: Yes Attestation: I, Dr. Lepe, have reviewed the advance practice practitioner's documentation and am in agreement, met with the patient face to face, made the diagnosis, and the medical decision making was done by me. *My assessment and Findings: Patient seen and evaluated with PA, please see PA notes for further details. Here with A. fib with RVR, sodium is low, appears to have a UTI. Given IV antibiotics, concerning for possible underlying sepsis. Given IV fluids, and heart rate is now better controlled, will need to be admitted for further treatment. MDM Narrative Medical decision making narrative: 83-year-old female who presents to the ED for evaluation of palpitations. Labs and imagings were ordered. Labs and imaging show what appears to be atrial for ablation RVR. Patient was given Cardizem 20 mg IV. Labs and imaging show what appears to be a defibrillation RVR with UTI. Otherwise unremarkable. Some dehydration with slightly low sodium. My attending evaluated the patient and recommended admission. Case was discussed with Dr. Eldridge who recommended to speak with the security orderly to see patient could avoid being admitted as currently she is not on a drip. Patient did had a good reaction to the Cardizem with her blood pressure staying level and her heart rate going down to the 70s 80s. We will being watched patient's heart rate went up. I spoke with Dr. Hamm who agreed that the patient's heart rate was stable patient could follow-up tomorrow in the office and increase this sotalol to 160 mg twice daily. Unfortunately while I was talking to Dr. Hamm I was informed by nurse that the heart rate went up again. Because of this incision was made that patient will require further monitoring during office admission. Case discussed with Dr. Sanders who is in agreement with this plan. Medical Screen Exam Complete: Yes Emergency Medical Condition: Yes Differential Diagnosis Differential Diagnosis: Atrial fibrillation RVR versus atrial fibrillation versus UTI versus sepsis versus weakness Medical Records Medical records reviewed: Yes I reviewed the patient's medical records. Lab Data Lab results reviewed: Yes I reviewed the patient's lab results. Result diagrams: 11/16/18 18:35 11/16/18 18:35 Lab Results 11/16/18 11/16/18 11/16/18 Range/Units 18:35 18:35 18:35 WBC 6.6 (4.0-11.0) th/mm3 RBC 5.32 H (4.00-5.30) mil/mm3 Hgb 14.7 (11.6-15.3) gm/dL Hct 43.5 (35.0-46.0) % MCV 81.7 (80.0-100.0) fL MCH 27.6 (27.0-34.0) pg MCHC 33.7 (32.0-36.0) % RDW 18.5 H (11.6-17.2) % Plt Count 236 (150-450) th/mm3 MPV 7.6 (7.0-11.0) fL Neut % (Auto) 52.7 (16.0-70.0) % Lymph % (Auto) 32.1 (9.0-44.0) % [place] % (Auto) 12.7 H (0.0-8.0) % Eos % (Auto) 1.8 (0.0-4.0) % Baso % (Auto) 0.7 (0.0-2.0) % Neut # (Auto) 3.5 (1.8-7.7) th/mm3 Lymph # (Auto) 2.1 (1.0-4.8) th/mm3 Catron # (Auto) 0.8 (0.0-0.9) th/mm3 Eos # (Auto) 0.1 (0.0-0.4) th/mm3 Baso # (Auto) 0.0 (0.0-0.2) th/mm3 WBC Differential . Differential Comment Auto diff final PT (9.8-11.6) sec INR Ratio APTT (23.4-31.7) sec Sodium 128 L (136-145) meq/L Potassium 5.2 H (3.5-5.1) meq/L Chloride 96 L (98-107) meq/L Carbon Dioxide 25.9 (21.0-32.0) meq/L Anion Gap 6 (5-15) meq/L BUN 8 (7-18) mg/dL Creatinine 0.59 (0.50-1.00) mg/dL Estimated GFR Greater than 89 (>89) mL/min Random Glucose 87 (74-106) mg/dL Calcium 8.9 (8.5-10.1) mg/dL Magnesium 2.1 (1.5-2.5) mg/dL Total Bilirubin 0.5 (0.2-1.0) mg/dL AST 42 H (15-37) U/L ALT 29 (10-53) U/L Alkaline Phosphatase 68 (45-117) U/L Total Creatine Kinase 106 (26-192) U/L CK-MB (CK-2) 1.4 (0.5-3.6) ng/mL Troponin I Less than 0.02 L (0.02-0.05) ng/mL Total Protein 8.2 (6.4-8.2) g/dL Albumin 3.8 (3.4-5.0) g/dL TSH 2.210 (0.358-3.740) uIU/mL Urine Color (Yellw/Straw) Urine Clarity (Clear) Urine pH (5.0-8.5) Ur Specific [place] (1.002-1.035) Urine Protein (Neg-Trace) mg/dL Urine Glucose (UA) (Negative) mg/dL Urine Ketones (Negative) mg/dL Urine Occult Blood (Negative) Urine Nitrate (Negative) Urine Bilirubin (Negative) Urine Urobilinogen (Less than 2) mg/dL Ur Leukocyte Esterase (Negative) Urine RBC (0-3) /hpf Urine WBC (0-5) /hpf Urine WBC Clumps (None) Ur Squamous Epith Cells (0-5) /hpf Urine Bacteria (None) /hpf Micro UA Comment Ur Microscopic Review Urine Culture Comments 11/16/18 11/16/18 Range/Units 18:56 20:03 WBC (4.0-11.0) th/mm3 RBC (4.00-5.30) mil/mm3 Hgb (11.6-15.3) gm/dL Hct (35.0-46.0) % MCV (80.0-100.0) fL MCH (27.0-34.0) pg MCHC (32.0-36.0) % RDW (11.6-17.2) % Plt Count (150-450) th/mm3 MPV (7.0-11.0) fL Neut % (Auto) (16.0-70.0) % Lymph % (Auto) (9.0-44.0) % Cat[place] % (Auto) (0.0-8.0) % Eos % (Auto) (0.0-4.0) % Baso % (Auto) (0.0-2.0) % Neut # (Auto) (1.8-7.7) th/mm3 Lymph # (Auto) (1.0-4.8) th/mm3 [place] # (Auto) (0.0-0.9) th/mm3 Eos # (Auto) (0.0-0.4) th/mm3 Baso # (Auto) (0.0-0.2) th/mm3 WBC Differential Differential Comment PT 10.2 (9.8-11.6) sec INR 1.0 Ratio APTT 25.0 (23.4-31.7) sec Sodium (136-145) meq/L Potassium (3.5-5.1) meq/L Chloride (98-107) meq/L Carbon Dioxide (21.0-32.0) meq/L Anion Gap (5-15) meq/L BUN (7-18) mg/dL Creatinine (0.50-1.00) mg/dL Estimated GFR (>89) mL/min Random Glucose (74-106) mg/dL Calcium (8.5-10.1) mg/dL Magnesium (1.5-2.5) mg/dL Total Bilirubin (0.2-1.0) mg/dL AST (15-37) U/L ALT (10-53) U/L Alkaline Phosphatase (45-117) U/L Total Creatine Kinase (26-192) U/L CK-MB (CK-2) (0.5-3.6) ng/mL Troponin I (0.02-0.05) ng/mL Total Protein (6.4-8.2) g/dL Albumin (3.4-5.0) g/dL TSH (0.358-3.740) uIU/mL Urine Color Yellow (Yellw/Straw) Urine Clarity Cloudy H (Clear) Urine pH 7.0 (5.0-8.5) Ur Specific [place] 1.003 (1.002-1.035) Urine Protein Negative (Neg-Trace) mg/dL Urine Glucose (UA) Negative (Negative) mg/dL Urine Ketones Negative (Negative) mg/dL Urine Occult Blood Small H (Negative) Urine Nitrate Negative (Negative) Urine Bilirubin Negative (Negative) Urine Urobilinogen Less than 2 (Less than 2) mg/dL Ur Leukocyte Esterase Large H (Negative) Urine RBC 21 H (0-3) /hpf Urine WBC (0-5) /hpf Urine WBC Clumps Occasional H (None) Ur Squamous Epith Cells 1 (0-5) /hpf Urine Bacteria Many H (None) /hpf Micro UA Comment Culture indicated Ur Microscopic Review Not Reportable Urine Culture Comments Culture indicated Imaging Data Attestation: I personally reviewed and interpreted this imaging study as follows : Radiologist's impression: Chest X-Ray 11/16/18 18:22 CONCLUSION: Cardiomegaly. ECG Data Attestation: I personally reviewed and interpreted this ECG as follows: Interpretation: EKG shows atrial fibrillation RVR. Discharge Plan Discharge Disposition Patient Disposition: ED Admit(ED Internal Use Only) Discharge Order Discharge Orders: ED Use Only Admit Order (Routine); Ordered 11/16/18 Ordered By: Manjinder Chau Discharge Details Diagnosis: Atrial fibrillation with RVR, Hyponatremia, Acute UTI Physicians Team ED Provider: [place] ED Midlevel Provider: Manjinder Chau Primary Care Provider: UNKNOWN, Attending Provider: Catie Sanders Other Providers: Deana King [employer] Status ED Status: Admitted Observation Patient
[2018-11-16 20:26] LABS: Prothrombin Time 10.2 sec (9.8-11.6)
[2018-11-16] MEDS ORDERED: Sod Chloride 0.9% Inj 1,000 ML IV.SIG SCH (20:30)
[2018-11-16] MEDS ORDERED: Bisacodyl 10 MG Supp RECTAL PRN (21:23)
--- NOTE | 2018-11-16 21:28 | P.HPIM ---
History of Present Illness Primary Care Physician: UNKNOWN History of Present Illness: This is an 83-year-old female with a PMH of HTN, A. fib on Eliquis and h/o Recurrent UTI who presented to the ER w/ c/o generalized weakness and palpitations x2-3 days. States she's been on antibiotics over the last 3-4wks for UTI, notes h/o multiple medication allergies and was told by PCP there was no other option for treatment besides Clindamycin. Compliant w/ medications. Also follows w/ Dr. King as outpatient, last seen approx 2wks ago w/ normal eval. Denies chest pain or SOB. On arrival, noted to be in A-fib w/ RVR, HR 120's, s/p Cardizem IV x1 w/ improvement, however had recurrent RVR while in ER. Dr. Hamm consulted, recommendation for admission and further eval. BP 170/106, HR 115, O2 sat 98% on RA, Afebrile. CBC unremarkable. INR 1.0. Na 128. K+ 5.2. Troponin negative. UA positive for UTI. CXR with no acute findings besides cardiomegaly. Diagnosis (1) Atrial fibrillation with RVR: (2) UTI (urinary tract infection): (3) Failure of outpatient treatment: Review of Systems PAST FAMILY HISTORY: Reviewed. No h/o DM or CAD Review of Systems: all other systems reviewed are negative [facility] Medical History Medical History Afib (Acute) Arthritis (Acute) GERD (gastroesophageal reflux disease) (Acute) H/O small bowel obstruction (Acute) H/O: hysterectomy (Acute) Hypertension (Acute) Nephrotic syndrome (Acute) Wears glasses (Acute) Surgical History Surgical History H/O cardiac radiofrequency ablation (Acute) Hx of appendectomy (Acute) Hx of cholecystectomy (Acute) Hx of tonsillectomy (Acute) S/P arthroscopy of right shoulder (Acute) Status post cataract extraction of both eyes with insertion of intraocular lens (Acute) Family History Family History Other Family history non-contributory Social History Social History Substance History: No History of Abuse Second Hand Smoke Exposure: No Smoking Status: Never smoker Tobacco Type: Cigarettes How Often Do You Have a Drink Containing Alcohol: Never Hx Recent Travel: No Recent Travel in [facility] within the Last 8 Weeks: No Recent Out of Country Travel within the Last 8 Weeks: No Immunization History Tetanus Immunization: <5 Years Medications and Allergies Allergies Allergy/AdvReac Type Severity Reaction Status Date / Time aspirin Allergy Severe "TOLD NOT Verified 08/23/18 17:50 TO TAKE ANY ANTIINFLAMMATORIES" cephalexin Allergy Severe "SWOLLEN Verified 08/23/18 17:50 THROAT,ITCHING ALL OVER" ibuprofen Allergy Severe "TOLD NOT Verified 08/23/18 17:50 TO TAKE ANYMORE" lisinopril Allergy Severe "RASH" Verified 08/23/18 17:50 nabumetone Allergy Severe "NEPHROTIC Verified 08/23/18 17:50 SYNDROME" NSAIDS (Non-Steroidal Allergy Severe advised Verified 08/23/18 17:50 Anti-Inflamma not to take anymore penicillin G Allergy Severe UNKNOWN Verified 08/23/18 17:50 Sulfa (Sulfonamide Allergy Severe "TOLD NOT Verified 08/23/18 17:50 Antibiotics) TO TAKE ANYMORE" adhesive Allergy Intermediate Rash Verified 08/23/18 17:50 digoxin Allergy Intermediate disorientat Verified 08/23/18 17:50 ion telmisartan Allergy Intermediate disorientat Verified 08/23/18 16:44 ion ciprofloxacin [From Cipro] Allergy Mild Generalized Verified 11/16/18 13:14 Rash Home Medications Medication Instructions Recorded Confirmed Type apixaban [Eliquis] 5 mg PO BID 06/28/18 11/16/18 History omeprazole 20 mg PO BID 06/28/18 11/16/18 History amlodipine 5 mg PO DAILY 08/23/18 11/16/18 History clindamycin HCl 300 mg PO QID 11/16/18 11/16/18 History sotalol 80 mg PO Q12H 11/16/18 11/16/18 History Active Medications: Active Medications Sodium Chloride (Ns Inj) 1,000 mls @ 1,000 mls/hr IV.SIG BOLUS GUERO Stop: 11/16/18 21:29 Last Admin: 11/16/18 21:22 Dose: 1,000 mls/hr Physical Exam Vital signs: Vital Signs 11/16/18 13:09 11/16/18 18:38 11/16/18 18:59 Temperature 97.6 F Pulse Rate 115 H 105 H 89 Respiratory Rate 18 21 Blood Pressure 170/106 H 192/144 H 184/76 H Pulse Oximetry 98 99 Intake & Output 11/16/18 11/16/18 03 06:59 18:59 06:59 Weight 70.76 kg Narrative: PE: GENERAL: Very pleasant elderly white female in no acute distress. SKIN: Focused skin assessment warm and dry. HEENT: PERRLA, EOMI. No scleral icterus or conjunctival pallor. No lid lag or facial droop. CARDIOVASCULAR: Irregularly irregular, in A. fib, HR 120's. No obvious murmurs to auscultation. No chest tenderness to palpation. RESPIRATORY: No obvious rhonchi or wheezing. Clear to auscultation. Breath sounds equal bilaterally. GASTROINTESTINAL: Abdomen soft, non-tender, nondistended. BS normal. MUSCULOSKELETAL: Extremities without clubbing, cyanosis, or edema. No obvious deformities. NEUROLOGICAL: Awake, alert and oriented x4. No focal neurologic deficits. Moving both upper and lower extremities spontaneously. PSYCHIATRIC: Appropriate mood and affect. Insight and judgment normal. Results Labs CBC & Chem 7: 11/16/18 18:35 11/16/18 18:35 Imaging Impressions Chest X-Ray 11/16/18 18:22 CONCLUSION: Cardiomegaly. Caprini VTE Risk Assessment Caprini VTE Risk Assessment: No/Low Risk (score <= 1) Caprini Risk Assessment Model: Point Value = 1 Point Value = 2 Point Value = 3 Point Value = 5 Age 41-60 Minor surgery BMI > 25 kg/m2 Swollen legs Varicose veins or History of unexplained or recurrent spontaneous Oral contraceptives or hormone replacement Sepsis (< 1 month) Serious lung disease, including pneumonia (< 1 month) Abnormal pulmonary function Acute myocardial infarction Congestive heart failure (< 1 month) History of inflammatory bowel disease Medical patient at bed rest Age 61-74 Arthroscopic surgery Major open surgery (> 45 min) Laparoscopic surgery (> 45 min) Malignancy Confined to bed (> 72 hours) Immobilizing plaster cast Central venous access Age >= 75 History of VTE Family history of VTE Factor V Leiden Prothrombin [id number] Lupus anticoagulant Anticardiolipin antibodies Elevated serum homocysteine Heparin-induced thrombocytopenia Other congenital or acquired thrombophilia Stroke (< 1 month) Elective arthroplasty Hip, pelvis, or leg fracture Acute spinal cord injury (< 1 month) Prophylaxis Regimen: Total Risk Factor Score Risk Level Prophylaxis Regimen 0-1 Low Early ambulation 2 Moderate Order ONE of the following: *Sequential Compression Device (SCD) *Heparin 5000 units SQ BID 3-4 Higher Order ONE of the following medications: *Heparin 5000 units SQ TID *Enoxaparin/Lovenox 40 mg SQ daily (WT < 150 kg, CrCl > 30 mL/min) *Enoxaparin/Lovenox 30 mg SQ daily (WT < 150 kg, CrCl > 10-29 mL/min) *Enoxaparin/Lovenox 30 mg SQ BID (WT < 150 kg, CrCl > 30 mL/min) AND/OR *Sequential Compression Device (SCD) 5 or more Highest Order ONE of the following medications: *Heparin 5000 units SQ TID (Preferred with Epidurals) *Enoxaparin/Lovenox 40 mg SQ daily (WT < 150 kg, CrCl > 30 mL/min) *Enoxaparin/Lovenox 30 mg SQ daily (WT < 150 kg, CrCl > 10-29 mL/min) *Enoxaparin/Lovenox 30 mg SQ BID (WT < 150 kg, CrCl > 30 mL/min) AND *Sequential Compression Device (SCD) Assessment and Plan (1) Atrial fibrillation with RVR: Code(s): I48.91 - Unspecified atrial fibrillation Status: Acute (2) UTI (urinary tract infection): Code(s): N39.0 - Urinary tract infection, site not specified Status: Acute (3) Failure of outpatient treatment: Code(s): Z78.9 - Other specified health status Status: Acute Plan A/P: 1. A-fib w/ RVR: h/o A-fib, on Sotalol and Eliquis, now w/ RVR, s/p Cardizem x1 in ER w/ improvement, however had episode of recurrence, HR now 120's, give additional Cardizem IV x1 now, telemetry, resume home Sotalol/Eliquis, follows w / Dr. King, will consult for further eval/recommendations. 2. UTI: Recurrent, w/ failed outpatient treatment x3wks, U/a w/ UTI, follow up cultures, monitor I/O, IVF for hydration, multiple medication allergies-will start Azactam IV 3. HTN: Uncontrolled, BP 190's while in ER, monitor BP, antihypertensives as needed for BP >180 4. DVT Prophylaxis: Eliquis 5. Social work for d/c planning as needed 6. Case discussed w/ ER physiciant at length, labs/records/imaging reviewed by me
[2018-11-17] MEDS: Acetaminophen 325 MG Tablet PO PRN (04:24)
[2018-11-17] MEDS: Sod Chloride 0.9% Inj 1,000 ML IV.CONT SCH ×3 (04:27→23:51)
[2018-11-17 05:47] LABS: Baso % (Auto) 0.3 % (0.0-2.0); Eos # (Auto) 0.1 th/mm3 (0.0-0.4); Eos % (Auto) 1.5 % (0.0-4.0); Hemoglobin 12.7 gm/dL (11.6-15.3); Lymph # (Auto) 1.9 th/mm3 (1.0-4.8); Lymph % (Auto) 24.6 % (9.0-44.0); Mean Corpuscular HGB Conc 33.3 % (32.0-36.0); Mean Corpuscular Hemoglobin 27.2 pg (27.0-34.0); Mean Corpuscular Volume 81.6 fL (80.0-100.0); Mean Platelet Volume 7.5 fL (7.0-11.0); Mono # (Auto) 0.9 th/mm3 (0.0-0.9); Mono % (Auto) 11.9 % (0.0-8.0); Neut # (Auto) 4.7 th/mm3 (1.8-7.7); Neut % (Auto) 61.7 % (16.0-70.0); Platelet Count 203 th/mm3 (150-450); Red Blood Count 4.66 mil/mm3 (4.00-5.30); Red Cell Distribution Width 18.2 % (11.6-17.2); White Blood Count 7.7 th/mm3 (4.0-11.0)
[2018-11-17 06:14] LABS: Alanine Aminotransferase 18 U/L (10-53); Albumin 3.3 g/dL (3.4-5.0); Alkaline Phosphatase 57 U/L (45-117); Anion Gap 8 meq/L (5-15); Aspartate Aminotransferase 16 U/L (15-37); Blood Urea Nitrogen 7 mg/dL (7-18); Calcium 8.2 mg/dL (8.5-10.1); Carbon Dioxide 25.6 meq/L (21.0-32.0); Chloride 102 meq/L (98-107); Glomerular Filtration Rate Greater Than 89 mL/min (>89); Glucose,Random 89 mg/dL (74-106); Potassium 3.9 meq/L (3.5-5.1); Sodium 136 meq/L (136-145); Total Protein 6.9 g/dL (6.4-8.2)
[2018-11-17] MEDS: Senna/Docusate Sodium 8.6/50 MG Tablet PO SCH ×2 (08:15→22:20)
--- NOTE | 2018-11-17 08:15 | ECG ---
Date Performed: 11/16/2018 Time Performed: 21:34:27 PTAGE: 83 years EKG: ECTOPIC ATRIAL TACHYCARDIA POSSIBLY WITH 2:[address] ABNORMALITY ABNOR MAL ECG PREVIOUS TRACING : 11/16/2018 13.18 No significant change from previous tracing noted. DOCTOR: Rolly Hamm Interpretating Date/Time 11/17/2018 08:13:21
--- NOTE | 2018-11-17 13:29 | P.PNIM ---
Subjective Interval history: Follow-up for atrial fibrillation, urinary tract infection. Patient is currently doing well. Denies any chest pain, shortness of breath, fever or chills. She reports that her urinary tract infection is recurrent. She has significant dysuria associated with it. Physical Exam Vital signs: Vital Signs 11/16/18 18:38 11/16/18 18:59 11/16/18 21:50 Temperature Pulse Rate 105 H 89 102 H Respiratory Rate 21 Blood Pressure 192/144 H 184/76 H Pulse Oximetry 99 11/16/18 21:51 11/16/18 23:30 11/17/18 02:10 Temperature Pulse Rate 102 H 105 H 118 H Respiratory Rate 20 17 19 Blood Pressure 142/84 H 114/76 153/79 H Pulse Oximetry 99 96 98 11/17/18 02:12 11/17/18 03:00 11/17/18 04:00 Temperature 97.6 F 97.6 F Pulse Rate 121 H 115 H 121 H Respiratory Rate 18 18 Blood Pressure 121/72 121/72 Pulse Oximetry 96 96 11/17/18 07:00 11/17/18 08:00 11/17/18 09:00 Temperature 97.9 F Pulse Rate 120 H 114 H 116 H Respiratory Rate 16 Blood Pressure 123/73 Pulse Oximetry 97 11/17/18 10:00 11/17/18 11:00 11/17/18 12:00 Temperature Pulse Rate 116 H 116 H 119 H Respiratory Rate 16 Blood Pressure 117/79 Pulse Oximetry 97 Intake & Output 11/16/18 11/17/18 11/17/18 18:59 06:59 18:59 Intake Total 1350 / 1350 100 / 100 Output Total 300 / 300 Balance 1050 / 1050 100 / 100 Weight 70.76 kg 72.5 kg Intake: IV 1100 / 1100 100 / 100 Azactam Inj 1,000 MG In NS Inj 100 / 100 100 / 100 100 ML @ 200 mls/hr IV.SIG Q8H GUERO Rx#:[id number] NS Inj 1,000 ML @ 1000 mls/hr 1000 / 1000 IV.SIG BOLUS GUERO Rx#:[id number] Oral 250 / 250 Output: Urine 300 / 300 Other: Date of Last Bowel Movement 11/16/18 11/16/18 Narrative: GENERAL: Well-nourished, well-developed patient. SKIN: Warm and dry. HEAD: Normocephalic. EYES: No scleral icterus. No injection or drainage. NECK: Supple, trachea midline. No JVD or lymphadenopathy. CARDIOVASCULAR: Regular rhythm, tachycardic without murmurs, gallops, or rubs. RESPIRATORY: Breath sounds equal bilaterally. No accessory muscle use. GASTROINTESTINAL: Abdomen soft, non-tender, nondistended. MUSCULOSKELETAL: No cyanosis, or edema. BACK: Nontender without obvious deformity. No CVA tenderness. Results Labs CBC & Chem 7: 11/17/18 04:49 11/17/18 04:49 Imaging Imaging: Impressions Chest X-Ray 11/16/18 18:22 CONCLUSION: Cardiomegaly. Assessment and Plan (1) Atrial fibrillation with RVR: Code(s): I48.91 - Unspecified atrial fibrillation Status: Acute (2) UTI (urinary tract infection): Code(s): N39.0 - Urinary tract infection, site not specified Status: Acute (3) Failure of outpatient treatment: Code(s): Z78.9 - Other specified health status Status: Acute Plan This is an 83-year-old female with a PMH of HTN, A. fib on Eliquis and h/o Recurrent UTI who presented to the ER w/ c/o generalized weakness and palpitations x2-3 days. On arrival, noted to be in A-fib w/ RVR, HR 120's, s/p Cardizem IV x1 w/ improvement, however had recurrent RVR while in ER. Atrial fibrillation with RVR At home patient takes sotalol as well as apixaban. Cardiology consulted. Currently on sotalol 80 mg p.o. every 12 hours. We will wait for further recommendations from cardiology. We could consider Cardizem p.o. as well. Urinary tract infection Overactive bladder Patient has had multiple episodes of urinary tract infection. During the last episode, she was given clindamycin. She could not take ciprofloxacin due to interaction with sotalol. We will wait for culture results. Patient will benefit from oxybutynin Currently on aztreonam. Will de-escalate based on culture results. Accelerated hypertension Currently resolved. Upon admission, blood pressure was in the 190 systolic. Currently 117/79. If needed will consider amlodipine. Full code. Apixaban. Progress Note: Quality VTE Deep Vein Thrombosis/Pulmonary Embolism Present on Admission: No
--- NOTE | 2018-11-18 02:38 | MB ---
cc: Joshua Mccain DATE: 11/17/2018 REASON FOR CONSULTATION: Tachycardia. HISTORY OF PRESENT ILLNESS: Kate Johnson is a pleasant 83-year-old female who sees my partner, Dr. King, in the office and presented due to generalized weakness and palpitations for the past 2-3 days. Apparently, she has had a UTI and been on antibiotics over the last 3 to 4 weeks. She started noticing over the past 2-3 days that she has had palpitations and generalized weakness. She previously had 2 ablations for atrial fibrillation. These were done by Dr. Howe. After this, he had her on flecainide. At some point during this, in July or August, she then saw Dr. Drew Gray due to being on [employer] insurance. He switched her from flecainide to sotalol for unknown reasons at this time. She now sees my partner, Dr. King, due to a change in insurance. In seeing her, she denies chest pain or shortness of breath. PAST MEDICAL HISTORY: 1. Atrial fibrillation. 2. Arthritis. 3. Gastroesophageal reflux disease. 4. Hypertension. 5. Nephrotic syndrome. PAST SURGICAL HISTORY: 1. Arthroscopic partial medial and lateral meniscectomy. 2. Atrial fibrillation ablation (01/20/2017). 3. Atrial fibrillation ablation (12/25/2009). ALLERGIES: ASPIRIN, ____, IBUPROFEN, LISINOPRIL, DOBUTAMINE, NSAIDS, SULFA, DIGOXIN, CIPROFLOXACIN, PENICILLIN, AND LOSARTAN. MEDICATIONS: 1. Omeprazole 20 mg b.i.d. 2. Eliquis 5 mg b.i.d. 3. [place] every 6 hours. 4. Norvasc 5 mg daily. 5. Clindamycin 300 mg q.i.d. 6. Sotalol 80 mg every 12 hours. FAMILY HISTORY: Denies sudden cardiac within the family. SOCIAL HISTORY: Denies current tobacco, alcohol or drug abuse. REVIEW OF SYSTEMS: Fourteen systems were reviewed including osteopathic. Pertinent positives and negatives above, otherwise negative. PHYSICAL EXAMINATION: VITAL SIGNS: Temperature 97.9, heart rate 117, blood pressure 123/73, respirations 16, pulse oximetry 97% on room air. GENERAL: The patient appears well, in no acute distress. Alert, awake and oriented x 3. HEENT: Extraocular muscles intact. Mucous membranes moist. NECK: Supple. No JVD at 45 degrees. No carotid bruits heard bilaterally. Carotid upstroke is brisk in nature. HEART: Tachycardic, but regular. Positive first and second heart sounds with no noted murmurs, gallops or rubs. LUNGS: Clear to auscultation bilaterally. No wheezes, rales or rhonchi. ABDOMEN: Soft, nontender, nondistended. No organomegaly noted. EXTREMITIES: Show no clubbing, cyanosis or edema. Femoral and distal pulses intact bilaterally. NEUROLOGIC: No focal deficits. SKIN: Warm, dry and intact. OSTEOPATHIC: No kyphoscoliosis, lordosis or paraspinal tender points. LABORATORY DATA: Hemoglobin 12.7, hematocrit 38.0, platelets 203. Potassium 3.9, BUN 7, creatinine 0.52. Troponin less than 0.02. TSH 2.21. Electrocardiogram (11/16/2018 at 2134 hours): Ectopic atrial tachycardia with 2:1 AV conduction, nonspecific ST-T wave changes. IMPRESSIONS: 1. Atrial tachycardia with probable 2:1 conduction. 2. History of atrial fibrillation, status post 2 prior ablations. 3. Current urinary tract infection. 4. Hypertension. RECOMMENDATIONS: 1. Ms. Johnson presented with palpitations and appears to have atrial tachycardia continuing on telemetry. 2. For some reason, in August, she was changed from flecainide to sotalol and she is unsure why. 3. With her atrial tachycardia, beta jane and calcium channel jane therapy may not decrease the heart rate. 4. If tachycardic overnight, most likely she will need a ANH with possible cardioversion and then decisions will need to be made about her antiarrhythmics, whether that be continued on sotalol versus changing her back to flecainide. 5. Further recommendations will be made based on the hospital course. Thank you for allowing me to see Kate Johnson. If there are any questions, please do not hesitate to call. Joshua Mccain, VGP/rw/rr , 01:50 AM , 02:04 AM
[2018-11-18] MEDS: Sod Chloride 0.9% Inj 1,000 ML IV.CONT SCH ×2 (03:21→20:28)
[2018-11-18] MEDS: Senna/Docusate Sodium 8.6/50 MG Tablet PO SCH ×2 (09:10→20:27)
[2018-11-18] MEDS ORDERED: Vancomycin Consult Pharmacy OTHER PRN (10:22)
[2018-11-18] MEDS ORDERED: Vancomycin Inj 1,000 MG in Sodium Chlor 0.9% Inj 250 ML IV.SIG SCH (10:22)
--- NOTE | 2018-11-18 10:29 | P.PNIM ---
Subjective Interval history: Follow-up for atrial tachycardia, traumatic group B streptococcus UTI. Patient is currently doing well. Denies any chest pain, shortness of breath, fever or chills. She reports some improvement of her dysuria but continues to have significant dysuria. Physical Exam Vital signs: Vital Signs 11/17/18 11:00 11/17/18 12:00 11/17/18 13:00 Temperature Pulse Rate 116 H 118 H 122 H Respiratory Rate 16 Blood Pressure 117/79 Pulse Oximetry 97 11/17/18 14:00 11/17/18 15:00 11/17/18 16:00 Temperature 97.8 F Pulse Rate 116 H 119 H 116 H Respiratory Rate 16 Blood Pressure 122/77 Pulse Oximetry 96 11/17/18 17:00 11/17/18 18:00 11/17/18 19:00 Temperature Pulse Rate 139 H 120 H 119 H Respiratory Rate Blood Pressure Pulse Oximetry 11/17/18 20:00 11/17/18 21:00 11/17/18 22:00 Temperature 97.9 F Pulse Rate 116 H 118 H 118 H Respiratory Rate 20 Blood Pressure 128/90 Pulse Oximetry 97 11/17/18 23:00 11/18/18 00:00 11/18/18 01:00 Temperature 97.6 F Pulse Rate 117 H 118 H 114 H Respiratory Rate 16 Blood Pressure 128/89 Pulse Oximetry 96 11/18/18 02:00 11/18/18 03:00 11/18/18 04:00 Temperature 97.8 F Pulse Rate 114 H 107 H 108 H Respiratory Rate 16 Blood Pressure 127/83 Pulse Oximetry 98 11/18/18 05:00 11/18/18 06:00 11/18/18 08:00 Temperature 98.1 F Pulse Rate 115 H 115 H 120 H Respiratory Rate 18 Blood Pressure 118/84 Pulse Oximetry 96 Intake & Output 11/17/18 11/18/18 11/18/18 18:59 06:59 18:59 Intake Total 1400 / 1400 580 / 580 100 / 100 Output Total 1350 / 1350 1750 / 1750 Balance 50 / 50 -1170 / -1170 100 / 100 Weight 71 kg Intake: IV 200 / 200 100 / 100 100 / 100 Azactam Inj 1,000 MG In NS Inj 200 / 200 100 / 100 100 / 100 100 ML @ 200 mls/hr IV.SIG Q8H GUERO Rx#:[id number] Oral 1200 / 1200 480 / 480 Output: Urine 1350 / 1350 1750 / 1750 Other: Date of Last Bowel Movement 11/16/18 11/17/18 Narrative: GENERAL: Well-nourished, well-developed patient. SKIN: Warm and dry. HEAD: Normocephalic. EYES: No scleral icterus. No injection or drainage. NECK: Supple, trachea midline. No JVD or lymphadenopathy. CARDIOVASCULAR: Regular rhythm, tachycardic without murmurs, gallops, or rubs. RESPIRATORY: Breath sounds equal bilaterally. No accessory muscle use. GASTROINTESTINAL: Abdomen soft, non-tender, nondistended. MUSCULOSKELETAL: No cyanosis, or edema. BACK: Nontender without obvious deformity. No CVA tenderness. Results Labs CBC & Chem 7: 11/17/18 04:49 11/17/18 04:49 Labs: Microbiology 11/16/18 18:56 Clean Catch Urine Urine Culture - Preliminary Group B beta Strep Assessment and Plan (1) Atrial fibrillation with RVR: Code(s): I48.91 - Unspecified atrial fibrillation Status: Acute (2) UTI (urinary tract infection): Code(s): N39.0 - Urinary tract infection, site not specified Status: Acute (3) Failure of outpatient treatment: Code(s): Z78.9 - Other specified health status Status: Acute Plan This is an 83-year-old female with a PMH of HTN, A. fib on Eliquis and h/o Recurrent UTI who presented to the ER w/ c/o generalized weakness and palpitations x2-3 days. On arrival, noted to be in A-fib w/ RVR, HR 120's, s/p Cardizem IV x1 w/ improvement, however had recurrent RVR while in ER. Atrial fibrillation with RVR Atrial tachycardia At home patient takes sotalol as well as apixaban. Cardiology consulted. Currently on sotalol 80 mg p.o. every 12 hours. Possible cardioversion by cardiology. Urinary tract infection Overactive bladder Patient has had multiple episodes of urinary tract infection. Urine culture is growing group D streptococcus. She has had anaphylactic type reactions to penicillins. We will start patient on vancomycin 15 mg/kg every 12 hours and obtain pharmacy consult Start oxybutynin 5 mg p.o. twice daily Accelerated hypertension Currently resolved. Upon admission, blood pressure was in the 190 systolic. Currently 118/84 If needed will consider amlodipine. Full code. Apixaban. Progress Note: Quality VTE Deep Vein Thrombosis/Pulmonary Embolism Present on Admission: No
[2018-11-18] MEDS: Vancomycin Inj 1,000 MG in Sodium Chlor 0.9% Inj 250 ML IV.SIG SCH (12:14)
--- NOTE | 2018-11-18 15:45 | P.PNCA ---
Subjective Interval history: Overnight continued with atrial tachycardia with heart rates of 120 s/p ANH with cardioversion back to sinus rhythm Medications and Allergies Active Medications: Active Medications Acetaminophen (Tylenol) 650 mg PO Q4H PRN PRN Reason: Temp > 100.4 Last Admin: 11/17/18 04:24 Dose: 650 mg Al Hydroxide/Mg Hydroxide (Milk Of Magnesia Liq) 30 ml PO Q12H PRN PRN Reason: Mild Constipation Last Admin: 11/17/18 16:00 Dose: 30 ml Apixaban (Eliquis) 5 mg PO BID [facility] Last Admin: 11/18/18 09:10 Dose: 5 mg Bisacodyl (Dulcolax Supp) 10 mg RECTAL DAILY PRN PRN Reason: SEVERE CONSITIPATION Sodium Chloride (Ns Inj) 1,000 mls @ 50 mls/hr IV.CONT .Q20H [facility] Last Admin: 11/18/18 03:21 Dose: Not Given Vancomycin HCl 1,000 mg/ (Sodium Chloride) 250 mls @ 250 mls/hr IV.SIG Q18H [facility] Last Infusion: 11/18/18 14:26 Dose: Infused Lactulose (Lactulose Liq) 30 ml PO DAILY PRN PRN Reason: SEVERE CONSITIPATION Miscellaneous Information ([facility] Ordered Lab Info) 0 each OTHER ONCE ONE Stop: 11/20/18 17:46 Ondansetron HCl (Zofran Inj) 4 mg IV.PUSH Q6H PRN PRN Reason: NAUSEA OR VOMITING Last Admin: 11/17/18 22:10 Dose: 4 mg Oxybutynin Chloride (Ditropan) 5 mg PO BID [facility] Last Admin: 11/18/18 12:14 Dose: 5 mg Pantoprazole Sodium (Protonix) 40 mg PO DAILY [facility] Last Admin: 11/18/18 09:11 Dose: 40 mg Pharmacy Profile Note (Vancomycin Consult Pharmacy) 1 each OTHER UNSCH PRN PRN Reason: Pharmacy to dose Senna/Docusate Sodium ([place]-Colace) 1 tab PO BID [facility] Last Admin: 11/18/18 09:10 Dose: 1 tab Sennosides (Senokot) 17.2 mg PO Q12H PRN PRN Reason: Moderate Constipation Sodium Chloride (Ns Flush) 2 ml IV.FLUSH BID [facility] Last Admin: 11/18/18 09:11 Dose: 2 ml Sodium Chloride (Ns Flush) 2 ml IV.FLUSH PRN PRN PRN Reason: FLUSH AFTER USING IV ACCESS Sotalol HCl (Betapace) 80 mg PO Q12H GUERO Last Admin: 11/18/18 12:13 Dose: 80 mg Allergies Allergy/AdvReac Type Severity Reaction Status Date / Time aspirin Allergy Severe "TOLD NOT Verified 08/23/18 17:50 TO TAKE ANY ANTIINFLAMMATORIES" cephalexin Allergy Severe "SWOLLEN Verified 08/23/18 17:50 THROAT,ITCHING ALL OVER" ibuprofen Allergy Severe "TOLD NOT Verified 08/23/18 17:50 TO TAKE ANYMORE" lisinopril Allergy Severe "RASH" Verified 08/23/18 17:50 nabumetone Allergy Severe "NEPHROTIC Verified 08/23/18 17:50 SYNDROME" NSAIDS (Non-Steroidal Allergy Severe advised Verified 08/23/18 17:50 Anti-Inflamma not to take anymore penicillin G Allergy Severe UNKNOWN Verified 08/23/18 17:50 Sulfa (Sulfonamide Allergy Severe "TOLD NOT Verified 08/23/18 17:50 Antibiotics) TO TAKE ANYMORE" adhesive Allergy Intermediate Rash Verified 08/23/18 17:50 digoxin Allergy Intermediate disorientat Verified 08/23/18 17:50 ion telmisartan Allergy Intermediate disorientat Verified 08/23/18 16:44 ion ciprofloxacin [From Cipro] Allergy Mild Generalized Verified 11/16/18 13:14 Rash Home Medications Medication Instructions Recorded Confirmed Type apixaban [Eliquis] 5 mg PO BID 06/28/18 11/16/18 History omeprazole 20 mg PO BID 06/28/18 11/16/18 History amlodipine 5 mg PO DAILY 08/23/18 11/16/18 History clindamycin HCl 300 mg PO QID 11/16/18 11/16/18 History sotalol 80 mg PO Q12H 11/16/18 11/16/18 History Physical Exam Vital signs: Vital Signs 11/17/18 16:00 11/17/18 17:00 11/17/18 18:00 Temperature 97.8 F Pulse Rate 116 H 139 H 120 H Respiratory Rate 16 Blood Pressure 122/77 Pulse Oximetry 96 11/17/18 19:00 11/17/18 20:00 11/17/18 21:00 Temperature 97.9 F Pulse Rate 119 H 116 H 118 H Respiratory Rate 20 Blood Pressure 128/90 Pulse Oximetry 97 11/17/18 22:00 11/17/18 23:00 11/18/18 00:00 Temperature 97.6 F Pulse Rate 118 H 117 H 118 H Respiratory Rate 16 Blood Pressure 128/89 Pulse Oximetry 96 11/18/18 01:00 11/18/18 02:00 11/18/18 03:00 Temperature Pulse Rate 114 H 114 H 107 H Respiratory Rate Blood Pressure Pulse Oximetry 11/18/18 04:00 11/18/18 05:00 11/18/18 06:00 Temperature 97.8 F Pulse Rate 108 H 115 H 115 H Respiratory Rate 16 Blood Pressure 127/83 Pulse Oximetry 98 11/18/18 07:00 11/18/18 08:00 11/18/18 09:00 Temperature 98.1 F Pulse Rate 114 H 122 H 118 H Respiratory Rate 18 Blood Pressure 118/84 Pulse Oximetry 96 11/18/18 10:00 11/18/18 11:00 11/18/18 11:11 Temperature 97.4 F L Pulse Rate 116 H 82 70 Respiratory Rate 15 Blood Pressure 111/73 Pulse Oximetry 98 11/18/18 11:30 11/18/18 11:37 11/18/18 12:00 Temperature 97.6 F 97.8 F Pulse Rate 63 63 70 Respiratory Rate 17 15 18 Blood Pressure 130/60 122/58 L 141/76 H Pulse Oximetry 98 96 100 11/18/18 13:00 11/18/18 14:00 Temperature Pulse Rate 64 70 Respiratory Rate Blood Pressure Pulse Oximetry Intake & Output 11/17/18 11/18/18 11/18/18 18:59 06:59 18:59 Intake Total 1400 / 1400 580 / 580 350 / 350 Output Total 1350 / 1350 1750 / 1750 Balance 50 / 50 -1170 / -1170 350 / 350 Weight 71 kg Intake: IV 200 / 200 100 / 100 350 / 350 Azactam Inj 1,000 MG In NS Inj 200 / 200 100 / 100 100 / 100 100 ML @ 200 mls/hr IV.SIG Q8H GUERO Rx#:[id number] Vancomycin Inj 1,000 MG In NS 250 / 250 Inj 250 ML @ 250 mls/hr IV.SIG Q18H GUERO Rx#:[id number] Oral 1200 / 1200 480 / 480 Output: Urine 1350 / 1350 1750 / 1750 Other: Date of Last Bowel Movement 11/16/18 11/17/18 11/17/18 Narrative: GENERAL: NAD, AAOx3 SKIN: Warm and dry. HEAD: Atraumatic. Normocephalic. EYES: Pupils equal and round. No scleral icterus. No injection or drainage. ENT: No nasal bleeding or discharge. Mucous membranes pink and moist. NECK: Trachea midline. No JVD. CARDIOVASCULAR: Regular rate and rhythm. RESPIRATORY: No accessory muscle use. Clear to auscultation. Breath sounds equal bilaterally. GASTROINTESTINAL: Abdomen soft, non-tender, nondistended. Hepatic and splenic margins not palpable. MUSCULOSKELETAL: Extremities without clubbing, cyanosis, or edema. No obvious deformities. NEUROLOGICAL: Awake and alert. No obvious cranial nerve deficits. Motor grossly within normal limits. Five out of 5 muscle strength in the arms and legs. Normal speech. PSYCHIATRIC: Appropriate mood and affect; insight and judgment normal. Results 11/17/18 04:49 11/17/18 04:49 Cardiac Enzymes 11/16/18 11/17/18 Range/Units 18:35 04:49 AST 42 H 16 (15-37) U/L CK-MB (CK-2) 1.4 (0.5-3.6) ng/mL Troponin I Less than 0.02 L (0.02-0.05) ng/mL Coagulation 11/16/18 Range/Units 20:03 PT 10.2 (9.8-11.6) sec APTT 25.0 (23.4-31.7) sec CBC 11/16/18 11/17/18 Range/Units 18:35 04:49 WBC 6.6 7.7 (4.0-11.0) th/mm3 RBC 5.32 H 4.66 (4.00-5.30) mil/mm3 Hgb 14.7 12.7 D (11.6-15.3) gm/dL Hct 43.5 38.0 (35.0-46.0) % Plt Count 236 203 (150-450) th/mm3 Neut # (Auto) 3.5 4.7 (1.8-7.7) th/mm3 Lymph # (Auto) 2.1 1.9 (1.0-4.8) th/mm3 [place] # (Auto) 0.8 0.9 (0.0-0.9) th/mm3 Eos # (Auto) 0.1 0.1 (0.0-0.4) th/mm3 Baso # (Auto) 0.0 0.0 (0.0-0.2) th/mm3 Comprehensive Metabolic Panel 11/16/18 11/17/18 Range/Units 18:35 04:49 Sodium 128 L 136 (136-145) meq/L Potassium 5.2 H 3.9 D (3.5-5.1) meq/L Chloride 96 L 102 (98-107) meq/L Carbon Dioxide 25.9 25.6 (21.0-32.0) meq/L BUN 8 7 (7-18) mg/dL Creatinine 0.59 0.52 (0.50-1.00) mg/dL Calcium 8.9 8.2 L (8.5-10.1) mg/dL AST 42 H 16 (15-37) U/L ALT 29 18 (10-53) U/L Alkaline Phosphatase 68 57 (45-117) U/L Total Protein 8.2 6.9 D (6.4-8.2) g/dL Albumin 3.8 3.3 L (3.4-5.0) g/dL Intake and Output 11/18/18 11/18/18 11/18/18 06:59 14:59 22:59 Intake Total 580 / 580 350 / 350 Output Total 1750 / 1750 Balance -1170 / -1170 350 / 350 Intake: IV 100 / 100 350 / 350 Azactam Inj 1,000 MG In NS Inj 100 / 100 100 / 100 100 ML @ 200 mls/hr IV.SIG Q8H GUERO Rx#:[id number] Vancomycin Inj 1,000 MG In NS 250 / 250 Inj 250 ML @ 250 mls/hr IV.SIG Q18H GUERO Rx#:[id number] Oral 480 / 480 Output: Urine 1750 / 1750 Other: Date of Last Bowel Movement 11/17/18 11/17/18 Weight 71 kg - Imaging and Cardiology Imaging: Impressions Chest X-Ray 11/16/18 18:22 CONCLUSION: Cardiomegaly. Assessment and Plan - Assessment (1) Atrial tachycardia Code(s): I47.1 - Supraventricular tachycardia Status: Acute (2) Dyspnea on exertion Code(s): R06.09 - Other forms of dyspnea Status: Acute (3) History of atrial fibrillation Code(s): Z86.79 - Personal history of other diseases of the circulatory system Status: Chronic - Plan 1) UTI Per primary team 2) Hx of AFib s/p 2 ablations Con't Eliquis 3) New onset atrial tachycardia s/p ANH/CV Currently sinus rhythm Con't Betapace for now 4) Plan to watch overnight If stable overnight, then possible discharge Will have her follow up with Dr. Howe for further considerations
--- NOTE | 2018-11-18 15:48 | P.PCNCA ---
- Cardiology Procedure Note Procedure: Synchronized cardioversion at 200J Procedure Date: 11/18/18 Procedure Detail: Before ANH, informed consent for ANH and CV were obtained Please see full report from ANH for details, but no thrombus was noted. Patient placed in supine position. Anesthesia at the bedside for continual sedation after ANH. Pads were placed anterior and lateral. Patient was cardioverted with 200J x1 shock to sinus rhythm with some PACs. She tolerated the procedure well.
--- NOTE | 2018-11-18 17:27 | ECHRPT ---
Indication: ATRIAL FIB/FLUTTER CONCLUSIONS The left ventricular systolic function is low normal with an estimated ejection fraction in the rang e of 50- 55%. Multi-lobular left atrial appendage with pectinate, no thrombus noted. The velocities in the left a trial appendage are normal. [id number] mitral valve regurgitation. Trace aortic valve regurgitation. There is mild tricuspid valve regurgitation. BP: / HR: Rhythm: Other Technical Quality:Good Medications Complications Proc. Components Anesthesia at the bedside for sedation FINDINGS LEFT VENTRICLE Wall thickness is normal. The left ventricular systolic function is low normal with an estimated ejection fraction in the rang e of 50- 55%. RIGHT VENTRICLE Normal right ventricular size and systolic function. LEFT ATRIUM The left atrial size is upper limits of normal. RIGHT ATRIUM The right atrial size is normal. ATRIAL APPENDAGES Multi-lobular left atrial appendage with pectinate, no thrombus noted. The velocities in the left a trial appendage are normal. ATRIAL SEPTUM Normal atrial septal thickness without atrial level shunting by limited color doppler interrogation. AORTA The aortic root and proximal ascending aorta are normal in size on limited imaging. MITRAL VALVE Structurally normal mitral valve. [id number] mitral valve regurgitation. No mitral valve stenosis. AORTIC VALVE Trileaflet aortic valve. Trace aortic valve regurgitation. No aortic valve stenosis. TRICUSPID VALVE Structurally normal tricuspid valve. There is mild tricuspid valve regurgitation. No tricuspid valve stenosis. VESSELS No pulmonary valve regurgitation or stenosis. Joshua Mccain DO (Electronically Signed) Final Date:18 November 2018 17:26
--- NOTE | 2018-11-19 01:26 | ECG ---
Date Performed: 11/17/2018 Time Performed: 07:59:16 PTAGE: 83 years EKG: Probable Atach with 2:1 A-V block Inferior T wave changes are nonspecific Abnormal ECG Sinc e the PREVIOUS TRACING , no significant change noted DOCTOR: Joshua Mccain Interpretating Date/Time 11/19/2018 01:25:02
[2018-11-19] MEDS: Vancomycin Inj 1,000 MG in Sodium Chlor 0.9% Inj 250 ML IV.SIG SCH (06:23)
[2018-11-19 08:55] LABS: Glomerular Filtration Rate Greater Than 89 mL/min (>89)
[2018-11-19] MEDS: Senna/Docusate Sodium 8.6/50 MG Tablet PO SCH (08:59)
--- NOTE | 2018-11-19 09:40 | US ---
EXAM DATE: 11/19/2018 9:32 AM EST AGE/SEX: 83 years / Female INDICATIONS: Recurrent urinary tract infections. CLINICAL DATA: This is the patient's initial encounter. Patient reports that signs and symptoms have been present for 2 days and indicates a pain score of 1/10. MEDICAL/SURGICAL HISTORY: . Afib. Arthritis. GERD. Small bowel obstruction. Hypertension. Nephr otic syndrome. Wears glasses. Hysterectomy. Cardiac radiofrequency ablation. Appendectomy. Cholecys tectomy. Arthroscopy of right shoulder. Cataract extraction of both eyes with insertion of intraocula r lens. COMPARISON: [facility] [place], US KIDNEY/RENAL/BLADDER, 07/24/2018. [facility] [place], CT ABDOMEN & PELVIS W CONTRAST, 2017. . MEASUREMENTS: Right Kidney:__10.4 x 5.1 x 5.4 cm Left Kidney:__11.4 x 5.4 x 5.5 cm FINDINGS: Right Kidney: Normal echogenicity and cortical thickness. No mass or hydronephrosis. Left Kidney: Normal echogenicity and cortical thickness. No mass or hydronephrosis. Bladder: Within normal limits given the degree of distension. Other: None. CONCLUSION: 1. Negative renal sonogram. Electronically signed by: Christelle Ma MD Board Certified Radiologist 11/19/2018 9:39 AM EST
[2018-11-19 10:28] VITALS: RESP 18
[2018-11-19] MEDS: Acetaminophen 325 MG Tablet PO PRN (10:53)
--- NOTE | 2018-11-19 11:21 | P.DS ---
DS: Providers Date of admission: 11/16/18 22:15 Primary care physician: UNKNOWN Consults: 11/16/18 21:23 Consult to Cardiology Routine Consulting Provider: Deana King Does the patient have a Sanitarian Aide who follows them?: Yes Preferred Sand Technologist:: Deana King Reason for Consultation: Afib w/ RVR, Pt known to Dr. King CONSULT FOR AM Notified:: Service Spoke with:: chirag Date Notified:: 11/16/18 Time Notified:: 22:29 Comments:: Ordering Provider: ROGER 11/16/18 22:31 HUB Only Consult Order Routine Consulting Provider: Veronica Martin Brief History from admission: This is an 83-year-old female with a PMH of HTN, A. fib on Eliquis and h/o Recurrent UTI who presented to the ER w/ c/o generalized weakness and palpitations x2-3 days. States she's been on antibiotics over the last 3-4wks for UTI, notes h/o multiple medication allergies and was told by PCP there was no other option for treatment besides Clindamycin. Compliant w/ medications. Also follows w/ Dr. King as outpatient, last seen approx 2wks ago w/ normal eval. Denies chest pain or SOB. On arrival, noted to be in A-fib w/ RVR, HR 120's, s/p Cardizem IV x1 w/ improvement, however had recurrent RVR while in ER. Dr. Hamm consulted, recommendation for admission and further eval. BP 170/106, HR 115, O2 sat 98% on RA, Afebrile. CBC unremarkable. INR 1.0. Na 128. K+ 5.2. Troponin negative. UA positive for UTI. CXR with no acute findings besides cardiomegaly. DS: Diagnosis Discharge Diagnosis (1) Atrial tachycardia: Status: Acute (2) Dyspnea on exertion: Status: Acute (3) History of atrial fibrillation: Status: Chronic DS: Summary This is an 83-year-old female with a PMH of HTN, A. fib on Eliquis and h/o Recurrent UTI who presented to the ER w/ c/o generalized weakness and palpitations x2-3 days. On arrival, noted to be in A-fib w/ RVR, HR 120's, s/p Cardizem IV x1 w/ improvement, however had recurrent RVR while in ER. Atrial fibrillation with RVR, resolved Atrial tachycardia At home patient takes sotalol as well as apixaban. Cardiology consulted. Currently on sotalol 80 mg p.o. every 12 hours. s/p cardioversion by cardiology. patient is doing well Urinary tract infection with group b beta strep pansensitive patient with multiple abx allergy including penicillin allergy to continue clyndamycin Overactive bladder Patient has had multiple episodes of urinary tract infection. Urine culture is growing group D streptococcus. She has had anaphylactic type reactions to penicillins. We will start patient on vancomycin 15 mg/kg every 12 hours and obtain pharmacy consult Start oxybutynin 5 mg p.o. twice daily Accelerated hypertension Currently resolved. Upon admission, blood pressure was in the 190 systolic. Currently controlled Full code. Apixaban. DC home in stable condition to follow up as OP with PCP and consultants Time Spent with Patient Total time spent providing and/or coordinating discharge services:> 30 min Quality: VTE Deep Vein Thrombosis/Pulmonary Embolism Present on Admission: No Exam Narrative Exam Narrative: GENERAL: Well-nourished, well-developed patient. CARDIOVASCULAR: Regular rhythm, tachycardic without murmurs, gallops, or rubs. RESPIRATORY: Breath sounds equal bilaterally. No accessory muscle use. GASTROINTESTINAL: Abdomen soft, non-tender, nondistended. MUSCULOSKELETAL: No cyanosis, or edema. BACK: Nontender without obvious deformity. No CVA tenderness. Results Labs on day of discharge: Labs from last 24 hours 11/19/18 07:26 Creatinine 0.58 Estimated GFR Greater than 89 Impressions ITS Impressions Chest X-Ray 11/16/18 18:22 CONCLUSION: Cardiomegaly. Abdomen/Bladder Ultrasound 11/19/18 00:00 CONCLUSION: 1. Negative renal sonogram. Discharge Plan Discharge Disposition Patient Disposition: Discharge Home Discharge Order Discharge Orders: Discharge Order (Routine); Ordered 11/19/18 Ordered By: Roz Westbrook Discharge Details Anticipated Discharge Date: 11/19/18 Physicians Team Primary Care Provider: UNKNOWN, Attending Provider: Roz Westbrook Other Providers: Deana King [employer] Rxs /Orders / Referrals /Forms Prescriptions: New oxybutynin chloride 5 mg Tablet 5 mg PO BID Qty: 60 RF: 0 Continue clindamycin HCl 300 mg Capsule 300 mg PO QID RF: 0 sotalol 80 mg Tablet 80 mg PO Q12H RF: 0 omeprazole 20 mg Capsule,Delayed Release(Dr/Ec) 20 mg PO BID RF: 0 apixaban [Eliquis] 5 mg Tablet 5 mg PO BID RF: 0 hydrocodone-acetaminophen [[place]] 5-325 mg Tablet 2 tab PO Q6H Qty: 30 RF: 0 Discontinued amlodipine 5 mg Tablet 5 mg PO DAILY RF: 0 Referrals: UNKNOWN, [Primary Care Provider] - See Instructions (PCP in 2-3 days) Discharge Instructions Patient Printed Instructions: Oxybutynin (By mouth), A-fib (Atrial Fibrillation ) (DC), Transesophageal Echocardiogram (DC), Heart Healthy Diet (DC), Cardioversion (DC) Additional Instructions: Followup with Urology regarding recurring UTI Status ED Status: Left Department Discharge Information Discharge Date/Time: 11/19/18 14:11
[2018-11-19] MEDS ORDERED: Benzocaine/Menthol 15 MG/3.6 MG SF Lozenge BUCCAL PRN (12:00)
[2018-11-19] MEDS ORDERED: levoFLOXacin 750 MG Tablet PO SCH (12:00)
[2018-11-19 12:39] VITALS: BP 150/70; TEMP 98.5; O2SAT 97
--- NOTE | 2018-11-19 12:58 | P.PNCA ---
Subjective Interval history: No events overnight Continues in sinus rhythm Medications and Allergies Active Medications: Active Medications Acetaminophen (Tylenol) 650 mg PO Q4H PRN PRN Reason: Temp > 100.4 Last Admin: 11/19/18 10:53 Dose: 650 mg Al Hydroxide/Mg Hydroxide (Milk Of Magnesia Liq) 30 ml PO Q12H PRN PRN Reason: Mild Constipation Last Admin: 11/17/18 16:00 Dose: 30 ml Apixaban (Eliquis) 5 mg PO BID [facility] Last Admin: 11/19/18 08:59 Dose: 5 mg Benzocaine/Menthol (Cepacol Max Strength) 1 lozenge BUCCAL Q2H PRN PRN Reason: SORE THROAT Bisacodyl (Dulcolax Supp) 10 mg RECTAL DAILY PRN PRN Reason: SEVERE CONSITIPATION Sodium Chloride (Ns Inj) 1,000 mls @ 50 mls/hr IV.CONT .Q20H [facility] Last Infusion: 11/19/18 09:00 Dose: 0 mls/hr Vancomycin HCl 1,000 mg/ (Sodium Chloride) 250 mls @ 250 mls/hr IV.SIG Q18H [facility] Last Infusion: 11/19/18 08:57 Dose: Infused Lactulose (Lactulose Liq) 30 ml PO DAILY PRN PRN Reason: SEVERE CONSITIPATION Miscellaneous Information ([facility] Ordered Lab Info) 0 each OTHER ONCE ONE Stop: 11/20/18 17:46 Ondansetron HCl (Zofran Inj) 4 mg IV.PUSH Q6H PRN PRN Reason: NAUSEA OR VOMITING Last Admin: 11/17/18 22:10 Dose: 4 mg Oxybutynin Chloride (Ditropan) 5 mg PO BID [facility] Last Admin: 11/19/18 09:00 Dose: 5 mg Pantoprazole Sodium (Protonix) 40 mg PO DAILY [facility] Last Admin: 11/19/18 08:59 Dose: 40 mg Pharmacy Profile Note (Vancomycin Consult Pharmacy) 1 each OTHER UNSCH PRN PRN Reason: Pharmacy to dose Senna/Docusate Sodium (Catrachita-Colace) 1 tab PO BID [facility] Last Admin: 11/19/18 08:59 Dose: 1 tab Sennosides (Senokot) 17.2 mg PO Q12H PRN PRN Reason: Moderate Constipation Sodium Chloride (Ns Flush) 2 ml IV.FLUSH BID [facility] Last Admin: 11/19/18 09:00 Dose: Not Given Sodium Chloride (Ns Flush) 2 ml IV.FLUSH PRN PRN PRN Reason: FLUSH AFTER USING IV ACCESS Sotalol HCl (Betapace) 80 mg PO Q12H [facility] Last Admin: 11/19/18 10:53 Dose: 80 mg Allergies Allergy/AdvReac Type Severity Reaction Status Date / Time aspirin Allergy Severe "TOLD NOT Verified 08/23/18 17:50 TO TAKE ANY ANTIINFLAMMATORIES" cephalexin Allergy Severe "SWOLLEN Verified 08/23/18 17:50 THROAT,ITCHING ALL OVER" ibuprofen Allergy Severe "TOLD NOT Verified 08/23/18 17:50 TO TAKE ANYMORE" lisinopril Allergy Severe "RASH" Verified 08/23/18 17:50 nabumetone Allergy Severe "NEPHROTIC Verified 08/23/18 17:50 SYNDROME" NSAIDS (Non-Steroidal Allergy Severe advised Verified 08/23/18 17:50 Anti-Inflamma not to take anymore penicillin G Allergy Severe UNKNOWN Verified 08/23/18 17:50 Sulfa (Sulfonamide Allergy Severe "TOLD NOT Verified 08/23/18 17:50 Antibiotics) TO TAKE ANYMORE" adhesive Allergy Intermediate Rash Verified 08/23/18 17:50 digoxin Allergy Intermediate disorientat Verified 08/23/18 17:50 ion telmisartan Allergy Intermediate disorientat Verified 08/23/18 16:44 ion ciprofloxacin [From Cipro] Allergy Mild Generalized Verified 11/16/18 13:14 Rash Home Medications Medication Instructions Recorded Confirmed Type apixaban [Eliquis] 5 mg PO BID 06/28/18 11/16/18 History omeprazole 20 mg PO BID 06/28/18 11/16/18 History amlodipine 5 mg PO DAILY 08/23/18 11/16/18 History clindamycin HCl 300 mg PO QID 11/16/18 11/16/18 History sotalol 80 mg PO Q12H 11/16/18 11/16/18 History Physical Exam Vital signs: Vital Signs 11/18/18 13:00 11/18/18 14:00 11/18/18 15:00 Temperature Pulse Rate 64 70 75 Respiratory Rate Blood Pressure Pulse Oximetry 11/18/18 16:00 11/18/18 17:00 11/18/18 18:00 Temperature 99 F Pulse Rate 64 60 70 Respiratory Rate 18 Blood Pressure 117/60 Pulse Oximetry 97 11/18/18 19:00 11/18/18 20:00 11/18/18 21:00 Temperature 97.9 F Pulse Rate 61 63 64 Respiratory Rate 18 Blood Pressure 118/62 Pulse Oximetry 99 11/18/18 22:00 11/18/18 23:00 11/19/18 00:00 Temperature 97.7 F Pulse Rate 66 67 70 Respiratory Rate 18 Blood Pressure 137/71 Pulse Oximetry 97 11/19/18 01:00 11/19/18 02:00 11/19/18 03:00 Temperature Pulse Rate 102 H 63 72 Respiratory Rate Blood Pressure Pulse Oximetry 11/19/18 04:00 11/19/18 05:00 11/19/18 06:00 Temperature 98.1 F Pulse Rate 67 62 69 Respiratory Rate 16 Blood Pressure 126/68 Pulse Oximetry 96 11/19/18 07:00 11/19/18 08:00 11/19/18 12:00 Temperature 97.5 F L 98.5 F Pulse Rate 65 65 64 Respiratory Rate 18 18 Blood Pressure 129/75 150/70 H Pulse Oximetry 98 97 Intake & Output 11/18/18 11/19/18 11/19/18 18:59 06:59 18:59 Intake Total 1050 / 1050 1480 / 1480 20 / 20 Output Total 600 / 600 800 / 800 Balance 450 / 450 680 / 680 20 / 20 Weight 73.6 kg Intake: IV 350 / 350 1000 / 1000 20 / 20 NS Inj 1,000 ML @ 50 mls/hr IV. 1000 / 1000 CONT .Q20H [facility] Rx#:[id number] Azactam Inj 1,000 MG In NS Inj 100 / 100 100 ML @ 200 mls/hr IV.SIG Q8H [facility] Rx#:[id number] Vancomycin Inj 1,000 MG In NS 250 / 250 20 / 20 Inj 250 ML @ 250 mls/hr IV.SIG Q18H [facility] Rx#:[id number] Oral 700 / 700 480 / 480 Output: Urine 600 / 600 800 / 800 Other: Date of Last Bowel Movement 11/17/18 11/17/18 11/17/18 # Bowel Movements 0 Narrative: GENERAL: NAD, AAOx3 SKIN: Warm and dry. HEAD: Atraumatic. Normocephalic. EYES: Pupils equal and round. No scleral icterus. No injection or drainage. ENT: No nasal bleeding or discharge. Mucous membranes pink and moist. NECK: Trachea midline. No JVD. CARDIOVASCULAR: Regular rate and rhythm. RESPIRATORY: No accessory muscle use. Clear to auscultation. Breath sounds equal bilaterally. GASTROINTESTINAL: Abdomen soft, non-tender, nondistended. Hepatic and splenic margins not palpable. MUSCULOSKELETAL: Extremities without clubbing, cyanosis, or edema. No obvious deformities. NEUROLOGICAL: Awake and alert. No obvious cranial nerve deficits. Motor grossly within normal limits. Five out of 5 muscle strength in the arms and legs. Normal speech. PSYCHIATRIC: Appropriate mood and affect; insight and judgment normal. Results 11/17/18 04:49 11/19/18 07:26 Comprehensive Metabolic Panel 11/19/18 Range/Units 07:26 Creatinine 0.58 (0.50-1.00) mg/dL Intake and Output 11/18/18 11/19/18 11/19/18 22:59 06:59 14:59 Intake Total 1700 / 1700 480 / 480 Output Total 600 / 600 800 / 800 Balance 1100 / 1100 -320 / -320 Intake: IV 1000 / 1000 / 20 NS Inj 1,000 ML @ 50 mls/hr IV. 1000 / 1000 CONT .Q20H [facility] Rx#:[id number] Vancomycin Inj 1,000 MG In NS 20 Inj 250 ML @ 250 mls/hr IV.SIG Q18H [facility] Rx#:[id number] Oral 700 / 700 480 / 480 Output: Urine 600 / 600 800 / 800 Other: Date of Last Bowel Movement 11/17/18 11/17/18 11/17/18 # Bowel Movements 0 Weight 73.6 kg - Imaging and Cardiology Imaging: Impressions Abdomen/Bladder Ultrasound 11/19/18 00:00 CONCLUSION: 1. Negative renal sonogram. Assessment and Plan - Assessment (1) Atrial tachycardia Code(s): I47.1 - Supraventricular tachycardia Status: Acute (2) Dyspnea on exertion Code(s): R06.09 - Other forms of dyspnea Status: Acute (3) History of atrial fibrillation Code(s): Z86.79 - Personal history of other diseases of the circulatory system Status: Chronic - Plan 1) UTI Per primary team Avoid QT prolonging meds for anti-bx 2) Hx of AFib s/p 2 ablations Con't Eliquis 3) New onset atrial tachycardia s/p ANH/CV Currently sinus rhythm Con't Betapace for now 4) Cardiovascularly stable for discharge Will follow up with Dr. Howe then Dr. King
[2018-11-19 15:52] VITALS: PULSE 59
--- NOTE | 2018-11-19 23:44 | ECG ---
Date Performed: 11/18/2018 Time Performed: 11:35:30 PTAGE: 83 years EKG: Sinus rhythm WITH SINUS ARRHYTHMIA NONSPECIFIC T-WAVE ABNORMALITY BORDERLINE ECG PREVIOUS TRACING : 11/17/2018 07.59 Compared to previous tracing, now in sinus rhythm no longe r atrial tachycardia DOCTOR: Joshua Mccain Interpretating Date/Time 11/19/2018 23:43:01
[2018-11-20] MEDS ORDERED: Pharmacy Ordered Lab Info OTHER ONE (17:45)
== END 2018-11-19 14:11 | disposition home or self-care (01) | DRG 309 ==
LOC: NEDA 12:52 → NEPD 12:52 → OBSVTOIN 21:23 → NEDA 11-17 02:11 → HCPC 11-17 02:19 → HCIS 11-17 16:48
PROVIDERS: ADMIT Hospitalist; ATTEND Hospitalist
DX: Z87.441 Personal history of nephrotic syndrome; Z90.49 Acquired absence of other specified parts of digestive tract; Z88.0 Allergy status to penicillin; Z88.6 Allergy status to analgesic agent; R06.09 Other forms of dyspnea; I47.1 Supraventricular tachycardia; N39.0 Urinary tract infection, site not specified; I11.9 Hypertensive heart disease without heart failure; M19.90 Unspecified osteoarthritis, unspecified site; K21.9 Gastro-esophageal reflux disease without esophagitis; Z88.2 Allergy status to sulfonamides; Z79.01 Long term (current) use of anticoagulants; Z87.440 Personal history of urinary (tract) infections; N32.81 Overactive bladder; Z79.899 Other long term (current) drug therapy; B95.1 Streptococcus, group B, as the cause of diseases classified elsewhere; R00.2 Palpitations; E87.1 Hypo-osmolality and hyponatremia; Z88.8 Allergy status to other drugs, medicaments and biological substances; Z86.79 Personal history of other diseases of the circulatory system; I48.91 Unspecified atrial fibrillation; Z88.1 Allergy status to other antibiotic agents; Z90.710 Acquired absence of both cervix and uterus
CPT/HCPCS: 71010; 71045; 76775; 80053; 81001; 82550; 82552; 82565; 83735; 84443; 84484; 85025; 85610; 85730; 86403; 87086; 90761; 90774; 90784; 93005; 93312; 93320; 93325; 96361; 96374; 99285; C8952; J2405; J3370; J7030; J7050